=== PATIENT | male | born 1955 | race Caucasian/White ===

== ENCOUNTER → 2018-05-06 09:31 | Outpatient (CLI) | payer MEDICARE, SELFPAY ==
[2018-05-06 11:09] LABS: Amphetamine Urine VISTA NEGATIVE (<1000 ng/mL); Barbiturate Urine VISTA NEGATIVE (< 200 ng/mL); Benzodiazepine Urine VISTA NEGATIVE (< 200 ng/mL); Cocaine Urine VISTA NEGATIVE (< 300 ng/mL); Ecstacy Urine VISTA NEGATIVE (< 500 ng/mL); Methadone Urine VISTA NEGATIVE (< 300 ng/mL); PCP Urine VISTA NEGATIVE (< 25 ng/mL); THC Urine VISTA NEGATIVE (< 50 ng/mL); Vista UDS pH Range 6
== END ==
PROVIDERS: Family Provider Family Medicine; PCP Family Medicine; Visit Provider Anesthesiology Pain Medicine
DX: F11.20 Opioid dependence, uncomplicated (principal)
CPT/HCPCS: 80307

== ENCOUNTER → 2018-10-22 09:47 | Outpatient (CLI) | payer MEDICARE, SELFPAY ==
[2018-10-22 11:10] LABS: Amphetamine Urine VISTA NEGATIVE (<1000 ng/mL); Barbiturate Urine VISTA NEGATIVE (< 200 ng/mL); Benzodiazepine Urine VISTA NEGATIVE (< 200 ng/mL); Cocaine Urine VISTA NEGATIVE (< 300 ng/mL); Ecstacy Urine VISTA NEGATIVE (< 500 ng/mL); Methadone Urine VISTA NEGATIVE (< 300 ng/mL); PCP Urine VISTA NEGATIVE (< 25 ng/mL); THC Urine VISTA NEGATIVE (< 50 ng/mL); Vista UDS pH Range 5
== END ==
PROVIDERS: Family Provider Family Medicine; PCP Family Medicine; Referring Provider Anesthesiology Pain Medicine; Visit Provider Anesthesiology Pain Medicine
DX: F11.20 Opioid dependence, uncomplicated (principal)
CPT/HCPCS: 80307

== ENCOUNTER → 2018-12-11 12:26 | Outpatient (CLI) | payer MEDICARE, SELFPAY ==
[2018-12-11 16:04] LABS: Anion Gap 8 (5-15); BUN 15 mg/dL (7-18); BUN/Creat Ratio 15.1 RATIO (10-20); Calcium,Total 8.9 mg/dL (8.5-10.1); Chloride 103 mmol/L (98-107); Cholesterol 304 mg/dL (200); EST Glomerular Filtration Rate 80 mL/min (>60); Est Glom Filt Rate - Afr Amer 97 mL/min (>60); Glucose 97 mg/dL (74-106); High Density Lipoprotein 63 mg/dL; Potassium 4.5 mmol/L (3.5-5.1); Sodium Level 139 mmol/L (136-145); Triglycerides 287 mg/dL; Very Low Density Lipoprotein 57 mg/dL (5-40)
[2018-12-11 16:18] LABS: Hemoglobin A1c 5.9 % (4.2-6.3)
[2018-12-14 08:34] LABS: Uric Acid 8.6 mg/dL (3.5-7.2)
== END ==
PROVIDERS: Family Provider Family Medicine; PCP Family Medicine; Referring Provider Family Medicine; Visit Provider Family Medicine
DX: E78.00 Pure hypercholesterolemia, unspecified (principal); Z12.5 Encounter for screening for malignant neoplasm of prostate; R73.02 Impaired glucose tolerance (oral); M10.9 Gout, unspecified
CPT/HCPCS: 36415; 80048; 80061; 83036; 84153; 84550; G0103

== ENCOUNTER → 2019-04-29 12:31 | Outpatient (CLI) | payer MEDICARE, SELFPAY ==
[2019-04-29 14:03] LABS: Cholesterol 280 mg/dL (200); High Density Lipoprotein 83 mg/dL; Triglycerides 89 mg/dL; Uric Acid 5.1 mg/dL (3.5-7.2); Very Low Density Lipoprotein 18 mg/dL (5-40)
== END ==
PROVIDERS: Family Provider Family Medicine; PCP Family Medicine; Referring Provider Family Medicine; Visit Provider Family Medicine
DX: M10.9 Gout, unspecified (principal); E78.00 Pure hypercholesterolemia, unspecified
CPT/HCPCS: 36415; 80061; 84550

== ENCOUNTER → 2019-04-30 11:32 | Outpatient (CLI) | payer MEDICARE, SELFPAY ==
--- NOTE | 2019-04-30 11:35 | US_ITS ---
STUDY: SUPERFICIAL ULTRASOUND - LEFT ACHILLES REASON FOR EXAM: Male, 64 years old. Multiple ganglion cysts TECHNIQUE: A superficial ultrasound was performed with real-time and static hillman-scale imaging. COMPARISON: None. FINDINGS: Multiple hyperechoic areas seen throughout the left Achilles tendon medially. No definite simple cystic formation. MRI recommended to further evaluate US/Ext Non Vasc Limited/Soft Tiss IMPRESSION: As above Electronically Signed: Deniz Khan DO at 14:35 EDT Tel , Service support ,
== END ==
PROVIDERS: Family Provider Family Medicine; PCP Family Medicine; Referring Provider Family Medicine; Visit Provider Family Medicine
DX: M67.472 Ganglion, left ankle and foot (principal)
CPT/HCPCS: 76882

== ENCOUNTER → 2019-05-05 08:16 | Outpatient (CLI) | payer MEDICARE, SELFPAY ==
[2019-05-05 08:09] VITALS: BMI 21.5
--- NOTE | 2019-05-05 08:15 | RAD_ITS ---
STUDY: X-RAY - LEFT ANKLE REASON FOR EXAM: Male, 64 years old. Posterior ankle pain x a few days. TECHNIQUE: 3 view(s) of the ankle. COMPARISON: None. FINDINGS: There are transverse linear sclerotic densities consistent with growth arrest lines in the distal diaphyses of the visualized tibia and fibula. Normal medial and lateral malleoli. Normal tibiotalar articulation and ankle mortise. Normal visualized talus and there is a small plantar spur of the calcaneus. The visualized subtalar, talonavicular, calcaneocuboid and tarsal articulations are normal. There is no demonstrated osseous destructive lesion or acute fracture. Calcifications anterior to the distal tibia and ankle suggests plaquing in the anterior tibial artery and dorsalis pedis. There is a cluster of elongated calcifications in the dorsal soft tissues of the distal lower leg that may be in the Achilles tendon. RAD/Ankle min 3 Views IMPRESSION: 1. No acute osseous abnormality of the left ankle. 2. Atherosclerotic calcification of the distal anterior tibial artery and dorsalis pedis. 3. Degenerative calcifications in the Achilles tendon. 4. Small plantar calcaneal spur. Electronically Signed: Timothy Mccabe MD at 16:55 EDT , Service support ,
== END ==
PROVIDERS: Family Provider Family Medicine; PCP Family Medicine; Referring Provider Orthopaedic Surgery; Visit Provider Orthopaedic Surgery
DX: M25.572 Pain in left ankle and joints of left foot (principal)
CPT/HCPCS: 73610

== ENCOUNTER → 2019-06-17 10:27 | Outpatient (CLI) | payer MEDICARE, SELFPAY ==
[2019-05-05 08:09] VITALS: BMI 21.5
[2019-06-17 12:33] LABS: Anion Gap 8 (5-15); BUN 13 mg/dL (7-18); BUN/Creat Ratio 15.3 RATIO (10-20); Calcium,Total 9.1 mg/dL (8.5-10.1); Chloride 106 mmol/L (98-107); Creatinine, Serum 0.85 mg/dL (0.70-1.30); EST Glomerular Filtration Rate 96 mL/min (>60); Est Glom Filt Rate - Afr Amer 116 mL/min (>60); Glucose 107 mg/dL (74-106); Potassium 4.3 mmol/L (3.5-5.1); Sodium Level 143 mmol/L (136-145)
== END ==
PROVIDERS: Family Provider Family Medicine; PCP Family Medicine; Referring Provider Family Medicine; Visit Provider Family Medicine
DX: I10 Essential (primary) hypertension (principal)
CPT/HCPCS: 36415; 80048

== ENCOUNTER → 2019-08-11 10:26 | Outpatient (CLI) | payer MEDICARE, SELFPAY ==
[2019-05-05 08:09] VITALS: BMI 21.5
--- NOTE | 2019-08-11 10:29 | RAD_ITS ---
STUDY: X-RAY - LEFT SHOULDER REASON FOR EXAM: Male, 64 years old. Chronic pain TECHNIQUE: 4 view(s) of the shoulder. COMPARISON: None. FINDINGS: Normal glenohumeral articulation. Normal acromioclavicular joint. Normal acromion. Normal humeral head and visualized proximal humerus. The soft tissue structures are unremarkable. Normal visualized pulmonary apex. RAD/Shoulder min 2 Views IMPRESSION: Normal x-ray examination of the shoulder. Electronically Signed: Durga Theodore MD at 20:28 EST , Service support ,
--- NOTE | 2019-08-11 10:29 | RAD_ITS ---
STUDY: X-RAY - RIGHT KNEE REASON FOR EXAM: Male, 64 years old. Chronic pain TECHNIQUE: 4 view(s) of the knee. COMPARISON: None. FINDINGS: Normal visualized distal femur. Normal visualized proximal tibia and fibula. Normal proximal tibiofibular articulation. There is mild degenerative arthrosis of the medial femorotibial compartment. There is mild degenerative arthrosis of the lateral femorotibial compartment. There is mild degenerative arthrosis of the patellofemoral articulation. The soft tissue structures are unremarkable. RAD/Knee 4 or More Views IMPRESSION: Mild tricompartmental degenerative changes of the right knee. Electronically Signed: Durga Theodore MD at 20:30 EST , Service support ,
== END ==
PROVIDERS: Family Provider Family Medicine; PCP Family Medicine; Referring Provider Family Medicine; Visit Provider Family Medicine
DX: M25.561 Pain in right knee (principal); M25.512 Pain in left shoulder
CPT/HCPCS: 73030; 73564

== ENCOUNTER → 2019-08-17 15:47 | Outpatient (CLI) | payer MEDICARE, SELFPAY ==
[2019-05-05 08:09] VITALS: BMI 21.5
[2019-08-17 18:31] LABS: Amphetamine Urine VISTA NEGATIVE (<1000 ng/mL); Barbiturate Urine VISTA NEGATIVE (< 200 ng/mL); Benzodiazepine Urine VISTA NEGATIVE (< 200 ng/mL); Cocaine Urine VISTA NEGATIVE (< 300 ng/mL); Ecstacy Urine VISTA NEGATIVE (< 500 ng/mL); Methadone Urine VISTA NEGATIVE (< 300 ng/mL); PCP Urine VISTA NEGATIVE (< 25 ng/mL); THC Urine VISTA NEGATIVE (< 50 ng/mL); Vista UDS pH Range 6
== END ==
PROVIDERS: Family Provider Family Medicine; PCP Family Medicine; Referring Provider Anesthesiology Pain Medicine; Visit Provider Anesthesiology Pain Medicine
DX: F11.20 Opioid dependence, uncomplicated (principal)
CPT/HCPCS: 80307

== ENCOUNTER → 2019-10-05 08:55 | Outpatient (CLI) | payer MEDICARE, SELFPAY ==
[2019-05-05 08:09] VITALS: BMI 21.5
[2019-10-05 10:27] LABS: ALB/GLOB Ratio 1.2 RATIO (0.9-2.4); AST(SGOT) 29 U/L (15-37); Alanine Aminotransfer ALT/SGPT 67 U/L (16-61); Alkaline Phosphatase 116 U/L (45-117); Anion Gap 6 (5-15); BUN 11 mg/dL (7-18); BUN/Creat Ratio 10.1 RATIO (10-20); Calcium,Total 9.2 mg/dL (8.5-10.1); Chloride 106 mmol/L (98-107); Cholesterol 229 mg/dL (200); Creatinine, Serum 1.09 mg/dL (0.70-1.30); EST Glomerular Filtration Rate 72 mL/min (>60); Est Glom Filt Rate - Afr Amer 87 mL/min (>60); Globulin 3.3 g/dL (2.2-4.2); Glucose 105 mg/dL (74-106); High Density Lipoprotein 76 mg/dL; PSA,Total- Diagnostic 0.47 ng/mL (0.0-4.0); Potassium 4.7 mmol/L (3.5-5.1); Protein, Total 7.3 g/dL (6.4-8.2); Sodium Level 139 mmol/L (136-145); Triglycerides 147 mg/dL; Very Low Density Lipoprotein 29 mg/dL (5-40)
== END ==
PROVIDERS: PCP Family Medicine; Referring Provider Family Medicine; Visit Provider Family Medicine
DX: I10 Essential (primary) hypertension (principal); R39.11 Hesitancy of micturition
CPT/HCPCS: 36415; 80053; 80061; 84153

== ENCOUNTER → 2020-03-07 13:41 | Outpatient (CLI) | payer MEDICARE, SELFPAY ==
[2019-05-05 08:09] VITALS: BMI 21.5
[2020-03-07 15:49] LABS: Amphetamine Urine VISTA NEGATIVE (<1000 ng/mL); Barbiturate Urine VISTA NEGATIVE (< 200 ng/mL); Benzodiazepine Urine VISTA NEGATIVE (< 200 ng/mL); Cocaine Urine VISTA NEGATIVE (< 300 ng/mL); Ecstacy Urine VISTA NEGATIVE (< 500 ng/mL); Methadone Urine VISTA NEGATIVE (< 300 ng/mL); PCP Urine VISTA NEGATIVE (< 25 ng/mL); THC Urine VISTA NEGATIVE (< 50 ng/mL); Vista UDS pH Range 6
== END ==
PROVIDERS: PCP Family Medicine; Referring Provider Anesthesiology Pain Medicine; Visit Provider Anesthesiology Pain Medicine
DX: F11.20 Opioid dependence, uncomplicated (principal)
CPT/HCPCS: 80307

== ENCOUNTER → 2020-08-01 15:42 | Outpatient (CLI) | payer MEDICARE, SELFPAY ==
[2019-05-05 08:09] VITALS: BMI 21.5
--- NOTE | 2020-08-01 15:52 | RAD_ITS ---
HISTORY: CHRONIC LBP, NKI ADDITIONAL HISTORY: None provided. EXAMINATION/TECHNIQUE: XR Spine Lumbar 2 or 3 Views Number of images including paperwork: 3 COMPARISON: None FINDINGS: VERTEBRAE: No acute fracture. VERTEBRAL ALIGNMENT: No traumatic subluxation. DISKS AND JOINTS: Severe discogenic degenerative changes at L5-S1 with disc space narrowing and endplate sclerosis. Mild to moderate discogenic degenerative changes elsewhere in the lumbar spine. Facet arthropathy. SOFT TISSUES: Unremarkable paraspinous soft tissues. RAD/Lumbar Spine 2 or 3 Views IMPRESSION: Lumbar spondylosis. at 0547 Reported and signed by: Kimberley Rebolledo MD Electronically Signed: Kimberley Rebolledo MD at 5:46 EST Tel , Service support ,
== END ==
PROVIDERS: PCP Family Medicine; Referring Provider Anesthesiology Pain Medicine; Visit Provider Anesthesiology Pain Medicine
DX: M54.9 Dorsalgia, unspecified (principal)
CPT/HCPCS: 72100

== ENCOUNTER → 2020-09-21 13:55 | Outpatient (CLI) | payer MEDICARE, SELFPAY ==
[2019-05-05 08:09] VITALS: BMI 21.5
== END ==
PROVIDERS: PCP Family Medicine; Visit Provider Family Medicine
DX: J20.9 Acute bronchitis, unspecified (principal)
CPT/HCPCS: 87635; U0005; U0003

== ENCOUNTER → 2020-09-22 09:44 | Outpatient (CLI) | payer MEDICARE, SELFPAY ==
[2019-05-05 08:09] VITALS: BMI 21.5
--- NOTE | 2020-09-22 09:47 | RAD_ITS ---
STUDY: X-RAY CHEST REASON FOR EXAM: Male, 65 years old. acute bronchitis TECHNIQUE: 2 views COMPARISON: Prior chest radiograph of 12/08/2015 FINDINGS: The lungs are clear and expanded. There is no demonstrated pleural abnormality. Normal size heart. Normal mediastinum and tova. Normal visualized pulmonary arteries. Normal visualized aortic arch and descending thoracic aorta. Normal visualized thoracic spine. Normal visualized ribs, clavicles, and shoulders. There is no demonstrated abnormality of the visualized soft tissue structures of the upper abdomen. RAD/Chest PA and Lateral IMPRESSION: Normal x-ray examination of the chest. Electronically Signed: Concetta Giron MD at 16:52 EST , Service support ,
== END ==
PROVIDERS: PCP Family Medicine; Referring Provider Family Medicine; Visit Provider Family Medicine
DX: J20.9 Acute bronchitis, unspecified (principal)
CPT/HCPCS: 71046

== ENCOUNTER → 2020-10-04 18:13 | Outpatient (CLI) | payer MEDICARE, SELFPAY ==
[2019-05-05 08:09] VITALS: BMI 21.5
== END ==
PROVIDERS: PCP Family Medicine; Referring Provider Family Medicine; Visit Provider Family Medicine
DX: J20.9 Acute bronchitis, unspecified (principal)
CPT/HCPCS: 87635; U0005; U0003

== ENCOUNTER → 2020-10-11 11:42 | Outpatient (CLI) | payer MEDICARE, SELFPAY ==
[2019-05-05 08:09] VITALS: BMI 21.5
[2020-10-11 15:29] LABS: Absolute Lymphocyte Count 1.09 X10^3/uL (0.83-4.51); Absolute Neutrophil Count 3.9 X10^3/uL (2.0-7.7); Basophil# 0.05 X10^3/uL; Basophil% 0.9 % (0-1); Eosinophil# 0.08 X10^3/uL; Eosinophils% 1.4 % (0-5); Hematocrit 38.4 % (40-54); Hemoglobin 11.7 g/dL (13.0-16.5); Lymphocyte # 1.09 X10^3/ul (4.0); Lymphocyte % 19.4 % (19-41); Mean Corp Hgb Conc 30.5 g/dL (32-36); Mean Corpuscular Hgb 21.5 pg (27.0-32.0); Mean Corpuscular Volume 70.5 fL (80-94); Mean Platelet Vol. 11.3 fl (6.2-12.0); Monocyte# 0.52 X10^3/uL; Monocyte% 9.3 % (0-10); NRBC Flagged by Analyzer 0 % (0-5); Neutrophil # 3.85 X10^3/uL (2.7-7.7); Neutrophil % 68.6 % (47-70); Platelet Count 255 K/mm3 (150-450); RBC Distribution Width CV 17.2 % (11.6-14.6); RBC Distribution Width SD 42.5 fl (35.1-43.9); Red Blood Count 5.45 M/mm3 (4.6-6.2); White Blood Count 5.6 K/mm3 (4.4-11.0)
[2020-10-11 15:52] LABS: ALB/GLOB Ratio 1.4 RATIO (0.9-2.4); AST(SGOT) 29 U/L (15-37); Alanine Aminotransfer ALT/SGPT 48 U/L (16-61); Albumin, Serum 4.2 g/dL (3.2-5.0); Alkaline Phosphatase 101 U/L (45-117); Anion Gap 7 (5-15); BUN 10 mg/dL (7-18); BUN/Creat Ratio 12.8 RATIO (10-20); Calcium,Total 9.5 mg/dL (8.5-10.1); Chloride 104 mmol/L (98-107); Creatinine, Serum 0.78 mg/dL (0.70-1.30); EST Glomerular Filtration Rate 106 mL/min (>60); Est Glom Filt Rate - Afr Amer 128 mL/min (>60); Glucose 103 mg/dL (74-106); Potassium 3.9 mmol/L (3.5-5.1); Protein, Total 7.2 g/dL (6.4-8.2); Sodium Level 139 mmol/L (136-145)
[2020-10-12 09:29] LABS: Ferritin 255 ng/mL (26-388); Iron 87 ug/dL (65-175); Iron Binding Capacity,Total 316 ug/dL (250-450); PERCENT IRON SATURATION 27.5 % (15.0-55.0)
== END ==
PROVIDERS: Family Medicine; PCP Family Medicine; Referring Provider Family Medicine; Visit Provider Family Medicine
DX: D50.9 Iron deficiency anemia, unspecified (principal); I10 Essential (primary) hypertension
CPT/HCPCS: 36415; 80053; 82728; 83540; 83550; 84443; 85025

== ENCOUNTER 2020-10-21 00:19 | Emergency (ER) | payer MEDICARE, SELFPAY ==
[2019-05-05 08:09] VITALS: BMI 21.5
[2020-10-21 00:20] VITALS: BP 156/78; PULSE 57; RESP 16; TEMP 36.7; O2SAT 100; BMI 24.0
[2020-10-21 00:23] VITALS: BP 156/78; PULSE 60; RESP 16; TEMP 36.6; O2SAT 99
--- NOTE | 2020-10-21 00:27 | CT_ITS ---
STUDY: CTA HEAD AND NECK WITH CONTRAST REASON FOR EXAM: Male, 65 years old. GALDAMEZ BEHIND RIGHT EYE, NAUSEA, PHOTOPHOBIA RADIATION DOSAGE (If Supplied By Facility): CTDIvol = ( 27.55 ) mGy, DLP = ( 1518.93 ) mGycm TECHNIQUE: CT angiography was performed with a multi-detector CT scanner. Data acquisition was obtained from the skull base through the vertex following intravenous administration of IV-100 ML ISOVUE 370. MIP images were reconstructed from the axial data set. Post-processing of the angiographic images was performed, with multiplanar reformation and 3D reconstruction. Individualized dose optimization techniques were used for this CT. COMPARISON: No relevant priors. FINDINGS: Normal bilateral petrous carotid arteries. Normal right cavernous carotid artery with a normal supraclinoid bifurcation. Normal left cavernous carotid artery with a normal supraclinoid bifurcation. Normal right A1 segments of the anterior cerebral artery. Normal left A1 segments of the anterior cerebral artery. Normal intact anterior communicating artery (ACOM). Normal bilateral A2 segments of the anterior cerebral arteries. Normal right M1 and M2 segments of the middle cerebral arteries, with a normal M1 bifurcation. Normal left M1 and M2 segments of the middle cerebral arteries, with a normal M1 bifurcation. Normal right posterior communicating artery (PCOM). Normal left posterior communicating artery (PCOM). Normal bilateral vertebral arteries. Normal basilar artery with a normal basilar bifurcation. The visualized bilateral superior cerebellar (SCA) arteries are normal. Hypoplastic right P1 segment and normal bilateral P2 and visualized P3 segments of the posterior cerebral arteries. There is no demonstrated aneurysm of the jena of Amin. There is no demonstrated abnormality of the visualized brain. AORTIC ARCH: Normal visualized aortic arch. Normal origins of the brachiocephalic, left common carotid, and left subclavian arteries. RIGHT CAROTID ARTERIES: Normal right common carotid artery (CCA). There is moderate atherosclerotic plaque formation with moderate narrowing of the right carotid bulb. There is moderate atherosclerotic plaque formation of the origin of the right internal carotid artery with an estimated stenosis of 50-69% stenosis. Normal visualized cervical portion of the right internal carotid artery. Normal origin of the right external carotid artery (ECA). LEFT CAROTID ARTERIES: Normal left common carotid artery (CCA). There is moderate atherosclerotic plaque formation with moderate narrowing of the carotid bulb. Normal origin of the left internal carotid (ICA) artery without a hemodynamically significant stenosis. Normal visualized cervical portion of the left internal carotid artery. Normal origin of the left external carotid artery (ECA). VERTEBRAL ARTERIES: Normal bilateral vertebral arteries. CT/CTA Head AND Neck W/ Contrast IMPRESSION: Moderate atherosclerotic changes at the carotid bulbs with 50-69% % stenosis at the origin of the right ICA. There is no intrahepatic aneurysm. There is no intracranial hemorrhage. Electronically Signed: Abbie Abbott MD at 1:22 EST Tel , Service support ,
--- NOTE | 2020-10-21 00:29 | ED.DCSUM_ITS ---
History of Present Illness Chief Complaint: Headache Informant: Patient Narrative: 65-year-old male presenting with headache. He states it feels like it is behind his right eye and on the right side of his head. Patient states he woke up with his headache yesterday. He says it has come and gone but has been persistent for the last couple of hours. He denies dizziness or lightheadedness. He is able to ambulate without difficulty. He has no numbness or tingling in his extremities. He states he has had headaches in the past but does not have migraine history. He states he has not had a headache this bad before. He denies chest pain, palpitations, shortness of breath. He denies fever or chills. Past Medical History - Allergies and Home Meds Allergies/Adverse Reactions: Allergies Sulfa (Sulfonamide Antibiotics) Allergy (Verified 10/21/20 00:19) Unknown Primary Care Physician: Jordan Jung MD [Primary Care Provider] - Past Medical History: - - Gout, hyperlipidemia, hypertension Surgical History: noncontributory Lives: Spouse/ Significant Other Smoking Status: Never smoker Drugs: None Review of Systems General: Denies: Chills, Fever, Sweats Eyes: Denies: Visual changes - bilaterally, Diplopia ENT: Denies: Rhinorrhea, Sore throat Cardiovascular: Denies: Chest pain, Palpitations Respiratory: Denies: Dyspnea, Cough, Dyspnea on exertion Gastrointestinal: Denies: Abdominal pain, Nausea, Vomiting, Diarrhea, Melena, Hematochezia Genitourinary: Denies: Dysuria, Hematuria, Frequency Musculoskeletal: Reports: Neck pain - Right-sided anterior neck pain. Denies: Back pain, Extremity Pain Skin: Denies: Rash, Wounds Neurological: Reports: Headache. Denies: Parasthesia, Numbness Psych: Denies: Depression, Anxiety Physical Exam Vital Signs/Narrative: Vital Signs Temp Pulse Resp BP Pulse Ox 10/21/20 00:23 98 F 60 16 156/78 H 99 10/21/20 00:20 98.0 F 57 L 16 156/78 H 100 Inital Vital Signs reviewed: Yes General: Well nourished, No Acute Distress Head: Normocephalic, Atraumatic Eyes: Perrl, EOMI ENT: Moist mucous membranes, No rhinorrhea Neck: - - Mild tenderness to the right anterior portion of the neck without swelling. No palpable lymphadenopathy. No stridor. No bruit. Cardiovascular: Regular rate, Regular rhythm Respiratory: No distress, CTA bilaterally Extremities: Nontender, No edema Skin: Normal color, No rash Neurological: Alert, Oriented x3, Cranial nerves II-XII grossly intact Psychological: Normal affect, Normal Mood Diagnostic/Tx/Re-eval Clinical Impression(s) from Imaging Studies Head/Neck CTA 10/21/20 00:27 IMPRESSION: Moderate atherosclerotic changes at the carotid bulbs with 50-69% % stenosis at the origin of the right ICA. There is no intrahepatic aneurysm. There is no intracranial hemorrhage. Electronically Signed: Abbie Abbott MD at 1:22 EST Tel , Service support , Laboratory Data 10/21/20 10/21/20 00:39 00:39 WBC 10.3 RBC 5.69 Hgb 12.4 L Hct 39.4 L MCV 69.2 L MCH 21.8 L MCHC 31.5 L RDW Std Deviation 39.6 RDW Coeff of Mga 16.4 H Plt Count 262 MPV 10.0 Immature Gran % (Auto) 1.500 H Neut % (Auto) 73.4 H Lymph % (Auto) 12.7 L Reynolds % (Auto) 8.2 Eos % (Auto) 3.6 Baso % (Auto) 0.6 Absolute Neuts (auto) 7.6 Absolute Lymphs (auto) 1.31 Nucleated RBC % 0 Sodium 138 Potassium 4.0 Chloride 103 Carbon Dioxide 31.0 Anion Gap 4 L BUN 11 Creatinine 0.91 Estim Creat Clear Calc 81.33 Est GFR (MDRD) Af Amer 106 Est GFR (MDRD) Non-Af 88 BUN/Creatinine Ratio 12.0 Glucose 121 H Calcium 9.2 Total Bilirubin 0.40 AST 33 ALT 102 H Alkaline Phosphatase 137 H Total Protein 7.0 Albumin 3.8 Globulin 3.2 Albumin/Globulin Ratio 1.2 - Medical Decision Making 65-year-old male presenting with headache which she states is behind his right eye. He also states that relates to some pain in the right side of his neck. Patient was given Reglan and Benadryl and taken to CT I have concern for possible dissection. CTA was negative for aneurysm or dissection. There is no intracranial bleeding. Patient had CBC and BMP which were unremarkable. Patient's headache was improved somewhat and he was given Toradol after his CTA. After his Toradol was given he felt improved and wished to be discharged home. Patient's blood pressure is slightly elevated but I do not believe he needs to have it treated acutely. He is not sure if his blood pressure was more elevated at home and that was what his primary care physician sent him in for. He will take his already prescribed medication and follow-up with his PCP. Impression: 1. Headache 2. Neck pain ED Disposition - Plan for ED Patient: Disposition: Home or Assisted Living Instructions: ED Headache Unspecified Referrals: Jordan Jung MD [Primary Care Provider] -
[2020-10-21 00:33] VITALS: BP 153/71; PULSE 61; RESP 18; O2SAT 99
[2020-10-21] MEDS: Metoclopramide 10 MG/2 ML Vial IV (00:41)
[2020-10-21] MEDS: DiphenhydrAMINE 50 MG/ML Syringe 25 MG IV (00:42)
[2020-10-21 00:45] LABS: Absolute Lymphocyte Count 1.31 X10^3/uL (0.83-4.51); Absolute Neutrophil Count 7.6 X10^3/uL (2.0-7.7); Basophil# 0.06 X10^3/uL; Basophil% 0.6 % (0-1); Eosinophil# 0.37 X10^3/uL; Eosinophils% 3.6 % (0-5); Hematocrit 39.4 % (40-54); Hemoglobin 12.4 g/dL (13.0-16.5); Lymphocyte # 1.31 X10^3/ul (4.0); Lymphocyte % 12.7 % (19-41); Mean Corp Hgb Conc 31.5 g/dL (32-36); Mean Corpuscular Hgb 21.8 pg (27.0-32.0); Mean Corpuscular Volume 69.2 fL (80-94); Monocyte# 0.85 X10^3/uL; Monocyte% 8.2 % (0-10); NRBC Flagged by Analyzer 0 % (0-5); Neutrophil # 7.58 X10^3/uL (2.7-7.7); Neutrophil % 73.4 % (47-70); Platelet Count 262 K/mm3 (150-450); RBC Distribution Width CV 16.4 % (11.6-14.6); RBC Distribution Width SD 39.6 fl (35.1-43.9); Red Blood Count 5.69 M/mm3 (4.6-6.2); White Blood Count 10.3 K/mm3 (4.4-11.0)
[2020-10-21 01:03] LABS: ALB/GLOB Ratio 1.2 RATIO (0.9-2.4); AST(SGOT) 33 U/L (15-37); Alanine Aminotransfer ALT/SGPT 102 U/L (16-61); Albumin, Serum 3.8 g/dL (3.2-5.0); Alkaline Phosphatase 137 U/L (45-117); Anion Gap 4 (5-15); BUN 11 mg/dL (7-18); Calcium,Total 9.2 mg/dL (8.5-10.1); Chloride 103 mmol/L (98-107); Creatinine, Serum 0.91 mg/dL (0.70-1.30); EST Glomerular Filtration Rate 88 mL/min (>60); Est Glom Filt Rate - Afr Amer 106 mL/min (>60); Estimated Creatinine Clearance 81.33 ml/min; Globulin 3.2 g/dL (2.2-4.2); Glucose 121 mg/dL (74-106); Sodium Level 138 mmol/L (136-145)
[2020-10-21] MEDS: Ketorolac 15 MG/ML Vial IV (02:05)
== END 2020-10-21 02:07 | disposition home or self-care (01) ==
PROVIDERS: Emergency Provider Student in an Organized Health Care Education/Training Program; PCP Family Medicine
DX: R51.9 Headache, unspecified (principal); M54.2 Cervicalgia; E78.5 Hyperlipidemia, unspecified; I10 Essential (primary) hypertension; Z88.2 Allergy status to sulfonamides; M10.9 Gout, unspecified
CPT/HCPCS: 70496; 70498; 80053; 85025; 96374; 96375; 99282; Q9967; A4216

== ENCOUNTER → 2021-01-23 10:00 | Outpatient (CLI) | payer MEDICARE, SELFPAY ==
[2021-01-23 12:29] LABS: Absolute Lymphocyte Count 1.07 X10^3/uL (0.83-4.51); Absolute Neutrophil Count 2.9 X10^3/uL (2.0-7.7); Basophil# 0.06 X10^3/uL; Basophil% 1.3 % (0-1); Eosinophil# 0.25 X10^3/uL; Eosinophils% 5.4 % (0-5); Hematocrit 33.3 % (40-54); Hemoglobin 10.5 g/dL (13.0-16.5); Lymphocyte # 1.07 X10^3/ul (0.83-4.51); Mean Corp Hgb Conc 31.5 g/dL (32-36); Mean Corpuscular Hgb 21.8 pg (27.0-32.0); Mean Corpuscular Volume 69.2 fL (80-94); Mean Platelet Vol. 10.7 fl (6.2-12.0); Monocyte% 8.6 % (0-10); NRBC Flagged by Analyzer 0 % (0-5); Neutrophil # 2.85 X10^3/uL (2.7-7.7); Neutrophil % 61.3 % (47-70); Platelet Count 211 K/mm3 (150-450); RBC Distribution Width CV 17.2 % (11.6-14.6); RBC Distribution Width SD 42.4 fl (35.1-43.9); Red Blood Count 4.81 M/mm3 (4.6-6.2); White Blood Count 4.7 K/mm3 (4.4-11.0)
[2021-01-23 13:03] LABS: ALB/GLOB Ratio 1.3 RATIO (0.9-2.4); AST(SGOT) 39 U/L (15-37); Alanine Aminotransfer ALT/SGPT 54 U/L (16-61); Albumin, Serum 3.8 g/dL (3.2-5.0); Alkaline Phosphatase 112 U/L (45-117); Anion Gap 5 (5-15); BUN 13 mg/dL (7-18); BUN/Creat Ratio 14.1 RATIO (10-20); Calcium,Total 8.7 mg/dL (8.5-10.1); Chloride 109 mmol/L (98-107); Cholesterol 175 mg/dL (200); Creatinine, Serum 0.92 mg/dL (0.70-1.30); EST Glomerular Filtration Rate 87 mL/min (>60); Est Glom Filt Rate - Afr Amer 105 mL/min (>60); Ferritin 429 ng/mL (26-388); Globulin 2.9 g/dL (2.2-4.2); Glucose 106 mg/dL (74-106); High Density Lipoprotein 70 mg/dL; Iron 134 ug/dL (65-175); Iron Binding Capacity,Total 319 ug/dL (250-450); Potassium 4.4 mmol/L (3.5-5.1); Protein, Total 6.7 g/dL (6.4-8.2); Sodium Level 141 mmol/L (136-145); Thyroid Stim Hormone (TSH) 2.22 uIU/mL (0.358-3.74); Triglycerides 119 mg/dL; Uric Acid 6.6 mg/dL (3.5-7.2); Very Low Density Lipoprotein 24 mg/dL (5-40)
[2021-01-23 13:13] LABS: Hemoglobin A1c 5.8 % (3.8-5.6)
--- NOTE | 2021-01-23 15:35 | RAD_ITS ---
STUDY: X-RAY - LEFT KNEE REASON FOR EXAM: Male, 65 years old. PAIN TECHNIQUE: 4 view(s) of the knee. COMPARISON: None. FINDINGS: Normal visualized distal femur. Normal visualized proximal tibia and fibula. Normal proximal tibiofibular articulation. There is no demonstrated fracture. Normal medial femorotibial compartment. There is moderate to severe narrowing of the lateral femorotibial compartment with severe joint space narrowing. Normal patellofemoral articulation. There is a soft tissue prominence in the suprapatellar region suggesting a small volume joint effusion. Enthesopathy at the quadriceps insertion site noted. There is also mild calcification or ossification of the quadriceps muscles likely due to old trauma. There are atherosclerotic calcifications. RAD/Knee 4 or More Views IMPRESSION: Degenerative arthrosis. Electronically Signed: Fabrizio Zaragoza MD at 16:43 EDT , Service support ,
--- NOTE | 2021-01-23 15:35 | RAD_ITS ---
STUDY: X-RAY - RIGHT KNEE REASON FOR EXAM: Male, 65 years old. PAIN TECHNIQUE: 4 view(s) of the knee. COMPARISON: None. FINDINGS: Normal visualized distal femur. Normal visualized proximal tibia and fibula. Normal proximal tibiofibular articulation. There is no demonstrated fracture. There is mild degenerative arthrosis of the medial femorotibial compartment. Normal lateral femorotibial compartment. There is mild degenerative arthrosis of the patellofemoral articulation. There is no demonstrated joint effusion. Small loose bodies or tibial spine osteophytes are present. There are atherosclerotic calcifications. RAD/Knee 4 or More Views IMPRESSION: Degenerative arthrosis. Electronically Signed: Fabrizio Zaragoza MD at 16:39 EDT , Service support ,
== END ==
PROVIDERS: PCP Family Medicine; Referring Provider Family Medicine; Visit Provider Family Medicine
DX: D56.8 Other thalassemias (principal); M25.561 Pain in right knee; M25.562 Pain in left knee; M10.9 Gout, unspecified; I10 Essential (primary) hypertension; D50.9 Iron deficiency anemia, unspecified; R73.02 Impaired glucose tolerance (oral)
CPT/HCPCS: 36415; 73564; 80053; 80061; 82728; 83036; 83540; 83550; 84443; 84550; 85025

== ENCOUNTER 2021-03-27 07:47 | Day surgery (SDC) | payer MEDICARE, SELFPAY ==
[2021-03-08 09:35] VITALS: BMI 22.6
[2021-03-27] VITALS (7 sets, daily range): BP systolic 98–131; BP diastolic 43–79; PULSE 51–60; RESP 16–18; TEMP 36.2–36.4; O2SAT 99–100; BMI 22.1
--- NOTE | 2021-03-27 | GASB_PTH ---
PATIENT: LA[facility] PICKER[facility] LOC: EN U#:[id number] AGE/SX: 65/M ROOM: RE03/27/[address]: Dr. Lake Harvey MD : 1955 BED: DIS: 03/27/2021 SPEC #: [id number] RECD: 03/27/21 13:03 STATUS: JOHN DORI #: [id number] ARCHIE: 03/27/21 00:[address]: Lake Harvey DEPT: SURGICAL PATHOLOGY RECD BY: Bob Patterson ENTERED: 03/27/21 13:03 SP TYPE: Gastric Bx OTHR DR: MD Jordan Fulton MD Tissues: A - Gastric mucous membrane B - Esophageal mucous membrane C - Esophageal mucous membrane Procedures: Surgery Specimen Level IV HEADER OPERATION: Colonoscopy, EGD ([facility] [place]) PRE-OP DIAGNOSIS: Screening for intestinal cancer, GERD TISSUE SUBMITTED: A ? Antrum for H. pylori and path, B ? Distal esophagus, C ? Mid esophagus MICROSCOPIC DIAGNOSIS A. Antrum, biopsy: Mild gastritis. See microscopic description and comment. B. Distal esophagus, biopsy: Fragments of squamous mucosa with mild chronic inflammation and changes suggestive of gastroesophageal reflux disease. C. Mid esophagus, biopsy: Fragments of squamous epithelium, no pathologic diagnosis. SJ:rg 03/28/2021 COMMENT A. The results of immunohistochemistry for Helicobacter pylori will be reported separately ([id number]). MICROSCOPIC DESCRIPTION Slides are reviewed. A. The specimen shows fragments of gastric mucosa with chronic inflammatory cell infiltrates in the lamina propria consisting of lymphocytes and plasma cells, consistent with mild chronic gastritis. GROSS DESCRIPTION A - Received in fixative is one container labeled with the patient's name and designated antrum. The specimen consists of one irregular fragment of light cantu soft tissue that measures 0.5 x 0.4 x 0.1 cm. The specimen is totally submitted in one cassette. B - Received in fixative is one container labeled with the patient's name and designated distal esophagus. The specimen consists of multiple irregular fragments of light cantu soft tissue that in aggregate measure 1 x 0.3 x 0.1 cm. The specimen is totally submitted in one cassette. C - Received in fixative is one container labeled with the patient's name and designated mid esophagus. The specimen consists of multiple irregular fragments of light cantu soft tissue that in aggregate measure 0.8 x 0.5 x 0.1 cm. The specimen is totally submitted in one cassette. / SJ:rg 03/27/21 TC:3 CPT: 81660 x3
--- NOTE | 2021-03-27 08:23 | HP.PCM_ITS ---
History and Physical Date of Admission: 03/27/21 Intake Visit Reasons: EGD/C-Scope Chief Complaint: egd/c-scope [employer] Required: No Is patient in pain?: No Allergies Sulfa (Sulfonamide Antibiotics) Allergy (Verified 03/08/21 09:35) Unknown Medications allopurinol 300 mg PO DAILY 11/12/13 [History Confirmed 03/08/21] oxycodone-acetaminophen 1 - 2 tab PO Q4H PRN PRN #12 tab 11/12/13 [Rx Confirmed 03/08/21] amlodipine 10 mg PO DAILY 10/21/20 [History Confirmed 03/08/21] atorvastatin 20 mg PO QHS 10/21/20 [History Confirmed 03/08/21] esomeprazole magnesium 20 mg PO DAILY 10/21/20 [History Confirmed 03/08/21] lisinopril 20 mg PO DAILY 10/21/20 [History Confirmed 03/08/21] metoprolol succinate 50 mg PO DAILY 10/21/20 [History Confirmed 03/08/21] lorazepam 1 mg tablet 3 mg PO DIRECTED #3 tab 03/08/21 [Rx Confirmed 03/08/21] PFSH Medical History Asthma Gout High cholesterol HTN (hypertension) Surgical History S/P cataract surgery S/P inguinal hernia repair Status post surgery Social History Smoking Status: Never smoker alcohol intake: current HPI HPI HPI: LAKE PICKERING, is a 65 M who presents to the office today for surgical consultation. The patient is referred by Dr Jordan Jung for screening colonoscopy and consideration of an upper endoscopy. A written copy of my surgical consult and recommendations will return to him. The patient has been on PPIs for an extremely long period of time perhaps 40 to even to 50 years. He is currently on esomeprazole 20 mg daily. He states that he is very dependent upon the medication. He states that even missing 1 day will cause severe heartburn and irritation. He remembers previously having combined upper and lower endoscopy. I have evidence of a report dated November 30, [address] Morris Zaldivar where a normal distal esophagus was seen without evidence of stricture no evidence of Joseph's. It was recommended to the patient that he proceed with esophageal manometry. The patient states that that was absolutely impossible that he gagged and had significant problems with the procedure had to be aborted. He denies bright red blood per rectum or melena. No abdominal pain. No unexpected weight loss. He remains active with multiple outside activities. He is retired. ROS General General: No weight change, appetite, fatigue, colon cancer, breast cancer or weakness HEENT HEENT: Yes eye injury and eye surgery; No difficulty swallowing, swollen glands or hoarseness Endo Endocrine: No thyroid disease, diabetes mellitus, thyroid cancer, Hair loss, heat intolerance or cold intolerance Skin Skin: No rash or changing moles Breast Breast: No left breast lump, right breast lump, nipple discharge, breast pain, abnormal mammogram, abnormal US or breast enlargement Musc Musculoskeletal: Yes back problems, arthritis and gout; No rheumatoid arthritis or joint pain Cardio Cardiovascular: Yes high blood pressure; No murmur, pacemaker, heart disease, atrial fibrillation, heart attack, heart stent, palpitations, shortness of breat with exertion or chest pain Psych Psychiatric: Yes anxiety; No depression or hearing voices Resp Respiratory: No shortness of breath, No sleep apnea, No cough, No COPD, No as thma, No emphysema and No wheezing Gastro Gastrointestinal: No abdominal pain, No nausea or vomiting, No diarrhea, No constipation, No blood in stool, Yes acid reflux, No hemorrhoids, No ulcers, No gallbladder problem and No black,tarry stools Olivier Hematologic: No blood thinners, No blood disorders, No bleeding, Yes anemia and No blood clots Neuro Neurologic: No system reviewed and no additional complaints, except as documented, No as per HPI, No abnormal gait, No abnormal hearing, No abnormal movements, No abnormal speech, No behavioral changes, No burning sensations, No confusion, No convulsions, No disequilibrium, No dizziness, No localized weakness, No frequent falls, No headache(s), No lack of coordination, No loss of vision, No memory loss, No numbness, No other visual disturbances, No radicular pain, No restless legs, No sensory deficit, No syncope, No tingling, No tremor(s), No weakness and No other Exam Const General: cooperative, healthy appearing, comfortable and no acute distress Nutritional Appearance: average body habitus Orientation: alert and awake [facility] Head: normal to inspection Eyes General: appearance normal, both eyes and all related structures Resp Effort & Inspection: normal respiratory effort Auscultation: clear to auscultation bilaterally Cardio Rate: regular rate Rhythm: regular rhythm GI Inspection: normal to inspection Palpation: soft and no hepatosplenomegaly Auscultation: normal bowel sounds Musc Cervical Spine: normal cervical lordosis Skin General: no rashes or lesions noted Neuro General: patient alert Extrem General: no calf tenderness bilaterally Psych Affect: normal affect COVID (Procedure Consent) Procedure Criteria Procedure Criteria: Yes Elective The surgeon/proceduralist and patient have discussed in detail the risk of exposure to and/or potential harm posed by the COVID-19 virus with having a surgery/procedure at this time versus the risk of delaying the surgery/procedure. It is not possible to know either the risk of delaying the surgery or procedure or chance of getting an infection with perfect accuracy, but a joint decision was made between the patient and the surgeon/proceduralist to proceed at this time with the scheduled surgery/procedure as indicated on the consent form. Assessment and Plan Assessment and Plan (1) Screening for intestinal cancer: Status: Acute (2) GERD (gastroesophageal reflux disease): Status: Acute Qualifiers: Esophagitis presence: esophagitis presence not specified Qualified Code(s): K21.9 - Gastro-esophageal reflux disease without esophagitis Plan - Dr. Lake Harvey MD: I recommend to the patient combined esophagogastroduodenoscopy with possible biopsy or polypectomy and colonoscopy with possible biopsy or polypectomy as indicated. He seems to have very significant reflux symptoms. I would anticipate very careful inspection with biopsies as indicated. The patient does not sound like he would tolerate a Amaya pH probe and he readily admits he cannot be off his medication. It also appears that he failed a previous attempt at manometry. I suggested to him that we retry the manometry with Ativan 3 mg prescribed preintervention. I am very much interested in seeing if I can assist him with a surgical reflux procedure if indicated. He has had an opportunity ask and have questions answered and he is very much appreciative of this. Would very much agree and try to assist with getting this patient off of proton pump inhibitor. I am recommending to him a screening colonoscopy with possible biopsy or polypectomy as indicated. He is aware of the technique, benefit, risk, alternatives. We will combine these 2 procedures. I appreciate the opportunity of assisting with her surgical care. Copy: Dr Jordan Harvey M.D., F.A.C.S. Plan Details Other Medications: New: lorazepam (Ativan) 2 hours prior to procedure 3 mg (3 x 1 mg) PO DIRECTED 3 tabs 0RF Coding Level of Care Code 98268 Diagnoses Screening for intestinal cancer Z12.10 GERD (gastroesophageal reflux disease) K21.9 Esophagitis presence: esophagitis presence not specified I have re-examined the patient. There are no clinical changes since date of exam.
[2021-03-27] MEDS: Lactated Ringers 1,000 ML 100 ML IV (08:25)
--- NOTE | 2021-03-27 09:00 | IMM_PTH ---
PATIENT: LAKE PICKERING LOC: EN U#:[id number] AGE/SX: 65/M ROOM: RE03/27/[address]: Dr. Lake Harvey MD : 1955 BED: DIS: 03/27/2021 SPEC #: [id number] RECD: 03/27/21 13:13 STATUS: JOHN DORI #: [id number] ARCHIE: 03/27/21 09:[address]: Lake Harvey DEPT: IMMUNOHISTOCHEMISTRY RECD BY: Chely Salazar ENTERED: 03/27/21 13:14 SP TYPE: IMMUNO OTHR DR: MD Jordan Fulton MD Tissues: A - Stomach, NOS Procedures: H Pylori (initial) PHYSICIAN & INSTITUTION [place] [id number] SPECIMEN INFORMATION: Tissue Source: A ? Antrum biopsy Clinical Info: Screening for intestinal cancer, GERD Specimen Number: [id number] CPT code: 90104 METHODOLOGY: Deparaffinized sections of prefer/formalin-fixed tissue or PAP/DQ stained slides are incubated with monoclonal/polyclonal antibodies/oligonucleotide probes. Localization is made via biotin free immunoperoxidase method. Appropriate controls are performed and reacted as expected. Results on target cell population are indicated in the following table: RESULTS: ANTIBODY / CLONE RESULT Block A H Pylori (polyclonal) negative These tests were developed and their performance characteristics determined by [facility]. They may not have been cleared or approved by the U.S. Food and Drug Administration. The FDA has determined that such clearance or approval is not necessary. INTERPRETATION: A. Antrum biopsy: Negative for Helicobacter pylori organisms. KADE:jaylen 03/28/2021
--- NOTE | 2021-03-27 09:53 | OP.EGD_ITS ---
Patient Name: Guicho Jackson Procedure Date: 03/27/2021 9:08 AM Date of : 1955 Age: 65 Procedure: Upper GI endoscopy Indications: Suspected gastro-esophageal reflux disease Providers: Guicho Harvey MD Referring MD: Jordan Jung Medicines: See the Anesthesia note for documentation of the administered medications Complications: No immediate complications. Procedure: Pre-Anesthesia Assessment: - Prior to the procedure, a History and Physical was performed, and patient medications and allergies were reviewed. The patient's tolerance of previous anesthesia was also reviewed. The risks and benefits of the procedure and the sedation options and risks were discussed with the patient. All questions were answered, and informed consent was obtained. Prior Anticoagulants: The patient has taken no previous anticoagulant or antiplatelet agents. ASA Grade Assessment: II - A patient with mild systemic disease. After reviewing the risks and benefits, the patient was deemed in satisfactory condition to undergo the procedure. After obtaining informed consent, the endoscope was passed under direct vision. Throughout the procedure, the patient's blood pressure, pulse, and oxygen saturations were monitored continuously. The Endoscope was introduced through the mouth, and advanced to the second part of duodenum. The upper GI endoscopy was accomplished without difficulty. The patient tolerated the procedure well. Scope In: 9:22:49 AM Scope Out: 9:28:04 AM Total Procedure Duration Time 0 hours 5 minutes 15 seconds Findings: The Z-line was variable and was found 41 cm from the incisors. Biopsies were taken with a cold forceps for histology. Esophagitis with no bleeding was found 41 cm from the incisors. A small hiatal hernia was present. Diffuse mildly erythematous mucosa without bleeding was found in the gastric antrum. Biopsies were taken with a cold forceps for histology. The examined duodenum was normal. The middle third of the esophagus was normal. Biopsies were taken with a cold forceps for histology. Impression: - Z-line variable, 41 cm from the incisors. Biopsied. - Reflux esophagitis. - Small hiatal hernia. - Erythematous mucosa in the antrum. Biopsied. - Normal examined duodenum. Recommendation: - Discharge patient to home. - Resume previous diet. - Continue present medications. - Return to my office in 1 week. Procedure Code(s): --- Professional --- 92514, Esophagogastroduodenoscopy, flexible, transoral; with biopsy, single or multiple Diagnosis Code(s): --- Professional --- K22.8, Other specified diseases of esophagus K21.0, Gastro-esophageal reflux disease with esophagitis K44.9, Diaphragmatic hernia without obstruction or gangrene K31.89, Other diseases of stomach and duodenum CPT copyright 2017 [employer]. All rights reserved. The codes documented in this report are preliminary and upon professor of languages review may be revised to meet current compliance requirements. Guicho Harvey MD 03/27/2021 9:52:47 AM This report has been signed electronically. Number of Addenda: 0 Note Initiated On: 03/27/2021 9:08 AM
--- NOTE | 2021-03-27 09:54 | OP.CCLET_ITS ---
03/27/2021 Jordan Jung Md Re : Upper GI endoscopy procedure for Guicho Jackson Dear Erich This procedure was performed on Saturday, March 27, 2021. My impressions and recommendations are as follows: Impressions : - Z-line variable, 41 cm from the incisors. Biopsied. - Reflux esophagitis. - Small hiatal hernia. - Erythematous mucosa in the antrum. Biopsied. - Normal examined duodenum. Recommendations : - Discharge patient to home. - Resume previous diet. - Continue present medications. - Return to my office in 1 week. My findings are described in the full procedure note, which is enclosed. If I can be of further assistance, please feel free to contact me at Doctor phone number(s): Work: . Sincerely, Guicho Harvey MD 03/27/2021 9:52:47 AM This report has been signed electronically.
--- NOTE | 2021-03-27 09:56 | OP.COLON_ITS ---
Patient Name: Guicho Jackson Procedure Date: 03/27/2021 9:29 AM Date of : 1955 Age: 65 Procedure: Colonoscopy Indications: Screening for colorectal malignant neoplasm Providers: Guicho Harvey MD Referring MD: Jordan Jung Medicines: See the Anesthesia note for documentation of the administered medications Patient Profile: Last Colonoscopy: more than 10 years ago. Complications: No immediate complications. Procedure: Pre-Anesthesia Assessment: - Prior to the procedure, a History and Physical was performed, and patient medications and allergies were reviewed. The patient's tolerance of previous anesthesia was also reviewed. The risks and benefits of the procedure and the sedation options and risks were discussed with the patient. All questions were answered, and informed consent was obtained. Prior Anticoagulants: The patient has taken no previous anticoagulant or antiplatelet agents. ASA Grade Assessment: II - A patient with mild systemic disease. After reviewing the risks and benefits, the patient was deemed in satisfactory condition to undergo the procedure. After I obtained informed consent, the scope was passed under direct vision. Throughout the procedure, the patient's blood pressure, pulse, and oxygen saturations were monitored continuously. The Colonoscope was introduced through the anus and advanced to the cecum, identified by appendiceal orifice and ileocecal valve. The colonoscopy was performed without difficulty. The patient tolerated the procedure well. The quality of the bowel preparation was good. The ileocecal valve and the appendiceal orifice were photographed. Scope In: 9:30:56 AM Scope Withdrawal Time 0 hours 10 minutes 48 seconds Scope Out: 9:47:23 AM Total Procedure Duration Time 0 hours 16 minutes 27 seconds Findings: The digital rectal exam findings include non-thrombosed external hemorrhoids, non-thrombosed internal hemorrhoids, internal hemorrhoids that prolapse with straining, but spontaneously regress to the resting position (Grade II) and enlarged prostate. Scattered diverticula were found in the entire colon. The colon (entire examined portion) was moderately tortuous. Advancing the scope required using manual pressure. Impression: - Non-thrombosed external hemorrhoids, non-thrombosed internal hemorrhoids, internal hemorrhoids that prolapse with straining, but spontaneously regress to the resting position (Grade II) and enlarged prostate found on digital rectal exam. - Diverticulosis in the entire examined colon. - Tortuous colon. - No specimens collected. Recommendation: - Discharge patient to home. - Resume previous diet. - Continue present medications. - Repeat colonoscopy in 10 years for screening purposes. Procedure Code(s): --- Professional --- 57054, Colonoscopy, flexible; diagnostic, including collection of specimen(s) by brushing or washing, when performed (separate procedure) Diagnosis Code(s): --- Professional --- Z12.11, Encounter for screening for malignant neoplasm of colon K64.1, Second degree hemorrhoids K64.4, Residual hemorrhoidal skin tags N40.0, Benign prostatic hyperplasia without lower urinary tract symptoms K57.30, Diverticulosis of large intestine without perforation or abscess without bleeding Q43.8, Other specified congenital malformations of intestine CPT copyright 2017 [employer]. All rights reserved. The codes documented in this report are preliminary and upon transportation maintenance worker review may be revised to meet current compliance requirements. Guicho Harvey MD 03/27/2021 9:56:34 AM This report has been signed electronically. Number of Addenda: 0 Note Initiated On: 03/27/2021 9:29 AM
--- NOTE | 2021-03-27 09:56 | OP.CCLET_ITS ---
03/27/2021 Jordan Jung Md Re : Colonoscopy procedure for Guicho Jackson Johanne Jung This procedure was performed on Saturday, March 27, 2021. My impressions and recommendations are as follows: Impressions : - Non-thrombosed external hemorrhoids, non-thrombosed internal hemorrhoids, internal hemorrhoids that prolapse with straining, but spontaneously regress to the resting position (Grade II) and enlarged prostate found on digital rectal exam. - Diverticulosis in the entire examined colon. - Tortuous colon. - No specimens collected. Recommendations : - Discharge patient to home. - Resume previous diet. - Continue present medications. - Repeat colonoscopy in 10 years for screening purposes. My findings are described in the full procedure note, which is enclosed. If I can be of further assistance, please feel free to contact me at Doctor phone number(s): Work: . Sincerely, Guicho Harvey MD 03/27/2021 9:56:34 AM This report has been signed electronically.
== END 2021-03-27 10:33 ==
LOC: EN 07:47 → AC 07:48
PROVIDERS: PCP Family Medicine; Referring Provider Family Medicine; Visit Provider Surgery
PROC: 0DJD8ZZ Inspection of Lower Intestinal Tract, Via Natural or Artificial Opening Endoscopic (ICD-10-PCS; CPT 45378; principal; 2021-03-27 08:55)
DX: Z12.11 Encounter for screening for malignant neoplasm of colon (principal); K29.70 Gastritis, unspecified, without bleeding; K21.9 Gastro-esophageal reflux disease without esophagitis; K64.1 Second degree hemorrhoids; K64.4 Residual hemorrhoidal skin tags; K57.30 Diverticulosis of large intestine without perforation or abscess without bleeding; K22.8 Other specified diseases of esophagus; K21.00 Gastro-esophageal reflux disease with esophagitis, without bleeding; K44.9 Diaphragmatic hernia without obstruction or gangrene; K31.89 Other diseases of stomach and duodenum; E78.00 Pure hypercholesterolemia, unspecified; I10 Essential (primary) hypertension; M10.9 Gout, unspecified; J45.909 Unspecified asthma, uncomplicated
CPT/HCPCS: 43239; 45378; 88305; 88342; J7120; A4216; J2405

== ENCOUNTER → 2021-03-29 06:52 | Day surgery (SDC) | payer MEDICARE, SELFPAY ==
[2021-03-08 09:35] VITALS: BMI 22.6
[2021-03-27 08:20] VITALS: BMI 22.1
[2021-03-29] MEDS: Lidocaine 2% Jelly 1 APPLIC Tube (07:00)
[2021-03-29 07:38] VITALS: BP 119/70; PULSE 84; RESP 16; TEMP 35.7; O2SAT 100
== END ==
PROVIDERS: Surgery; PCP Family Medicine; Referring Provider Family Medicine; Visit Provider Surgery
PROC: F00ZJWZ Instrumental Swallowing and Oral Function Assessment using Swallowing Equipment (ICD-10-PCS; CPT 43235; principal; 2021-03-29 06:55)
DX: K21.9 Gastro-esophageal reflux disease without esophagitis (principal)
CPT/HCPCS: 91010

== ENCOUNTER 2021-05-01 11:17 | Observation (INO) | payer MEDICARE, SELFPAY ==
[2021-04-09 15:10] VITALS: BMI 22.2
--- NOTE | 2021-04-26 09:16 | EKG12_ITS ---
Test Reason : PREOP Blood Pressure : / mmHG Vent. Rate : 047 BPM Atrial Rate : 047 BPM P-R Int : 128 ms QRS Dur : 096 ms QT Int : 448 ms P-R-T Axes : 044 001 036 degrees QTc Int : 396 ms Sinus bradycardia Otherwise normal ECG Confirmed by INA RAJAN, MEDARDO ([id number]), publications editor RORY HOGUE ([id number]) on 04/30/2021 8:29:02 AM Referred By: Guicho Harvey Confirmed By:MEDARDO BUCKLEY MD
[2021-04-26 10:29] LABS: Hematocrit 34.3 % (40-54); Mean Corp Hgb Conc 32.1 g/dL (32-36); Mean Corpuscular Hgb 22.3 pg (27.0-32.0); Mean Corpuscular Volume 69.6 fL (80-94); Mean Platelet Vol. 11.3 fl (6.2-12.0); Platelet Count 215 K/mm3 (150-450); RBC Distribution Width CV 16.3 % (11.6-14.6); RBC Distribution Width SD 40.8 fl (35.1-43.9); Red Blood Count 4.93 M/mm3 (4.6-6.2); White Blood Count 5.5 K/mm3 (4.4-11.0)
[2021-04-26 10:39] LABS: International Normalized Ratio 1.1; Prothrombin Time (Protime)PT. 13.4 SECONDS (11.7-14.9)
[2021-04-26 10:40] LABS: Partial Thromboplast Time 26.9 Seconds (24.1-36.2)
[2021-04-26 11:28] LABS: Anion Gap 4 (5-15); BUN 8 mg/dL (7-18); BUN/Creat Ratio 9.3 RATIO (10-20); Calcium,Total 8.7 mg/dL (8.5-10.1); Chloride 108 mmol/L (98-107); Creatinine, Serum 0.86 mg/dL (0.70-1.30); EST Glomerular Filtration Rate 94 mL/min (>60); Est Glom Filt Rate - Afr Amer 114 mL/min (>60); Glucose 101 mg/dL (74-106); Potassium 4.2 mmol/L (3.5-5.1); Sodium Level 140 mmol/L (136-145)
[2021-05-01] VITALS (11 sets, daily range): BP systolic 123–143; BP diastolic 60–83; PULSE 52–78; RESP 16–18; TEMP 36.3–36.9; O2SAT 92–100; BMI 22.8
--- NOTE | 2021-05-01 06:32 | HP.PCM_ITS ---
History and Physical Date of Admission: 05/01/21 Intake Visit Reasons: discuss EGD and manometry Chief Complaint: f/u testing Direct Support Specialist Required: No Is patient in pain?: No Allergies Sulfa (Sulfonamide Antibiotics) Allergy (Verified 04/09/21 15:10) Unknown Medications allopurinol 300 mg PO DAILY 11/12/13 [History Confirmed 04/09/21] amlodipine 10 mg PO DAILY 10/21/20 [History Confirmed 04/09/21] atorvastatin 20 mg PO QHS 10/21/20 [History Confirmed 04/09/21] esomeprazole magnesium [Nexium] 20 mg PO DAILY 10/21/20 [History Confirmed 04/09/21] lisinopril 20 mg PO DAILY 10/21/20 [History Confirmed 04/09/21] metoprolol succinate 50 mg PO DAILY 10/21/20 [History Confirmed 04/09/21] lorazepam 1 mg tablet 3 mg PO DIRECTED #3 tab 03/08/21 [Rx Confirmed 04/09/21] oxycodone 5 mg PO Q6H PRN 03/23/21 [History Confirmed 04/09/21] PFSH Medical History Alcohol use Anemia Arthritis Back pain Chewing tobacco nicotine dependence Gastric reflux Gout High cholesterol History of echocardiogram History of steroid therapy History of stress test HTN (hypertension) Injury of head and neck Migraine headache Non-smoker Surgical History History of cardiac catheterization S/P cataract surgery S/P inguinal hernia repair Status post surgery Social History Smoking Status: Never smoker alcohol intake: current HPI HPI HPI: [place] PICK[place], is a 65 M who presents to the office today for ongoing surgical consultation regarding intractable gastroesophageal reflux disease. On March 27, 2021 the patient had a combined esophagogastroduodenoscopy and colonoscopy. Colonoscopy demonstrated diverticulosis of the entire colon and a tortuous colon as well as hemorrhoids but no acute findings. The upper endoscopy demonstrated a very Z-line at 41 cm with findings consistent with reflux esophagitis and a small hiatal hernia. There is mild erythema of the antrum. Pathology demonstrated mild gastritis. Findings consistent with mild chronic inflammation of the distal esophagus consistent with GERD. A mid esophageal biopsy was not remarkable. H. pylori was negative. It is of note that as of January 23, 2021 his white blood cell count was 4.7 with a hemoglobin of 10.5 and hematocrit 33.3 with a platelet count of 211,000. BUN was 13 creatinine 0.92. Hemoglobin A1c was 5.8. We will plan to obtain an outpatient esophageal manometry provide the patient with some lorazepam in ahead of time as he makes comment that in the past he has had a failed attempt. The manometry examination was performed on March 29, 2021. This was a complete normal study with good fluid bolus and swallows. Normal LES relaxation. The patient was very appreciative that he was providing some Ativan ahead of time and that the stent graft at the [facility] personal professional understanding My previous notes of March 27, 2021 reflect the following HPI: [place] PICK[place], is a 65 M who presents to the office today for surgical consultation. The patient is referred by Dr Jordan Jung for screening colonoscopy and consideration of an upper endoscopy. A written copy of my surgical consult and recommendations will return to him. The patient has been on PPIs for an extremely long period of time perhaps 40 to even to 50 years. He is currently on esomeprazole 20 mg daily. He states that he is very dependent upon the medication. He states that even missing 1 day will cause severe heartburn and irritation. He remembers previously having combined upper and lower endoscopy. I have evidence of a report dated November 30, [address] Morris Zaldivar where a normal distal esophagus was seen without evidence of stricture no evidence of Joseph's. It was recommended to the patient that he proceed with esophageal manometry. The patient states that that was absolutely impossible that he gagged and had significant problems with the procedure had to be aborted. He denies bright red blood per rectum or melena. No abdominal pain. No unexpected weight loss. He remains active with multiple outside activities. He is retired. ROS General General: No weight change, appetite, fatigue, colon cancer, breast cancer or weakness HEENT HEENT: Yes eye injury and eye surgery; No difficulty swallowing, swollen glands or hoarseness Endo Endocrine: No thyroid disease, diabetes mellitus, thyroid cancer, Hair loss, heat intolerance or cold intolerance Skin Skin: No rash or changing moles Breast Breast: No left breast lump, right breast lump, nipple discharge, breast pain, abnormal mammogram, abnormal US or breast enlargement Musc Musculoskeletal: Yes back problems, arthritis and gout; No rheumatoid arthritis or joint pain Cardio Cardiovascular: Yes high blood pressure; No murmur, pacemaker, heart disease, atrial fibrillation, heart attack, heart stent, palpitations, shortness of breat with exertion or chest pain Psych Psychiatric: Yes anxiety; No depression or hearing voices Resp Respiratory: No shortness of breath, No sleep apnea, No cough, No COPD, No asthma, No emphysema and No wheezing Gastro Gastrointestinal: No abdominal pain, No nausea or vomiting, No diarrhea, No constipation, No blood in stool, Yes acid reflux, No hemorrhoids, No ulcers, No gallbladder problem and No black,tarry stools Olivier Hematologic: No blood thinners, No blood disorders, No bleeding, Yes anemia and No blood clots Neuro Neurologic: No system reviewed and no additional complaints, except as documented, No as per HPI, No abnormal gait, No abnormal hearing, No abnormal movements, No abnormal speech, No behavioral changes, No burning sensations, No confusion, No convulsions, No disequilibrium, No dizziness, No localized weakness, No frequent falls, No headache(s), No lack of coordination, No loss of vision, No memory loss, No numbness, No other visual disturbances, No radicular pain, No restless legs, No sensory deficit, No syncope, No tingling, No tremor(s), No weakness and No other Exam Const General: cooperative, healthy appearing, comfortable and no acute distress Nutritional Appearance: average body habitus Orientation: alert and awake [facility] Head: normal to inspection Eyes General: appearance normal, both eyes and all related structures Resp Effort & Inspection: normal respiratory effort Auscultation: clear to auscultation bilaterally Cardio Rate: regular rate Rhythm: regular rhythm GI Inspection: normal to inspection Palpation: soft and no hepatosplenomegaly Auscultation: normal bowel sounds Musc Cervical Spine: normal cervical lordosis Skin General: no rashes or lesions noted Neuro General: patient alert Extrem General: no calf tenderness bilaterally Psych Affect: normal affect COVID (Procedure Consent) Procedure Criteria Procedure Criteria: Yes Elective The surgeon/proceduralist and patient have discussed in detail the risk of exposure to and/or potential harm posed by the COVID-19 virus with having a surgery/procedure at this time versus the risk of delaying the surgery/procedure. It is not possible to know either the risk of delaying the surgery or procedure or chance of getting an infection with perfect accuracy, but a joint decision was made between the patient and the surgeon/proceduralist to proceed at this time with the scheduled surgery/procedure as indicated on the consent form. Assessment and Plan Assessment and Plan (1) Screening for intestinal cancer: Status: Acute (2) GERD (gastroesophageal reflux disease): Status: Acute Qualifiers: Esophagitis presence: esophagitis presence not specified Qualified Code(s): K21.9 - Gastro-esophageal reflux disease without esophagitis Plan - Dr. Lake Harvey MD: I recommend to the patient combined esophagogastroduodenoscopy with possible biopsy or polypectomy and colonoscopy with possible biopsy or polypectomy as indicated. He seems to have very significant reflux symptoms. I would anticipate very careful inspection with biopsies as indicated. The patient does not sound like he would tolerate a Amaya pH probe and he readily admits he cannot be off his medication. It also appears that he failed a previous attempt at manometry. I suggested to him that we retry the manometry with Ativan 3 mg prescribed preintervention. I am very much interested in seeing if I can assist him with a surgical reflux procedure if indicated. He has had an opportunity ask and have questions answered and he is very much appreciative of this. Would very much agree and try to assist with getting this patient off of proton pump inhibitor. I am recommending to him a screening colonoscopy with possible biopsy or polypectomy as indicated. He is aware of the technique, benefit, risk, alternatives. We will combine these 2 procedures. I appreciate the opportunity of assisting with her surgical care. Copy: Dr Jordan Harvey M.D., F.A.C.S. Plan Details Other Medications: New: lorazepam (Ativan) 2 hours prior to procedure 3 mg (3 x 1 mg) PO DIRECTED 3 tabs 0RF ROS General General: No weight change, appetite, fatigue, colon cancer, breast cancer or weakness HEENT HEENT: Yes eye injury and eye surgery; No difficulty swallowing, swollen glands or hoarseness Endo Endocrine: No thyroid disease, diabetes mellitus, thyroid cancer, Hair loss, heat intolerance or cold intolerance Skin Skin: No rash or changing moles Breast Breast: No left breast lump, right breast lump, nipple discharge, breast pain, abnormal mammogram, abnormal US or breast enlargement Musc Musculoskeletal: Yes back problems, arthritis and gout; No rheumatoid arthritis or joint pain Cardio Cardiovascular: Yes high blood pressure; No murmur, pacemaker, heart disease, atrial fibrillation, heart attack, heart stent, palpitations, shortness of breat with exertion or chest pain Psych Psychiatric: Yes anxiety; No depression or hearing voices Resp Respiratory: No shortness of breath, No sleep apnea, No cough, No COPD, No asthma, No emphysema and No wheezing Gastro Gastrointestinal: No abdominal pain, No nausea or vomiting, No diarrhea, No constipation, No blood in stool, Yes acid reflux, No hemorrhoids, No ulcers, No gallbladder problem and No black,tarry stools Olivier Hematologic: No blood thinners, No blood disorders, No bleeding, Yes anemia and No blood clots Neuro Neurologic: No system reviewed and no additional complaints, except as documented, No as per HPI, No abnormal gait, No abnormal hearing, No abnormal movements, No abnormal speech, No behavioral changes, No burning sensations, No confusion, No convulsions, No disequilibrium, No dizziness, No localized weakness, No frequent falls, No headache(s), No lack of coordination, No loss of vision, No memory loss, No numbness, No other visual disturbances, No radicular pain, No restless legs, No sensory deficit, No syncope, No tingling, No tremor(s), No weakness and No other Exam Const General: healthy appearing, no acute distress and well hydrated Orientation: oriented x3, oriented to person, oriented to place and oriented to time [facility] Head: normocephalic and atraumatic Mouth: oropharynx normal and moist mucous membranes Eyes General: appearance normal, both eyes and all related structures Sclera: sclerae normal Neck Neck: trachea midline and no lymphadenopathy noted Neck mass: No Thyroid: thyroid normal Lymphatic: no lymphadenopathy noted Resp Effort & Inspection: normal respiratory effort and symmetric chest movement Auscultation: clear to auscultation bilaterally Percussion: percussion normal Cardio Rate: regular rate Rhythm: regular rhythm GI Palpation: soft, no hepatosplenomegaly, no hernias, no masses and nontender Other: Rectal Exam: Deferred Extrem General: normal to inspection and no clubbing, cyanosis or edema COVID (Procedure Consent) Procedure Criteria Procedure Criteria: Yes Elective The surgeon/proceduralist and patient have discussed in detail the risk of exposure to and/or potential harm posed by the COVID-19 virus with having a surgery/procedure at this time versus the risk of delaying the surgery/procedure. It is not possible to know either the risk of delaying the surgery or procedure or chance of getting an infection with perfect accuracy, but a joint decision was made between the patient and the surgeon/proceduralist to proceed at this time with the scheduled surgery/proce dure as indicated on the consent form. Assessment and Plan Assessment and Plan (1) GERD (gastroesophageal reflux disease): Status: Acute Qualifiers: Esophagitis presence: esophagitis presence not specified Qualified Code(s): K21.9 - Gastro-esophageal reflux disease without esophagitis Plan Details Additional Comments: I recommended the patient a laparoscopic toupet procedure. I discussed in detail the technique, benefit, risk and alternatives. Has had an opportunity to ask and have questions answered. We will schedule and proceed at his discretion. He has good motility and should be a good candidate. I appreciate the ongoing opportunity of assisting with the surgical care. Copy: Dr Jordan Harvey M.D., F.A.C.S. Coding Level of Care Code Off vis,est,level 2 Diagnoses GERD (gastroesophageal reflux disease) K21.9 Esophagitis presence: esophagitis presence not specified I have re-examined the patient. There are no clinical changes since date of exam.
[2021-05-01] MEDS: Lactated Ringers 1,000 ML 100 ML IV ×3 (06:44→09:30)
--- NOTE | 2021-05-01 06:55 | PCM.DC ---
Documented by User: Dr. Guicho Harvey MD 05/01/21 06:56 Discharge Instructions Activity Discharge Activity: May Not Drive (for 3-5 days or while taking narcotic pain medicine.) May shower in (days): 1 Lifting Restrictions: 10 pounds Dressing / Incision Call your doctor if your incision/area has: Continuous Slow Oozing, Sudden Increased Bleeding, Increased Pain/ Swelling, Increased Redness and Foul Smelling Discharge Call your doctor if you observe: Fever of 101 or Higher Suture Line Care: Avoid Pulling/Pushing and Avoid Pinching/Bending Additional Dressing/Incision Instructions:: Change or remove dressing in 4 days. Leave steri-strips in place for 1 week. Follow Up Care Please Follow Up With: Guicho Harvey MD When: Call [phone] to make an appointment to be seen in about 10 days. Test Results: Test results from this visit will be discussed in further detail at your follow-up appointment, if applicable. Discharge Plan Admission Admit Date/Time: 05/01/21 11:17 Attending Provider: Guicho Harvey Primary Care Provider: Jordan Jung Discharge Orders/Prescriptions Prescriptions: No Action allopurinol 100 MG tablet 300 mg PO DAILY RF: 0 atorvastatin 20 MG tablet 20 mg PO QHS RF: 0 metoprolol succinate 50 MG tablet extended release 24 hr 50 mg PO DAILY RF: 0 lisinopril 20 MG tablet 20 mg PO DAILY RF: 0 amlodipine 10 MG tablet 10 mg PO DAILY RF: 0 esomeprazole magnesium [Nexium] 20 MG capsule,delayed release(DR/EC) 20 mg PO DAILY RF: 0 oxycodone 5 mg Tablet 5 mg PO Q6H PRN (Reason: Pain) RF: 0 Other Ambulatory Orders: 12 Lead EKG (Routine) Timeframe: [id number] Location: None Selected Ordered By: Dr. Guicho Harvey Documented by User: Maia RIGGINS PA-C 05/02/21 11:42 Discharge Plan Admission Admit Date/Time: 05/01/21 11:17 Attending Provider: Guicho Harvey Primary Care Provider: Jordan Jung Discharge Orders/Prescriptions Prescriptions: No Action allopurinol 100 MG tablet 300 mg PO DAILY RF: 0 atorvastatin 20 MG tablet 20 mg PO QHS RF: 0 metoprolol succinate 50 MG tablet extended release 24 hr 50 mg PO DAILY RF: 0 lisinopril 20 MG tablet 20 mg PO DAILY RF: 0 amlodipine 10 MG tablet 10 mg PO DAILY RF: 0 esomeprazole magnesium [Nexium] 20 MG capsule,delayed release(DR/EC) 20 mg PO DAILY RF: 0 oxycodone 5 mg Tablet 5 mg PO Q6H PRN (Reason: Pain) RF: 0 Other Ambulatory Orders: 12 Lead EKG (Routine) Timeframe: [id number] Location: None Selected Ordered By: Dr. Guicho Harvey
[2021-05-01] MEDS: Cefazolin 2 GM in 0.9% Normal Saline 100 ML IV (07:33)
[2021-05-01] MEDS: Bupivacaine Mpf 0.5% 30 ML VIAL (10:53)
[2021-05-01] MEDS: Lidocaine 1% (30 ml sdv) 30 ML Vial (10:53)
--- NOTE | 2021-05-01 11:05 | PCM.OPRPT ---
Problems Associated Problem List Diagnoses (1) GERD (gastroesophageal reflux disease): (2) Hiatal hernia with gastroesophageal reflux disease and esophagitis: Report of Operation Date of Procedure: 05/01/21 Pre-Operative Diagnosis: Hiatal hernia with long-term gastroesophageal reflux disease proton pump inhibitor dependent Post-Operative Diagnosis: Same Surgery/Procedure Performed:: Laparoscopic repair of hiatal hernia with a laparoscopic toupet procedure and intraoperative esophagogastroduodenoscopy Description of Surgical Findings:: Timeout and informed consent was obtained. 66-year-old gentleman was taken to the operating table underwent general endotracheal intubation anesthesia. Ancef 2 g were given intravenously. The abdomen sterilely prepped and draped. Ioban draping was used as well. At this point the patient had been placed in a low lithotomy position with buttock padding and roll. Using a 5 mm Visiport technology superior right upper mid abdomen access was cleanly gained no trocar injuries. The abdomen was insufflated with CO2 to a pressure of 10 mmHg pressure. And then a 10 liner port was placed in the left epigastrium and two more five ports on the left subcostal area and the five port in the epigastric area for placement of a Melissa retractor which was positioned. Throughout the procedure were needed 0.5% Marcaine was used as a local anesthetic. Throughout the procedure total 30 cc was used. A combination of the 0.15% Marcaine and 1% lidocaine was used to perform a left subcostal tap block at the completion. The liver was elevated and secured with a Melissa. There was thick fibrofatty tissue overlying the EG junction. This was carefully transected using the harmonic scalpel. The anatomy became somewhat challenging so I elected to free the left barrett of the diaphragm. I transected where indicated short gastrics was able to get clean visualization of the short gastrics and the spleen and the left crura. Was able to find the left crura and get partial retroesophageal dissection. Then came up over the anterior surface of the esophagus and freed up tissue so that it better identify the right crura. Placed a Glouster drain around the esophagus assuring that the posterior vagus was with the esophagus and then I circumferentially directed free for at least 8 cm into the mediastinum completely freeing up the distal esophagus. He also has a posterior fat pad delivered free visualization both left and right barrett. Peritoneum was nicely intact. Using pledgeted sutures of 0 Ethibond I approximated the crura. 4 sutures were required. A 46 Occitan bougie was placed to assure good approximation and correct sizing. Having achieved that then I then wrapped the fundus of the stomach. I secured the posterior aspect of the wrap to the crura with a 0 Ethibond. I then performed a toupet procedure by using a 2-0 Ethibond and securing the esophagus to the epiphrenic limit to the wrap portion of the fundus. With intracorporeal knot tying then I did a running technique down the right anterior lateral aspect of the esophagus and secured that after approximately 2-2 and half centimeters. I then performed the fundic portion on the left side of the esophagus again securing the apex to the epiphrenic ligament into the esophagus. I had a good apical suture. The suture then broke and so I restarted my suture line with another 2-0 Ethibond and approximated the tissue to the anterior lateral wall making approximately 270 degree wrap. [place] that I had good positioning. To further secure the very last suture in base I did put a simple suture of 0 Ethibond and to assure that I have the wrap in perfect position. Hemostasis was intact hemoclips were required for smaller vessels that wanted to ooze. Was then able to irrigate I then did the upper endoscopy as noted through probation. The upper endoscopy demonstrated the wrap to be nicely intact. It appeared that the EG junction was appropriate and easily allow the scope to pass. No G-tube was replaced to decompress the stomach. The abdomen was irrigated and aspirated free the Melissa retractor carefully removed. Spleen inspected noted to be intact and hemostatic. The 10 mm trocar site was closed with a 0 Vicryl [id number] suture using a GraNee needle. The abdomen was allowed to deflate of the CO2. The skin edges approximated opted for Monocryl subdermal stitches. Steri-Strips Telfa OpSite dressings applied. Sponge and instrument and needle counts were reported to certainly be correct. Specimens none. Drains none. Blood loss minimal. The patient was taken to recovery area in satisfactory addition without apparent complication Guicho Harvey M.D., F.A.C.S. Surgeon: Guicho Harvey Type of Anesthesia: General Anesthesiologist: Parmjit Ruiz
[2021-05-01] MEDS: Morphine 2 MG/ML Syringe IV ×4 (13:37→23:19)
[2021-05-01] MEDS: Allopurinol 300 MG Tablet PO (14:01)
[2021-05-01] MEDS: Lactated Ringers 1,000 ML 15 ML IV (15:48)
--- NOTE | 2021-05-01 17:14 | PCM.PN.SRG ---
Subjective Subjective Patient is tolerating clear liquids. Still has deep-seated epigastric pain. Still requiring IV narcotics. Is voiding well. Objective Data Objective Data Vital Signs: Vital Signs Temp Pulse Resp BP Pulse Ox 98.2 F 72 16 140/77 H 95 05/01/21 15:12 05/01/21 15:12 05/01/21 15:12 05/01/21 15:12 05/01/21 15:12 Oxygen Delivery Method Room Air Weight: 158 lb 15.253 oz Body Mass Index (BMI) 22.8 Intake & Output: Intake and Output for Last 24 Hours 04/29/21 04/30/21 05/01/21 23:59 23:59 23:59 Intake Total 2109 Balance 2109 Lab / Micro Data Result Diagrams: 04/26/21 09:37 04/26/21 09:37 Assessment & Plan Assessment/Plan (1) Hiatal hernia with gastroesophageal reflux disease and esophagitis: PLAN: Steady progress however still requiring pain control. We will hold patient overnight for ongoing care. Anticipate slight diet advancement tomorrow and hopefully discharge tomorrow. Progress and prognosis are good. Guicho Harvey M.D., F.A.C.S.
[2021-05-01] MEDS: HYDROcodone Bitartrate/Apap 5/325 Tablet PO (17:25)
[2021-05-01] MEDS: Temazepam 15 MG Capsule PO (21:32)
[2021-05-01] MEDS: Atorvastatin Calcium 20 MG Tablet PO (21:33)
[2021-05-02 01:45] VITALS: BP 143/78; PULSE 77; RESP 16; TEMP 36.6; O2SAT 98
[2021-05-02] MEDS: Morphine 2 MG/ML Syringe IV (05:41)
[2021-05-02 05:45] VITALS: BP 143/78; PULSE 77; RESP 16; TEMP 36.6; O2SAT 98
--- NOTE | 2021-05-02 06:23 | PN.SURG_ITS ---
Subjective Subjective The patient denies heartburn currently or swallowing issues. He states that his pain is not well controlled. The patient has been on chronic oxycodone therapy under the care of pain specialty. This may be in part why were not able to achieve complete relief due to a tolerance level. He denies any nausea. He de nies any flatus. He has been voiding often. Objective Data Objective Data Vital Signs: Vital Signs Temp Pulse Resp BP Pulse Ox 97.8 F 77 16 143/78 H 98 05/02/21 05:45 05/02/21 05:45 05/02/21 05:45 05/02/21 05:45 05/02/21 05:45 Oxygen Delivery Method Room Air Weight: 158 lb 15.253 oz Body Mass Index (BMI) 22.8 Intake & Output: Intake and Output for Last 24 Hours 04/30/21 05/01/21 05/02/21 23:59 23:59 23:59 Intake Total 3395 / 3695 900 / 900 Balance 3395 / 3695 900 / 900 Lab / Micro Data Result Diagrams: 04/26/21 09:37 04/26/21 09:37 Physical Exam GI GI Narrative: Soft, nontender, dressings clean and dry Assessment & Plan Assessment/Plan (1) Hiatal hernia with gastroesophageal reflux disease and esophagitis: PLAN: Will advance from clear liquid to a full liquid diet. Anticipate di guerarivon today. The patient hopefully will be able to resume his routine pain management program. Guicho Harvey M.D., F.A.C.S.
[2021-05-02] MEDS: HYDROcodone Bitartrate/Apap 5/325 Tablet PO (07:39)
[2021-05-02 07:40] VITALS: PULSE 53
[2021-05-02] MEDS: amLODIPine 10 MG Tablet PO (07:40)
[2021-05-02] MEDS: Lisinopril 20 MG Tablet PO (07:40)
[2021-05-02] MEDS: Pantoprazole Sodium 20 MG Tablet PO (07:40)
[2021-05-02] MEDS: Metoprolol(XL)Succ 50 MG Tablet PO (07:40)
[2021-05-02] MEDS: Allopurinol 300 MG Tablet PO (07:41)
[2021-05-02 07:45] VITALS: BP 135/52; PULSE 53; RESP 16; TEMP 36.8; O2SAT 95
[2021-05-02 11:09] VITALS: BP 124/69; PULSE 87; RESP 14; TEMP 36.5; O2SAT 98
[2021-05-02 11:33] VITALS: BP 132/70; PULSE 53; RESP 16; TEMP 36.8; O2SAT 95
--- NOTE | 2021-05-02 11:42 | PCM.PN.BLA ---
Progress Note Patient re-evaluated. He is tolerating a full liquid diet well. He notes abdominal pain with deep breathes otherwise pain is tolerable. He denies nausea, vomiting or the feeling of food getting stuck. Assessment & Plan Assessment/Plan (1) Hiatal hernia with gastroesophageal reflux disease and esophagitis: PLAN: Ready for discharge Plan to send patient home on pain regimen he has been on prior to surgery. Post-op instructions given to patient's yesterday Follow-up in 7-10 days with our office Visit Charges Inpatient E&M: 30030 Init Hosp L1 (no charge)
--- NOTE | 2021-05-02 12:32 | CASEMGMT ---
LAURA CM attempted to print YODER form. Pt has left the hospital.
== END 2021-05-02 12:27 | disposition home or self-care (01) ==
LOC: SDC 13:03 → MS3 13:03
PROVIDERS: Anesthesiology; Admitting Provider Surgery; PCP Family Medicine; Referring Provider Surgery; Visit Provider Surgery
PROC: (CPT 43325; principal; 2021-05-01 07:10)
DX: K44.9 Diaphragmatic hernia without obstruction or gangrene (principal); K21.9 Gastro-esophageal reflux disease without esophagitis; M19.90 Unspecified osteoarthritis, unspecified site; F17.220 Nicotine dependence, chewing tobacco, uncomplicated; M10.9 Gout, unspecified; I10 Essential (primary) hypertension; E78.00 Pure hypercholesterolemia, unspecified; Z87.19 Personal history of other diseases of the digestive system; Z79.899 Other long term (current) drug therapy
CPT/HCPCS: 00790; 43280; 36415; 80048; 85027; 85610; 85730; 93005; 96361; 96374; 96376; 99218; 99251; J7120; G0378; G0463; J2405

== ENCOUNTER → 2021-05-21 13:01 | Outpatient (CLI) | payer MEDICARE, SELFPAY ==
[2021-05-21 13:08] LABS: Bacteria 0 SEEN /hpf (None Seen); Mucous, Urine 0 SEEN /hpf (<or=2+); Red Blood Cells-Urine 0 SEEN /hpf (0-5); Squamous Epithelial Cells - UA 0 SEEN /hpf (0-5); White Blood Cells 0 SEEN /hpf (0-5)
[2021-05-21 15:00] LABS: Absolute Lymphocyte Count 1.11 X10^3/uL (0.83-4.51); Absolute Neutrophil Count 4.8 X10^3/uL (2.0-7.7); Basophil# 0.06 X10^3/uL; Basophil% 0.9 % (0-1); Eosinophil# 0.11 X10^3/uL; Eosinophils% 1.7 % (0-5); Hematocrit 34.6 % (40-54); Hemoglobin 10.7 g/dL (13.0-16.5); Lymphocyte # 1.11 X10^3/ul (0.83-4.51); Lymphocyte % 17.1 % (19-41); Mean Corp Hgb Conc 30.9 g/dL (32-36); Mean Corpuscular Hgb 21.7 pg (27.0-32.0); Mean Platelet Vol. 11.1 fl (6.2-12.0); Monocyte# 0.38 X10^3/uL; Monocyte% 5.9 % (0-10); NRBC Flagged by Analyzer 0 % (0-5); Neutrophil # 4.79 X10^3/uL (2.7-7.7); Neutrophil % 73.9 % (47-70); Platelet Count 288 K/mm3 (150-450); RBC Distribution Width CV 15.8 % (11.6-14.6); RBC Distribution Width SD 39.2 fl (35.1-43.9); Red Blood Count 4.94 M/mm3 (4.6-6.2); White Blood Count 6.5 K/mm3 (4.4-11.0)
[2021-05-21 15:27] LABS: Color, Urine Yellow (Yellow); Glucose, Dipstick Normal (Normal); Hemoglobin A1c 5.7 % (3.8-5.6); Ketone-Dipstick Negative (Negative); Leukocyte Esterase-Dipstick Negative /ul (Negative); Nitrite-Dipstick Negative (Negative); Occult Blood-Urine Negative /ul (Negative); Protein-Dipstick Negative (Negative); Urine Bilirubin Dipstick Negative (Negative); Urine Clarity Clear (Clear); Urine Urobilinogen Normal (Normal); Urine pH 6.5 (5.0 - 8.0)
[2021-05-21 15:36] LABS: ALB/GLOB Ratio 1.2 RATIO (0.9-2.4); AST(SGOT) 41 U/L (15-37); Alanine Aminotransfer ALT/SGPT 95 U/L (16-61); Albumin, Serum 3.8 g/dL (3.2-5.0); Alkaline Phosphatase 146 U/L (45-117); Anion Gap 7 (5-15); BUN 17 mg/dL (7-18); BUN/Creat Ratio 20.8 RATIO (10-20); Calcium,Total 8.8 mg/dL (8.5-10.1); Chloride 106 mmol/L (98-107); Cholesterol 183 mg/dL (200); Creatinine, Serum 0.82 mg/dL (0.70-1.30); EST Glomerular Filtration Rate 100 mL/min (>60); Est Glom Filt Rate - Afr Amer 121 mL/min (>60); Globulin 3.1 g/dL (2.2-4.2); Glucose 102 mg/dL (74-106); High Density Lipoprotein 65 mg/dL; Potassium 3.5 mmol/L (3.5-5.1); Protein, Total 6.9 g/dL (6.4-8.2); Sodium Level 140 mmol/L (136-145); Triglycerides 104 mg/dL; Uric Acid 6.5 mg/dL (3.5-7.2); Very Low Density Lipoprotein 21 mg/dL (5-40)
== END ==
PROVIDERS: PCP Family Medicine; Referring Provider Family Medicine; Visit Provider Family Medicine
DX: I10 Essential (primary) hypertension (principal); M10.9 Gout, unspecified; R73.02 Impaired glucose tolerance (oral); D56.3 Thalassemia minor
CPT/HCPCS: 36415; 80053; 80061; 81001; 83036; 84550; 85025

== ENCOUNTER → 2021-07-02 12:31 | Outpatient (CLI) | payer MEDICARE, SELFPAY ==
[2021-07-02 13:51] LABS: Amphetamine Urine VISTA NEGATIVE (<1000 ng/mL); Barbiturate Urine VISTA NEGATIVE (< 200 ng/mL); Benzodiazepine Urine VISTA NEGATIVE (< 200 ng/mL); Cocaine Urine VISTA NEGATIVE (< 300 ng/mL); Ecstacy Urine VISTA NEGATIVE (< 500 ng/mL); Methadone Urine VISTA NEGATIVE (< 300 ng/mL); PCP Urine VISTA NEGATIVE (< 25 ng/mL); THC Urine VISTA NEGATIVE (< 50 ng/mL); Vista UDS pH Range 6
== END ==
PROVIDERS: PCP Family Medicine; Referring Provider Anesthesiology Pain Medicine; Visit Provider Anesthesiology Pain Medicine
DX: F11.20 Opioid dependence, uncomplicated (principal)
CPT/HCPCS: 80307

== ENCOUNTER → 2021-08-08 09:02 | Outpatient (CLI) | payer MEDICARE, SELFPAY ==
--- NOTE | 2021-08-08 09:05 | RAD_ITS ---
STUDY: X-RAY - LEFT SHOULDER REASON FOR EXAM: Male, 66 years old. Shoulder pain. TECHNIQUE: 4 view(s) of the shoulder. COMPARISON: None. FINDINGS: Osteopenia. Mild arthrosis of the glenohumeral and acromioclavicular joints. Normal acromion. Normal humeral head and visualized proximal humerus. The soft tissue structures are unremarkable. Normal visualized pulmonary apex. RAD/Shoulder min 2 Views IMPRESSION: Osteopenia with mild arthrosis of the glenohumeral and acromioclavicular joints. Electronically Signed: Parmjit Jiang MD at 12:00 EST , Service support ,
== END ==
PROVIDERS: PCP Family Medicine; Referring Provider Family Medicine; Visit Provider Family Medicine
DX: M67.912 Unspecified disorder of synovium and tendon, left shoulder (principal)
CPT/HCPCS: 73030

== ENCOUNTER → 2021-12-26 | Outpatient (CLI) | payer MEDICARE, SELFPAY ==
[2021-12-26 11:59] LABS: Absolute Neutrophil Count 4.7 X10^3/uL (2.0-7.7); Basophil# 0.04 X10^3/uL; Basophil% 0.6 % (0-1); Eosinophil# 0.16 X10^3/uL; Eosinophils% 2.5 % (0-5); Hematocrit 36.7 % (40-54); Hemoglobin 11.9 g/dL (13.0-16.5); Lymphocyte % 16.9 % (19-41); Mean Corp Hgb Conc 32.4 g/dL (32-36); Mean Corpuscular Hgb 22.2 pg (27.0-32.0); Mean Corpuscular Volume 68.6 fL (80-94); Mean Platelet Vol. 11.9 fl (6.2-12.0); Monocyte# 0.45 X10^3/uL; Monocyte% 6.9 % (0-10); NRBC Flagged by Analyzer 0 % (0-5); Neutrophil # 4.72 X10^3/uL (2.7-7.7); Neutrophil % 72.3 % (47-70); Platelet Count 210 K/mm3 (150-450); RBC Distribution Width CV 16.6 % (11.6-14.6); RBC Distribution Width SD 39.5 fl (35.1-43.9); Red Blood Count 5.35 M/mm3 (4.6-6.2); White Blood Count 6.5 K/mm3 (4.4-11.0)
[2021-12-26 12:15] LABS: ALB/GLOB Ratio 1.3 RATIO (0.9-2.4); AST(SGOT) 43 U/L (15-37); Alanine Aminotransfer ALT/SGPT 72 U/L (16-61); Albumin, Serum 3.9 g/dL (3.2-5.0); Alkaline Phosphatase 108 U/L (45-117); Anion Gap 11 (5-15); BUN 13 mg/dL (7-18); BUN/Creat Ratio 13.4 RATIO (10-20); Calcium,Total 8.6 mg/dL (8.5-10.1); Chloride 107 mmol/L (98-107); Cholesterol 183 mg/dL (200); Creatinine, Serum 0.97 mg/dL (0.70-1.30); EST Glomerular Filtration Rate 82 mL/min (>60); Est Glom Filt Rate - Afr Amer 99 mL/min (>60); Glucose 104 mg/dL (74-106); High Density Lipoprotein 62 mg/dL; Potassium 3.9 mmol/L (3.5-5.1); Protein, Total 6.9 g/dL (6.4-8.2); Sodium Level 140 mmol/L (136-145); Triglycerides 149 mg/dL; Uric Acid 6.5 mg/dL (3.5-7.2); Very Low Density Lipoprotein 30 mg/dL (5-40)
== END | disposition home or self-care (01) ==
LOC: MFPLAB 09:56
PROVIDERS: PCP Family Medicine; Referring Provider Family Medicine; Visit Provider Family Medicine
DX: E87.5 Hyperkalemia (principal); I10 Essential (primary) hypertension; M10.9 Gout, unspecified
CPT/HCPCS: 36415; 80053; 80061; 84550; 85025

== ENCOUNTER → 2022-03-27 | Outpatient (CLI) | payer MEDICARE, SELFPAY ==
[2022-03-27 11:32] LABS: Amphetamine Urine VISTA NEGATIVE (<1000 ng/mL); Barbiturate Urine VISTA NEGATIVE (< 200 ng/mL); Benzodiazepine Urine VISTA NEGATIVE (< 200 ng/mL); Cocaine Urine VISTA NEGATIVE (< 300 ng/mL); Ecstacy Urine VISTA NEGATIVE (< 500 ng/mL); Methadone Urine VISTA NEGATIVE (< 300 ng/mL); PCP Urine VISTA NEGATIVE (< 25 ng/mL); THC Urine VISTA NEGATIVE (< 50 ng/mL); Vista UDS pH Range 7
== END | disposition home or self-care (01) ==
LOC: LAB 10:52
PROVIDERS: PCP Family Medicine; Referring Provider Anesthesiology Pain Medicine; Visit Provider Anesthesiology Pain Medicine
DX: F11.20 Opioid dependence, uncomplicated (principal)
CPT/HCPCS: 80307

== ENCOUNTER → 2022-04-30 | Outpatient (CLI) | payer MEDICARE, SELFPAY ==
[2022-04-30 10:46] LABS: Bacteria 0 SEEN /hpf (None Seen); Mucous, Urine 0 SEEN /hpf (<or=2+); Red Blood Cells-Urine 0 SEEN /hpf (0-5); White Blood Cells 0 SEEN /hpf (0-5)
[2022-04-30 12:15] LABS: Absolute Lymphocyte Count 0.97 X10^3/uL (0.83-4.51); Absolute Neutrophil Count 5.4 X10^3/uL (2.0-7.7); Basophil# 0.01 X10^3/uL; Basophil% 0.1 % (0-1); Eosinophil# 0.02 X10^3/uL; Eosinophils% 0.3 % (0-5); Hematocrit 35.5 % (40-54); Hemoglobin 11.2 g/dL (13.0-16.5); Lymphocyte # 0.97 X10^3/ul (0.83-4.51); Lymphocyte % 13.8 % (19-41); Mean Corp Hgb Conc 31.5 g/dL (32-36); Mean Corpuscular Hgb 22.2 pg (27.0-32.0); Mean Corpuscular Volume 70.4 fL (80-94); Mean Platelet Vol. 10.2 fl (6.2-12.0); Monocyte% 8.5 % (0-10); NRBC Flagged by Analyzer 0 % (0-5); Neutrophil # 5.36 X10^3/uL (2.7-7.7); Neutrophil % 76.2 % (47-70); Platelet Count 213 K/mm3 (150-450); RBC Distribution Width CV 15.6 % (11.6-14.6); RBC Distribution Width SD 38.5 fl (35.1-43.9); Red Blood Count 5.04 M/mm3 (4.6-6.2)
[2022-04-30 12:16] LABS: Color, Urine Yellow (Yellow); Glucose, Dipstick Normal (Normal); Ketone-Dipstick Negative (Negative); Leukocyte Esterase-Dipstick Negative /ul (Negative); Nitrite-Dipstick Negative (Negative); Occult Blood-Urine Negative /ul (Negative); Protein-Dipstick Negative (Negative); Urine Bilirubin Dipstick Negative (Negative); Urine Clarity Sl. Cloudy (Clear); Urine Urobilinogen Normal (Normal); Urine pH 6.5 (5.0 - 8.0)
[2022-04-30 12:23] LABS: Squamous Epithelial Cells - UA 0 SEEN /hpf (0-5)
[2022-04-30 13:15] LABS: ALB/GLOB Ratio 1.1 RATIO (0.9-2.4); AST(SGOT) 27 U/L (15-37); Alanine Aminotransfer ALT/SGPT 70 U/L (16-61); Albumin, Serum 3.3 g/dL (3.2-5.0); Alkaline Phosphatase 109 U/L (45-117); Anion Gap 6 (5-15); BUN 16 mg/dL (7-18); BUN/Creat Ratio 17.2 RATIO (10-20); Calcium,Total 8.8 mg/dL (8.5-10.1); Chloride 110 mmol/L (98-107); Creatinine, Serum 0.93 mg/dL (0.70-1.30); EST Glomerular Filtration Rate 85 mL/min (>60); Est Glom Filt Rate - Afr Amer 103 mL/min (>60); Globulin 2.9 g/dL (2.2-4.2); Glucose 110 mg/dL (74-106); Potassium 4.3 mmol/L (3.5-5.1); Protein, Total 6.2 g/dL (6.4-8.2); Sodium Level 142 mmol/L (136-145); Uric Acid 5.8 mg/dL (3.5-7.2)
[2022-04-30 13:48] LABS: Cholesterol 190 mg/dL (200); High Density Lipoprotein 76 mg/dL; Triglycerides 111 mg/dL; Very Low Density Lipoprotein 22 mg/dL (5-40)
[2022-04-30 14:54] LABS: Hemoglobin A1c 5.8 % (3.8-5.6)
== END | disposition home or self-care (01) ==
LOC: MFPLAB 10:04
PROVIDERS: PCP Family Medicine; Visit Provider Family Medicine
DX: M10.9 Gout, unspecified (principal); E78.5 Hyperlipidemia, unspecified; R73.02 Impaired glucose tolerance (oral)
CPT/HCPCS: 36415; 80053; 80061; 81001; 83036; 84550; 85025

== ENCOUNTER → 2022-06-07 | Outpatient (CLI) | payer MEDICARE, SELFPAY ==
--- NOTE | 2022-06-07 10:40 | STRESSREP_ITS ---
Stress Test Report Date: 06/07/2022 Procedure: Pharmacologic stress nuclear imaging study Indications: Chest pain Consent: Per the patient Procedure: The patient underwent pharmacologic (Regadenoson 0.4mg ) evaluation with a peak heart rate of 80 beats per minute (50%predicted maximal heart rate) and a peak blood pressure of 158/78 mmHg. The baseline ECG demonstrated normal sinus rhythm. Nonspecific ST changes. The peak pharmacologic ECG demonstrated no significant changes from baseline. No chest pain was reported. The examination was discontinued secondary to completion of protocol. Impression: 1. Pharmacologic (Regadenoson) evaluation 2. Peak pharmacologic ECG with no ischemic changes. Myocardial perfusion imaging study: Technique: The patient was injected with 11.2 millicuries of technetium 99m Cardiolite and subsequently rest SPECT Cardiolite nuclear imaging was obtained in the horizontal long, vertical long, and short axis views. The patient underwent pharmacologic (Regadenoson) evaluation. The patient was injected with 33.6 millicuries of technetium 99m Cardiolite and subsequently stress SPECT Cardiolite nuclear imaging was obtained in the horizontal long, vertical long, and short axis views. A gated Cardiolite study at peak stress was obtained. Interpretation: Rest and stress SPECT Cardiolite nuclear imaging status post realignment, normalization, and attenuation correction demonstrate reversible apical and inferior defect. The reported LVEF is 57%. Impression: 1. Small apical and inferior reversible defect. 2. The gated Cardiolite study reports an LVEF of 57%. This note was generated with Unbounceation software. It may contain incorrect words, spelling, and punctuation that were not noted in checking the note before signing.
== END | disposition home or self-care (01) ==
LOC: CVS 06:46
PROVIDERS: PCP Family Medicine; Referring Provider Family Medicine; Visit Provider Family Medicine
DX: R07.9 Chest pain, unspecified (principal)
CPT/HCPCS: 78452; 93017; A9500; A4216; J2785

== ENCOUNTER → 2022-06-18 | Outpatient (CLI) | payer MEDICARE, SELFPAY | END | disposition home or self-care (01) | LOC: LAB 12:13 | PROVIDERS: PCP Family Medicine; Referring Provider Internal Medicine Cardiovascular Disease; Visit Provider Internal Medicine Cardiovascular Disease | DX: I10 Essential (primary) hypertension (principal) | CPT/HCPCS: 36415; 84443 ==

== ENCOUNTER → 2022-07-08 | Outpatient (CLI) | payer MEDICARE, SELFPAY ==
[2022-07-08 12:53] VITALS: BP 163/82; PULSE 50; RESP 14; TEMP 37.1; O2SAT 98; BMI 22.2
[2022-07-08 13:21] LABS: CREATININE FINGERSTICK < 0.9 mg/dL (0.70-1.30); EGFR FINGERSTICK > 60.0000 mL/min (>60)
[2022-07-08 13:26] VITALS: BP 163/82; PULSE 50
[2022-07-08] MEDS: Nitroglycerin SL (ED/IMG/CATH) 0.4 MG TABLET SL (13:26)
--- NOTE | 2022-07-08 13:30 | CT_ITS ---
INDICATION: ABN STRESS TEST EXAMINATION: CT CHEST WITHOUT CONTRAST - CT Chest W/O Contrast Injection TECHNIQUE: Helically acquired images were obtained of the chest. A radiation dose optimization technique was used for this scan. IV Contrast dosage and agent: None. COMPARISON: None. FINDINGS: LUNGS, PLEURA AND LARGE AIRWAYS: Minimal degree of increased linear markings at the lung bases suggestive of linear scarring. No pleural effusion or thickening. No pneumothorax. THYROID: No thyroid lesions. HEART AND PERICARDIUM: Heart size is normal. No pericardial effusion. CORONARY ARTERIES: Coronary artery calcification is seen. VESSELS: Thoracic aorta is not dilated. MEDIASTINUM AND ANH: Calcified pretracheal lymph nodes. Multiple calcified mediastinal lymph nodes. Calcified bilateral hilar lymph nodes. Small hiatal hernia. UPPER ABDOMEN: No acute pathology. BONES: No suspicious lytic or blastic abnormality. CT/Limited Chest CT Cardiac Only IMPRESSION: Coronary artery calcification. Calcified mediastinal and bilateral hilar lymph nodes. Electronically Signed: Benjamin Zaragoza MD at 15:12 EDT ,
[2022-07-08 13:31] VITALS: BP 135/82; PULSE 68; RESP 16; O2SAT 96
--- NOTE | 2022-07-08 19:14 | CCTA.WCONT ---
CCTA w/Cont Coronary Arteries Date of Study:: 07/08/22 Pain; abnormal stress nuclear imaging study Consent:: Per patient The patient underwent coronary CTA with particular attention to the coronary anatomy for evaluation of atherosclerotic coronary artery disease. The patient was reported as tolerating the procedure well with no obvious adverse events. LEFT MAIN CORONARY ARTERY: The left main coronary artery appears to be a large vessel giving rise to the left anterior descending and left circumflex coronary artery. The left main coronary artery appears to demonstrate moderate eccentric partially obstructive calcified plaque LEFT ANTERIOR DESCENDING CORONARY ARTERY: The left anterior descending coronary artery appears to be a large vessel tapering to a smaller vessel as it courses to the LV apex and gives rise to a diagonal branching system. The proximal LAD demonstrates severe eccentric partially obstructive calcified plaque. The mid LAD demonstrates moderate to severe eccentric partially obstructive calcified plaque. LEFT CIRCUMFLEX CORONARY ARTERY: The left circumflex coronary artery appears to be a large potentially codominant vessel giving rise to a first OM, second OM, and a small left PDA appearing vessel. The proximal left circumflex coronary artery demonstrates mild eccentric partially obstructive calcified plaque. The mid left circumflex coronary artery demonstrates moderate eccentric partially obstructive calcified plaque. The distal left circumflex coronary artery demonstrates mild eccentric partially obstructive calcified plaque. RIGHT CORONARY ARTERY: The right coronary artery appears to be a moderate sized codominant appearing vessel giving rise to a small right PDA system. The proximal right coronary artery demonstrates mild to moderate eccentric partially obstructive calcified plaque. The distal portion of the right PDA is not well visualized. THORACIC AORTA: The thoracic aorta demonstrates mild eccentric calcified plaque in the areas of the aortic arch and descending thoracic aorta. PULMONARY ARTERY: The main pulmonary artery and proximal portions of the right and left pulmonary artery demonstrate no obvious filling defects. LEFT ATRIUM/APPENDAGE: The left atrial appendage demonstrates no obvious filling defect. MITRAL VALVE: The mitral valve appears to be bileaflet. AORTIC VALVE: The aortic valve appears to be trileaflet LEFT VENTRICLE: The left ventricle appears to demonstrate normal left ventricular wall motion and systolic function. The left ventricular ejection fraction is reported at 57% CORONARY CALCIUM SCORE: A coronary calcium score was not performed. This note was generated using a voice recognition system and there may be incorrect words, spelling or punctuation that were not noted when reviewing the office note prior to saving.
== END | disposition home or self-care (01) ==
LOC: CT 12:25
PROVIDERS: PCP Family Medicine; Referring Provider Internal Medicine Cardiovascular Disease; Visit Provider Internal Medicine Cardiovascular Disease
DX: Z01.812 Encounter for preprocedural laboratory examination (principal); R94.39 Abnormal result of other cardiovascular function study
CPT/HCPCS: 75574; 76380; Q9967

== ENCOUNTER → 2022-07-11 | Outpatient (CLI) | payer MEDICARE, SELFPAY ==
--- NOTE | 2022-07-10 17:40 | CCTA.WCONT ---
CCTA w/Cont Coronary Arteries Date of Study:: 07/10/22 Abnormal stress test. The patient was brought to the radiology department and administered intravenous contrast per usual protocol. Images were reconstructed and aligned for interpretation. LEFT MAIN CORONARY ARTERY: Normal left main with calcification present [] LEFT ANTERIOR DESCENDING CORONARY ARTERY: Moderate size vessel with severe calcification noted proximally and in the midsegment and a small amount of distal calcification present. The amount of calcification noted proximally and in the midsegment creates enough of the blooming artifact that significant stenosis is not visualized. However at least moderate stenosis is present. [] LEFT CIRCUMFLEX CORONARY ARTERY: Proximal severe calcification noted in a small amount of distal calcification present. The mid to distal segment does not demonstrate any significant obstructive coronary disease present. [] RIGHT CORONARY ARTERY: Dominant large vessel with an eccentric nonocclusive proximal area of calcification. No obstructive coronary disease is noted in this vessel. [] THORACIC AORTA: [] PULMONARY ARTERY: [] LEFT ATRIUM/APPENDAGE: [] MITRAL VALVE: [] AORTIC VALVE: Trileaflet [] LEFT VENTRICLE: [] CORONARY CALCIUM SCORE: Not performed Conclusion: Significant coronary artery calcification noted involving the left main, the proximal and mid left anterior descending artery, the proximal left circumflex artery and a small eccentric area in the right coronary artery. Coronary calcium score was not performed but the above is suggestive of significant coronary artery disease likely.
--- NOTE | 2022-07-11 12:51 | ECHOD_ITS ---
Reason For Study: CHEST PAIN Procedure This was a 2D Doppler, Color Flow transthoracic echocardiogram. Exam performed in department. Left Ventricle Normal LV size. The left ventricular ejection fraction is 65 %. Diastolic function is indeterminate. Right Ventricle Normal right ventricle. Atria The left atrium is mildly enlarged. Normal right atrium. Mitral Valve Trivial mitral valve insufficiency. Tricuspid Valve Trivial tricuspid valve insufficiency. Normal pulmonary artery pressure. Aortic Valve Normal aortic valve. Pulmonic Valve The pulmonic valve is not well visualized. Great Vessels Normal sized aortic root. Pericardium/Pleural No pericardial effusion. MMode/2D Measurements & Calculations LVIDd: 5.7 cm IVSd: 1.1 cm Ao root diam: 3.0 cm LVIDs: 4.3 cm LVPWd: 0.80 cm RVDd: 3.0 cm FS: 25.3 % LAV(MOD-bp): 89.5 ml LVAd ap4: 27.2 cm2 SV(MOD-sp4): 45.2 ml LAV(MOD-bp) Indexed: 47.8 ml/m2 LVLd ap4: 7.5 cm LAV(MOD-sp2): 81.9 ml EDV(MOD-sp4): 81.1 ml LAV(MOD-sp4): 93.0 ml EDV(sp4-el): 84.0 ml LVAs ap4: 16.4 cm2 LVLs ap4: 6.3 cm ESV(MOD-sp4): 35.9 ml ESV(sp4-el): 36.2 ml EF(MOD-sp4): 55.8 % EF(sp4-el): 57.0 % SV(sp4-el): 47.8 ml LA A4 area: 25.7 cm2 LA dimension(2D): 4.3 cm RA A4 area: 16.7 cm2 Time Measurements MV dec time: 0.21 sec Doppler Measurements & Calculations MV E max marcio: 61.8 cm/sec Lat Peak E' Marcio: 6.0 cm/sec Med Peak E' Marcio: 6.0 cm/sec MV A max marcio: 79.7 cm/sec E/E' lat: 10.4 E/E' med: 10.4 MV E/A: 0.78 MV V2 max: 84.3 cm/sec Ao V2 max: 116.0 cm/sec MV max P.9 mmHg MV dec slope: 304.5 cm/sec2 Ao max P.4 mmHg MV V2 mean: 50.4 cm/sec Ao V2 mean: 76.6 cm/sec MV mean P.2 mmHg Ao mean P.8 mmHg MV V2 VTI: 32.3 cm Ao V2 VTI: 23.7 cm LV V1 max: 104.9 cm/sec PA V2 max: 96.2 cm/sec TR max marcio: 244.5 cm/sec LV V1 max P.4 mmHg PA V2 mean: 66.6 cm/sec TR max P.9 mmHg LV V1 mean P.2 mmHg LV V1 mean: 67.4 cm/sec LV V1 VTI: 22.1 cm ECHO/Echo Complete Interpretation Summary The left ventricular ejection fraction is 65 %. Diastolic function is indeterminate. The left atrium is mildly enlarged. Ordering Physician: Deepthi Jacobs Referring Physician: Deepthi Jacobs Performed By: Hannah Moy RCS
== END | disposition home or self-care (01) ==
LOC: CVS 12:51
PROVIDERS: PCP Family Medicine; Referring Provider Internal Medicine Cardiovascular Disease; Visit Provider Internal Medicine Cardiovascular Disease
DX: R07.9 Chest pain, unspecified (principal)
CPT/HCPCS: 93306

== ENCOUNTER 2022-07-24 11:33 | Observation (INO) | payer MEDICARE, SELFPAY ==
--- NOTE | 2022-07-11 13:40 | RAD_ITS ---
STUDY: X-RAY CHEST REASON FOR EXAM: Male, 67 years old. Chest pain. Scheduled for cardiac catheterization this month. TECHNIQUE: PA and lateral views of the chest. COMPARISON: September 22, 2020. FINDINGS: The lungs are clear and expanded. There is no demonstrated pleural abnormality. Normal size heart. Normal mediastinum and tova. Normal visualized pulmonary arteries. Minimal atherosclerotic changes of the thoracic aorta. Minimal degenerative changes of the thoracic spine. Normal visualized ribs, clavicles, and shoulders. There is no demonstrated abnormality of the visualized soft tissue structures of the upper abdomen. RAD/Chest PA and Lateral IMPRESSION: Degenerative changes, as described above. No demonstrated acute cardiopulmonary process. No interval change. Electronically Signed: Juan José Oropeza DO at 17:33 EDT ,
[2022-07-11 14:30] LABS: Hematocrit 36.2 % (40-54); Hemoglobin 11.6 g/dL (13.0-16.5); Mean Corpuscular Hgb 22.6 pg (27.0-32.0); Mean Corpuscular Volume 70.6 fL (80-94); Mean Platelet Vol. 10.8 fl (6.2-12.0); Platelet Count 264 K/mm3 (150-450); RBC Distribution Width CV 17.3 % (11.6-14.6); RBC Distribution Width SD 42.9 fl (35.1-43.9); Red Blood Count 5.13 M/mm3 (4.6-6.2); White Blood Count 7.4 K/mm3 (4.4-11.0)
[2022-07-11 14:42] LABS: Prothrombin Time (Protime)PT. 12.6 SECONDS (11.7-14.9)
[2022-07-11 14:43] LABS: Partial Thromboplast Time 27.9 Seconds (24.1-36.2)
[2022-07-11 15:31] LABS: Anion Gap 8 (5-15); BUN 16 mg/dL (7-18); BUN/Creat Ratio 16.7 RATIO (10-20); Calcium,Total 9.1 mg/dL (8.5-10.1); Chloride 108 mmol/L (98-107); Creatinine, Serum 0.96 mg/dL (0.70-1.30); EST Glomerular Filtration Rate 83 mL/min (>60); Est Glom Filt Rate - Afr Amer 100 mL/min (>60); Glucose 109 mg/dL (74-106); Potassium 3.8 mmol/L (3.5-5.1); Sodium Level 143 mmol/L (136-145)
--- NOTE | 2022-07-19 16:29 | HP.PCM_ITS ---
History and Physical Date of Admission: 07/24/22 The patient has been referred to us as he was noted to have an abnormal stress Myoview. According to the patient, he has had epigastric discomfort about 2 months ago. This occurred at rest. Lasted about 10 minutes. Relieved on its own. He has had a second episode shortly thereafter which also relieved on its own. No shortness of breath. No associated diaphoresis. Patient was advised in stress Myoview by his primary care physician. This was noted to be abnormal with mild defect in the inferior wall and inferior apex. Subsequently he has been referred to us for further evaluation and management. Per patient, he has not had any recurrence of his symptoms since then. Denies any chest pains or shortness of breath either at rest or with activity. Denies any recurrence of his epigastric discomfort. He is physically active and walks every day. Also has been cutting firewood without any problems. No orthopnea. No PND. No ankle edema. Patient is a lifelong non-smoker. Per patient, recently he has been feeling increasingly tired. No lightheadedness or dizziness. No syncope or presyncope. He underwent a stress test on 06/07/2022 that showed small apical and inferior reversible defect. He underwent a coronary angiography CT scan on 07/10/2022 showed significant coronary artery calcification noted involving the left main, the proximal and mid left anterior descending artery, the proximal left circumflex artery and a small eccentric area in the right coronary artery. Coronary calcium score was not performed, but the above is suggestive of significant coronary artery disease likely. On account of tests, he will proceed with heart catheterization. Intake Vital Signs: See EMR Intake Visit Reasons: [facility] Collections Assistant Required: No Accompanied by: Is patient in pain?: No Allergies citalopram [From Celexa] Allergy (Mild, Verified 06/18/22 11:19) Rash fluoxetine [From Prozac] Allergy (Unknown, Verified 06/18/22 11:19) Other Sulfa (Sulfonamide Antibiotics) Allergy (Verified 06/18/22 11:19) Unknown cyclobenzaprine Adverse Reaction (Mild, Verified 06/18/22 11:19) fatigue paroxetine [From Paxil] Adverse Reaction (Unknown, Verified 06/18/22 11:19) Other Medications See EMR [facility] Medical History (Updated 06/18/22 @ 11:[address] Deepthi Jacobs MD) Alcohol use Anemia Arthritis Back pain Beta minor thalassemia Bradycardia Chest pain Chewing tobacco nicotine dependence Essential (primary) hypertension Gastric reflux Gout History of echocardiogram History of hiatal hernia History of steroid therapy Hyperlipidemia Impaired glucose tolerance Injury of head and neck Migraine headache Non-smoker Wears dentures Wears glasses Surgical History (Updated 06/12/22 @ 16:10 by Dulce Allen) History of cardiac catheterization History of colonoscopy History of esophagogastroduodenoscopy (EGD) History of Joshua fundoplication (~04/2021) S/P cataract surgery S/P inguinal hernia repair Status post surgery Social History (Updated 06/18/22 @ 11:22 by Dulce Allen) Smoking Status: Never smoker alcohol intake: current alcohol intake frequency: 0-2 drinks per day substance use type: does not use caffeine: Yes Type: tea Number of servings: 1 ROS Const Const: Positive for fatigue and difficulty sleeping; Negative for weakness, headache(s), frequent falls or excessive sweating Eyes Eyes: Negative for loss of peripheral vision, transient loss of vision, blurry vision, double vision or tunnel vision ENT ENT: Negative for headache(s), dizziness, Nosebleed/epistaxis or balance problems Cardio Chest Pain: No Palpitations: No Edema: None Muscle aches with walking: None Resp Respiratory: Negative for SOB with activity, SOB at rest, SOB orthopnea\SOB lying down, Cough or paroxysmal nocturnal dyspnea GI GI: Negative nausea, vomiting, heartburn or black,tarry stools : Negative for hematuria Musc Musc: Positive for joint pain; Negative for muscle aches/ myalgia, muscle weakness or balance problems Skin Skin: Negative non-healing lesions, rash or unusual bruising Neuro Neuro: Negative for dizziness, lightheadedness, near syncope, syncope, frequent falls, headache(s), weakness, blurry vision, double vision or lack of coordination Olivier Hematologic/Lymphatic: Negative for easy bleeding or easy bruising Endo Endo: Positive for fatigue; Negative for excessive sweating or increased thirst/drinking Psych Psych: Negative for anxiety or depression Allergy Allergy/Immunology: Negative for hives and Negative for rash Cardiology Exam Const Appearance: comfortable and no acute distress Nutritional Appearance: well nourished Neck Neck: no JVD Carotids: Negative bruit Chest Auscultation: Bilateral: Clear to Auscultation Cardio Rate: regular rate Rhythm: regular rhythm Heart sounds: S1 normal and S2 normal Neuro General: patient alert, patient awake and patient oriented x3 Extremities Lower Extremity Edema: None: Bilateral Supplemental Info Supplemental Information Labs: LDL Cholesterol 92 mg/dL (0-130) HDL Cholesterol 76 mg/dL (40-) Triglycerides 111 mg/dL (-199) VLDL Cholesterol 22 mg/dL (5-40) Diagnostics: Electrocardiogram Stress Test NM Stress Test Pulmonary: No Data to Display Assessment and Plan Assessment and Plan (1) Abnormal stress test: Status: Acute Plan: Patient presently is asymptomatic. Continue current medications. Add enteric- coated aspirin 81 mg daily. Echocardiogram on 07/11/2022 showed ejection fraction of 65%. His coronary angiography CT scan is suggestive of significant coronary artery disease. He will proceed with heart catheterization. (2) Fatigue: Status: Acute Plan: The result of his bradycardia and beta-blockers. Decrease metoprolol to 25 mg once daily. (3) Bradycardia: Status: Acute Plan: See #2 above. (4) Essential (primary) hypertension: Status: Chronic Plan: Counseled to check his blood pressure every day and call us with the log in 10 days time. (5) Hyperlipidemia: Status: Chronic Plan: As per prior Medicare physician. Recommend target LDL cholesterol less than 100 mg/dL. (6) GERD (gastroesophageal reflux disease): Status: Chronic Qualifiers: Esophagitis presence: esophagitis presence not specified Qualified Code(s): K21.9 - Gastro-esophageal reflux disease without esophagitis Plan: As per PCP.
[2022-07-23 07:08] VITALS: BMI 22.6
[2022-07-24] VITALS (16 sets, daily range): BP systolic 101–132; BP diastolic 62–106; PULSE 54–102; RESP 11–18; TEMP 36.1–37.3; O2SAT 82–100
--- NOTE | 2022-07-24 10:57 | CL.I_ITS ---
Patient Name: [place] PICK[place] Study Date: 07/24/2022 Performing: Deepthi Jacobs MD Ht: 70 inches 177.8 cm : 1955 Wt: 158.01 lbs 71.67 kg Age: 67 Gender: male BSA: 1.89 PROCEDURE(S) PERFORMED DC02-(37098)LHC/COR IC12-(17566/[id number])JUMA W/WO PTCA, SINGLE CORONARY ARTERY IC12-([id number]/[id number])JUAM W/WO PTCA, SINGLE CORONARY ARTERY CLINICAL PROFILE AND CO-MORBIDITIES Indications: Suspected CAD Heart Failure: None Stress/Imaging Stress Test w/SPECT MPI: Yes Result: Positive Intermediate Risk Stress Test with SPECT MPI: Positive Intermediate Risk CONCLUSIONS Separate ostia LAD/LCX 95% Prox, 80% Mid LAD 90% distal LCX Non-obstructive disease RCA Successful PTCA/JUMA Prox LAD using Orsirio 3.0x13 mm Successful JUMA Mid LAD using Orsirio 3.0x18 mm Successful JUMA distal LCX using Orsirio 3.0x15 mm RECOMMENDATIONS ASA Indefinitley Plavix for at least 12 months DESCRIPTION OF PROCEDURE The patient arrived to the procedure lab. The risks and benefits of the procedure as well as a full description of our services here and lack of surgical backup were fully explained to the patient and/or their significant other prior to the catheterization. The Timeout was completed, verifying the correct patient and procedure. The patient's procedural site was prepped and draped in the usual fashion. Local anesthetic was given subcutaneously to right radial region with Lidocaine 2%. Using a modified Seldinger technique, arterial access was obtained via the right radial artery, a 6Fr sheath was inserted.. Left Coronary Artery selective angiography was performed in multiple views using a 5 Fr. 4.0 [place] catheter. Right Coronary Artery selective angiography was then performed in multiple views using a 5 Fr. 4.0 [place] catheterThe images were reviewed and options discussed. A decision was then made to proceed with an Intervention, IVUS or other adjunct procedure. XB 3.0 Guide catheter was inserted and engaged into the LCA. Runthrough Guide wire was advanced to the LAD. XB 2.5 Guide catheter was inserted and engaged into the LCA. Emerge 2.50x12 Balloon catheter was inserted. PTCA balloon inflated at 6 atms for 16 secs. Angiogram performed post balloon dilatation. Orsiro 3.0x13 Drug Eluting stent was inserted. Angiogram performed post stent deployment. Orsiro 3.0x18 Drug Eluting stent was inserted. Angiogram performed post stent deployment. NC Emerge 3.00x12 Balloon catheter was inserted. Angiogram performed post balloon dilatation. Guide wire was repositioned to the Circumflex Orsiro 3.0x15 Drug Eluting stent was inserted. Angiogram performed post balloon dilatation. NC Emerge 3.00x12 Balloon catheter was inserted. Angiogram performed post balloon dilatation. The arterial sheath was pulled and a TR Band was applied for hemostasis w/ 11ml air CORONARY ANGIOGRAPHY DOMINANCE: Right Dominant LEFT ANTERIOR DESCENDING ARTERY: LAD: Eccentric 95% Proximal lesion in LAD Tubular 80% Mid lesion in LAD CIRCUMFLEX ARTERY: CIRCUMFLEX: Tubular 90% Distal lesion in Circumflex RIGHT CORONARY ARTERY: RCA: Calcified 20% Mid lesion in RCA INTERVENTION INFORMATION LESION SITE: LAD (Proximal) Lesion Complexity: Non-High/Non-C, lesion length: 10 mm, In-stent restenosis: No Pre Stenosis: 95 % Pre intervention AGATA flow: 2 PROCEDURE: Drug Eluting Stent with pre and post dilatation Post Stenosis: 0 % Post intervention AGATA flow: 3 Lesion Devices: Terumo .014 Runthrough Extra Floppy 180cm straight Cordis 6 Fr XB2.5 VBT 100cm Guide Catheter [employer] [facility] MR 2.50x12 BALLOON [employer] [facility] MR JUAM 3.0x13 [employer] [place] [facility] MR 3.00x12 [place] LESION SITE: LAD (Mid) In-stent restenosis: No, Lesion Complexity: Non-High/Non-C Pre Stenosis: 80 % Pre intervention AGATA flow: 3 PROCEDURE: Drug Eluting Stent Post Stenosis: 0 % Post intervention AGATA flow: 3 Lesion Devices: Terumo .014 Runthrough Extra Floppy 180cm straight Cordis 6 Fr XB2.5 VBT 100cm Guide Catheter [employer] [place] [facility] MR 3.00x12 [place] [employer] [facility] MR JUMA 3.0x18 LESION SITE: Circumflex (Distal) In-stent restenosis: No Pre Stenosis: 90 % Pre intervention AGATA flow: 3 PROCEDURE: Drug Eluting Stent 0 % Post intervention AGATA flow: 3 Lesion Devices: Terumo .014 Runthrough Extra Floppy 180cm straight Cordis 6 Fr XB2.5 VBT 100cm Guide Catheter [employer] [place] [facility] MR 3.00x12 [place] [employer] [place] MR JUMA 3.0x15 COMPLICATIONS No Complications PROCEDURE MEDICATIONS Versed 2 mg IV Fentanyl 50 mcg IV Versed 2 mg IV Fentanyl 50 mcg IV Oxygen: 2 L/min via nasal cannula Baby Aspirin (81mg) 1 Tabs PO 07/24/2022 07:56:02 Brilinta 180 mg PO @ 07/24/2022 09:17:30 Heparin given IA 07/24/2022 09:06:58 Heparin 6000 unit(s) IV 07/24/2022 09:17:36 Heparin 4000 unit(s) IV 07/24/2022 09:33:53 Heparin 2000 unit(s) IV 07/24/2022 09:55:07 Heparin 2000 unit(s) IV 07/24/2022 10:24:56 Nitro 100 mcg IC 07/24/2022 09:39:26 Nitro 100 mcg IC 07/24/2022 09:39:26 Nitro 100 mcg IC 07/24/2022 09:54:46 Verapamil 2.5mg, Ntg 200mcgs, 2000 units of Heparin given IA 07/24/2022 09:06:58 IV Bolus: .9 NaCl 300 ml total 07/24/2022 09:09:19 IV Fluids: .9 NaCl IV started @ 100 ml/hr 07/24/2022 09:52:42 SUMMARY OF HEMODYNAMIC DATA Time AIR REST ECG 07:55:35 AO 91/51 (68) SA 09:08:05 AO 119/66 (86) 09:24:26 AIR REST 10:30:37 Signed By Deepthi Jacobs MD On 07/24/2022 10:56:50 Deepthi Jacobs MD
[2022-07-24] MEDS: 0.9% Normal Saline 1,000 ML 150 ML IV (11:54)
--- NOTE | 2022-07-24 13:44 | CRPH1.INSTRU ---
General Education CAD and cardiac anatomy and function:: Patient communicates acknowledgment Explanation of diagnoses and procedures:: Patient communicates acknowledgment Sign/Symptoms of NE:: Patient communicates acknowledgment Antiplatelet therapy: Patient communicates acknowledgment Smoking Patient Nicotine/Smoking Risk Factors Are:: Never smoked Dyslipidemia Patient Dyslipidemia Risk Factors Are:: Total Cholesterol, Triglycerides, HDL, LDL Recommendations Include:: Lipid profile not available, Reviewed NCEP/ATP guidelines, Therapeutic Lifestyle Change dietary guidelines Dyslipidemia Response Code:: Patient communicates acknowledgment Overweight/Obesity Patient Overweight/Obesity Risk Factors Are:: BMI Normal [24-29 & > 65 years old] Recommendations Include:: Weight loss of 5-10%, Reduced calorie diet, Exercise 5-7 times/week Overweight/Obesity:: Patient communicates acknowledgment Hypertension Recommendations Include:: Maintain BP <130/85, DASH dietary guidelines, Decrease/maintain normal body weight, Moderation of ETOH Hypertension:: Patient communicates acknowledgment Diabetes Patient Diabetes Risk Factors Are:: No documented hx of diabetes Sedentary Patient Sedentary Risk Factors Are:: Lack of regular exercise Recommendations Include:: Aerobic exercise 5-7 times/week for 20-30 minutes continuously, Benefits of regular exercise, Discussed home walking program, Monitored Outpatient Cardiac Rehab Sedentary Response Code:: Patient communicates acknowledgment Stress Recommendations Include:: Identification of stressors, and assessment of coping skills, Stress management techniques Stress Response Code:: Patient communicates acknowledgment
--- NOTE | 2022-07-24 13:47 | CRPHASE1 ---
Patient Communication PHII Cardiac Rehab Discussed with Patient:: Yes Guide to Cardiac Rehab Given to Patient:: Yes Cardiac Rehab Facility Choice List Given to Patient:: Yes Choice Program [facility] CR PHII:: Communication Given to CR Choice Program Other:: Communication Given to CR Architectural Engineer:: Deepthi Jacobs Phase II Cardiac Rehab:: Yes Sessions:: 36 sessions - 3 days/wk, 12 weeks Cardiac Rehabilitation Info Cardiac Rehabilitation Program Information: Cardiac Rehabilitation is important for patients like you who are recovering from a heart problem. Cardiac rehabilitation programs are recognized as integral to the continued care of the patient with coronary heart disease. The cardiac rehabilitation program is designed to optimize a patient's physical, psychological, and social functioning. Health youth care professional work in cardiac rehabilitation programs and assist you with getting the treatments you need to get stronger and healthier - like exercise, healthy eating habits, and medications. Cardiac rehabilitation has been show to help people with heart problems live longer and have better life enjoyment than people who do not go to cardiac rehabilitation. Please contact the Cardiac Rehabilitation Program at [facility] at in two weeks if you have not heard from them.
[2022-07-24] MEDS: Morphine 4 MG/ML Syringe IV ×2 (14:39→18:43)
[2022-07-24] MEDS: 0.9% Saline Lock 10 ML Syringe IV ×2 (14:39→18:43)
[2022-07-24] MEDS: Acetaminophen 325 MG Tablet 650 MG PO (16:11)
[2022-07-24] MEDS: Clopidogrel Bisulfate 300 MG Tablet PO (16:44)
[2022-07-24 17:42] LABS: ACT Activated Clotting Time 202 sec (74-137)
[2022-07-24 17:43] LABS: ACT Activated Clotting Time 248 sec (74-137)
[2022-07-24] MEDS: Zolpidem Tartrate 5 MG Tablet PO (21:32)
[2022-07-24] MEDS: Atorvastatin Calcium 20 MG Tablet PO (21:32)
[2022-07-25] VITALS (8 sets, daily range): BP systolic 108–132; BP diastolic 69–76; PULSE 56–89; RESP 18; TEMP 36.6–36.8; O2SAT 97–99
[2022-07-25] MEDS: Morphine 4 MG/ML Syringe IV (00:02)
[2022-07-25 04:53] LABS: Hematocrit 30.9 % (40-54); Hemoglobin 9.6 g/dL (13.0-16.5); Mean Corp Hgb Conc 31.1 g/dL (32-36); Mean Corpuscular Hgb 21.8 pg (27.0-32.0); Mean Corpuscular Volume 70.1 fL (80-94); Mean Platelet Vol. 10.7 fl (6.2-12.0); Platelet Count 148 K/mm3 (150-450); RBC Distribution Width CV 16.4 % (11.6-14.6); RBC Distribution Width SD 41.1 fl (35.1-43.9); Red Blood Count 4.41 M/mm3 (4.6-6.2); White Blood Count 7.8 K/mm3 (4.4-11.0)
[2022-07-25 05:39] LABS: ALB/GLOB Ratio 1.1 RATIO (0.9-2.4); AST(SGOT) 31 U/L (15-37); Alanine Aminotransfer ALT/SGPT 109 U/L (16-61); Alkaline Phosphatase 100 U/L (45-117); Anion Gap 7 (5-15); BUN 14 mg/dL (7-18); Calcium,Total 8.2 mg/dL (8.5-10.1); Chloride 105 mmol/L (98-107); Creatinine, Serum 0.67 mg/dL (0.70-1.30); EST Glomerular Filtration Rate 126 mL/min (>60); Est Glom Filt Rate - Afr Amer 152 mL/min (>60); Estimated Creatinine Clearance 70.67 ml/min; Globulin 2.7 g/dL (2.2-4.2); Glucose 131 mg/dL (74-106); Potassium 3.8 mmol/L (3.5-5.1); Protein, Total 5.7 g/dL (6.4-8.2); Sodium Level 138 mmol/L (136-145)
[2022-07-25] MEDS: Aspirin E.C. 81 MG Tablet PO (09:42)
[2022-07-25] MEDS: Clopidogrel Bisulfate 75 MG Tablet PO (09:42)
[2022-07-25] MEDS: Lisinopril 40 MG Tablet PO (09:42)
[2022-07-25] MEDS: Allopurinol 300 MG Tablet PO (09:42)
[2022-07-25] MEDS: amLODIPine 10 MG Tablet PO (09:42)
[2022-07-25] MEDS: Metoprolol(XL)Succ 25 MG Tablet PO (09:42)
--- NOTE | 2022-07-25 10:07 | PN.CARD_ITS ---
Subjective Subjective Doing good. Ambulating. Denies any chest pains. No shortness of breath. Objective Data Vital Signs: Vital Signs Temp Pulse Resp BP Pulse Ox O2 Del Method 97.9 F 78 18 132/69 H 97 Room Air 07/25/22 09:40 07/25/22 09:42 07/25/22 09:40 07/25/22 09:42 07/25/22 09:40 07/25/22 09:40 Oxygen Delivery Method Room Air Weight: 157 lb 13.616 oz Body Mass Index (BMI) 22.6 Intake & Output: Intake and Output for Last 24 Hours 07/23/22 07/24/22 07/25/22 23:59 23:59 23:59 Intake Total 1660 / 1660 Balance 1660 / 1660 Lab / Micro Data Result Diagrams: 07/25/22 04:45 07/25/22 04:45 Labs: Laboratory Results - last 24 hr 07/24/22 09:25: Activated Clotting Time 202 H 07/24/22 10:19: Activated Clotting Time 248 H 07/25/22 04:45: WBC 7.8, RBC 4.41 L, Hgb 9.6 L, Hct 30.9 L, MCV 70.1 L, MCH 21.8 L, MCHC 31.1 L, RDW Std Deviation 41.1, RDW Coeff of Mag 16.4 H, Plt Count 148 L , MPV 10.7 07/25/22 04:45: Sodium 138, Potassium 3.8, Chloride 105, Carbon Dioxide 26.0, Anion Gap 7, BUN 14, Creatinine 0.67 L, Estim Creat Clear Calc 70.67, Est GFR (MDRD) Af Amer 152, Est GFR (MDRD) Non-Af 126, BUN/Creatinine Ratio 21.0 H, Glucose 131 H, Calcium 8.2 L, Total Bilirubin 0.60, AST 31, ALT 109 H, Alkaline Phosphatase 100, Total Protein 5.7 L, Albumin 3.0 L, Globulin 2.7, Albumin/Globulin Ratio 1.1 Cardiology Labs/Tests 07/25/22 04:45: WBC 7.8, RBC 4.41 L, Hgb 9.6 L, Hct 30.9 L, MCV 70.1 L, MCH 21.8 L, MCHC 31.1 L, Plt Count 148 L, MPV 10.7 07/25/22 04:45: Sodium 138, Potassium 3.8, Chloride 105, Carbon Dioxide 26.0, Anion Gap 7, BUN 14, Creatinine 0.67 L, Est GFR (MDRD) Af Amer 152, Est GFR (MDRD) Non-Af 126, BUN/Creatinine Ratio 21.0 H, Glucose 131 H, Calcium 8.2 L, Total Bilirubin 0.60 Rhythm: EKG: ECHO: Stress Test: Cardiac Cath: PCI: CT Surgery: Holter monitor: EPS: PPM: CXR: Chest CT Scan: Physical Exam Narrative Right radial pulse 3+. Comfortable. Heart sounds 1 and 2 normal. Chest clear to auscultation bilaterally. Assessment & Plan Assessment/Plan (1) History of coronary artery stent placement: PLAN: Status post drug-eluting stent placement to the LAD and to the left circumflex. Stable. Asymptomatic. Continue aspirin lifelong. Clopidogrel tr eatment for at least 1 year. (2) Hyperlipidemia: PLAN: Continue atorvastatin. ALT mildly increased. Will repeat next week. (3) Essential (primary) hypertension: PLAN: Controlled. PLAN: Plan Hemoglobin 9.6 g/dL. We will repeat an H&H in the morning as outpatient. Okay to discharge home. Follow-up as outpatient in 2 weeks.
--- NOTE | 2022-07-25 11:52 | DCINST_ITS ---
Discharge Instructions Diet Discharge Diet: Low fat / Low cholesterol Activity Discharge Activity: Return to Normal Activity Return to work on:: 07/29/22 Dressing / Incision Call your doctor if your incision/area has: Continuous Slow Oozing, Sudden Increased Bleeding, Increased Pain/ Swelling, Increased Redness, Foul Smelling Discharge and Swelling at the incision site Call your doctor if you observe: Fever of 101 or Higher Follow Up Care Test Results: Test results from this visit will be discussed in further detail at your follow- up appointment, if applicable. Discharge Plan Admission Admit Date/Time: 07/24/22 11:33 Primary Reason for Your Visit: Coronary artery disease Attending Provider: Deepthi Jacobs Primary Care Provider: Jordan Jung Discharge Orders/Prescriptions Prescriptions: New clopidogrel 75 mg Tablet 75 mg PO DAILY 90 Days Qty: 90 3RF nitroglycerin 0.4 mg Tablet, Sublingual 0.4 mg sublingual Q5M PRN (Reason: Cardiac/Chest Pain) 30 Days Qty: 15 6RF Continued metoprolol succinate 50 mg tablet extended release 24 hr 25 mg PO DAILY allopurinol 300 mg tablet 300 mg PO DAILY Label Comments: take 1 tablet by mouth once daily lisinopril 40 mg tablet 40 mg PO DAILY Label Comments: Take 1 tablet by mouth daily oxycodone 5 mg tablet 5 mg PO BID atorvastatin 20 MG tablet 20 mg PO QHS amlodipine 10 MG tablet 10 mg PO DAILY No Action aspirin [Adult Aspirin Regimen] 81 mg tablet,delayed release (DR/EC) 81 mg PO DAILY Referrals / Follow Up: Deepthi Jacobs MD [Med Staff - Active Staff] - Jordan Jung MD [Primary Care Provider] - Disposition Disposition (needs filled in before D/C Order can be placed): Home, Self Care
== END 2022-07-25 10:14 | disposition home or self-care (01) ==
LOC: PCU 13:04
PROVIDERS: Admitting Provider Internal Medicine Cardiovascular Disease; PCP Family Medicine; Referring Provider Internal Medicine Cardiovascular Disease; Visit Provider Internal Medicine Cardiovascular Disease
DX: R94.39 Abnormal result of other cardiovascular function study (principal); I10 Essential (primary) hypertension; E78.5 Hyperlipidemia, unspecified; Z95.5 Presence of coronary angioplasty implant and graft; F17.220 Nicotine dependence, chewing tobacco, uncomplicated; K21.9 Gastro-esophageal reflux disease without esophagitis; R53.83 Other fatigue; R00.1 Bradycardia, unspecified; Z79.899 Other long term (current) drug therapy; Z79.82 Long term (current) use of aspirin; R07.9 Chest pain, unspecified
CPT/HCPCS: 36415; 71046; 80048; 80053; 85027; 85347; 85610; 85730; 92928; 93005; 93454; 96361; 96374; 96376; 99152; 99153; 99218; C1874; J7030; J7040; Q9967; A4216; C1725; C1769; C1887; C1894; C9600; G0378

== ENCOUNTER → 2022-08-13 | Outpatient (CLI) | payer MEDICARE, SELFPAY ==
[2022-08-13 11:18] LABS: Hematocrit 35.8 % (40-54); Hemoglobin 11.3 g/dL (13.0-16.5); Mean Corp Hgb Conc 31.6 g/dL (32-36); Mean Corpuscular Hgb 22.5 pg (27.0-32.0); Mean Corpuscular Volume 71.3 fL (80-94); Mean Platelet Vol. 10.4 fl (6.2-12.0); Platelet Count 279 K/mm3 (150-450); RBC Distribution Width CV 16.2 % (11.6-14.6); RBC Distribution Width SD 40.1 fl (35.1-43.9); Red Blood Count 5.02 M/mm3 (4.6-6.2); White Blood Count 6.8 K/mm3 (4.4-11.0)
[2022-08-13 11:40] LABS: AST(SGOT) 34 U/L (15-37); Alanine Aminotransfer ALT/SGPT 75 U/L (16-61)
== END | disposition home or self-care (01) ==
LOC: LAB 10:18
PROVIDERS: PCP Family Medicine; Referring Provider Internal Medicine Cardiovascular Disease; Visit Provider Internal Medicine Cardiovascular Disease
DX: I25.118 Atherosclerotic heart disease of native coronary artery with other forms of angina pectoris (principal); E78.5 Hyperlipidemia, unspecified; D64.9 Anemia, unspecified
CPT/HCPCS: 36415; 84450; 84460; 85027

== ENCOUNTER → 2022-08-29 | Outpatient (CLI) | payer MEDICARE, SELFPAY ==
--- NOTE | 2022-08-29 16:13 | RAD_ITS ---
EXAM: XR CHEST, 2 VIEWS CLINICAL INDICATION: SOB TECHNIQUE: Frontal and lateral views of the chest. This report was created using GIDE[employer] report generation technology. COMPARISON: 07/11/2022 FINDINGS: LUNGS AND PLEURAL SPACES: Unremarkable. No consolidation or edema. No pneumothorax. No effusion. HEART: Unremarkable. Cardiac silhouette not enlarged. MEDIASTINUM: Central airways and mediastinal contour are unremarkable. BONES/JOINTS: Unremarkable. SOFT TISSUES: Unremarkable. RAD/Chest PA and Lateral IMPRESSION: No radiographic evidence of acute cardiopulmonary disease. Electronically Signed: Jacob Peterson MD at 21:31 EST ,
== END | disposition home or self-care (01) ==
LOC: MTRAD 16:10
PROVIDERS: PCP Family Medicine; Referring Provider Family Medicine; Visit Provider Family Medicine
DX: R06.02 Shortness of breath (principal)
CPT/HCPCS: 71046

== ENCOUNTER → 2022-09-10 | Outpatient (CLI) | payer MEDICARE, SELFPAY ==
[2022-09-10 16:14] LABS: Amphetamine Urine VISTA NEGATIVE (<1000 ng/mL); Barbiturate Urine VISTA NEGATIVE (< 200 ng/mL); Benzodiazepine Urine VISTA NEGATIVE (< 200 ng/mL); Cocaine Urine VISTA NEGATIVE (< 300 ng/mL); Ecstacy Urine VISTA NEGATIVE (< 500 ng/mL); Methadone Urine VISTA NEGATIVE (< 300 ng/mL); PCP Urine VISTA NEGATIVE (< 25 ng/mL); THC Urine VISTA NEGATIVE (< 50 ng/mL); Vista UDS pH Range 6
== END | disposition home or self-care (01) ==
PROVIDERS: PCP Family Medicine; Visit Provider Anesthesiology Pain Medicine
DX: F11.20 Opioid dependence, uncomplicated (principal)
CPT/HCPCS: 80307

== ENCOUNTER → 2022-09-18 | Outpatient (CLI) | payer MEDICARE, SELFPAY ==
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
[2022-09-18 10:19] VITALS: BP 120/70; PULSE 62; O2SAT 98; BMI 23.1
--- NOTE | 2022-09-18 10:20 | CR.ITP_ITS ---
Diagnosis - General Information Admitting Diagnosis: PCI with stent Personal Learning Style:: Audio/Visual Stage of change r/t lifestyle modifications:: Contemplation Gave educational material for:: Treating Heart Disease, Emotions & Heart Diseas e, Stress Management & Relaxation, Sleep Disorders & Heart Disease, How The Heart Works, What it means to have Heart Disease, How Coronary Artery Disease is Diagnosed, Heart Procedures, What Heart Medications Do, Risk Factors & Modifications, Living an Active Life, Nutrition - Education/Goals Cardiac Rehabilitation Goals: 1. Maintain the individual as the primary focus of care. 2. To improve the patient's quality of life. 3. Identification of cardiac risk factors and provide cardiac risk factor management. 4. Enhance the psychosocial status of the patient. 5. Reconditioning enough to allow the patient to resume customary activities. 6. Control symptoms of cardiac disease Personal Goals: Initial Assessment: Improve energy level, Participate in home exercise program, Improve muscle strength and endurance, Control risk factors (learn risk factor modification) Scale for measuring improvement of personal goals: Enter appropriate number in Comments. 2 = Unchanged. 3 = Slightly Better. 4 = Moderate Improvement. 5 = Met my Goal Exercise - Initial Assessment - Visit Date of Eval: 09/18/22 Mets: Pre-: >3 METS for 30 minutes by discharge, >5 METS for 30 minutes by discharge, >7 METS for 30 minutes by discharge, Unable to meet goal due to: (see comment below) - Physician Prescribed Exercise Modalities: Treadmill, Rower, Airdyne, NuStep, SciFit, Lateral Agronomy Supervisor Frequency: 2x/week for 18 weeks [36 sessions], 3x/week for 12 weeks [36 sessions] Intensity: 60-80% of age predicted maximum heart rate reserve Current METSs:: 3 Target Heart Rate:: 98-113 Resting Blood Pressure: 120/70 EKG Type: SB - Outcomes & Goals Goals:: Verbalizes understanding of THR, RPE & goal METS by session 6, Documents in home exercise log/reports 30 min aerobic 5 day/wk by DC, Demonstrates accur ate pulse taking by DC, Other additional outcome/goals: see below - Intervention & Plan Exercise Program Goals: Instruct on personal THR & RPE, Instruct on MET level & personal MET goal, Show patient to take own pulse /validate performance until accurate, Instruct on home exercise, Other additional plan/int - Physical Activity Home Exercise Physical Activity - Home Exercise: Safe Exercise, Warm-up, Self-monitoring, Cool-Down, Home Exercise > 30 min Daily, Sitting Time <3 hours/daily - Outcomes & Goals Outcomes/Goals: Demonstrates correct Warm-up/exercise Cool-Down (S3) if = 2.5 METs, Verbalizes symptoms of exercise intolerance by Session 3 (S3), Demonstrate safe equipment use (S3) & follows exercise prescrition (6), Other: See below - Intervention & Plan Plan/Intervention: Instruct warm-up & cool-down if exercising at > 2 METs, Inst ruct on symptoms of exercise intolerance & actions to take, Instruct & monitor on saf, Assess intial functional capacity & safety risk, Other See below Nutrition - Initial Assessment - Program Goals Nutrition Program Goals: LDL <100 optimal. 100 - 129 Near optimal. 130 - 159 Borderline High. 160 - 189 High. Total Cholesterol <200 desirable. 200 - 239 Borderline High. >/= 240 High. HDL < 40 Low >/=60 High. Triglycerides <150 desirable. <199 optimal. VlDL 5 - 40. HgbA1C <7%. BMI <25 Patient has diagnosis of Hyperlipidemia (ICD E78)?: Yes - Visit Date of Assessment:: 09/18/22 - initial eval - Cholesterol/Lipids (Other Core Measures) Determine presence & major risk factors that modify LDL goal: Hypertension or hypertensive medication, Low HDL cholesterol <40 mg/dL*, Family history of premature CHD in Male < 55 years: female <65 yearsFa, Age men > 45 years; women >/= 55 years Outcomes/Goals: Pt IDs own risk factors & lifestyle modifications by Session 10, Verbalizes symptoms of angina & response by session 3., Pt independently manages, Other Additional Outcomes/Goals: Intervention/Plan: Advocate for lipid panel cholesterol medication if applicable, Instruct on personal lipid levels & lipid goals/NCEP guidelines, Instruct on cholesterol, Other additional plan/int Referral to dietitian:: No - Weight Mgt (Other Care) Height: 5 ft 10 in Weight:: 73.028 kg BMI: 23.1 Diagnosis Overweight/Obesity BMI> 30% ICD-10 E66: No Diagnosis High BMI/Morbid Obesity BMI> 35% ICD-10 Z68: No Outcomes/Goals: Pt sets, maintains & shows weight loss goal & trend during rehab, Other additional outcomes/goals Intervention/Plan: Instruct on ideal BMI & set weight loss goal w/patient, Assist pt to ID & incorporate diet changes for weight loss by S9, Refer to Structured Weight Loss program as appropriate, Encourage goal of using 250- 300dcal per session for weight loss, Other additional plan/interventions - Healthy Eating Habits Will attend diet classes:: Yes Outcomes/Goals:: Consume diet rich in vegs,fruits,whole grain/high fiber,fish,lean meat, Limit sat/trans fats,cholesterol & added salts & sugars, Other additional outcome/goals: Intervention/Plan:: Assess current eating habits, Other Additional plan/interventions - Education Gave educational materials for:: Signs & symptoms of hypoglycemia, Signs & symptoms of hyperglycemia, Relate diabetes to coronary artery disease, Healthy eating Nutrition - 30-Day Assessment Nutrition - 60-Day Assessment Nutrition - 90-Day Assessment Nutrition - Final Assessment Core - Initial Assessment - Visit Date of Eval: 09/18/22 - initial eval - Medication Compliance Preventative Medication(s):: TA inhibitor, Clopidogrel/P2Y12 inhibit, Statin/lipid, Beta nitza H/O mental health issues: depression, anxiety, or addiction?: No Doesn?t believe in the benefits of treatment?: No Believes medications are unnecessary or harmful?: No Has a concern about medication side effects?: No Expresses concern over the cost of medications?: No Outcomes/Goals: Verbalizes medications,desired effect & common side effects @ DC, Pt self-reports following medication regimen, Keeps card in wallet w/medications listed by DC, Other additional outcome/goals: Interventions/plans: Instruct on medication effects & side effects, Review medication list w/patient every two weeks, Instruct importance of taking meds as ordered & assist problem solving, Other additional - Tobacco Use Tobacco Use: Chew How long ago did you quit using tobacco products?: Less than 6 months ago Do you use smokeless tobacco?: No Outcomes/Goals: Smoking cessation achieved or maintained by discharge, Identify aids/strategies for achieving smoking cessation by session 6, Other additional outcome/goals Interventions/plan: Instruct on effects of smoking & provide smoking cessation resource, Assist pt to set quit date & provide encouragement, Assist pt to develop strategies to achieve/maintain quit date, Assist pt w/nicotine replacement & medication for cessation success, Other additional plan/interventions - Hypertension Hypertension Diagnosis:: Hypertension ICD-10 I10 Resting Blood Pressure:: 120/70 [place] [employer] Hypertension Guidelines: [place] [employer] Hypertension Guidelines. Normal BP Less than 120/80. Elevated BP 120/80. Hypertension Stage 1: BP 130-139/80-89. Hypertesnion Stage 2: BP 140 or higher/90 or higher. Hypertension Crisis: BP higher than 180/120 Outcomes/Goals: Able to verbalize/achieve optimal blood pressure <130/80, Incorporates diet changes & exercise for blood pressure control by DC, Other additional outcomes/goals Interventions/plan: Instruct on optimal blood pressure, hypertension & medications, Instruct on effects of sodium, alcohol, stress, exercise &hypertension, Other additional plan/interventions - Tobacco Cessation Referral Smoking Cessation Referral:: No Individual Education/Counseling:: No Education Schedule Given:: Yes Core - 30-Day Assessment Core - 60-Day Assessment Core - 90 Day Assessment Core - Final Assessment Psychosocial - Initial Assess - VIsit Date of Eval: 09/18/22 - initial eval History of previous Mental disease:: No - Outcomes/Goals: See list Psychosocial Outcomes/Goals:: ID's personal stressors & 2 strategies to manage stress by discharge, Other Additional outcome/goals: - Intervention/Plan: See List Interventions/Plan:: Assess stressors,coping strategies & signs of derpression on admission, Instruct/assist pt to develop coping & personal stress Mgt strategies, Refer to Behavioral Health if appropriate, Refer to Physician if appropriate, Instruct patient to recognize signs & symptoms of depression, Instruct patient to recog, Other additional plan/intervention Psychosocial - 30-Day Assess Psychosocial - 60-Day Assess Psychosocial - 90-Day Assess Psychosocial - Final Assessmen Patient Health Questionnaire Initial Assessment 1. Little interest or pleasure in doing things: Several days 2. Feeling down, depressed, or hopeless: Several days 3. Trouble falling or staying asleep, or sleeping too much: Nearly every day 4. Feeling tired or having little energy: Nearly every day 5. Poor appetite or overeating: Several days 6. Feeling bad about yourself -- or that you are a failure or have let yourself or your family down: Not at all 7. Trouble concentrating on things, such as reading the newspaper or watching television: Not at all 8. Moving or speaking so slowly that other people could have noticed. Or the opposite - being so fidgety or restless that you have been moving around a lot more than usual: Not at all 9. Thoughts that you would be better off , or of hurting yourself in some way: Not at all How difficult have these problems made it for you to do your work, take care of things at home, or get along with other people?: Somewhat difficult Total Score: 9 TRISH-Q SV Test - Statements CAD is a disease of the arteries in the heart: I Don't Know Examples of risk factors for heart disease: True Angina is chest pain or discomfort: I Don't Know The benefits of resistance training include: True Eating more meat and dairy products: False Anti-platelet medications such as aspirin are important: True The only effective way to manage stress: False An exercise warm-up slowly increases heart rate: True Prepared, processed foods usually have high sodium: True Depression is common after a heart attack: True The statin medications lower cholesterol: True To control blood pressure, lower the amount of sodium: True If someone gets chest discomfort during walking: False Transfats are partially hydrogenated vegetable oils: True Sleep apnea that is not treated increases the risk: I Don't Know To control cholesterol, one should become a vegetarian: False Someone knows if he/she is exercising at the right level: I Don't Know Diabetes cannot be prevented with exercise & health eating: False Stress is a large risk for heart attack: True A diet that can help lower blood pressure is rich in: True - Total Score Total Correct Responses: 16 Self-Efficacy Initial Assessment We would like to know how confident you are in doing certain activities. Please select your confidence level for:: Select your confidence level for the following using the scale 1-10 where 1 is not at all confident and 10 is totally confident. Your score is the average of all 6 responses. Fatigue: How confident are you that you can keep the fatigue caused by your disease from interfering with the things you want to do? Select Number: 5 Physical Discomfort or Pain: How confident are you that you can keep the physical discomfort or pain of your disease from interfering with the things you want to do? Select Number: 5 Emotional Distress: How confident are you that you can keep the emotional distress caused by your disease from interfering with the things you want to do? Select Number: 5 Other Symptoms or Health Problems: How confident are you that you can keep other symptoms or health problems from interfering with the things you want to do? Select Number: 5 Different Tasks and Activities: How confident are you that you can do the different tasks and activities needed to manage your health condition so as to reduce your need to see a doctor? Select Number: 5 Medication: How confident are you that you can do things other than just taking medication to reduce how much your illness affects your everyday life? Select Number: 5 Total Score:: 5 Nutrition Survey - Nutrition Survey Initial Have you lost >10 lbs over the past 2 months without trying?: No Are you following a special diet at home for diabetes, low fat, or low salt?: No Are you interested in meeting with a dietitian for help understanding your diet?: Yes Do you eat less than 3 meals a day?: Yes Do you eat fatty meats (herrera, sausage, ribs, etc), fried foods, desserts, large amounts of salad dressings, margarine, butter, or cheese most days?: Yes Do you have food allergies? [Enter types in comment field]: No Do you eat in restaurants more than 3 times a week?: No Do you season food with salt, seasoning salt, or garlic salt?: No Do you used canned, boxed, frozen meals, or soups, seasoning packets?: Yes Total Score:: 4
[2022-09-18 10:35] VITALS: BP 120/70; BMI 23.1
== END | disposition home or self-care (01) ==
LOC: CR 09:15
PROVIDERS: PCP Family Medicine; Referring Provider Internal Medicine Cardiovascular Disease; Visit Provider Internal Medicine Cardiovascular Disease
DX: Z00.00 Encounter for general adult medical examination without abnormal findings (principal)

== ENCOUNTER 2022-10-07 09:30 | Outpatient (RCR) | payer MEDICARE, SELFPAY ==
[2022-09-18 10:35] VITALS: BMI 23.1
== END 2022-10-08 23:59 ==
LOC: CR 09:30
PROVIDERS: PCP Family Medicine; Visit Provider Internal Medicine Cardiovascular Disease
DX: Z95.5 Presence of coronary angioplasty implant and graft (principal)
CPT/HCPCS: 93798

== ENCOUNTER → 2022-10-30 | Outpatient (CLI) | payer MEDICARE, SELFPAY ==
[2022-10-18 10:42] VITALS: BMI 23.7
[2022-10-30 12:40] LABS: Absolute Lymphocyte Count 0.76 X10^3/uL (0.83-4.51); Absolute Neutrophil Count 7.5 X10^3/uL (2.0-7.7); Basophil# 0.04 X10^3/uL; Basophil% 0.4 % (0-1); Eosinophil# 0.04 X10^3/uL; Eosinophils% 0.4 % (0-5); Hematocrit 35.2 % (40-54); Hemoglobin 10.6 g/dL (13.0-16.5); Lymphocyte # 0.76 X10^3/ul (0.83-4.51); Lymphocyte % 8.3 % (19-41); Mean Corp Hgb Conc 30.1 g/dL (32-36); Mean Corpuscular Hgb 21.9 pg (27.0-32.0); Mean Corpuscular Volume 72.6 fL (80-94); Mean Platelet Vol. 11.3 fl (6.2-12.0); Monocyte# 0.67 X10^3/uL; Monocyte% 7.3 % (0-10); NRBC Flagged by Analyzer 0 % (0-5); Neutrophil # 7.49 X10^3/uL (2.7-7.7); Neutrophil % 82.3 % (47-70); Platelet Count 189 K/mm3 (150-450); RBC Distribution Width CV 17.4 % (11.6-14.6); RBC Distribution Width SD 44.1 fl (35.1-43.9); Red Blood Count 4.85 M/mm3 (4.6-6.2); White Blood Count 9.1 K/mm3 (4.4-11.0)
[2022-10-30 14:03] LABS: ALB/GLOB Ratio 1.3 RATIO (0.9-2.4); AST(SGOT) 14 U/L (15-37); Alanine Aminotransfer ALT/SGPT 39 U/L (16-61); Albumin, Serum 3.6 g/dL (3.2-5.0); Alkaline Phosphatase 88 U/L (45-117); Anion Gap 10 (5-15); BUN 14 mg/dL (7-18); BUN/Creat Ratio 16.3 RATIO (10-20); Calcium,Total 8.9 mg/dL (8.5-10.1); Chloride 109 mmol/L (98-107); Cholesterol 183 mg/dL (200); Creatinine, Serum 0.86 mg/dL (0.70-1.30); EST Glomerular Filtration Rate 94 mL/min (>60); Est Glom Filt Rate - Afr Amer 113 mL/min (>60); Globulin 2.8 g/dL (2.2-4.2); Glucose 110 mg/dL (74-106); High Density Lipoprotein 58 mg/dL; Potassium 4.2 mmol/L (3.5-5.1); Protein, Total 6.4 g/dL (6.4-8.2); Sodium Level 143 mmol/L (136-145); Triglycerides 138 mg/dL; Very Low Density Lipoprotein 28 mg/dL (5-40)
[2022-10-30 14:27] LABS: Hemoglobin A1c 5.9 % (3.8-5.6)
[2022-10-31 09:20] LABS: Uric Acid 5.9 mg/dL (3.5-7.2)
== END | disposition home or self-care (01) ==
LOC: MFPLAB 10:28
PROVIDERS: PCP Family Medicine; Referring Provider Family Medicine; Visit Provider Family Medicine
DX: R73.02 Impaired glucose tolerance (oral) (principal); E78.5 Hyperlipidemia, unspecified; M10.9 Gout, unspecified
CPT/HCPCS: 36415; 80053; 80061; 83036; 84550; 85025

== ENCOUNTER 2022-11-04 09:30 | Outpatient (RCR) | payer MEDICARE, SELFPAY ==
[2022-09-18 10:35] VITALS: BMI 23.1
--- NOTE | 2022-10-18 10:29 | CR.ITP_ITS ---
Diagnosis - General Information Admitting Diagnosis: PCI with stent Personal Learning Style:: Audio/Visual, Demonstration, Group, Individual Preference, Written Stage of change r/t lifestyle modifications:: Action Gave educational material for:: Treating Heart Disease, Emotions & Heart Disease, Stress Management & Relaxation, Sleep Disorders & Heart Disease, How The Heart Works, What it means to have Heart Disease, How Coronary Artery Disease is Diagnosed, Heart Procedures, What Heart Medications Do, Risk Factors & Modifications, Living an Active Life, Nutrition Exercise - 30-day Assessment - Visit Date of Eval: 10/18/22 Session #:: 10 - Physician Prescribed Exercise Modalities: Treadmill, Airdyne, NuStep Frequency: 3x/week for 12 weeks [36 sessions] Intensity: 60-80% of age predicted maximum heart rate reserve Current METSs:: 4 Target Heart Rate:: 113-123 Current RPE:: 12-14 Maximum Excercise HR:: 124 Resting Blood Pressure: 134/60 Maximum Exercise Blood Pressure: 174/70 EKG Type: NSR to ST with rare to occas PVC and rare PAC - Outcomes & Goals Goals:: Verbalizes understanding of THR, RPE & goal METS by session 6, Documents in home exercise log/reports 30 min aerobic 5 day/wk by DC, Demonstrates accurate pulse taking by DC, Other additional outcome/goals: see below - Intervention & Plan Exercise Program Goals: Instruct on personal THR & RPE, Instruct on MET level & personal MET goal, Show patient to take own pulse /validate performance until accurate, Instruct on home exercise, Other additional plan/int - 30-day Reassessments 30 day Reassessments:: Progressing - discussed home exercise - Physical Activity Home Exercise Physical Activity - Home Exercise: Safe Exercise, Warm-up, Self-monitoring, Cool-Down, Home Exercise > 30 min Daily, Sitting Time <3 hours/daily - Outcomes & Goals Outcomes/Goals: Demonstrates correct Warm-up/exercise Cool-Down (S3) if = 2.5 METs, Verbalizes symptoms of exercise intolerance by Session 3 (S3), Demonstrate safe equipment use (S3) & follows exercise prescrition (6), Other: See below - Intervention & Plan Plan/Intervention: Instruct warm-up & cool-down if exercising at > 2 METs, Instruct on symptoms of exercise intolerance & actions to take, Instruct & monitor on saf, Assess intial functional capacity & safety risk, Other See below - 30-day Reassessments 30 day Reassessments:: Progressing - discussed home exercise Nutrition - Initial Assessment Nutrition - 30-Day Assessment - Visit Date of Assessment:: 10/18/22 Session #:: 10 - Cholesterol/Lipids (Other Core Measures) Determine presence & major risk factors that modify LDL goal: Hypertension or hypertensive medication, Low HDL cholesterol <40 mg/dL*, Family history of premature CHD in Male < 55 years: female <65 yearsFa, Age men > 45 years; women >/= 55 years Outcomes/Goals: Pt IDs own risk factors & lifestyle modifications by Session 10, Verbalizes symptoms of angina & response by session 3., Pt independently manages, Other Additional Outcomes/Goals: Intervention/Plan: Advocate for lipid panel cholesterol medication if applicable, Instruct on personal lipid levels & lipid goals/NCEP guidelines, Instruct on cholesterol, Other additional plan/int Referral to dietitian:: No 30-day Reassessments:: Progressing - risk factors explained - Diabetes (Other Core Measures) Diabetes Type: Not Applicable - Weight Mgt (Other Care) Height: 5 ft 10 in Weight:: 75.07 kg BMI: 23.7 Diagnosis Overweight/Obesity BMI> 30% ICD-10 E66: No Diagnosis High BMI/Morbid Obesity BMI> 35% ICD-10 Z68: No Outcomes/Goals: Pt sets, maintains & shows weight loss goal & trend during rehab, Other additional outcomes/goals Intervention/Plan: Instruct on ideal BMI & set weight loss goal w/patient, Assist pt to ID & incorporate diet changes for weight loss by S9, Refer to Structured Weight Loss program as appropriate, Encourage goal of using 250- 300dcal per session for weight loss, Other additional plan/interventions 30 day Reassessments:: Progressing - Pt had a 4# weight gain. Discussed salt intake and portion size. - Healthy Eating Habits Will attend diet classes:: Yes Outcomes/Goals:: Consume diet rich in vegs,fruits,whole grain/high fiber,fish,lean meat, Limit sat/trans fats,cholesterol & added salts & sugars, Other additional outcome/goals: Intervention/Plan:: Assess current eating habits, Other Additional plan/interventions 30-day Reassessments:: Progressing - Pt had a 4# weight gain. Discussed salt intake and portion size. - Education Gave educational materials for:: Signs & symptoms of hypoglycemia, Signs & symptoms of hyperglycemia, Relate diabetes to coronary artery disease, Healthy eating Nutrition - 60-Day Assessment Nutrition - 90-Day Assessment Nutrition - Final Assessment Core - Initial Assessment Core - 30-Day Assessment - Visit Date of Eval: 10/18/22 Session #:: 10 - Medication Compliance Preventative Medication(s):: TA inhibitor, Clopidogrel/P2Y12 inhibit, Statin/li pid, Beta nitza H/O mental health issues: depression, anxiety, or addiction?: No Doesn?t believe in the benefits of treatment?: No Believes medications are unnecessary or harmful?: No Has a concern about medication side effects?: No Expresses concern over the cost of medications?: No Outcomes/Goals: Verbalizes medications,desired effect & common side effects @ DC, Pt self-reports following medication regimen, Keeps card in wallet w/medications listed by DC, Other additional outcome/goals: Interventions/plans: Instruct on medication effects & side effects, Review medication list w/patient every two weeks, Instruct importance of taking meds as ordered & assist problem solving, Other additional 30-day Reassessments:: Progressing - encouraged to take meds - Tobacco Use Tobacco Use: Non-smoker Do you use smokeless tobacco?: Yes - chew Outcomes/Goals: Smoking cessation achieved or maintained by discharge, Identify aids/strategies for achieving smoking cessation by session 6, Other additional outcome/goals Interventions/plan: Instruct on effects of smoking & provide smoking cessation resource, Assist pt to set quit date & provide encouragement, Assist pt to develop strategies to achieve/maintain quit date, Assist pt w/nicotine replacement & medication for cessation success, Other additional plan/interventions 30-day Reassessments:: Progressing - stopped using chew - Hypertension Hypertension Diagnosis:: Hypertension ICD-10 I10 Resting Blood Pressure:: 134/60 [place] [employer] Hypertension Guidelines: [place] [employer] Hypertension Guidelines. Normal BP Less than 120/80. Elevated BP 120/80. Hypertension Stage 1: BP 130-139/80-89. Hypertesnion Stage 2: BP 140 or higher/90 or higher. Hypertension Crisis: BP higher than 180/120 Peak Exercise Blood Pressure:: 174/70 Outcomes/Goals: Able to verbalize/achieve optimal blood pressure <130/80, Incorporates diet changes & exercise for blood pressure control by DC, Other additional outcomes/goals Interventions/plan: Instruct on optimal blood pressure, hypertension & medications, Instruct on effects of sodium, alcohol, stress, exercise &hypertension, Other additional plan/interventions 30 day Reassessments:: Progressing - encouraged to take meds - Tobacco Cessation Referral Smoking Cessation Referral:: No Individual Education/Counseling:: No Education Schedule Given:: Yes Core - 60-Day Assessment Core - 90 Day Assessment Core - Final Assessment Psychosocial - Initial Assess Psychosocial - 30-Day Assess - VIsit Date of Eval: 10/18/22 Session #:: 10 History of previous Mental disease:: No Psychosocial - 60-Day Assess Psychosocial - 90-Day Assess Psychosocial - Final Assessmen Patient Health Questionnaire 30-Day Re-eval Assessment 1. Little interest or pleasure in doing things: Several days 2. Feeling down, depressed, or hopeless: Several days 3. Trouble falling or staying asleep, or sleeping too much: Nearly every day 4. Feeling tired or having little energy: Nearly every day 5. Poor appetite or overeating: Several days 6. Feeling bad about yourself -- or that you are a failure or have let yourself or your family down: Not at all 7. Trouble concentrating on things, such as reading the newspaper or watching television: Not at all 8. Moving or speaking so slowly that other people could have noticed. Or the opposite - being so fidgety or restless that you have been moving around a lot more than usual: Not at all 9. Thoughts that you would be better off , or of hurting yourself in some way: Not at all How difficult have these problems made it for you to do your work, take care of things at home, or get along with other people?: Somewhat difficult Total Score: 9 Self-Efficacy 30-Day Re-eval Assessment We would like to know how confident you are in doing certain activities. Please select your confidence level for:: Select your confidence level for the following using the scale 1-10 where 1 is not at all confident and 10 is totally confident. Your score is the average of all 6 responses. Fatigue: How confident are you that you can keep the fatigue caused by your disease from interfering with the things you want to do? Select Number: 5 Physical Discomfort or Pain: How confident are you that you can keep the phy sical discomfort or pain of your disease from interfering with the things you want to do? Select Number: 5 Emotional Distress: How confident are you that you can keep the emotional distress caused by your disease from interfering with the things you want to do? Select Number: 5 Other Symptoms or Health Problems: How confident are you that you can keep other symptoms or health problems from interfering with the things you want to do? Select Number: 5 Different Tasks and Activities: How confident are you that you can do the different tasks and activities needed to manage your health condition so as to reduce your need to see a doctor? Select Number: 5 Medication: How confident are you that you can do things other than just taking medication to reduce how much your illness affects your everyday life? Select Number: 5 Total Score:: 5 Nutrition Survey
[2022-10-18 10:42] VITALS: BP 134/60; BP 174/70; BMI 23.7
== END 2022-11-05 23:59 ==
LOC: CR 09:30
PROVIDERS: PCP Family Medicine; Visit Provider Internal Medicine Cardiovascular Disease
DX: Z95.5 Presence of coronary angioplasty implant and graft (principal)
CPT/HCPCS: 93798

== ENCOUNTER → 2022-11-15 | Outpatient (CLI) | payer MEDICARE, SELFPAY ==
[2022-10-18 10:42] VITALS: BMI 23.7
[2022-11-15 10:57] LABS: AST(SGOT) 23 U/L (15-37); Alanine Aminotransfer ALT/SGPT 38 U/L (16-61); CPK Total, Creatine Kinase 64 U/L (39-308); Cholesterol 200 mg/dL (200); High Density Lipoprotein 53 mg/dL; Triglycerides 163 mg/dL; Very Low Density Lipoprotein 33 mg/dL (5-40)
== END | disposition home or self-care (01) ==
LOC: LAB 09:56
PROVIDERS: PCP Family Medicine; Referring Provider Internal Medicine Cardiovascular Disease; Visit Provider Internal Medicine Cardiovascular Disease
DX: I25.118 Atherosclerotic heart disease of native coronary artery with other forms of angina pectoris (principal); I10 Essential (primary) hypertension; M10.9 Gout, unspecified
CPT/HCPCS: 36415; 80061; 82550; 84450; 84460

== ENCOUNTER 2022-11-29 09:30 | Outpatient (RCR) | payer MEDICARE, SELFPAY ==
[2022-10-18 10:42] VITALS: BMI 23.7
[2022-11-06 00:27] VITALS: BP 134/60; BP 174/70
--- NOTE | 2022-11-15 10:19 | PCM.CR.ITP ---
Diagnosis Exercise - 60-day Assessment - Visit Date of Eval: 11/15/22 Session #:: 23 - Physician Prescribed Exercise Modalities: Treadmill, Airdyne, NuStep Intensity: 60-80% of age predicted maximum heart rate reserve Current METSs:: 7 Target Heart Rate:: 113-128 Current RPE:: 13 Maximum Excercise HR:: 120 Resting Blood Pressure: 132/60 Maximum Exercise Blood Pressure: 170/70 EKG Type: SB to ST with rare pvc and pac. Slight ST depression - Outcomes & Goals Goals:: Verbalizes understanding of THR, RPE & goal METS by session 6, Documents in home exercise log/reports 30 min aerobic 5 day/wk by DC, Demonstrates accurate pulse taking by DC, Other additional outcome/goals: see below - Intervention & Plan Exercise Program Goals: Instruct on personal THR & RPE, Instruct on MET level & personal MET goal, Show patient to take own pulse /validate performance until accurate, Instruct on home exercise, Other additional plan/int - 30-day Reassessments 30 day Reassessments:: Progressing - THR explained - Physical Activity Home Exercise Physical Activity - Home Exercise: Safe Exercise, Warm-up, Self-monitoring, Cool-Down, Home Exercise > 30 min Daily, Sitting Time <3 hours/daily - Outcomes & Goals Outcomes/Goals: Demonstrates correct Warm-up/exercise Cool-Down (S3) if = 2.5 METs, Verbalizes symptoms of exercise intolerance by Session 3 (S3), Demonstrate safe equipment use (S3) & follows exercise prescrition (6), Other: See below - Intervention & Plan Plan/Intervention: Instruct warm-up & cool-down if exercising at > 2 METs, Instruct on symptoms of exercise intolerance & actions to take, Instruct & monitor on saf, Assess intial functional capacity & safety risk, Other See below - 30-day Reassessments 30 day Reassessments:: Progressing - cool down encouraged Nutrition - Initial Assessment Nutrition - 30-Day Assessment Nutrition - 60-Day Assessment - Visit Date of Assessment:: 11/15/22 Session #:: 23 - Cholesterol/Lipids (Other Core Measures) Determine presence & major risk factors that modify LDL goal: Hypertension or hypertensive medication, Low HDL cholesterol <40 mg/dL*, Family history of premature CHD in Male < 55 years: female <65 yearsFa, Age men > 45 years; women >/= 55 years Outcomes/Goals: Pt IDs own risk factors & lifestyle modifications by Session 10, Verbalizes symptoms of angina & response by session 3., Pt independently manages, Other Additional Outcomes/Goals: Intervention/Plan: Advocate for lipid panel cholesterol medication if applicable, Instruct on personal lipid levels & lipid goals/NCEP guidelines, Instruct on cholesterol, Other additional plan/int 30-day Reassessments:: Progressing - encouraged to take meds - Diabetes (Other Core Measures) Diabetes Type: Not Applicable - Weight Mgt (Other Care) Height: 5 ft 10 in Weight:: 73.028 kg BMI: 23.1 Diagnosis Overweight/Obesity BMI> 30% ICD-10 E66: No Diagnosis High BMI/Morbid Obesity BMI> 35% ICD-10 Z68: No Outcomes/Goals: Pt sets, maintains & shows weight loss goal & trend during rehab, Other additional outcomes/goals Intervention/Plan: Instruct on ideal BMI & set weight loss goal w/patient, Assist pt to ID & incorporate diet changes for weight loss by S9, Refer to Structured Weight Loss program as appropriate, Encourage goal of using 250-300dcal per session for weight loss, Other additional plan/interventions 30 day Reassessments:: Progressing - will attend nutrition class - Healthy Eating Habits Will attend diet classes:: Yes Outcomes/Goals:: Consume diet rich in vegs,fruits,whole grain/high fiber,fish,lean meat, Limit sat/trans fats,cholesterol & added salts & sugars, Other additional outcome/goals: Intervention/Plan:: Assess current eating habits, Other Additional plan/interventions 30-day Reassessments:: Progressing - will attend nutrition class - Education Gave educational materials for:: Signs & symptoms of hypoglycemia, Signs & symptoms of hyperglycemia, Relate diabetes to coronary artery disease, Healthy eating Nutrition - 90-Day Assessment Nutrition - Final Assessment Core - Initial Assessment Core - 30-Day Assessment Core - 60-Day Assessment - Visit Date of Eval: 11/15/22 Session #:: 23 - Medication Compliance Preventative Medication(s):: TA inhibitor, Clopidogrel/P2Y12 inhibit, Statin/lipid, Beta nitza H/O mental health issues: depression, anxiety, or addiction?: No Doesn?t believe in the benefits of treatment?: No Believes medications are unnecessary or harmful?: No Has a concern about medication side effects?: No Expresses concern over the cost of medications?: No Outcomes/Goals: Verbalizes medications,desired effect & common side effects @ DC, Pt self-reports following medication regimen, Keeps card in wallet w/medications listed by DC, Other additional outcome/goals: Interventions/plans: Instruct on medication effects & side effects, Review medication list w/patient every two weeks, Instruct importance of taking meds as ordered & assist problem solving, Other additional 30-day Reassessments:: Progressing - encouraged to take meds - Tobacco Use Tobacco Use: Chew 30-day Reassessments:: Progressing - stopped chew - Hypertension Hypertension Diagnosis:: Hypertension ICD-10 I10 Resting Blood Pressure:: 132/60 [place] [employer] Hypertension Guidelines: [place] [employer] Hypertension Guidelines. Normal BP Less than 120/80. Elevated BP 120/80. Hypertension Stage 1: BP 130-139/80-89. Hypertesnion Stage 2: BP 140 or higher/90 or higher. Hypertension Crisis: BP higher than 180/120 Peak Exercise Blood Pressure:: 170/70 Outcomes/Goals: Able to verbalize/achieve optimal blood pressure <130/80, Incorporates diet changes & exercise for blood pressure control by DC, Other additional outcomes/goals Interventions/plan: Instruct on optimal blood pressure, hypertension & medications, Instruct on effects of sodium, alcohol, stress, exercise &hypertension, Other additional plan/interventions 30 day Reassessments:: Progressing - encouraged to take meds - Tobacco Cessation Referral Smoking Cessation Referral:: No Individual Education/Counseling:: No Education Schedule Given:: Yes Core - 90 Day Assessment Core - Final Assessment Psychosocial - Initial Assess Psychosocial - 30-Day Assess Psychosocial - 60-Day Assess - VIsit Date of Eval: 11/15/22 Session #:: 23 History of previous Mental disease:: No Psychosocial - 90-Day Assess Psychosocial - Final Assessmen Patient Health Questionnaire 60-Day Re-eval Assessment 1. Little interest or pleasure in doing things: Several days 2. Feeling down, depressed, or hopeless: Several days 3. Trouble falling or staying asleep, or sleeping too much: Nearly every day 4. Feeling tired or having little energy: Nearly every day 5. Poor appetite or overeating: Several days 6. Feeling bad about yourself -- or that you are a failure or have let yourself or your family down: Not at all 7. Trouble concentrating on things, such as reading the newspaper or watching television: Not at all 8. Moving or speaking so slowly that other people could have noticed. Or the opposite - being so fidgety or restless that you have been moving around a lot more than usual: Not at all 9. Thoughts that you would be better off , or of hurting yourself in some way: Not at all How difficult have these problems made it for you to do your work, take care of things at home, or get along with other people?: Somewhat difficult Total Score: 9 Self-Efficacy 60-Day Re-eval Assessment We would like to know how confident you are in doing certain activities. Please select your confidence level for:: Select your confidence level for the following using the scale 1-10 where 1 is not at all confident and 10 is totally confident. Your score is the average of all 6 responses. Fatigue: How confident are you that you can keep the fatigue caused by your disease from interfering with the things you want to do? Select Number: 5 Physical Discomfort or Pain: How confident are you that you can keep the physical discomfort or pain of your disease from interfering with the things you want to do? Select Number: 5 Emotional Distress: How confident are you that you can keep the emotional distress caused by your disease from interfering with the things you want to do? Select Number: 5 Other Symptoms or Health Problems: How confident are you that you can keep other symptoms or health problems from interfering with the things you want to do? Select Number: 5 Different Tasks and Activities: How confident are you that you can do the different tasks and activities needed to manage your health condition so as to reduce your need to see a doctor? Select Number: 5 Medication: How confident are you that you can do things other than just taking medication to reduce how much your illness affects your everyday life? Select Number: 5 Total Score:: 5 Nutrition Survey
[2022-11-15 10:28] VITALS: BP 132/60; BP 170/70; BMI 23.1
== END 2022-12-06 23:59 ==
LOC: CR 09:30
PROVIDERS: PCP Family Medicine; Visit Provider Internal Medicine Cardiovascular Disease
DX: Z95.5 Presence of coronary angioplasty implant and graft (principal)
CPT/HCPCS: 93798

== ENCOUNTER → 2023-05-20 | Outpatient (CLI) | payer MEDICARE, SELFPAY ==
[2022-11-15 10:28] VITALS: BMI 23.1
--- NOTE | 2023-05-20 14:37 | RAD_ITS ---
STUDY: X-RAY CHEST REASON FOR EXAM: Male, 68 years old. Shortness of breath and chest tightness. Evaluate for bronchitis. TECHNIQUE: Frontal and lateral views of the chest. COMPARISON: Chest dated August 2022. FINDINGS: Stable mild hyperinflation. There is no demonstrated pleural abnormality. Mild cardiomegaly. Normal mediastinum and tova. Normal visualized pulmonary arteries. Aortic tortuosity and calcification unchanged. Thoracic osteopenia with mild diffuse thoracic spondylosis. Normal visualized ribs, clavicles, and shoulders. No abnormality of the visualized soft tissue structures of the upper abdomen. RAD/Chest PA and Lateral IMPRESSION: Stable chest with no acute or active cardiopulmonary disease. Electronically Signed: Parmjit Jiang MD at 15:04 EDT ,
== END | disposition home or self-care (01) ==
LOC: MTRAD 14:33
PROVIDERS: PCP Family Medicine; Visit Provider Family Medicine
DX: J20.9 Acute bronchitis, unspecified (principal)
CPT/HCPCS: 71046

== ENCOUNTER 2023-06-10 06:52 | Day surgery (SDC) | payer MEDICARE, SELFPAY ==
[2022-11-15 10:28] VITALS: BMI 23.1
[2023-06-10] VITALS (7 sets, daily range): BP systolic 110–131; BP diastolic 64–73; PULSE 57–69; RESP 18; TEMP 36.3–36.7; O2SAT 97–99; BMI 23.9
[2023-06-10] MEDS: Lactated Ringers 1,000 ML 15 ML IV (07:21)
--- NOTE | 2023-06-10 07:37 | HP.PCM_ITS ---
History and Physical Date of Admission: 06/10/23 Intake Vital Signs 02/19/2314:36 05/23/2313:08 Height 5 ft 10 in 5 ft 10 in Weight: 163 lb 168 lb 6 oz BMI 23.3 24.1 BP 116/72 124/71 H Blood Pressure Location Lt brachial Rt brachial Position Sitting Sitting Respiration 16 16 Pulse 54 L 78 Pulse Source Auscultation NIBP Temp 98.2 F Temp Source Temporal Pulse Oximetry (%) 99 Oxygen Delivery Method room air Intake Visit Reasons: CHRONIC BLOATING/EXTREME NAUSEA Chief Complaint: nausea/ bloating Sh[place] Sinker Required: No Is patient in pain?: No Allergies citalopram [From Celexa] Allergy (Mild, Verified 05/23/23 13:09) Rashfluoxetine [From Prozac] Allergy (Unknown, Verified 05/23/23 13:09) OtherSulfa (Sulfonamide Antibiotics) Allergy (Verified 05/23/23 13:09) Unknowncyclobenzaprine Adverse Reaction (Mild, Verified 05/23/23 13:09) fatigueparoxetine [From Paxil] Adverse Reaction (Unknown, Verified 05/23/23 13:09) Other Medications atorvastatin 20 mg tablet 20 mg PO QHS cholesterol 10/21/20 [History Confirmed 05/23/23] lisinopril 40 mg tablet 40 mg PO DAILY blood pressure 06/12/22 [History Confirmed 05/23/23] metoprolol succinate 50 mg tablet,extended release 24 hr 25 mg PO DAILY BP 06/18/22 [History Confirmed 05/23/23] aspirin 81 mg tablet,delayed release (Adult Aspirin Regimen) 81 mg PO DAILY heart health 07/25/22 [History Confirmed 05/23/23] clopidogrel 75 mg tablet 75 mg PO DAILY 90 days #90 tabs 07/25/22 [Rx Confirmed 05/23/23] nitroglycerin 0.4 mg sublingual tablet 0.4 mg sublingual Q5M PRN Cardiac/Chest Pain 30 days #15 tabs 07/25/22 [Rx Confirmed 05/23/23] amlodipine 10 mg tablet 10 mg PO DAILY 11/26/22 [History Confirmed 05/23/23] oxycodone 5 mg tablet 5 mg PO DAILY pain 02/19/23 [History Confirmed 05/23/23] omeprazole 40 mg capsule,delayed release 40 mg PO DAILY #60 caps 05/23/23 [Rx Confirmed 05/23/23] [facility] Medical History Alcohol use Anemia Arthritis Atherosclerosis of coronary artery of [place] heart with stable angina pectoris Back pain Beta minor thalassemia Bradycardia Chest pain Chewing tobacco nicotine dependence Essential (primary) hypertension Gastric reflux Gout History of echocardiogram History of hiatal hernia History of steroid therapy Hyperlipidemia Impaired glucose tolerance Injury of head and neck Migraine headache Non-smoker Wears dentures Wears glasses Surgical History History of cardiac catheterization History of colonoscopy History of coronary artery stent placement (07/24/22) History of esophagogastroduodenoscopy (EGD) History of Joshua fundoplication (~04/2021) S/P cataract surgery S/P inguinal hernia repair Status post surgery Family History Brother Diabetes Social History Smoking Status: Never smoker alcohol intake: current alcohol intake frequency: 0-2 drinks per day substance use type: does not use caffeine: Yes Type: tea Number of servings: 1 HPI HPI HPI: Patient is a 68-year-old male here for GERD and bloating. The patient saw me in November and was started on a PPI and had been doing really well and his symptoms resolved. About a week or so after he stopped the PPI the symptoms came back and they have been back for the last few months. He reports bloating and upper abdominal pain. ROS General General: No weight change, appetite or fatigue Endo Endocrine: No thyroid disease Musc Musculoskeletal: No back problems Cardio Cardiovascular: No murmur or pacemaker Psych Psychiatric: No depression Resp Respiratory: No shortness of breath Gastro Gastrointestinal: No abdominal pain, No nausea or vomiting, No blood in stool, No acid reflux and No gallbladder problem Olivier Hematologic: No blood disorders Neuro Neurologic: No abnormal hearing and No abnormal movements Exam Const General: cooperative Orientation: alert and oriented x3 HENMT Head: normal to inspection Neck Neck: normal visual inspection and full ROM Chest Chest palpation & inspection: normal inspection of the chest Resp Effort & Inspection: normal respiratory effort Auscultation: clear to auscultation bilaterally Cardio Rate: regular rate Rhythm: regular rhythm GI Inspection: non-distended Palpation: soft and nontender Skin General: no rashes or lesions noted Neuro General: patient alert and patient oriented x3 Extrem General: full ROM Psych Appearance: grossly normal Mental Status: mental status grossly normal Assessment and Plan Assessment and Plan (1) GERD (gastroesophageal reflux disease): Status: Chronic Qualifiers: Esophagitis presence: esophagitis presence not specified Qualified Code(s): K21.9 - Gastro-esophageal reflux disease without esophagitis Plan: The patient had immediate return of his GERD symptoms as soon as he stopped his PPI. I refilled his PPI and I will perform an EGD to evaluate his stomach and esophagus. I explained endoscopy in detail to the patient. I explained the risks including but not limited to stroke or heart attack with anesthesia, perforation of the GI tract, bleeding, infection. I explained that any of these could necessitate further emergency surgery. The patient understands and all questions were answered sufficiently. The patient wishes to proceed with procedure. I would like him to continue his aspirin but stop his Plavix for the procedure. His heart stent is over 6 months old. Jose M Gross MD Pager: [facility] [address] [place] [address], [address] [place] [address] Office: I have examined the patient and the H&P has been reviewed. There are no clinical changes since date of exam.
--- NOTE | 2023-06-10 08:00 | EGD_PTH ---
PATIENT: LAKE PICKERING LOC: EN U#:[id number] AGE/SX: 68/M ROOM: RE06/10/[address]: Dr. Jose M Gross MD : 1955 BED: DIS: 06/10/2023 SPEC #: [id number] RECD: 06/10/23 15:04 STATUS: JOHN DORI #: [id number] ARCHIE: 06/10/23 08:[address]: Jose M Gross DEPT: SURGICAL PATHOLOGY RECD BY: Jose Guadalupe Webb ENTERED: 06/11/23 10:48 SP TYPE: EGD BIOPSY OT DR: Dr. Jordan Jung MD Tissues: A - Gastric mucous membrane B - Esophagus, NOS Procedures: Special Stain Group I Surgery Specimen Level IV GMS Stain (control) HEADER OPERATION: EGD with biopsies PRE-OP DIAGNOSIS: GERD TISSUE SUBMITTED: A - Antrum biopsy for H. pylori and path, B - Mid esophagus biopsy for Padmini MICROSCOPIC DIAGNOSIS A. Antrum, biopsy: Mild gastritis. See microscopic description and comment. B. Mid esophagus, biopsy: Fragments of squamous mucosa with moderate acute inflammation. See comment. SJ:jaylen 06/12/2023 COMMENT A. The results of immunohistochemistry for Helicobacter pylori will be reported separately ([id number]). B. Special stain for fungi is positive for organisms (yeast and pseudohyphae) consistent with Padmini species; matched control is appropriate. Numerous organisms consistent with bacteria are also noted. MICROSCOPIC DESCRIPTION Slides are reviewed. A. The specimen shows fragments of gastric mucosa with chronic inflammatory cell infiltrates in the lamina propria consisting of lymphocytes and plasma cells, consistent with mild chronic gastritis. GROSS DESCRIPTION A - Received in fixative is one container labeled with the patient's name and designated antrum biopsy. The specimen consists of two irregular fragments of light cantu soft tissue that in aggregate measure 0.6 x 0.3 x 0.1 cm. The specimen is totally submitted in one cassette. B - Received in fixative is one container labeled with the patient's name and designated mid esophagus for Padmini. The specimen consists of multiple irregular fragments of light cantu soft tissue that in aggregate measure 1.0 x 0.5 x 0.1 cm. The specimen is totally submitted in one cassette. / KADE:jaylen 06/11/2023 TC:2 CPT: 98366 x2, 21167
--- NOTE | 2023-06-10 08:00 | IMM_PTH ---
PATIENT: LAKE PICKERING LOC: EN U#:[id number] AGE/SX: 68/M ROOM: RE06/10/[address]: Dr. Jose M Gross MD : 1955 BED: DIS: 06/10/2023 SPEC #: [id number] RECD: 06/11/23 13:19 STATUS: JOHN DORI #: [id number] ARCHIE: 06/10/23 08:[address]: Jose M Gross DEPT: IMMUNOHISTOCHEMISTRY RECD BY: Chely Salazar ENTERED: 06/11/23 13:22 SP TYPE: IMMUNO OTHR DR: Dr. Jordan Jung MD Tissues: Stomach, NOS Procedures: H Pylori (initial) PHYSICIAN & INSTITUTION [place] [address] SPECIMEN INFORMATION: Tissue Source: A - Antrum Clinical Info: GERD Specimen Number: [id number] CPT code: 46017 METHODOLOGY: Deparaffinized sections of prefer/formalin-fixed tissue or PAP/DQ stained slides are incubated with monoclonal/polyclonal antibodies/oligonucleotide probes. Localization is made via biotin free immunoperoxidase method. Appropriate controls are performed and reacted as expected. Results on target cell population are indicated in the following table: RESULTS: ANTIBODY / CLONE RESULT Block A H Pylori (polyclonal) negative These tests were developed and their performance characteristics determined by [facility]. They may not have been cleared or approved by the U.S. Food and Drug Administration. The FDA has determined that such clearance or approval is not necessary. The above immunohistochemical/dualISH markers are ordered and reviewed by the Pathologist. INTERPRETATION: A. Antrum, biopsy: Negative for Helicobacter pylori organisms. KADE:jaylen 06/12/2023
--- NOTE | 2023-06-10 08:02 | OP.EGD_ITS ---
Patient Name: Guicho Jackson Procedure Date: 06/10/2023 7:43 AM Date of : 1955 Age: 68 Procedure: Upper GI endoscopy Indications: Gastro-esophageal reflux disease Providers: Jose M Gross MD Referring MD: Jose M Gross MD Medicines: Monitored Anesthesia Care Patient Profile: This is a 68 year old male. Refer to note in patient chart for documentation of history and physical. Complications: No immediate complications. Estimated blood loss: Minimal. Procedure: Pre-Anesthesia Assessment: - Prior to the procedure, a History and Physical was performed, and patient medications and allergies were reviewed. The patient's tolerance of previous anesthesia was also reviewed. The risks and benefits of the procedure and the sedation options and risks were discussed with the patient. All questions were answered, and informed consent was obtained. Prior Anticoagulants: The patient has taken Plavix (clopidogrel), last dose was 5 days prior to procedure. After reviewing the risks and benefits, the patient was deemed in satisfactory condition to undergo the procedure. After obtaining informed consent, the endoscope was passed under direct vision. Throughout the procedure, the patient's blood pressure, pulse, and oxygen saturations were monitored continuously. The gastroscope was introduced through the mouth, and advanced to the fourth part of duodenum. The upper GI endoscopy was accomplished without difficulty. The patient tolerated the procedure well. Scope In: 7:55:14 AM Scope Out: 7:58:47 AM Total Procedure Duration Time 0 hours 3 minutes 33 seconds Findings: White nummular lesions were noted in the middle third of the esophagus and in the lower third of the esophagus. Biopsies were taken with a cold forceps for histology. The stomach was normal. Biopsies were taken with a cold forceps in the gastric antrum for Helicobacter pylori testing. The examined duodenum was normal. Impression: - White nummular lesions in esophageal mucosa. Biopsied. - Normal stomach. - Normal examined duodenum. - Biopsies were taken with a cold forceps for Helicobacter pylori testing. Recommendation: - Discharge patient to home. - Resume previous diet. - Continue present medications. - Resume Plavix (clopidogrel) at prior dose tomorrow. - Await pathology results. Procedure Code(s): --- Professional --- 94550, Esophagogastroduodenoscopy, flexible, transoral; with biopsy, single or multiple Diagnosis Code(s): --- Professional --- K22.89, Other specified disease of esophagus K21.9, Gastro-esophageal reflux disease without esophagitis CPT copyright 2021 [employer]. All rights reserved. The codes documented in this report are preliminary and upon polisher sand review may be revised to meet current compliance requirements. Jose M Gross MD 06/10/2023 8:01:57 AM This report has been signed electronically. Number of Addenda: 0 Note Initiated On: 06/10/2023 7:43 AM
--- NOTE | 2023-06-10 08:02 | OP.CCLET_ITS ---
06/10/2023 Jordan Jung [address] [place] [address] Re : Upper GI endoscopy procedure for Guicho Jackson Dear Dr. Jung This procedure was performed on Saturday, June 10, 2023. My impressions and recommendations are as follows: Impressions : - White nummular lesions in esophageal mucosa. Biopsied. - Normal stomach. - Normal examined duodenum. - Biopsies were taken with a cold forceps for Helicobacter pylori testing. Recommendations : - Discharge patient to home. - Resume previous diet. - Continue present medications. - Resume Plavix (clopidogrel) at prior dose tomorrow. - Await pathology results. My findings are described in the full procedure note, which is enclosed. If I can be of further assistance, please feel free to contact me at Doctor phone number(s): , Work: . Sincerely, Jsoe M Gross MD 06/10/2023 8:01:57 AM This report has been signed electronically.
== END 2023-06-10 10:10 | disposition home or self-care (01) ==
LOC: EN 06:53 → AC 06:54
PROVIDERS: PCP Family Medicine; Referring Provider Surgery; Visit Provider Surgery
PROC: 0DJ08ZZ Inspection of Upper Intestinal Tract, Via Natural or Artificial Opening Endoscopic (ICD-10-PCS; CPT 43235; principal; 2023-06-10 07:55)
DX: K29.70 Gastritis, unspecified, without bleeding (principal); K21.9 Gastro-esophageal reflux disease without esophagitis; I25.10 Atherosclerotic heart disease of native coronary artery without angina pectoris; R14.0 Abdominal distension (gaseous); I10 Essential (primary) hypertension; E78.5 Hyperlipidemia, unspecified; K22.89 Other specified disease of esophagus
CPT/HCPCS: 43239; 88305; 88312; 88342; J7120; J2405

== ENCOUNTER → 2023-07-23 | Outpatient (CLI) | payer MEDICARE, SELFPAY ==
[2022-11-15 10:28] VITALS: BMI 23.1
[2023-07-23 13:11] LABS: Amphetamine Urine VISTA NEGATIVE (<1000 ng/mL); Barbiturate Urine VISTA NEGATIVE (< 200 ng/mL); Benzodiazepine Urine VISTA NEGATIVE (< 200 ng/mL); Cocaine Urine VISTA NEGATIVE (< 300 ng/mL); Ecstacy Urine VISTA NEGATIVE (< 500 ng/mL); Methadone Urine VISTA NEGATIVE (< 300 ng/mL); PCP Urine VISTA NEGATIVE (< 25 ng/mL); THC Urine VISTA NEGATIVE (< 50 ng/mL); Vista UDS pH Range 7
== END | disposition home or self-care (01) ==
LOC: LAB 12:00
PROVIDERS: PCP Family Medicine; Referring Provider Anesthesiology Pain Medicine; Visit Provider Anesthesiology Pain Medicine
DX: F11.20 Opioid dependence, uncomplicated (principal)
CPT/HCPCS: 80307

== ENCOUNTER → 2023-09-17 | Outpatient (CLI) | payer MEDICARE, SELFPAY ==
[2022-11-15 10:28] VITALS: BMI 23.1
--- OUTSIDE RECORDS SUMMARY | 2023-09-17 13:39 | XMS RPT_ITS | CCD ---
Author Name Unknown Address [address] [place] [address] [address] [place] [address] Organization [facility] Care Team Providers Care Intake Worker Name Role Phone FARSHAD RAJAN, DONNY Primary Care Physician CAT HERNANDEZ Attending Unavailable DONNY YEN MD Primary Care Unavailable Results Test Name Value Interpretation Reference Range Facil ity Encounters Encounter Date Encounter Type Care Provider Facility Start: 04-03-2023 End: 04-04-2023 ambulatory CAT RIGGINS Facility:B Start: 04-03-2023 End: 04-03-2023 Patient encounter procedure CAT RIGGINS [facility] Payers Date Payer Category Payer Unknown [id number] 1955 Unknown [id number] Evaluation + Plan note Note Date & Type Note Facility Evaluation + Plan note No data available for this section [facility] Discharge instructions Note Date & Type Note Facility Hospital Discharge instructions No data available for this section [facility] Progress note Note Date & Type Note Facility Progress note No data available for this section [facility] Summary Purpose Family History No Family History Records Found Advance Directives No Advanced Directives Records Found Additional Source Comments Patient Care team informatio n (unrecognized section and content) Care Team Personnel Name: DONNY YEN MD Member Role: Primary Care Physician Address: Address: [address] [place] [address]. [address] [place], [place] [address] (unrecognized sect ion and content) No Status Records Found INFORMATION SOURCE (unrecogn ized section and content) FOR RECORDS PERTAINING TO PATIENTS WHO ARE OR HAVE BEEN ENROLLED IN A CHEMICAL DEPENDENCY/SUBSTANCEABUSE PROGRAM, SOME INFORMATION MAY BE OMITTED. This clinical summary was aggregated from multiple sources. Caution should be exercised in using it in the provision of clinical care. This summary normalizes information from multiple sources, and as a consequence, information in this document may materially change the coding, format and clinical context of patient data. In addition, data may be omitted in some cases. CLINICAL DECISIONS SHOULD BE BASED ON THE PRIMARY CLINICAL RECORDS. [facility]. provides no warranty or guarantee of the accuracy or completeness of information in this document.
[2023-09-17 14:10] LABS: Absolute Lymphocyte Count 1.34 X10^3/uL (0.83-4.51); Absolute Neutrophil Count 8.1 X10^3/uL (2.0-7.7); Basophil# 0.05 X10^3/uL; Basophil% 0.5 % (0-1); Eosinophil# 0.03 X10^3/uL; Eosinophils% 0.3 % (0-5); Hematocrit 36.9 % (40-54); Hemoglobin 11.8 g/dL (13.0-16.5); Lymphocyte # 1.34 X10^3/ul (0.83-4.51); Mean Corpuscular Hgb 22.2 pg (27.0-32.0); Mean Corpuscular Volume 69.5 fL (80-94); Mean Platelet Vol. 10.3 fl (6.2-12.0); Monocyte# 0.66 X10^3/uL; Monocyte% 6.4 % (0-10); NRBC Flagged by Analyzer 0 % (0-5); Neutrophil # 8.05 X10^3/uL (2.7-7.7); Neutrophil % 78.1 % (47-70); Platelet Count 232 K/mm3 (150-450); RBC Distribution Width CV 17.2 % (11.6-14.6); RBC Distribution Width SD 42.5 fl (35.1-43.9); Red Blood Count 5.31 M/mm3 (4.6-6.2); White Blood Count 10.3 K/mm3 (4.4-11.0)
[2023-09-17 15:07] LABS: ALB/GLOB Ratio 1.1 RATIO (0.9-2.4); AST(SGOT) 21 U/L (15-37); Alanine Aminotransfer ALT/SGPT 40 U/L (16-61); Albumin, Serum 3.6 g/dL (3.2-5.0); Alkaline Phosphatase 120 U/L (45-117); Anion Gap 8 (5-15); BUN 16 mg/dL (7-18); BUN/Creat Ratio 14.5 RATIO (10-20); Calcium,Total 9.5 mg/dL (8.5-10.1); Chloride 106 mmol/L (98-107); Cholesterol 254 mg/dL (200); EST Glomerular Filtration Rate 70 mL/min (>60); Est Glom Filt Rate - Afr Amer 85 mL/min (>60); Globulin 3.3 g/dL (2.2-4.2); Glucose 120 mg/dL (74-106); High Density Lipoprotein 59 mg/dL; Potassium 3.7 mmol/L (3.5-5.1); Protein, Total 6.9 g/dL (6.4-8.2); Sodium Level 139 mmol/L (136-145); Triglycerides 409 mg/dL; Uric Acid 8.5 mg/dL (3.5-7.2)
[2023-09-17 15:35] LABS: Hemoglobin A1c 7.3 % (3.8-5.6)
[2023-09-17 20:32] LABS: CPK Total, Creatine Kinase 47 U/L (39-308)
== END | disposition home or self-care (01) ==
PROVIDERS: PCP Family Medicine; Referring Provider Internal Medicine Cardiovascular Disease; Visit Provider Internal Medicine Cardiovascular Disease
DX: I10 Essential (primary) hypertension (principal); I25.118 Atherosclerotic heart disease of native coronary artery with other forms of angina pectoris; R73.02 Impaired glucose tolerance (oral); Z01.810 Encounter for preprocedural cardiovascular examination; D64.9 Anemia, unspecified; R53.83 Other fatigue; E78.5 Hyperlipidemia, unspecified
CPT/HCPCS: 36415; 80053; 80061; 82550; 83036; 84550; 85025

== ENCOUNTER → 2023-10-02 | Outpatient (CLI) | payer MEDICARE, SELFPAY ==
[2022-11-15 10:28] VITALS: BMI 23.1
--- OUTSIDE RECORDS SUMMARY | 2023-10-02 10:03 | XMS RPT_ITS | CCD ---
Author Name Unknown Address [address] [place] [address] [address] [place] [address] Organization [facility] Care Team Providers Care Vocal Music Teacher Name Role Phone FARSHAD RAJAN, DONNY Primary Care Physician CAT HERNANDEZ Attending Unavailable DONNY YEN MD Primary Care Unavailable Results Test Name Value Interpretation Reference Range Facil ity Encounters Encounter Date Encounter Type Care Provider Facility Start: 04-03-2023 End: 04-04-2023 ambulatory CAT RIGGINS Facility:B Start: 04-03-2023 End: 04-03-2023 Patient encounter procedure CAT RIGGINS [facility] Payers Date Payer Category Payer Unknown [id number] 1955 Unknown [id number] Evaluation + Plan note Note Date & Type Note Facility Evaluation + Plan note No data available for this section [facility] Hospital Discharge instructions Note Date & Type Note Facility Hospital Discharge instructions No data available for this section [facility] Progress note Note Date & Type Note Facility Progress note No data available for this section [facility] Summary Purpose Family History No Family History Records Found Advance Directives No Advanced Directives Records Found Additional Source Comments Patient Care team informatio n (unrecognized section and content) Care Team Personnel Name: DONNY YEN MD Member Role: Primary Care Physician Address: Address: [address] [place] [address]. [address] [place], [place] [address] (unrecognized sect ion and content) No Status [...] BE BASED ON THE PRIMARY CLINICAL RECORDS. [facility]. provides no warranty or guarantee of the accuracy or completeness of information in this document.
[2023-10-02 10:47] LABS: AST(SGOT) 11 U/L (15-37); Alanine Aminotransfer ALT/SGPT 25 U/L (16-61); Albumin, Serum 3.3 g/dL (3.2-5.0); Alkaline Phosphatase 98 U/L (45-117); Anion Gap 4 (5-15); BUN 21 mg/dL (7-18); BUN/Creat Ratio 20.2 RATIO (10-20); CPK Total, Creatine Kinase 33 U/L (39-308); Chloride 110 mmol/L (98-107); Cholesterol 205 mg/dL (200); Creatinine, Serum 1.04 mg/dL (0.70-1.30); EST Glomerular Filtration Rate 75 mL/min (>60); Est Glom Filt Rate - Afr Amer 91 mL/min (>60); Globulin 3.4 g/dL (2.2-4.2); Glucose 121 mg/dL (74-106); High Density Lipoprotein 67 mg/dL; Protein, Total 6.7 g/dL (6.4-8.2); Sodium Level 142 mmol/L (136-145); Triglycerides 128 mg/dL; Very Low Density Lipoprotein 26 mg/dL (5-40)
== END | disposition home or self-care (01) ==
LOC: MFPLAB 09:35
PROVIDERS: PCP Family Medicine; Visit Provider Internal Medicine Cardiovascular Disease
DX: I25.118 Atherosclerotic heart disease of native coronary artery with other forms of angina pectoris (principal); Z95.5 Presence of coronary angioplasty implant and graft; E78.00 Pure hypercholesterolemia, unspecified
CPT/HCPCS: 36415; 80053; 80061; 82550

== ENCOUNTER → 2023-12-25 | Outpatient (CLI) | payer MEDICARE, SELFPAY ==
[2022-11-15 10:28] VITALS: BMI 23.1
[2023-12-25 12:27] LABS: Absolute Lymphocyte Count 1.59 X10^3/uL (0.83-4.51); Absolute Neutrophil Count 7.7 X10^3/uL (2.0-7.7); Basophil# 0.07 X10^3/uL; Basophil% 0.7 % (0-1); Hematocrit 35.7 % (40-54); Hemoglobin 10.8 g/dL (13.0-16.5); Lymphocyte # 1.59 X10^3/ul (0.83-4.51); Mean Corp Hgb Conc 30.3 g/dL (32-36); Mean Corpuscular Hgb 21.8 pg (27.0-32.0); Mean Corpuscular Volume 72.1 fL (80-94); Mean Platelet Vol. 11.3 fl (6.2-12.0); Monocyte# 0.82 X10^3/uL; Monocyte% 7.8 % (0-10); NRBC Flagged by Analyzer 0 % (0-5); Neutrophil # 7.69 X10^3/uL (2.7-7.7); Neutrophil % 72.7 % (47-70); Platelet Count 278 K/mm3 (150-450); RBC Distribution Width CV 16.6 % (11.6-14.6); Red Blood Count 4.95 M/mm3 (4.6-6.2); White Blood Count 10.6 K/mm3 (4.4-11.0)
[2023-12-25 12:48] LABS: Hemoglobin A1c 6.2 % (3.8-5.6)
[2023-12-25 12:55] LABS: ALB/GLOB Ratio 1.2 RATIO (0.9-2.4); AST(SGOT) 31 U/L (15-37); Alanine Aminotransfer ALT/SGPT 87 U/L (16-61); Albumin, Serum 3.6 g/dL (3.2-5.0); Alkaline Phosphatase 90 U/L (45-117); Anion Gap 6 (5-15); BUN 23 mg/dL (7-18); BUN/Creat Ratio 23.3 RATIO (10-20); Calcium,Total 8.9 mg/dL (8.5-10.1); Chloride 107 mmol/L (98-107); Cholesterol 196 mg/dL (200); Creatinine, Serum 0.99 mg/dL (0.70-1.30); EST Glomerular Filtration Rate 80 mL/min (>60); Est Glom Filt Rate - Afr Amer 96 mL/min (>60); Globulin 2.9 g/dL (2.2-4.2); Glucose 107 mg/dL (74-106); High Density Lipoprotein 73 mg/dL; Potassium 3.8 mmol/L (3.5-5.1); Protein, Total 6.5 g/dL (6.4-8.2); Sodium Level 141 mmol/L (136-145); Thyroid Stim Hormone (TSH) 1.52 uIU/mL (0.358-3.74); Triglycerides 150 mg/dL; Uric Acid 6.9 mg/dL (3.5-7.2); Very Low Density Lipoprotein 30 mg/dL (5-40)
[2023-12-25 13:14] LABS: Microalbumin,Random Urine 5.8 mg/L (NO RANGE EST.); Microalbumin:Creatinine Ratio 4.8 mg/g CRE (<30 mg/g CRE)
== END | disposition home or self-care (01) ==
LOC: MFPLAB 09:43
PROVIDERS: PCP Family Medicine; Visit Provider Family Medicine
DX: E11.8 Type 2 diabetes mellitus with unspecified complications (principal); M10.9 Gout, unspecified
CPT/HCPCS: 36415; 80053; 80061; 82043; 82570; 83036; 84443; 84550; 85025

== ENCOUNTER → 2024-01-22 | Outpatient (CLI) | payer MEDICARE, SELFPAY ==
[2022-11-15 10:28] VITALS: BMI 23.1
[2024-01-22 17:58] LABS: PSA,Total - Annual Screen 0.71 ng/mL (0.00-4.00)
== END | disposition home or self-care (01) ==
LOC: MTLAB 15:27
PROVIDERS: PCP Family Medicine; Referring Provider Nurse Practitioner Family; Visit Provider Nurse Practitioner Family
DX: Z12.5 Encounter for screening for malignant neoplasm of prostate (principal)
CPT/HCPCS: 36415; 84153; G0103

== ENCOUNTER → 2024-05-13 | Outpatient (CLI) | payer MEDICARE, SELFPAY ==
[2022-11-15 10:28] VITALS: BMI 23.1
[2024-05-13 15:34] LABS: Absolute Lymphocyte Count 0.76 X10^3/uL (0.83-4.51); Absolute Neutrophil Count 6.8 X10^3/uL (2.0-7.7); Basophil# 0.04 X10^3/uL; Basophil% 0.5 % (0-1); Eosinophil# 0.04 X10^3/uL; Eosinophils% 0.5 % (0-5); Hematocrit 35.4 % (40-54); Lymphocyte # 0.76 X10^3/ul (0.83-4.51); Lymphocyte % 9.4 % (19-41); Mean Corp Hgb Conc 31.1 g/dL (32-36); Mean Corpuscular Hgb 21.9 pg (27.0-32.0); Mean Corpuscular Volume 70.5 fL (80-94); Mean Platelet Vol. 10.9 fl (6.2-12.0); Monocyte# 0.38 X10^3/uL; Monocyte% 4.7 % (0-10); NRBC Flagged by Analyzer 0 % (0-5); Neutrophil # 6.78 X10^3/uL (2.7-7.7); Neutrophil % 83.8 % (47-70); Platelet Count 230 K/mm3 (150-450); RBC Distribution Width CV 17.2 % (11.6-14.6); RBC Distribution Width SD 42.7 fl (35.1-43.9); Red Blood Count 5.02 M/mm3 (4.6-6.2); White Blood Count 8.1 K/mm3 (4.4-11.0)
[2024-05-13 15:57] LABS: Microalbumin,Random Urine 5.2 mg/L (NO RANGE EST.); Microalbumin:Creatinine Ratio 8.4 mg/g CRE (<30 mg/g CRE)
[2024-05-13 16:08] LABS: Hemoglobin A1c 6.3 % (3.8-5.6)
[2024-05-13 16:12] LABS: ALB/GLOB Ratio 1.4 RATIO (0.9-2.4); AST(SGOT) 33 U/L (15-37); Alanine Aminotransfer ALT/SGPT 84 U/L (16-61); Albumin, Serum 3.7 g/dL (3.2-5.0); Alkaline Phosphatase 97 U/L (45-117); Anion Gap 8 (5-15); BUN 16 mg/dL (7-18); Calcium,Total 8.8 mg/dL (8.5-10.1); Chloride 106 mmol/L (98-107); Cholesterol 196 mg/dL (200); EST Glomerular Filtration Rate 79 mL/min (>60); Est Glom Filt Rate - Afr Amer 95 mL/min (>60); Globulin 2.6 g/dL (2.2-4.2); Glucose 149 mg/dL (74-106); High Density Lipoprotein 83 mg/dL; Potassium 3.9 mmol/L (3.5-5.1); Protein, Total 6.3 g/dL (6.4-8.2); Sodium Level 139 mmol/L (136-145); Triglycerides 160 mg/dL; Uric Acid 6.2 mg/dL (3.5-7.2); Very Low Density Lipoprotein 32 mg/dL (5-40)
== END | disposition home or self-care (01) ==
LOC: MFPLAB 12:15
PROVIDERS: PCP Family Medicine; Visit Provider Family Medicine
DX: I25.10 Atherosclerotic heart disease of native coronary artery without angina pectoris (principal); E11.8 Type 2 diabetes mellitus with unspecified complications; M10.9 Gout, unspecified
CPT/HCPCS: 36415; 80053; 80061; 82043; 82570; 83036; 84550; 85025

== ENCOUNTER → 2024-05-24 | Outpatient (CLI) | payer MEDICARE, SELFPAY ==
[2022-11-15 10:28] VITALS: BMI 23.1
--- NOTE | 2024-05-24 10:27 | US_ITS ---
STUDY: ULTRASOUND - URINARY BLADDER REASON FOR EXAM: Male, 69 years old. incomplete bladder emptying, evaluate prostate size TECHNIQUE: Ultrasound evaluation of the urinary bladder was performed with real-time and static hillman-scale imaging. COMPARISON: None. FINDINGS: There is no right UVJ calculus. There is a visualized right ureteral jet. There is no left UVJ calculus. There is a visualized left ureteral jet. The distended volume of the urinary bladder is 63 ml. The empty volume of the urinary bladder is 37 ml. The bladder wall is within normal limits. The bladder wall measures . There is no demonstrated bladder wall mass lesion. There are no demonstrated bladder calculi. US/Post Void Residual Bladder IMPRESSION: Normal ultrasound of the urinary bladder. Electronically Signed: Marquis Muniz MD at 13:11 EDT ,
== END | disposition home or self-care (01) ==
LOC: US 10:26
PROVIDERS: PCP Family Medicine; Referring Provider Family Medicine; Visit Provider Family Medicine
DX: R33.9 Retention of urine, unspecified (principal)
CPT/HCPCS: 51798

== ENCOUNTER → 2024-06-10 | Outpatient (CLI) | payer MEDICARE, SELFPAY ==
[2022-11-15 10:28] VITALS: BMI 23.1
[2024-06-10 11:57] LABS: Amphetamine Urine VISTA NEGATIVE (<1000 ng/mL); Barbiturate Urine VISTA NEGATIVE (< 200 ng/mL); Benzodiazepine Urine VISTA NEGATIVE (< 200 ng/mL); Cocaine Urine VISTA NEGATIVE (< 300 ng/mL); Ecstacy Urine VISTA NEGATIVE (< 500 ng/mL); Methadone Urine VISTA NEGATIVE (< 300 ng/mL); PCP Urine VISTA NEGATIVE (< 25 ng/mL); THC Urine VISTA NEGATIVE (< 50 ng/mL); Vista UDS pH Range 7
== END | disposition home or self-care (01) ==
LOC: LAB 11:02
PROVIDERS: PCP Family Medicine; Referring Provider Anesthesiology Pain Medicine; Visit Provider Anesthesiology Pain Medicine
DX: F11.20 Opioid dependence, uncomplicated (principal)
CPT/HCPCS: 80307

== ENCOUNTER → 2024-06-17 | Outpatient (CLI) | payer MEDICARE, SELFPAY ==
[2022-11-15 10:28] VITALS: BMI 23.1
[2024-06-17 12:59] LABS: Anion Gap 3 (5-15); BUN 12 mg/dL (7-18); BUN/Creat Ratio 13.7 RATIO (10-20); Calcium,Total 9.5 mg/dL (8.5-10.1); Chloride 107 mmol/L (98-107); Creatinine, Serum 0.87 mg/dL (0.70-1.30); EST Glomerular Filtration Rate 92 mL/min (>60); Est Glom Filt Rate - Afr Amer 111 mL/min (>60); Glucose 113 mg/dL (74-106); Potassium 4.1 mmol/L (3.5-5.1); Sodium Level 142 mmol/L (136-145)
== END | disposition home or self-care (01) ==
LOC: BIMLAB 09:51
PROVIDERS: PCP Family Medicine; Referring Provider Internal Medicine Cardiovascular Disease; Visit Provider Internal Medicine Cardiovascular Disease
DX: D64.9 Anemia, unspecified (principal); I25.118 Atherosclerotic heart disease of native coronary artery with other forms of angina pectoris; R00.1 Bradycardia, unspecified; I25.10 Atherosclerotic heart disease of native coronary artery without angina pectoris; R07.9 Chest pain, unspecified; I10 Essential (primary) hypertension; Z95.5 Presence of coronary angioplasty implant and graft; E78.5 Hyperlipidemia, unspecified
CPT/HCPCS: 36415; 80048

== ENCOUNTER → 2024-06-25 | Outpatient (CLI) | payer MEDICARE, SELFPAY ==
[2022-11-15 10:28] VITALS: BMI 23.1
--- NOTE | 2024-06-25 08:58 | ECHOD_ITS ---
Reason For Study: CAD/ASHD Procedure This was a 2D Doppler, Color Flow transthoracic echocardiogram. Exam performed in department. Left Ventricle Normal size and thickness. The left ventricular ejection fraction is 60 %. Stage 2 diastolic dysfunction. Right Ventricle Normal right ventricle. Atria The left atrium is moderately enlarged. Normal right atrium. Mitral Valve Mild mitral annular calcification. Trivial mitral valve insufficiency. Tricuspid Valve Trivial tricuspid valve insufficiency. Right ventricular systolic pressure estimated to be 36 mmHg. Aortic Valve Trisinus/trileaflet aortic valve. Pulmonic Valve The pulmonic valve is not well visualized. Trivial pulmonic valve insufficiency. Great Vessels Normal sized aortic root. Pericardium/Pleural No pericardial effusion. MMode/2D Measurements & Calculations LVIDd: 5.8 cm IVSd: 0.92 cm Ao root diam: 3.0 cm LVIDs: 4.3 cm LVPWd: 0.96 cm RVDd: 3.9 cm FS: 25.2 % LAV(MOD-bp): 73.3 ml LVAd ap4: 28.5 cm2 LVAd ap2: 26.0 cm2 LAV(MOD-bp) Indexed: 37.5 ml/m2 LVLd ap4: 7.2 cm LVLd ap2: 7.2 cm LAV(MOD-sp2): 72.0 ml EDV(MOD-sp4): 93.7 ml EDV(MOD-sp2): 79.9 ml LAV(MOD-sp4): 71.6 ml EDV(sp4-el): 96.6 ml EDV(sp2-el): 80.3 ml LVAs ap4: 18.1 cm2 LVAs ap2: 15.4 cm2 LVLs ap4: 6.2 cm LVLs ap2: 5.7 cm ESV(MOD-sp4): 46.5 ml ESV(MOD-sp2): 35.4 ml ESV(sp4-el): 44.4 ml ESV(sp2-el): 35.3 ml EF(MOD-sp4): 50.4 % EF(MOD-sp2): 55.7 % EF(sp4-el): 54.1 % SV(MOD-sp4): 47.2 ml SV(MOD-sp2): 44.5 ml SV(sp4-el): 52.3 ml LA dimension(2D): 4.3 cm LA A4 area: 21.9 cm2 RA A4 area: 17.8 cm2 TAPSE: 2.3 cm Time Measurements MV dec time: 0.21 sec Doppler Measurements & Calculations MV E max marcio: 60.2 cm/sec Lat Peak E' Marcio: 9.6 cm/sec Med Peak E' Marcio: 5.4 cm/sec MV A max marcio: 72.9 cm/sec E/E' lat: 6.3 E/E' med: 11.2 MV E/A: 0.83 MV V2 max: 89.8 cm/sec MV P1/2t max marcio: 82.6 cm/sec Ao V2 max: 96.7 cm/sec MV max P.2 mmHg MV P1/2t: 103.7 msec Ao max P.7 mmHg MV V2 mean: 46.2 cm/sec MV dec slope: 233.4 cm/sec2 Ao V2 mean: 63.3 cm/sec MV mean P.0 mmHg Ao mean P.9 mmHg MV V2 VTI: 32.1 cm MVA(P1/2t): 2.1 cm2 Ao V2 VTI: 24.2 cm AV (velocity ratio): 0.85 LV V1 max: 89.6 cm/sec PA V2 max: 76.1 cm/sec TR max marcio: 284.1 cm/sec LV V1 max P.2 mmHg PA V2 mean: 51.5 cm/sec TR max P.4 mmHg LV V1 mean P.3 mmHg LV V1 mean: 50.7 cm/sec LV V1 VTI: 20.6 cm ECHO/Echo Complete Interpretation Summary The left ventricular ejection fraction is 60 %. Stage 2 diastolic dysfunction. The left atrium is moderately enlarged. Mild mitral annular calcification. Right ventricular systolic pressure estimated to be 36 mmHg. Ordering Physician: Deepthi Jacobs Referring Physician: Jordan Jung Performed By: Radha Valles, RONALDCS, RVT
== END | disposition home or self-care (01) ==
LOC: CVS 08:56
PROVIDERS: PCP Family Medicine; Referring Provider Internal Medicine Cardiovascular Disease; Visit Provider Internal Medicine Cardiovascular Disease
DX: I25.118 Atherosclerotic heart disease of native coronary artery with other forms of angina pectoris (principal); R94.39 Abnormal result of other cardiovascular function study; R00.1 Bradycardia, unspecified; I25.10 Atherosclerotic heart disease of native coronary artery without angina pectoris; R07.9 Chest pain, unspecified; I10 Essential (primary) hypertension; Z95.5 Presence of coronary angioplasty implant and graft; E78.5 Hyperlipidemia, unspecified
CPT/HCPCS: 93306

== ENCOUNTER → 2024-10-29 | Outpatient (CLI) | payer MEDICARE, SELFPAY ==
[2022-11-15 10:28] VITALS: BMI 23.1
[2024-10-29 17:43] LABS: Absolute Lymphocyte Count 1.06 X10^3/uL (0.83-4.51); Absolute Neutrophil Count 7.3 X10^3/uL (2.0-7.7); Basophil# 0.06 X10^3/uL; Basophil% 0.6 % (0-1); Eosinophil# 0.04 X10^3/uL; Eosinophils% 0.4 % (0-5); Hematocrit 35.4 % (40-54); Hemoglobin 10.9 g/dL (13.0-16.5); Lymphocyte # 1.06 X10^3/ul (0.83-4.51); Lymphocyte % 11.3 % (19-41); Mean Corp Hgb Conc 30.8 g/dL (32-36); Mean Corpuscular Hgb 22.2 pg (27.0-32.0); Mean Corpuscular Volume 72.1 fL (80-94); Mean Platelet Vol. 11.4 fl (6.2-12.0); Monocyte# 0.59 X10^3/uL; Monocyte% 6.3 % (0-10); NRBC Flagged by Analyzer 0.2 % (0-5); Neutrophil # 7.28 X10^3/uL (2.7-7.7); Neutrophil % 77.6 % (47-70); Platelet Count 233 K/mm3 (150-450); RBC Distribution Width CV 17.4 % (11.6-14.6); RBC Distribution Width SD 42.5 fl (35.1-43.9); Red Blood Count 4.91 M/mm3 (4.6-6.2); White Blood Count 9.4 K/mm3 (4.4-11.0)
[2024-10-29 17:59] LABS: AST(SGOT) 42 U/L (15-37); Alanine Aminotransfer ALT/SGPT 69 U/L (16-61); Albumin, Serum 3.6 g/dL (3.2-5.0); Alkaline Phosphatase 125 U/L (45-117); Anion Gap 7 (5-15); BUN 32 mg/dL (7-18); BUN/Creat Ratio 27.1 RATIO (10-20); Calcium,Total 9.4 mg/dL (8.5-10.1); Chloride 112 mmol/L (98-107); Cholesterol 246 mg/dL (200); Creatinine, Serum 1.18 mg/dL (0.70-1.30); EST Glomerular Filtration Rate 65 mL/min (>60); Est Glom Filt Rate - Afr Amer 78 mL/min (>60); Globulin 3.6 g/dL (2.2-4.2); Glucose 126 mg/dL (74-106); High Density Lipoprotein 79 mg/dL; Potassium 4.7 mmol/L (3.5-5.1); Protein, Total 7.2 g/dL (6.4-8.2); Sodium Level 141 mmol/L (136-145); Triglycerides 178 mg/dL; Very Low Density Lipoprotein 36 mg/dL (5-40)
[2024-10-29 18:34] LABS: Microalbumin,Random Urine < 5.0 mg/L (NO RANGE EST.)
== END | disposition home or self-care (01) ==
LOC: MFPLAB 15:05
PROVIDERS: PCP Family Medicine; Referring Provider Family Medicine; Visit Provider Family Medicine
DX: I25.10 Atherosclerotic heart disease of native coronary artery without angina pectoris (principal); E11.8 Type 2 diabetes mellitus with unspecified complications; M10.9 Gout, unspecified
CPT/HCPCS: 36415; 80053; 80061; 82043; 82570; 83036; 84550; 85025

== ENCOUNTER → 2024-11-08 | Outpatient (CLI) | payer MEDICARE, SELFPAY ==
[2022-11-15 10:28] VITALS: BMI 23.1
--- NOTE | 2024-11-08 14:48 | CDU_ITS ---
Reason For Study Reason For Study: Stenosis Rt. Velocities/BP Lt. Velocities/BP Prox CCA 72.9/13.5 cm/sec. Prox CCA 95.5/13.3 cm/sec. Mid CCA 89.4/17.9 cm/sec. Mid CCA 94.2/15.7 cm/sec. Dist CCA 66.3/12.4 cm/sec. Dist CCA 68.3/10.6 cm/sec. Prox ICA 141.2/22.6 cm/sec. Prox ICA 63.4/14.2 cm/sec. Mid ICA 114.8/20.4 cm/sec. Mid ICA 56.0/13.0 cm/sec. Dist ICA 41.7/7.8 cm/sec. Dist ICA 92.4/17.5 cm/sec. Rt. ICA/CCA = 1.6. Lt. ICA/CCA = 1.0. Prox ECA 141.2/9.4 cm/sec. Prox ECA 90.4/10.6 cm/sec. Rt. Vert. 30.8/6.6 cm/sec. Lt. Vert. 47.9/8.4 cm/sec. Right Extracranial There is heterogeneous, irregular atherosclerotic plaque noted in the right common carotid artery. There is heterogeneous, irregular atherosclerotic plaque noted in the right internal carotid artery. There is heterogeneous, irregular atherosclerotic plaque noted in the right external carotid artery. Antegrade flow is noted in the right vertebral artery. Left Extracranial There is heterogeneous, irregular atherosclerotic plaque noted in the left common carotid artery. There is heterogeneous, irregular atherosclerotic plaque noted in the left internal carotid artery. There is heterogeneous, irregular atherosclerotic plaque noted in the left external carotid artery. Antegrade flow is noted in the left vertebral artery. Procedure Carotid Duplex 36088. This is a Carotid Duplex examination using B-mode, color flow and specral Doppler. Exam performed in department. VL/Carotid Duplex Ultrasound Interpretation Summary Moderate (50-69%) stenosis right extracranial internal carotid. Mild (<50%) stenosis left extracranial internal carotid. Patent and antegrade vertebrals bilaterally. Ordering Physician: Jordan Jung Referring Physician: Jordan Jung Performed By: Billy Castillo RVT and Student
== END | disposition home or self-care (01) ==
LOC: CVS 14:46
PROVIDERS: PCP Family Medicine; Referring Provider Family Medicine; Visit Provider Family Medicine
DX: I65.23 Occlusion and stenosis of bilateral carotid arteries (principal)
CPT/HCPCS: 93880

== ENCOUNTER → 2024-11-11 | Outpatient (CLI) | payer MEDICARE, SELFPAY ==
[2022-11-15 10:28] VITALS: BMI 23.1
--- NOTE | 2024-11-11 14:29 | RAD_ITS ---
PROCEDURE: CHEST PA AND LATERAL REASON FOR EXAM: Congestion. TECHNIQUE: Frontal and lateral views of the chest. COMPARISON: Chest x-ray of 05/20/2023.. RAD/Chest PA and Lateral IMPRESSION: Mild thoracic spine degenerative changes are seen, along with DISH. The cardiomediastinal silhouette is stable, without evidence of cardiomegaly. Stable mild right hemidiaphragm elevation. Lungs appear clear of acute disease. No pleural effusion or pneumothorax is noted. Reading Location: [id number]
== END | disposition home or self-care (01) ==
LOC: MTRAD 14:27
PROVIDERS: PCP Family Medicine
DX: R09.81 Nasal congestion (principal)
CPT/HCPCS: 71046

== ENCOUNTER → 2024-11-25 | Outpatient (CLI) | payer MEDICARE, SELFPAY ==
[2022-11-15 10:28] VITALS: BMI 23.1
--- NOTE | 2024-11-25 09:50 | NM_ITS ---
EXAM: Nuclear Gastric Emptying CLINICAL HISTORY: Early satiety. Evaluate gastric emptying. COMPARISON: No prior similar studies are available for comparison. TECHNIQUE: Gastric emptying scan was performed with the oral administration of 1.1 mCi Sulfur Colloid 99mTc MDP mixed with cooked solid meal. Delayed uptake images were obtained over the left upper quadrant for one half hours. FINDINGS: The radiotracer is displaced from the stomach to the small bowel. The half life (linear curve fit) of this process is 39.2 min (Midrange of normal: 88 min). There was 41 % gastric emptying within 29.5 minutes. There was 60 % gastric emptying within 59.5 minutes. There was no gastroesophageal reflux visualized during the time of this examination. NM/Gastric Emptying Study IMPRESSION: Unremarkable gastric emptying scan. Physiologic gastric emptying is demonstrated. NORMAL VALUES: The upper limits of normal for gastric retention is as follows (a greater value suggests abnormally delayed gastric emptying): 1hour, 90% 2 hours, 60% 3 hours, 30% 4 hours, 10% The lower limits for gastric retention (a lower value suggests abnormally rapid gastric emptying): 0.5 hours, 70% 1 hour, 30% Delayed gastric retention is defined as: 90% retained at 1 hour, 60% at 2 hours. 30% at 3 hours. 10% at 4 hours. Early dumping begins concurrently within 15 to 30 minutes from ingestion of a meal. Late dumping happens one to three hours after eating. STANDARD REFERENCE DATA: At 60 minutes, the lower limit of normal is 18%, with mean emptying of 54%, upper limit of 70% (too rapid). At 90 minutes, the lower limit of normal is 46%, with mean emptying of 75%. At 120 minutes, The upper limit of normal is 90% (too rapid -> dumping syndrome). At 240 minutes, the lower limit of normal is 90-92%; less than 90% is delayed. Reading Location: [id number]
== END | disposition home or self-care (01) ==
PROVIDERS: PCP Family Medicine; Referring Provider Family Medicine; Visit Provider Family Medicine
DX: R68.81 Early satiety (principal); J45.909 Unspecified asthma, uncomplicated; R09.81 Nasal congestion
CPT/HCPCS: 78264; 94060; 94726; 94729; A9541

== ENCOUNTER → 2024-12-06 | Outpatient (CLI) | payer MEDICARE, SELFPAY ==
[2022-11-15 10:28] VITALS: BMI 23.1
--- NOTE | 2024-12-06 08:50 | RAD_ITS ---
EXAM: Fluoroscopic visualization of the breathing movements of the diaphragm. CLINICAL HISTORY: Shortness of breath. COMPARISON: Comparison is made with prior chest radiograph dated November 11, 2024. TECHNIQUE: Inspiratory and expiratory fluoroscopic imaging of the chest was obtained. FINDINGS: Mild elevation of the right hemidiaphragm. There is normal movement of the right and left hemidiaphragms. No evidence of diaphragmatic paralysis. Degenerative changes of the visualized thoracic vertebrae. RAD/Chest Sniff Test Fluoro Only IMPRESSION: Normal movement of the right and left hemidiaphragms during the inspiration exp iration maneuvers. Reading Location: [facility]
== END | disposition home or self-care (01) ==
LOC: RAD 08:49
PROVIDERS: PCP Family Medicine; Referring Provider Family Medicine; Visit Provider Family Medicine
DX: J45.909 Unspecified asthma, uncomplicated (principal); R09.81 Nasal congestion
CPT/HCPCS: 76000

== ENCOUNTER 2024-12-27 10:25 | Emergency (ER) | payer MEDICARE, SELFPAY ==
[2022-11-15 10:28] VITALS: BMI 23.1
[2024-12-27 10:26] VITALS: BP 122/64; PULSE 59; RESP 16; TEMP 35.9; O2SAT 99; BMI 24.4
[2024-12-27] MEDS: morphine 10 MG/ML Syringe IM (11:25)
[2024-12-27] MEDS: Ondansetron ODT 4 MG Tablet PO (11:25)
--- NOTE | 2024-12-27 11:25 | ED.VIS.BACK ---
HPI History of Present Illness Chief Complaint: Other, Pain/Inj Detail of Chief Complaint: Acute on chronic neck pain. Informant: patient and spouse/S.O. Onset/Context/Timing Onset: - (Chronic neck pain for more than a decade.) Context: Gradual Onset Chronic pain exacerbated by: No acute injury. Timing: Continuous Quality: Sharp, Dull and Aching Location: - (Neck.) Current Severity: Moderate Maximum Severity: Moderate Worsened by: improves with Movement Relieved by: Nothing Associated Symptoms Associated Symptoms: Negative for Numbness, Tingling, Radiation to Right Leg, Radiation to Left Leg, Fever, Abdominal Pain, Dysuria, Unable to Ambulate, Unable to Transfer, Urinary Retention, Urinary Incontinence, Constipation or Fecal Incontinence Narrative Narrative: 69-year-old male acute on chronic neck pain. He has a history of chronic neck pain for more than a decade. He retired from work around 14 years ago due to it. Does not believe he is ever had an MRI. Currently seeing pain management who has him on oxycodone daily. He has been getting spinal injections without relief. Denies any neck or back surgeries. He has a upcoming MRI before the end of the month. He denies any new numbness or weakness. No bowel or bladder incontinence. No fever. No fall or trauma recently. Prior similar symptoms: Yes Recent Illness/Hospitalization: No PFSH PFSH Medical History Padmini esophagitis High cholesterol Easy bruising Excessive bleeding History of ulceration History of edema History of stress test Hypertension Cardiology follow-up encounter Atherosclerosis of coronary artery of [place] heart with stable angina pectoris CAD (coronary artery disease) Fatigue Abnormal stress test Bradycardia Chest pain Impaired glucose tolerance Beta minor thalassemia Hyperlipidemia Essential (primary) hypertension Hiatal hernia with gastroesophageal reflux disease and esophagitis Wears glasses Wears dentures History of hiatal hernia Alcohol use History of steroid therapy Arthritis Anemia Migraine headache Back pain Injury of head and neck Gastric reflux Chewing tobacco nicotine dependence Non-smoker History of echocardiogram GERD (gastroesophageal reflux disease) Screening for intestinal cancer Asthma Gout Home Medications ?Medication ?Instructions ?Recorded ?Last Taken ?Type lisinopril 40 mg tablet 40 mg PO DAILY blood pressure 06/12/22 06/10/23 History nitroglycerin 0.4 mg sublingual 0.4 mg sublingual Q5M PRN 07/25/22 Unknown Rx tablet Cardiac/Chest Pain 30 days #15 tabs oxycodone 5 mg tablet 2.5 mg PO BID pain 02/19/23 06/10/23 History allopurinol 300 mg tablet 300 mg PO DAILY 09/29/23 Unknown History oxycodone-acetaminophen 5 mg-325 1 tab PO DAILY 09/29/23 Unknown History mg tablet hydrochlorothiazide 25 mg tablet 25 mg PO QDAY #90 tabs 06/08/24 Unknown Rx aspirin 81 mg tablet,delayed See Rx Instructions .Route 06/14/24 Unknown Rx release .COMPLEX #90 TABLETS amlodipine 5 mg tablet 5 mg PO QDAY #90 tabs 06/16/24 Unknown Rx clopidogrel 75 mg tablet 75 mg PO DAILY #90 TABLETS 07/05/24 Unknown Rx atorvastatin 40 mg tablet 40 mg PO QHS this is a dose 10/12/24 Unknown Rx increase #90 tabs dapagliflozin propanediol 10 mg 10 mg PO QDAY 12/08/24 Unknown History tablet (Farxiga) metoprolol succinate 25 mg 25 mg PO QDAY 12/08/24 Unknown History tablet,extended release 24 hr tizanidine 4 mg tablet 4 mg PO QDAY 12/08/24 Unknown History oxycodone 5 mg capsule 5 mg PO BID PRN pain 7 days #14 12/27/24 Unknown Rx caps prednisone 20 mg tablet 40 mg (2 x 20 mg) PO DAILY 10 days 12/27/24 Unknown Rx #20 tabs Allergy/AdvReac Type Severity Reaction Status Date / Time Environmental Allergies: Allergy Mild Swelling Verified 12/08/24 09:54 Uncoded (seasonal) Sulfa (Sulfonamide Allergy Unknown Verified 12/08/24 09:54 Antibiotics) Family History Brother Diabetes Surgical History Hx of knee surgery Hx of hernia repair History of coronary artery stent placement (07/24/22) History of Joshua fundoplication (~04/2021) History of colonoscopy History of esophagogastroduodenoscopy (EGD) History of cardiac catheterization S/P cataract surgery Status post surgery S/P inguinal hernia repair Social History Smoking Status: Former smoker alcohol intake: current alcohol intake frequency: 0-2 drinks per day substance use type: does not use caffeine: Yes Type: tea Number of servings: 1 ROS ROS ED ROS Narrative Chronic pain. He denies any recent illness. Constitutional Constitutional ED: Denies chills or fever(s) Eyes Eyes: Denies blurry vision ENT ENT ED: Denies ear pain Cardiovascular Cardiovascular: Denies chest pain Respiratory/Chest Respiratory/Chest: Denies dyspnea Gastrointestinal Gastrointestinal: Denies abdominal pain Genitourinary Genitourinary ED: Denies dysuria or hematuria Musculoskeletal Musculoskeletal: Reports neck pain; Denies arthralgias, back pain or myalgias Integumentary Denies abscess Neurologic Neurologic: Reports headache(s) Psychiatric Psychiatric: Denies anxiety Endocrine Endocrinology: Denies cold intolerance Hematologic/Lymphatic Hematologic/Lymphatic: Denies easy bleeding, easy bruising or lymphadenopathy Allergic/Immunologic Allergic/Immunologic ED: Denies mouth swelling, tongue swelling or urticaria EXAM Physical Exam Narrative Exam Narrative: 69-year-old male sitting upright in bed. No acute distress. Accompanied by his . Vital signs are stable afebrile. H EENT exam pupils round react light. Extra motions are intact. No trauma to his head or scalp. Neck is no paracervical soft tissue tenderness currently. There is no muscle spasm. Trachea midline. He has discomfort with flexion extension and rotation of his neck. Not meningismus. Back and spine otherwise nontender. Lungs clear. Heart regular rhythm. Abdomen soft nontender. Moving all 4 extremities. 5 out of 5 hrbp strength bilaterally. Dorsi plantarflexion intact. No weakness or numbness to the upper or lower extremities currently. No cauda equina. Neurologically is awake and alert. No focal motor or sensory deficits. Const Vital Signs: 12/27/24 10:26 12/27/24 10:42 Temperature 96.6 F L Temperature Source Temporal Pulse Rate 59 L Respiratory Rate 16 Respiratory Effort Normal Respiratory Pattern Normal Blood Pressure 122/64 H Blood Pressure Mean 83 Pulse Ox 99 Oxygen Delivery Method Room Air Positive well nourished and well developed; Negative for obese, cachectic, contractures or unkempt General Appearance ED: well developed and NAD; Negative for unkempt, cachectic, contractures or pallor Nutritional Appearance: Negative for cachectic or obese HEENT Reports moist mucous membranes Negative for trauma or tenderness Eyes PERRL and EOMs intact bilaterally General Eye ED: Negative for pale conjunctiva or scleral icterus Neck no lymphadenopathy, supple and no JVD General: Negative for tenderness Thyroid: Negative for other Resp normal respiratory effort and clear to auscultation bilaterally Effort and Inspection: Negative for pain with movement Auscultation: Negative for rales, rhonchi, wheezes or diminished lung sounds Cardio regular rate, regular rhythm, S1 normal heart sound, S2 normal heart sound and no murmurs Palpation: Negative for palpable S3 Rate: Negative for bradycardia or tachycardic Rhythm: Negative for abnormal rhythm Bruits: Negative for other GI normal to inspection, nondistended, normoactive bowel sounds, soft to palpation, non-tender, non-distended and no masses Inspection: Negative for abdominal distention Auscultation: Negative for hyperactive bowel sounds Palpation: Negative for tender, guarding, mass, pulsatile mass or rebound tenderness present Back/Spine normal to inspection and no thoracic nor lumbar tenderness Back/Spine Narrative: He has discomfort with range of motion of his neck. He is able to do flexion extension and rotation. There is no muscle spasm. There is no specific bony tenderness. General Back: Negative for CVA tenderness Cervical Spine: Negative for cervical spine tenderness and Negative for paracervical muscle tenderness Thoracic Spine / Upper Back: Negative for paraspinal muscle tenderness Lumbar Spine / Lower Back: Negative for ROM limited, straight leg raise negative bilaterally or straight leg raise positive right Extremity normal to inspection and no clubbing, cyanosis or edema General Extremety ED: Negative for edema or tenderness General Extremity: Negative for edema Neuro oriented x3 and no sensory deficits noted Sensorium / Orientation: alert; Negative for confused Motor Exam: strength 5/5 throughout Psych mental status grossly normal Appearance: Negative for unkempt Attitude: No agitated Mood & Affect: Negative for depressed, sad or tearful Skin no rashes or lesions noted and no wounds General Skin Exam: Negative for jaundice or pallor Lesions: No lesion noted Rashes: No rashes noted Trauma: Negative for abrasion or puncture Wounds: Negative for wounds noted MDM MDM MDM Narrative Medical decision making narrative: 69-year-old male acute on chronic neck pain. Patient is seeing pain management. He has an upcoming MRI scheduled. They will make an appointment to see the nursing informatics specialist Dr. Hanna. He will be given IM injection of morphine here. I did write him for a few days of extra oxycodone because he had a run out. We placed on prednisone 40 mg a day for a week. Outpatient follow-up with nursing informatics specialist and his pain management doctor. He does not need emergent MRI today. There is no numbness or weakness. History & Record Review Discussion w/independent historian: Patient Additional record(s) reviewed:: Prior inpatient record, Prior outpatient record, Prior ED visit and Prior labs Discharge Plan Triage Chief Complaint: Other, Pain/Inj ED Provider: Sly Carr Dx/Rx/DC Orders Clinical Impression: Chronic neck pain, History of coronary artery disease Instructions: ED Chronic Pain, ED Neck Pain Prescriptions: New prednisone 20 mg tablet 40 mg PO DAILY 10 Days Qty: 20 0RF oxycodone 5 mg capsule 5 mg PO BID PRN (Reason: pain) 7 Days Qty: 14 0RF No Action lisinopril 40 mg tablet 40 mg PO DAILY Patient Comments: Take 1 tablet by mouth daily oxycodone 5 mg tablet 2.5 mg PO BID oxycodone-acetaminophen 5-325 mg tablet 1 tab PO DAILY allopurinol 300 mg tablet 300 mg PO DAILY Patient Comments: take 1 tablet by mouth once daily hydrochlorothiazide 25 mg tablet 25 mg PO QDAY Qty: 90 3RF amlodipine 5 mg tablet 5 mg PO QDAY Qty: 90 3RF tizanidine 4 mg tablet 4 mg PO QDAY metoprolol succinate 25 mg tablet extended release 24 hr 25 mg PO QDAY dapagliflozin propanediol [Farxiga] 10 mg tablet 10 mg PO QDAY nitroglycerin 0.4 mg Tablet, Sublingual 0.4 mg sublingual Q5M PRN (Reason: Cardiac/Chest Pain) 30 Days Qty: 15 6RF aspirin 81 mg tablet,delayed release (DR/EC) See Rx Instructions .ROUTE .COMPLEX Qty: 90 3RF Dose Instruction: take 1 tablet by mouth once daily Rx Instructions: take 1 tablet by mouth once daily clopidogrel 75 mg tablet 75 mg PO DAILY Qty: 90 3RF atorvastatin 40 mg tablet 40 mg PO QHS Qty: 90 3RF Primary Care Provider: Jordan Jung Referrals: Bryn Almeida MD [Med Staff - Active Staff] - As soon as possible (Call to get appointment scheduled for a few days after MRI will be done) Jordan Jung MD [Primary Care Provider] - As Needed Activity Restrictions/Additional Instructions: Oxycodone for your neck pain. Prednisone daily for the next 7 days that may help with the pain and inflammation. 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 Call and follow-up with Dr. Almeida the nursing informatics specialist for further evaluation after you have your MRI. Print Language: Upper Sorbian Disposition Disposition: Home, Self Care
== END 2024-12-27 11:39 | disposition home or self-care (01) ==
PROVIDERS: Emergency Provider Emergency Medicine; PCP Family Medicine; Visit Provider Emergency Medicine
DX: M54.2 Cervicalgia (principal); I25.10 Atherosclerotic heart disease of native coronary artery without angina pectoris; E78.00 Pure hypercholesterolemia, unspecified; I10 Essential (primary) hypertension; Z87.891 Personal history of nicotine dependence; Z79.899 Other long term (current) drug therapy; M10.9 Gout, unspecified; Z79.82 Long term (current) use of aspirin; Z79.02 Long term (current) use of antithrombotics/antiplatelets; Z95.5 Presence of coronary angioplasty implant and graft
CPT/HCPCS: 96372; 99282

== ENCOUNTER → 2024-12-31 | Outpatient (CLI) | payer MEDICARE, SELFPAY ==
[2022-11-15 10:28] VITALS: BMI 23.1
--- NOTE | 2024-12-31 06:56 | ECHOD_ITS ---
Reason For Study Reason For Study: CAD/ASHD Procedure This was a 2D Doppler, Color Flow transthoracic echocardiogram. Exam performed in department. Left Ventricle Mild concentric left ventricular hypertrophy. The LV systolic function is normal. EF is 60 %. Stage 1 diastolic dysfunction. Right Ventricle Normal right ventricle. Atria The left atrium is mildly enlarged. Normal right atrium. Mitral Valve Trivial mitral valve insufficiency. Tricuspid Valve Trivial tricuspid valve insufficiency. Normal pulmonary artery pressure. Aortic Valve Trisinus/trileaflet aortic valve. Pulmonic Valve Mild (1+) pulmonic valve insufficiency. Great Vessels Normal sized aortic root. Pericardium/Pleural No pericardial effusion. MMode/2D Measurements & Calculations LVIDd: 5.7 cm IVSd: 1.2 cm LVOT diam: 2.0 cm LVIDs: 4.2 cm LVPWd: 0.99 cm LVOT area: 3.1 cm2 FS: 25.3 % Ao root diam: 3.3 cm LAV(MOD-bp): 46.7 ml LVAd ap4: 25.2 cm2 LAV(MOD-bp) Indexed: 24.0 ml/m2 LVLd ap4: 7.7 cm LAV(MOD-sp2): 41.1 ml EDV(MOD-sp4): 70.6 ml LAV(MOD-sp4): 50.8 ml EDV(sp4-el): 69.9 ml LVAs ap4: 15.0 cm2 LVLs ap4: 6.1 cm ESV(MOD-sp4): 32.3 ml ESV(sp4-el): 31.4 ml EF(MOD-sp4): 54.3 % EF(sp4-el): 55.1 % LVAd ap2: 24.6 cm2 SV(MOD-sp4): 38.3 ml SV(MOD-sp2): 44.1 ml LVLd ap2: 7.2 cm SI(MOD-sp4): 19.7 ml/m2 SI(MOD-sp2): 22.6 ml/m2 EDV(MOD-sp2): 72.7 ml EDV(sp2-el): 71.0 ml LVAs ap2: 14.0 cm2 LVLs ap2: 5.6 cm ESV(MOD-sp2): 28.7 ml ESV(sp2-el): 29.4 ml EF(MOD-sp2): 60.6 % SV(sp4-el): 38.5 ml LA dimension(2D): 4.2 cm LA A4 area: 17.3 cm2 RA A4 area: 12.3 cm2 Time Measurements MV dec time: 0.24 sec Doppler Measurements & Calculations MV E max marcio: 59.9 cm/sec Lat Peak E' Marcio: 6.9 cm/sec Med Peak E' Marcio: 4.4 cm/sec MV A max marcio: 74.7 cm/sec E/E' lat: 8.7 E/E' med: 13.6 MV E/A: 0.80 MV V2 max: 84.5 cm/sec Ao V2 max: 131.4 cm/sec MV max P.9 mmHg MV dec slope: 257.6 cm/sec2 Ao max P.9 mmHg MV V2 mean: 50.8 cm/sec Ao V2 mean: 87.3 cm/sec MV mean P.1 mmHg Ao mean P.5 mmHg MV V2 VTI: 34.1 cm Ao V2 VTI: 27.6 cm AV (velocity ratio): 0.81 MVA(VTI): 2.0 cm2 AJ(I,D): 2.5 cm2 AJ(V,D): 2.7 cm2 LV V1 max: 115.2 cm/sec SV(LVOT): 69.3 ml PA V2 max: 101.8 cm/sec LV V1 max P.3 mmHg PA V2 mean: 68.2 cm/sec LV V1 mean P.5 mmHg LV V1 mean: 71.6 cm/sec LV V1 VTI: 22.4 cm PI end-d marcio: 126.3 cm/sec TR max marcio: 223.1 cm/sec TR max P.9 mmHg ECHO/Echo Complete Interpretation Summary Mild concentric left ventricular hypertrophy. The LV systolic function is normal. EF is 60 %. Stage 1 diastolic dysfunction. The left atrium is mildly enlarged. Mild (1+) pulmonic valve insufficiency. Ordering Physician: Deepthi Jacobs Referring Physician: Deepthi Jacobs Performed By: Hannah Moy RCS
--- NOTE | 2024-12-31 10:24 | STRESSREP_ITS ---
Stress Test Report Date: 12/31/2024 Procedure: Pharmacologic stress nuclear imaging study Indications: Coronary artery disease Consent: Per the patient Procedure: The patient underwent pharmacologic (Regadenoson 0.4mg ) evaluation with a peak heart rate of 98 beats per minute (65%predicted maximal heart rate) and a peak blood pressure of 130/68 mmHg. The baseline ECG demonstrated sinus rhythm. The peak pharmacologic ECG no ischemic changes. Rare PVCs noted. There was no complaint of chest discomfort during pharmacologic infusion or recovery. The patient was injected with 13.5 millicuries of technetium 99m Cardiolite and subsequently rest SPECT Cardiolite nuclear imaging was obtained in the horizontal long, vertical long, and short axis views. The patient underwent pharmacologic (Regadenoson) evaluation. The patient was injected with 41.4 millicuries of technetium 99m Cardiolite and subsequently stress SPECT Cardiolite nuclear imaging was obtained in the horizontal long, vertical long, and short axis views. A gated Cardiolite study at peak stress was obtained. The examination was stopped secondary to completion of protocol. Rest and stress SPECT Cardiolite nuclear imaging status post realignment, normalization, and attenuation correction demonstrate no fixed or reversible perfusion defects. There is end systolic thickening and brightening. The gated Cardiolite study demonstrates myocardial thickening and inward wall motion. The reported LVEF is 56%. Impression: 1. Pharmacologic (Regadenoson) evaluation 2. Peak pharmacologic ECG with no ischemic changes. 3. No significant cardiac dysrhythmias noted. 5. Rest and stress SPECT Cardiolite nuclear imaging demonstrate relative uniform tracer uptake and myocardial perfusion appearing within normal limits. 6. The gated Cardiolite study reports an LVEF of 56%. This note was generated with [employer] software. It may contain incorrect words, spelling, and punctuation that were not noted in checking the note before signing.
== END | disposition home or self-care (01) ==
LOC: CVS 06:51
PROVIDERS: PCP Family Medicine; Referring Provider Internal Medicine Cardiovascular Disease; Visit Provider Internal Medicine Cardiovascular Disease
DX: I25.118 Atherosclerotic heart disease of native coronary artery with other forms of angina pectoris (principal); R07.9 Chest pain, unspecified
CPT/HCPCS: 78452; 93017; 93306; A9500; A4216; J2785

== ENCOUNTER → 2025-01-28 | Outpatient (CLI) | payer MEDICARE, SELFPAY ==
[2022-11-15 10:28] VITALS: BMI 23.1
--- NOTE | 2025-01-28 15:15 | CT_ITS ---
PROCEDURE: CHEST WITH CONTRAST 01/28/2025 REASON FOR EXAM: SOB ON EXERTION, EVALUATE FOR INTERSTIAL LUNG DISEASE/FIBROSIS TECHNIQUE: Prone and supine chest CT with intravenous contrast, high resolution CT (HRCT) protocol. Coronal and Sagittal reconstruction series were provided. CONTRAST: VOLUME: 100 mL Isovue-350 gauge IV One or more dose reduction techniques were used (e.g., Automated exposure control, adjustment of the mA and/or kV according to patient size, use of iterative reconstruction technique). RADIATION DOSE SUMMARY: CTDlvol: 14.4 mGy DLP: 572 mGycm COMPARISON: Chest radiograph on 12/06/2024. FINDINGS: Calcified mediastinal and hilar lymph nodes are noted with the largest measuring 1.3 cm. Minimal bilateral basilar atelectatic pulmonary changes. Small sliding hiatal hernia. Mild diffuse spondylosis. Normal thoracic aorta and visualized great vessels. There is no demonstrated aortic dissection. Normal heart and pericardium. Normal visualized trachea and bronchi. The remaining lungs are well expanded. Normal remaining pulmonary parenchyma. Normal pleura. Normal visualized upper abdomen. CT/Chest WITH Contrast IMPRESSION: Coronary artery calcification (CAC) is is present Calcified mediastinal and hilar lymph nodes are noted with the largest measurin g 1.3 cm. Minimal bilateral basilar atelectatic pulmonary changes. Small sliding hiatal hernia. Mild diffuse spondylosis. Reading [facility]
[2025-01-28 15:39] LABS: CREATININE FINGERSTICK 2.2 mg/dL (0.70-1.30)
== END | disposition home or self-care (01) ==
LOC: CT 15:05
PROVIDERS: PCP Family Medicine; Referring Provider Family Medicine; Visit Provider Family Medicine
DX: R06.02 Shortness of breath (principal)
CPT/HCPCS: 71260; Q9967

== ENCOUNTER → 2025-02-02 | Outpatient (CLI) | payer MEDICARE, SELFPAY ==
[2022-11-15 10:28] VITALS: BMI 23.1
[2025-02-02 12:54] LABS: Hematocrit 35.9 % (40-54); Hemoglobin 11.1 g/dL (13.0-16.5); Mean Corp Hgb Conc 30.9 g/dL (32-36); Mean Corpuscular Hgb 22.2 pg (27.0-32.0); Mean Corpuscular Volume 71.7 fL (80-94); Mean Platelet Vol. 12.1 fl (6.2-12.0); Platelet Count 257 K/mm3 (150-450); RBC Distribution Width CV 16.6 % (11.6-14.6); RBC Distribution Width SD 40.6 fl (35.1-43.9); Red Blood Count 5.01 M/mm3 (4.6-6.2); White Blood Count 8.6 K/mm3 (4.4-11.0)
[2025-02-02 13:12] LABS: Erythrocyte Sedimentation Rate 7 mm/hr (0-20)
[2025-02-02 13:43] LABS: CRP < 3.00 mg/L (0.0-3.0)
[2025-02-04 16:09] LABS: Angiotensin Convert Enzyme 39 U/L (14-82)
== END | disposition home or self-care (01) ==
LOC: LAB 12:07
PROVIDERS: PCP Family Medicine; Referring Provider Internal Medicine Pulmonary Disease; Visit Provider Internal Medicine Pulmonary Disease
DX: R06.00 Dyspnea, unspecified (principal)
CPT/HCPCS: 36415; 82164; 85027; 85652; 86140

== ENCOUNTER → 2025-02-09 | Outpatient (CLI) | payer MEDICARE, SELFPAY ==
[2022-11-15 10:28] VITALS: BMI 23.1
[2025-02-09 12:48] LABS: Anion Gap 12 (5-15); BUN 21 mg/dL (4-19); BUN/Creat Ratio 13.4 RATIO (10-20); Calcium,Total 9.1 mg/dL (7.6-11.0); Carbon Dioxide 22.6 mmol/L (21.0-32.0); Chloride 106 mmol/L (98-108); EST Glomerular Filtration Rate 46 (>60); Glucose 111 mg/dL (70-99); Potassium 3.8 mmol/L (3.3-5.1); Sodium Level 141 mmol/L (133-145)
== END | disposition home or self-care (01) ==
LOC: MFPLAB 10:12
PROVIDERS: PCP Family Medicine; Referring Provider Family Medicine; Visit Provider Family Medicine
DX: R94.4 Abnormal results of kidney function studies (principal)
CPT/HCPCS: 36415; 80048

== ENCOUNTER → 2025-02-14 | Outpatient (CLI) | payer MEDICARE, SELFPAY ==
[2022-11-15 10:28] VITALS: BMI 23.1
[2025-02-14 12:56] LABS: Anion Gap 13 (5-15); BUN 24 mg/dL (4-19); BUN/Creat Ratio 16.1 RATIO (10-20); Calcium,Total 8.7 mg/dL (7.6-11.0); Carbon Dioxide 20.2 mmol/L (21.0-32.0); Chloride 109 mmol/L (98-108); Creatinine, Serum 1.52 mg/dL (0.70-1.20); EST Glomerular Filtration Rate 49 (>60); Glucose 182 mg/dL (70-99); Potassium 3.6 mmol/L (3.3-5.1); Sodium Level 142 mmol/L (133-145)
== END | disposition home or self-care (01) ==
LOC: MFPLAB 09:42
PROVIDERS: PCP Family Medicine; Referring Provider Family Medicine; Visit Provider Family Medicine
DX: R94.4 Abnormal results of kidney function studies (principal)
CPT/HCPCS: 36415; 80048

== ENCOUNTER → 2025-02-24 | Outpatient (CLI) | payer MEDICARE, SELFPAY ==
[2022-11-15 10:28] VITALS: BMI 23.1
--- NOTE | 2025-02-24 08:48 | RDU_ITS ---
Reason For Study Reason For Study: CKD Right Renal Artery Left Renal Artery Right renal artery ostium 122.7/32.7 Left renal artery ostium 81.0/12.9 RSV/EDV. PSV/EDV. Right renal artery proximal 109.5/23.9 Left renal artery proximal PSV/EDV PSV/EDV. 93.2/14.6 . Right renal artery mid 131.5/30.5 Left renal artery mid 114.9/18.1 PSV/EDV. PSV/EDV . Right renal artery distal 109.5/21.7 Left renal artery distal 105.7/19.9 PSV/EDV. PSV/EDV. Right RAR 1.64. Left RAR 1.44. Right Renal Parenchyma Left Renal Parenchyma Upper Pole Medula 25.2/6.7 PSV/EDV. Left upper pole medulla 23.0/6.0 Right upper pole medulla EDR 0.30 . PSV/EDV . Right upper pole medulla R.I. 0.73 . Left upper pole medulla EDR 0.30 . Upper [place] Cortx 12.8/3.5 PSV/EDV. Left upper pole medulla R.I. 0.74 . Right upper pole cortex EDR 0.30 . UP Cortex 13.5/5.0 PSV/EDV. Right upper pole cortex R.I. 0.72 . Left upper pole cortex EDR 0.40 . Right lower Pole medulla 26.7/6.7 Left upper pole cortex R.I. 0.63 . PSV/EDV . Left lower Pole medulla 33.4/7.4 Right lower pole medulla EDR 0.30 . PSV/EDV . Right lower pole medulla R.I. 0.75 . Left lower pole medulla EDR 0.20 . Lower Pole Cortex 12.4/4.9 PSV/EDV. Left lower pole medulla R.I. 0.78 . Right lower pole cortex EDR 0.40 . Lower Pole Cortx 19.7/4.5 PSV/EDV. Right lower pole cortex R.I. 0.60 . Left lower pole cortex EDR 0.20 . Right Renal Hilar Left lower pole cortex R.I. 0.77 . Right Hilar avg 46.4/11.9 PSV/EDV. Left Renal Hilar Right hilar acceleration time 40 m/sec. LT Hilar avg 73.2/13.0 PSV/EDV . Right Renal Dimensions Left hilar acceleration time 30 m/sec. Right kidney size 11.04 cm . Left Renal Dimensions Right cortical dimension 1.54 cm . Left kidney size 10.03 cm . Left cortical dimension 1.34 cm . Aorta Proximal abdominal aorta 2.79 x 2.55 cm . Proximal abdominal aorta peak systolic velocity is 67.1 cm/sec . Distal abdominal aorta 1.95 x 1.86 cm . Distal abdominal aorta peak systolic velocity is 80.2 cm/sec . Procedures Renal Artery Duplex with B-Mode, Pulsed Wave and Color Doppler. VL/Renal Artery Duplex Ultrasound Interpretation Summary Right renal artery patent with normal velocities and no evidence of stenosis. Left renal artery patent with normal velocities and no evidence of stenosis. Right renal vein patent. Left renal vein patent. Right kidney normal in size. Left kidney normal in size. Ordering Physician: Jordan Jung Referring Physician: Jordan Jung Performed By: Billy Castillo RVMarlena
== END | disposition home or self-care (01) ==
LOC: CVS 08:46
PROVIDERS: PCP Family Medicine; Referring Provider Family Medicine; Visit Provider Family Medicine
DX: N18.9 Chronic kidney disease, unspecified (principal)
CPT/HCPCS: 93975

== ENCOUNTER → 2025-06-02 | Outpatient (CLI) | payer MEDICARE, SELFPAY ==
[2022-11-15 10:28] VITALS: BMI 23.1
[2025-06-02 12:42] LABS: AST(SGOT) 73 U/L (<=37); Alanine Aminotransfer ALT/SGPT 101 U/L (<=46); Albumin, Serum 3.7 g/dL (3.4-4.8); Alkaline Phosphatase 98 U/L (40-129); Bilirubin, Direct 0.18 mg/dL (0.00-0.30); Cholesterol 171 mg/dL (<=200); Globulin 2.4 g/dL (2.2-4.2); Low Density Lipoprotein Calc. 61 mg/dL; Triglycerides 69 mg/dL; Very Low Density Lipoprotein 14 mg/dL (5-40); cholesterol:hdl ratio screen 1.77
== END | disposition home or self-care (01) ==
LOC: MTLAB 10:11
PROVIDERS: PCP Family Medicine; Referring Provider Nurse Practitioner Family; Visit Provider Nurse Practitioner Family
DX: E78.5 Hyperlipidemia, unspecified (principal); I10 Essential (primary) hypertension; Z95.5 Presence of coronary angioplasty implant and graft
CPT/HCPCS: 36415; 80061; 80076

== ENCOUNTER → 2025-08-11 | Outpatient (CLI) | payer MEDICARE, SELFPAY ==
[2022-11-15 10:28] VITALS: BMI 23.1
[2025-08-11 13:24] LABS: AST(SGOT) 28 U/L (<=37); Alanine Aminotransfer ALT/SGPT 33 U/L (<=46); Albumin, Serum 3.9 g/dL (3.4-4.8); Alkaline Phosphatase 135 U/L (40-129); Bilirubin, Direct 0.18 mg/dL (0.00-0.30); Cholesterol 322 mg/dL (<=200); Globulin 2.4 g/dL (2.2-4.2); Low Density Lipoprotein Calc. 191 mg/dL; Triglycerides 401 mg/dL; Very Low Density Lipoprotein 80 mg/dL (5-40); cholesterol:hdl ratio screen 6.41
--- OUTSIDE RECORDS SUMMARY | 2025-08-11 14:40 | XMS RPT_ITS | CCD ---
Author Organization [facility] Care Team Providers Care Group Home Manager Name Role Phone Dr. Donny Jung Primary Care Provider [phone] Dr. oDnny Jung Referring Provider Dr. Donny Jung Other Provider Reynaldo, Dr. Lacey Attending Provider Dulce Allen Attending Provider Unavailable Dr. Donny Jung Primary Care Provider Dr. Donny Jung Referring Provider Dr. Donny Jung Other Provider Dr. Deepthi Jacobs Attending Provider Dulce Allen Attending Provider Unavailable Dr. Deepthi Jacobs Referring Provider Reynaldo, Dr. Lacey Other Provider Dr. Surjit Cristobal Attending Provider Dr. Maxi Cintron Attending Provider Roof TAXI DRIVER, TAXI DRIVER-C Donny Love Attending Provider Reynaldo, Dr. Lacey Admit Provider Dr. Donny Jung Primary Care Provider Dr. Donny Jung Referring Provider Reynaldo, Dr. Lacey Attending Provider Dr. Donny Jung Primary Care Provider Dr. Deepthi Jacobs Referring Provider Reynaldo, Dr. Lacey Other Provider Reynaldo, Dr. Lacey Attending Provider Dr. Donny Jung Referring Provider Dr. Ousmane Fink Attending Provider Dr. Jose M Gross Attending Provider Dr. Donny Jung Primary Care Provider Reynaldo, Dr. Lacey Admit Provider Reynaldo, Dr. Lacey Attending Provider Reynaldo, Dr. Lacey Referring Provider Reynaldo, Dr. Lacey Other Provider Dr. Donny Jung Referring Provider Dr. Ousmane Fink Attending Provider 1([facility])-[phone] Jose M Gross Attending Provider 1([facility] )[phone] Dr. Donny Jung Primary Care Provider Reynaldo, Dr. Lacey Attending Provider ERICH RAJAN, DONNY Primary Care Physician CAT HERNANDEZ Attending Unavailable ERICH RAJAN, DONNY Primary Care [facility] Dr. Donny Jung Primary Care Provider Dr. Donny Jung Referring Provider Reynaldo, Dr. Lacey Attending Provider Dr. Jose M Gross Attending Provider Dr. Donny Jung Primary Care Provider Dr. Donny Jung Referring Provider Dr. Jose M Gross Attending Provider Dr. Jose M Gross Referring Provider Dr. Jose M Gross Other Provider Dr. Donny Jung Primary Care Provider Dr. Donny Jung Referring Provider Dr. Deepthi Jacobs Attending Provider Dr. Donny Jung Primary Care Provider Dr. Jose M Gross Attending Provider Dr. Donny Jung Referring Provider Erich RAJAN, Dr. Donny Nguyen Primary Care Provider [phone] Erich RAJAN, Dr. Donny Nguyen Attending Provider Erich RAJAN, Dr. Donny Nguyen Referring Provider Aleks RAJAN, Dr. Romeo Attending Provider Erich RAJAN, Dr. Donny Nguyen Primary Care Provider [phone] Erich RAJAN, Dr. Donny Nguyen Attending Provider Erich RAJAN, Dr. Donny Nguyen Referring Provider Aleks RAJAN, Dr. Romeo Attending Provider Hayden TAXI DRIVER-C, Sangeeta Attending Provider Hayden TAXI DRIVER-C, Sangeeta Referring Provider Reynaldo RAJAN, Dr. Lacey Attending Provider Bruno RAJAN, Dr. Heart Emergency Provider Bruno RAJAN, Dr. Heart Attending Provider Reynaldo RAJAN, Dr. Lacey Referring Provider Reynaldo RAJAN, Dr. Lacey Other Provider Unavailable Primary Care Provider UnavailMELITON Dos Santos Referring Unavailable Dotty RAJAN, Dr. Lake Hicks Attending Provider Dr. Lake Storm MD, V Referring Provider Dr. Bryn Almeida MD Attending Provider Dr. Maxi Cintron MD Attending Provider Erich RAJAN, Dr. Donny Nguyen Primary Care Provider Erich RAJAN, Dr. Donny Nguyen Attending Provider Erich RAJAN, Dr. Donny Nguyen Referring Provider Dr. Stephan Brito DO Attending Provider Erich RAJAN, Dr. Donny Nguyen Primary Care Physician Erich RAJAN, Dr. Donny Nguyen Attending Physician [phone] Erich RAJAN, Dr. Donny Nguyen Referring Provider Dotty RAJAN, Dr. Lake Hicks Attending Physician Juan Pablo RAJAN, Dr. Clemente Attending Physician Saida RAJAN, Dr. German Attending Physician Aleks RAJAN, Dr. Romeo Attending Physician James TAXI DRIVER-CDonny Attending Physician [phone] Erich RAJAN, Dr. Donny Nguyen Primary Care Physician Erich RAJAN, Dr. Donny Nguyen Attending Physician [phone] Erich RAJAN, Dr. Donny Nguyen Referring Provider [phone] [facility] TAXI DRIVER-CDonny Referring Provider Reynaldo, Deepthi Attending Unavailable Reynaldo, Deepthi Referring Unavailable Schinner, Donny E Primary Care Unavailable Maxi Cintron Attending Unavailable Schinner, Donny E Primary Care Unavailable Bryn Almeida Attending Unavailable Schinner, Donny E Primary Care Unavailable Schinner, Donny E Referring Unavailable Reynaldo, Deepthi Attending Unavailable Schinner, Donny E Primary Care Unavailable Schinner, Donny E Referring Unavailable Schinner, Donny E Attending Unavailable Schinner, Donny E Primary Care Unavailable Schinner, Donny E Referring Unavailable Schinner, Donny E Attending Unavailable Schinner, Donny E Referring Unavailable Schinner, Donny E Primary Care Unavailable Schinner, Donny E Attending Unavailable Schinner, Donny E Primary Care Unavailable Schinner, Donny E Referring Unavailable Ousmane Fink Attending Unavailable Schinner, Donny E Primary Care Unavailable Schinner, Donny E Referring Unavailable Reynaldo, Deepthi Attending Unavailable Reynaldo, Deepthi Consulting Unavailable Reynaldo, Deepthi Referring Unavailable Schinner, Donny E Primary Care Unavailable Schinner, Donny E Referring Unavailable Donny Ramirez NP Attending Unavailable Schinner, Donny E Primary Care Unavailable Stephan Brito Attending Unavailable Schinner, Donny E Primary Care Unavailable SchinnerDonny E Referring Unavailable Schinner, Donny E Referring Unavailable Ousmane Fink Attending Unavailable SchinDonny mora E Primary Care Unavailable Deepthi Jacobs Attending Unavailable ReynaldoDeepthi Referring Unavailable Schinner, Donny E Primary Care Unavailable Hayden TAXI DRIVER, Sangeeta Referring Unavailable Hayden TAXI DRIVER, Sangeeta Attending Unavailable Schinner, Donny E Primary Care Unavailable Schinner, Donny E Primary Care Unavailable SchinDonny mora E Referring Unavailable SchinnerDonny E Attending Unavailable Schinner, Donny E Primary Care Unavailable Schinner, Donny E Referring Unavailable SchinnerDonny E Attending Unavailable Roof TAXI DRIVER, Donny Love Referring Unavailable Roof TAXI DRIVER, Donny Love Attending Unavailable Schinner, Donny E Primary Care Unavailable Schinner, Donny E Primary Care Unavailable SibiliaLake V Referring Unavailable SibiliaLake V Attending Unavailable Schinner, Donny E Referring Unavailable SchinDonny mora E Attending Unavailable Schinmorgan, Donny E Primary Care Unavailable Schinner, Donny E Primary Care Unavailable Sly Carr Attending Unavailable Schinner, Donny E Primary Care Unavailable Schinner, Donny E Referring Unavailable SchinDonny mora E Attending Unavailable SchinDonny mora E Referring Unavailable SchinDonny mora Attending Unavailable Schinner, Donny E Primary Care Unavailable ReynaldoDeepthi sweet Referring Unavailable ReynaldoDeepthi sweet Attending Unavailable SchinDonny mora E Primary Care Unavailable Deepthi Jacobs Referring Unavailable ReynaldoDeepthi sweet Attending Unavailable SchDonny chavez E Primary Care Unavailable SchinDonny mora E Referring Unavailable SchDonny chavez E Attending Unavailable Schinmorgan Donny E Primary Care Unavailable Allergies Allergy Classification Reported Allergen(s) Allergy Type Date of Onset Reaction(s) Facility (20 sources) Sulfonamides (Antibiotic); Translations: [SULFA (SULFONAMIDE ANTIBIOTICS)] Allergy to substance 6 Unknown [facility] (18 sources) Citalopram Drug Allergy 2 Rash [facility] (18 sources) cyclobenzaprine Drug Allergy 2 fatigue [facility] (18 sources) FLUoxetine Drug Allergy 2 Other [facility] (18 sources) PARoxetine Drug Allergy 2 Other [facility] (13 sources) Environmental Allergies: Uncoded; Translations: [Environmental Allergies: Uncoded] Allergy to substance 5 Swelling [facility] (3 sources) Citalopram; Translations: [CITALOPRAM HYDROBROMIDE] Drug Allergy 6 Rash [facility] Work Phone: (3 sources) FLUoxetine; Translations: [FLUOXETINE HCL] Drug Allergy 6 [facility] (3 sources) PARoxetine; Translations: [PAROXETINE HCL] Drug Allergy 6 [facility] (2 sources) Sulfonamides (Antibiotic) Propensity to adverse reactions 6 [facility] (1 source) Sulfonamides (Antibiotic) Drug allergy (disorder) 5 [facility] Repository Medications Current Medications Medication Drug Class(es) Dates Sig (Normalized) Sig (Original) allopurinol 300 mg oral tablet (20 sources) Xanthine Oxidase Inhibitor Start: 09-29-2023 take 1 tablet by mouth once daily Start: 06-12-2022 End: 11-04-2022 take 1 tablet by mouth once daily Allopurinol 300 mg tablet Discontinued 300 mg PO DAILY June 12, 2022 12:00am November 04, 2022 3:37pm gout Start: 11-12-2013 End: 06-12-2022 take 3 tablets by mouth once daily Allopurinol 100 MG tablet Discontinued 300 mg PO DAILY November 12, 2013 1:00am June 12, 2022 3:59pm GOUT Start: 11-12-2013 End: 06-12-2022 take 300 mg by mouth once daily Allopurinol Discontinu ed 300 MG PO DAILY November 12, 2013 1:00am June 12, 2022 3:59pm take 1 tablet by jon th once daily allopurinol 100 mg tablet Take 100 mg by mouth once daily. Active cycloSPORINE 0.5 mg/ml ophthalmic suspension (2 sources) Calcineurin Inhibitor Immunosuppressant Start: 05-25-2025 dapagliflozin 10 mg oral tablet (12 sources) Sodium-Glucose Cotransporter 2 Inhibitor Start: 12-08-2024 take 1 tablet by mouth once daily 24 hr metoprolol succinate 25 mg extended release oral tablet (20 sources) beta-Adrenergic Yuliet Start: 12-08-2024 End: 05-02-2025 take 1 tablet by mouth once daily Start: 09-29-2023 End: 12-08-2024 take 1 tablet by mouth once daily Metoprolol Succinate 50 mg tablet extended release 24 hr Discontinued 50 mg PO DAILY 90 3 June 23, 2024 2:01pm December 08, 2024 10:00am BP Start: 06-18-2022 End: 09-29-2023 take 2 tablets by mouth once daily Metoprolol Succinate 50 mg tablet extended release 24 hr Discontinued 25 mg PO DAILY June 18, 2022 11:52am September 29, 2023 12:03pm BP Start: 06-18-2022 End: 09-29-2023 take 25 mg by mouth once daily Metoprolol Succinate Di scontinued 25 MG PO DAILY June 18, 2022 11:52am September 29, 2023 12:03pm Start: 10-21-2020 End: 06-18-2022 take 1 tablet by mouth once daily Metoprolol Succinate 50 MG tablet extended release 24 hr Discontinued 50 mg PO DAILY October 21, 2020 1:00am June 18, 2022 11:54am BP nitroglycerin 0.4 mg subling ual tablet (20 sources) Nitrate Vasodilator Start: 07-25-2022 Start: 07-25-2022 Nitroglycerin Active 0.4 MG SL Q5M 15 July 25, 2022 1:00am omeprazole 40 mg delayed release oral capsule (20 sources) Proton Pump Inhibitor Start: 05-23-2023 take 40 mg by mouth once daily Omeprazole Active 40 MG PO DAILY 60 May 23, 2023 12:00am Start: 11-04-2022 End: 02-19-2023 take 1 capsule by mouth once daily Omeprazole 40 mg capsule,delayed release(DR/EC) Discontinued 40 mg PO DAILY 60 November 04, 2022 1:00am February 19, 2023 2:39pm Start: 11-12-2013 End: 10-21-2020 take 1 capsule by mouth once daily Omeprazole 40 MG capsule,delayed release(DR/EC) Discontinued 40 mg PO DAILY November 12, 2013 1:00am October 21, 2020 1:32am rosuvastatin calcium 40 mg oral tablet (2 sources) HMG-CoA Reductase Inhibitor Start: 05-25-2025 take 1 tablet by mouth once daily topiramate 25 mg oral capsule (4 sources) Start: 05-13-2013 topiramate (TOPAMAX) 25 mg capsule Begin with one tablet at night for first three days, then one tablet in morning and one at night for next three days, and finally take three times a day. 90 capsule 1 05/13/2013 Active take 1 tablet by mouth twice ihsan ly topiramate (TOPAMAX) 25 mg tablet Take 25 mg by mouth twice daily. Active traMADol hydrochloride 50 mg oral tablet (6 sources) Opioid Agonist Start: 05-25-2025 take 1 tablet by mouth twice daily as needed Start: 06-14-2013 take 1 tablet by jon twice daily traMADol 50 mg tablet Indications: Cervicogenic headache , Headache(784.0) Take 1 tablet by mouth twice daily. 60 tablet 0 06/14/2013 Active Completed/Discontinued Medications Medication Drug Class(es) Dates Sig (Normalized) Sig (Original) acetaminophen 300 mg / butalbital 50 mg / caffeine 40 mg oral capsule (20 sources) Barbiturate, Central Nervous System Stimulant, Methylxanthine Start: 11-12-2013 End: 10-21-2020 Butalbital-Acetami nophen-Caff 1 EACH capsule Discontinued 1 NMA PO EVERY 6 HOURS NEEDED November 12, 2013 1:00am October 21, 2020 1:32am Start: 11-12-2013 End: 10-21-2020 Vubctnpwkt-Kaidnnuzlyvkt-Xfh f Discontinued 1 EACH PO EVERY 6 HOURS NEEDED November 12, 2013 1:00am October 21, 2020 1:32am acetaminophen 325 mg / HYDROcodone bitartrate 5 mg oral tablet (20 sources) Opioid Agonist Start: 05-03-2021 End: 05-05-2021 Hydrocodone-Acetaminophen 5- 325 mg tablet Discontinued 1 {tbl} PO EVERY 6 HOURS as needed for pain 6 2 0 May 03, 2021 May 04, 2021 12:00am May 05, 2021 12:01am Hiatal hernia with gastroesophageal reflux disease and esophagitis Diaphragmatic hernia without obstruction or gangrene Gastro-esophageal reflux disease with esophagitis, without bleeding Start: 05-03-2021 End: 05-05-2021 take 1 tablet by mouth every six hours Hydrocodone-Acetaminophen Discontinued 1 TABLET PO EVERY 6 HOURS 6 2 May 03, 2021 May 04, 2021 11:01pm acetaminophen 325 mg / oxyCODONE hydrochloride 5 mg oral tablet (17 sources) Opioid Agonist Start: 09-29-2023 End: 05-25-2025 Oxycodone-Acetaminophen 5-32 5 mg tablet Discontinued 1 {tbl} PO DAILY 0 September 29, 2023 1:00am May 25, 2025 10:53am Start: 09-29-2023 take 1 tablet by jon th once daily Oxycodone-Acetaminophen Active 1 TABLET PO DAILY September 29, 2023 1:00am [id number] actuat albuterol 0.09 mg/actuat metered dose inhaler (19 sources) beta2-Adrenergic Agonist Start: 06-09-2023 End: 09-29-2023 Albuterol Sulfate 90 mcg/actuation HFA aerosol inhaler Discontinued 2 NMA INHALATION NEEDED June 09, 2023 12:00am September 29, 2023 12:02pm SOB Start: 06-09-2023 End: 09-29-2023 Albuterol Sulfate Discontinu ed 2 INH INHALATION NEEDED June 09, 2023 12:00am September 29, 2023 12:02pm amLODIPine 5 mg oral tablet (20 sources) Dihydropyridine Calcium Channel Yuliet Start: 06-08-2024 End: 01-25-2025 take 1 tablet by mouth once daily Amlodipine 5 mg tablet Discontinued 5 mg PO daily 90 June 14, 2024 1:24pm June 16, 2024 10:20am Start: 11-26-2022 End: 06-08-2024 take 1 tablet by mouth once daily Amlodipine 10 mg tablet Discontinued 10 mg PO DAILY November 26, 2022 12:00am June 08, 2024 3:44pm Start: 10-21-2020 End: 11-04-2022 take 1 tablet by mouth once daily Amlodipine 10 MG tablet Discontinued 10 mg PO DAILY October 21, 2020 1:00am November 04, 2022 3:37pm BP On Hold: nausea aspirin 81 mg delayed release oral tablet (20 sources) Platelet Aggregation Inhibitor, Nonsteroidal Anti-inflammatory Drug Start: 06-18-2022 End: 06-14-2024 take 1 tablet by mouth once daily Aspirin 81 mg tablet,delayed release (DR/EC) Discontinued 0 .ROUTE .COMPLEX 90 June 19, 2023 10:02am June 14, 2024 8:08am take 1 tablet by mouth once daily atorvastatin 40 mg oral tablet (20 sources) HMG-CoA Reductase Inhibitor Start: 10-03-2023 End: 05-25-2025 take 1 tablet by mouth at bedtime Atorvastatin 40 mg tablet Discontinued 40 mg PO AT BEDTIME October 12, 2024 12:23pm May 25, 2025 10:54am this is a dose increase Start: 10-21-2020 End: 10-03-2023 take 1 tablet by mouth at bedtime Atorvastatin 20 MG tablet Discontinued 20 mg PO AT BEDTIME October 21, 2020 1:00am October 03, 2023 11:31am cholesterol clopidogrel 75 mg oral tablet (20 sources) [id number] Platelet Inhibitor Start: 07-25-2022 End: 05-25-2025 take 1 tablet by mouth once daily Clopidogrel 75 mg tablet Discontinued 75 mg PO DAILY July 05, 2024 10:28am May 25, 2025 11:15am esomeprazole 20 mg delayed release oral capsule (20 sources) Proton Pump Inhibitor Start: 10-21-2020 End: 06-12-2022 take 1 capsule by mouth once daily Esomeprazole Magnesium (Nexium) 20 MG capsule,delayed release(DR/EC) Discontinued 20 mg PO DAILY October 21, 2020 1:00am June 12, 2022 4:03pm GERD fluconazole 200 mg oral tablet (19 sources) Azole Antifungal Start: 06-13-2023 End: 09-29-2023 take 1 tablet by mouth once daily Fluconazole 200 mg tablet Discontinued 200 mg PO DAILY 28 June 13, 2023 12:00am September 29, 2023 12:03pm hydroCHLOROthiazide 25 mg oral tablet (16 sources) Thiazide Diuretic Start: 06-08-2024 End: 01-25-2025 take 1 tablet by mouth once daily Hydrochlorothiazide 25 mg tablet Discontinued 25 mg PO daily June 08, 2024 12:00am January 25, 2025 3:38pm lisinopril 40 mg oral tablet (20 sources) Angiotensin Converting Enzyme Inhibitor Start: 06-12-2022 End: 01-25-2025 take 1 tablet by mouth once daily Lisinopril 40 mg tablet Discontinued 40 mg PO DAILY June 12, 2022 12:00am January 25, 2025 11:51am blood pressure Start: 10-21-2020 End: 06-12-2022 take 1 tablet by mouth once daily Lisinopril 20 MG tablet Discontinued 20 mg PO DAILY October 21, 2020 1:00am June 12, 2022 4:00pm BP meloxicam 15 mg oral tablet (20 sources) Nonsteroidal Anti-inflammatory Drug Start: 06-12-2022 End: 06-18-2022 take 1 tablet by mouth once daily Meloxicam 15 mg tablet Discontinued 15 mg PO DAILY June 12, 2022 12:00am June 18, 2022 11:20am Start: 05-13-2013 End: 10-21-2020 take 1 tablet by mouth once daily Meloxicam (Mobic) 15 mg tablet Discontinued 15 mg PO DAILY 45 0 May 05, 2019 12:00am October 21, 2020 1:32am nefazodone hydrochloride 100 mg oral tablet (20 sources) Serotonin Reuptake Inhibitor Start: 09-18-2005 End: 05-05-2019 take 1 tablet by mouth once daily Nefazodone 100 MG tablet Discontinued 100 mg PO DAILY November 12, 2013 1:00am May 05, 2019 8:07am oxyCODONE hydrochloride 5 mg oral capsule (20 sources) Opioid Agonist Start: 12-27-2024 End: 05-25-2025 take 1 capsule by mouth twice daily as needed for pain Oxycodone 5 mg capsule Discontinued 5 mg PO TWICE A DAY as needed for pain 14 7 0 December 27, 2024 May 25, 2025 10:52am Chronic neck pain Cervicalgia Other chronic pain Start: 02-19-2023 End: 05-25-2025 take 2.5 mg by mouth twice daily Oxycodone 5 mg tablet Discontinued 2.5 mg PO TWICE A DAY 0 February 19, 2023 2:39pm May 25, 2025 10:53am pain Start: 02-19-2023 take 2.5 mg by mouth twice daily Oxycodone Active 2.5 MG PO TWICE A DAY February 19, 2023 2:39pm Start: 02-19-2023 take 5 mg by mouth once daily Oxycodone Active 5 MG PO DAILY February 19, 2023 2:39pm Start: 06-12-2022 End: 02-19-2023 take 1 tablet by mouth twice daily Oxycodone 5 mg tablet Discontinued 5 mg PO TWICE A DAY 0 June 12, 2022 12:00am February 19, 2023 2:40pm pain Start: 03-23-2021 End: 06-12-2022 take 1 tablet by mouth every six hours as needed for pain Oxycodone 5 mg Tablet Discontinued 5 mg PO EVERY 6 HOURS as needed for Pain March 23, 2021 12:00am June 12, 2022 4:02pm On Hold: Order Changed predniSONE 20 mg oral tablet (11 sources) Start: 12-27-2024 End: 02-03-2025 take 2 tablets by mouth once daily Prednisone 20 mg tablet Discontinued 40 mg PO DAILY 20 10 0 December 27, 2024 12:00am February 03, 2025 9:26am sucralfate 1000 mg oral tablet (20 sources) Aluminum Complex Start: 11-04-2022 End: 02-19-2023 take 1 tablet by mouth at bedtime Sucralfate (Carafate) 1 gram tablet Discontinued 1 g PO before meals and at bedtime 60 0 November 04, 2022 1:00am February 19, 2023 2:39pm tiZANidine 4 mg oral tablet (12 sources) Central alpha-2 Adrenergic Agonist Start: 12-08-2024 End: 02-03-2025 take 1 tablet by mouth once daily Tizanidine 4 mg tablet Discontinued 4 mg PO daily December 08, 2024 12:00am February 03, 2025 9:27am Problems Active Problems Problem Classification Problem Date Documented Date Episodic/Chronic Abdominal hernia (20 sources) Gastroesophageal reflux disease with hiatal hernia; Translations: [Diaphragmatic hernia without obstruction or gangrene] 06-12-2022 Episodic Alcohol-related disorders (2 sources) Alcohol dependence; Translations: [Alcohol dependence, uncomplicated] 01-04-2025 Chronic Anxiety disorders (2 sources) Panic disorder without agoraphobia; Translations: [Panic disorder [episodic paroxysmal anxiety]] 01-04-2025 Chronic Asthma (20 sources) Asthma; Translations: [Unspecified asthma, uncomplicated] Onset: 12-08-2024 06-12-2022 Chronic Cardiac dysrhythmias (20 sources) Bradycardia; Translations: [Bradycardia, unspecified] Episodic Chronic kidney disease (1 source) Chronic kidney disease, unspecified; Translations: [Chronic kidney disease, unspecified] Onset: 03-02-2025 Chronic Coronary atherosclerosis and other heart disease (20 sources) Coronary arteriosclerosis; Translations: [Atherosclerotic heart disease of [place] coronary artery without angina pectoris] Onset: 11-11-2024 Chronic Comment on above: PTCA/JUMA Prox LAD Or sirio 3.0x13mm, JUMA Mid LAD Orsirio 3.0x18mm, JUMA distal LCX Orsirio 3.0x15mm 07/24/22 Coronary atherosclerosis and other heart disease (10 sources) Presence of coronary angioplasty implant and graft; Translations: [Percutaneous transluminal coronary angioplasty status] Onset: 07-09-2022 Episodic Deficiency and other anemia (20 sources) Beta thalassemia trait; Translations: [Thalassemia minor] 06-12-2022 Chronic Deficiency and other anemia (2 sources) Thalassemia; Translations: [Other thalassemias] 01-04-2025 Chronic Deficiency and other anemia (20 sources) Anemia; Translations: [Anemia, unspecified] 07-25-2022 Episodic Disorders of lipid metabolism (20 sources) Hypercholesterolemia; Translations: [Pure hypercholesterolemia, unspecified] Onset: 06-13-2025 Chronic Esophageal disorders (20 sources) Gastroesophageal reflux disease; Translations: [Gastro-esophageal reflux disease without esophagitis] Chronic Essential hypertension (20 sources) Hypertensive disorder; Translations: [Essential (primary) hypertension] Onset: 05-25-2025 Chronic Gout and other crystal arthropathies (20 sources) Gout; Translations: [Gout, unspecified] 06-12-2022 Chronic Headache; including migraine (1 source) Headache; including migraine; Translations: [Headache, unspecified] Onset: 01-07-2025 Malaise and fatigue (20 sources) Fatigue; Translations: [Other fatigue] Episodic Mood disorders (2 sources) Depressive disorder; Translations: [Other specified depressive episodes] 01-04-2025 Chronic Mycoses (20 sources) Candidiasis of the esophagus; Translations: [Candidal esophagitis] 07-03-2023 Episodic Occlusion or stenosis of precerebral arteries (1 source) Occlusion and stenosis of bilateral carotid arteries; Translations: [Occlusion and stenosis of bilateral carotid arteries] Onset: 11-19-2024 Chronic Other acquired deformities (11 sources) Spondylolisthesis; Translations: [Spondylolisthesis, cervical region] 02-04-2025 Episodic Other and ill-defined heart disease (20 sources) Diastolic dysfunction; Translations: [Other ill-defined heart diseases] 12-08-2024 Chronic Other circulatory disease (11 sources) H/O: heart disorder; Translations: [Personal history of other diseases of the circulatory system] 12-27-2024 Episodic Other endocrine disorders (2 sources) Polyglandular dysfunction; Translations: [Polyglandular dysfunction, unspecified] Onset: 05-04-2007 01-04-2025 Chronic Other nervous system disorders (2 sources) Carpal tunnel syndrome of right wrist; Translations: [Carpal tunnel syndrome, right upper limb] Onset: 05-13-2013 05-13-2013 Chronic Other nervous system disorders (11 sources) Cervical myelopathy; Translations: [Disease of spinal cord, unspecified] 02-04-2025 Chronic Residual codes; unclassified (16 sources) Edema of lower extremity; Translations: [Localized edema] 06-08-2024 Episodic Spondylosis; intervertebral disc disorders; other back problems (6 sources) Arthropathy of cervical spine facet joint; Translations: [Spondylosis without myelopathy or radiculopathy, cervical region] Onset: 05-13-2013 05-13-2013 Chronic Unclassified (9 sources) Call to get appointment scheduled for a few days after MRI will be done Past or Other Problems Problem Classification Problem Date Documented Da te Episodic/Chronic Deficiency and other anemia (1 source) Anemia, unspecified; Translations: [Anemia, unspecified] Onset: 07-07-2024 Episodic Gastritis and duodenitis (2 sources) Acute gastritis; Translations: [Acute gastritis without bleeding] Onset: 05-04-2007 01-04-2025 Episodic Headache; including migraine (4 sources) Cervicogenic headache; Translations: [Cervicogenic headache] Onset: 05-13-2013 05-13-2013 Episodic Nonspecific chest pain (20 sources) Chest pain; Translations: [Chest pain, unspecified] Onset: 01-18-2025 06-12-2022 Episodic Other lower respiratory disease (1 source) Dyspnea, unspecified; Translations: [Dyspnea, unspecified] Onset: 02-07-2025 Episodic Other lower respiratory disease (1 source) Shortness of breath; Translations: [Shortness of breath] Onset: 02-03-2025 Episodic Other screening for suspected conditions (not mental disorders or infectious disease) (20 sources) Patient encounter status; Translations: [Encounter for screening for malignant neoplasm of intestinal tract, unspecified] Onset: 02-18-2025 Episodic Other upper respiratory disease (1 source) Nasal congestion; Translations: [Nasal congestion] Onset: 11-25-2024 Episodic Residual codes; unclassified (2 sources) Early satiety; Translations: [Early satiety] Onset: 11-18-2024 Episodic Spondylosis; intervertebral disc disorders; other back problems (20 sources) Chronic neck pain; Translations: [Cervicalgia] Onset: 06-03-2013 12-27-2024 Episodic Results Test Name Value Interpretation Reference Range Facility Bilirubin directOrdered By: Donny Ramirez on 06-02-2025 Bilirubin.direct [Mass/Vol] 0.18 mg/dL 0.00-0.30 [facility] Bilirubin, totalOrdered By: Dnony Ramirez on 06-02-2025 Bilirubin [Mass/Vol] 0.34 mg/dL 0.00-1.30 [facility] Calculated very low density lipoprotein (VLDL) cholesterol measurementOrdered By: Donny Ramirez on 06-02-2025 Calculated very low density lipoprotein (VLDL) cholesterol measurement 14 mg/dL 5-40 [facility] LDL calc ser/plasOrdered By: Donny Ramirez on 06-02-2025 Cholesterol in LDL [Mass/Vol] 61 mg/dL [facility] Comment on above: Oddpflkvgf=711-062 m g/dL & Higher Bxad=528 mg/dL or greaterFriedwald Equation for LDL-C Laboratory - Chemistry and C hemistry - challengeOrdered By: Donny Ramirez on 06-02-2025 AST [Catalytic activity/Vol] 73 U/L High <38 [facility] Lipid Profileon 06-02-2025 CHOL:HDL 1.77 Normal [facility] Comment on above: Performed By: #### L 500.3400, L500.4100 #### [facility] [address] [place], [address] Cholesterol [Mass/Vol] 171 mg/dL Normal <=200 [facility] Comment on above: Result Comment: Chol esterol level, Desirable <200 mg/dL Borderline high cholesterol 200-239 mg/dL High cholesterol >=240 mg/dL Recommendations of the NCEP Adult Treatment Panel for the following risk-cutoff thresholds for the [place] population. Performed By: #### L 500.3400, L500.4100 #### [facility] [address] [place], [address] Cholesterol in HDL [Mass/Vol] 97 mg/dL Normal [facility] Comment on above: Result Comment: Stephy onal Cholesterol Education Program (NCEP) guidelines: <40 mg/dL: Low HDL-cholesterol (major risk factor for CHD) >= 60 mg/dL: High HDL-cholesterol (negative risk factor for CHD) HDL-cholesterol is affected by a number of factors, e.g. smoking, exercise, hormones, sex and age. Performed By: #### L 500.3400, L500.4100 #### [facility] [address] [place], [address] Cholesterol in LDL [Mass/Vol] 61 mg/dL Normal [facility] Comment on above: Result Comment: Bord xjhaji=888-766 mg/dL Higher Uuym=444 mg/dL or greater Friedwald Equation for LDL-C Performed By: #### L 500.3400, L500.4100 #### [facility] [address] [place], [address] Cholesterol in VLDL [Mass/Vol] 14 mg/dL Normal 5-40 [facility] Comment on above: Performed By: #### L 500.3400, L500.4100 #### [facility] [address] [place], [address] Triglyceride [Mass/Vol] 69 mg/dL Normal [facility] Comment on above: Result Comment: The drugs N-Acetylcysteine and Metamizole may falsely depress this assay. Normal range: <150 mg/dL Borderline High: 150-199 mg/dL High: 200-499 mg/dL Very High: >500 mg/dL Performed By: #### L 500.3400, L500.4100 #### [facility] [address] [place], [address] Liver Profileon 06-02-2025 Albumin [Mass/Vol] 3.7 g/dL Normal 3.4-4.8 [facility] Comment on above: Performed By: #### L 500.3400, L500.4100 #### [facility] [address] [place], [address] ALK PHOS 98 U/L Normal 40-129 [facility] Comment on above: Performed By: #### L 500.3400, L500.4100 #### [facility] [address] [place], [address] ALT [Catalytic activity/Vol] 101 U/L High <=46 [facility] Comment on above: Performed By: #### L 500.3400, L500.4100 #### [facility] [address] [place], [address] AST [Catalytic activity/Vol] 73 U/L High <=37 [facility] Comment on above: Performed By: #### L 500.3400, L500.4100 #### [facility] [address] [place], [address] Bilirubin [Mass/Vol] 0.34 mg/dL Normal 0.00-1.30 [facility] Comment on above: Performed By: #### L 500.3400, L500.4100 #### [facility] [address] [place], [address] Bilirubin.direct [Mass/Vol] 0.18 mg/dL Normal 0.00-0.30 [facility] Comment on above: Performed By: #### L 500.3400, L500.4100 #### [facility] [address] [place], [address] Globulin (S) [Mass/Vol] 2.4 g/dL Normal 2.2-4.2 [facility] Comment on above: Performed By: #### L 500.3400, L500.4100 #### [facility] [address] [place], [place], [id number] T PROT 6.1 g/dL Normal 5.9-8.4 [facility] Comment on above: Performed By: #### L 500.3400, L500.4100 #### [facility] [address] [place], [place], [address] Screening total cholesterol/ high density lipoprotein (HDL) cholesterol ratioOrdered By: Donny Ramirez on 06-02-2025 Cholesterol.total/Choles terol in HDL [Mass ratio] 1.77 {ratio} [facility] Serum globulin measurementOr dered By: Donny Ramirez on 06-02-2025 Globulin (S) [Mass/Vol] 2.4 g/dL 2.2-4.2 [facility] Serum or plasma alanine damon otransferase (ALT) measurementOrdered By: Donny Ramirez on 06-02-2025 ALT [Catalytic activity/Vol] 101 U/L High <47 [facility] Serum or plasma albumin no urement (mass/volume)Ordered By: Donny Ramirez on 06-02-2025 Albumin [Mass/Vol] 3.7 g/dL 3.4-4.8 [facility] Serum or plasma alkaline suhas sphatase measurementOrdered By: Donny Ramirez on 06-02-2025 ALP [Catalytic activity/Vol] 98 U/L 40-129 [facility] Serum or plasma cholesterol in HDL measurement (mass/volume)Ordered By: Donny Ramirez on 06-02-2025 Cholesterol in HDL [Mass/Vol] 97 mg/dL >40 [facility] Comment on above: National Cholesterol Education Program (NCEP) guidelines:<40 mg/dL: Low HDL-cholesterol (major risk factor for CHD)>= 60 mg/dL: High HDL-cholesterol (negative risk factor for CHD)HDL-cholesterol is affected by a number of factors, e.g. smoking, exercise, hormones, sex and age. Serum or plasma cholesterol measurement (mass/volume)Ordered By: Donny Ramirez on 06-02-2025 Cholesterol [Mass/Vol] 171 mg/dL <201 [facility] Comment on above: Cholesterol level, D esirable <200 mg/dLBorderline high cholesterol 200-239 mg/dLHigh cholesterol >=240 mg/dLRecommendations of the NCEP Adult Treatment Panel for the following risk-cutoff thresholds for the [place] population. Total proteinOrdered By: Luis bryd James on 06-02-2025 Protein [Mass/Vol] 6.1 g/dL 5.9-8.4 [facility] Triglycerides measurementOrd ered By: Donny James on 06-02-2025 Triglyceride [Mass/Vol] 69 mg/dL <199 [facility] Comment on above: The drugs N-Acetylcy steine and Metamizole may falsely depress this assay. Normal range: <150 mg/dLBorderline High: 150-199 mg/dLHigh: 200-499 mg/dLVery High: >500 mg/dL Cardiology Visit Reporton Cardiology Visit Report [facility] [place] [id number] [facility] [place] [address] OFFICE VISIT Date of Service: 05/25/25 MR#: [id number] Acct: [id number] Name: LAKE JACKSON Rep #: [id number] : 1955 Provider: KYE lang Age/Sex: 70/M Location: [facility] Status: Signed HPI HPI History of Present Illness Details: Lake has history of CAD status post JUMA to the LAD and to the distal left circumflex coronary artery. With stenting in July 2022 he noted dull chest ache when walking uphill. Echocardiogram on 12/31/2024 showed mild concentric LVH, LV function 60%, and no significant valve disease. Stress test on 12/31/2024 showed baseline ECG of sinus rhythm, no ECG ischemic changes, and nuclear images negative for ischemia. He denies chest, arm, jaw, or neck discomfort. He denies palpitations. He states occasional, bilateral lower extremity edema. He denies claudication. He denies shortness of breath with activity, shortness of breath at rest, orthopnea, or PND. He denies chronic cough. He denies significant, sudden weight gain. He denies lightheadedness, dizziness, near-syncope, or syncope. He denies blood in urine, blood in stool, or epistaxis. He denies fever with chills. He denies myalgia. He denies fatigue. His exercise level has remained stable. Intake Vital Signs 02/03/25 09:23 05/25/25 10:41 Height 5 ft 10.08 in 5 ft 10.08 in Weight: 174 lb BMI 24.9 BP 163/94 H Blood Pressure Location Lt brachial Position Sitting Respiration 16 Pulse 60 Pulse Source NIBP Intake Visit Reasons: 6 M Manager Field Required: No Is patient in pain?: No Allergies Environmental Allergies: Uncoded (seasonal) Allergy (Mild, Verified 05/25/25 10:51) Swelling Sulfa (Sulfonamide Antibiotics) Allergy (Verified 05/25/25 10:51) Unknown Medications ???Medication ???Instructions ???Recorded ???Confirmed ???Type nitroglycerin 0.4 mg sublingual 0.4 mg sublingual Q5M PRN 07/25/22 05/25/25 Rx tablet Cardiac/Chest Pain 30 days #15 tab s allopurinol 300 mg tablet 300 mg PO DAILY 09/29/23 05/25/25 History aspirin 81 mg tablet,delayed See Rx Instructions .Route 4 05/25/25 Rx release .COMPLEX #90 TABLETS dapagliflozin propanediol 10 mg 10 mg PO QDAY 12/08/24 05/25/25 Hi story tablet (Farxiga) metoprolol succinate 25 mg 25 mg PO QDAY #90 tabs 05/02/25 Rx tablet,extended release 24 hr cyclosporine 0.05 % eye drops in a 1 drp ophthalmic (eye) BID 05/2505/25/25 History dropperette (Restasis) rosuvastatin 40 mg tablet 40 mg PO QDAY 05/25/25 05/25/25 Hi story tramadol 50 mg tablet 50 mg PO BID PRN 05/25/25 05/25/25 History Ejection fraction %: 60 Have you fallen in the past year?: No PFSH Medical History Padmini esophagitis High cholesterol Easy bruising Excessive bleeding History of ulceration History of edema History of stress test Hypertension Cardiology follow-up encounter Atherosclerosis of coronary artery of [place] heart with stable angina pectoris CAD (coronary artery disease) Fatigue Abnormal stress test Bradycardia Chest pain Impaired glucose tolerance Beta minor thalassemia Hyperlipidemia Essential (primary) hypertension Hiatal hernia with gastroesophageal reflux disease and esophagitis Wears glasses Wears dentures History of hiatal hernia Alcohol use History of steroid therapy Arthritis Anemia Migraine headache Back pain Injury of head and neck Gastric reflux Chewing tobacco nicotine dependence Non-smoker History of echocardiogram GERD (gastroesophageal reflux disease) Screening for intestinal cancer Asthma Gout Surgical History Hx of knee surgery Hx of hernia repair History of coronary artery stent placement (07/24/22) History of Joshua fundoplication ( 04/2021) History of colonoscopy History of esophagogastroduodenoscop y (EGD) History of cardiac catheterization S/P cataract surgery Status post surgery S/P inguinal hernia repair Family History Brother Diabetes Social History Smoking Status: Never smoker alcohol intake: current alcohol intake frequency: a few times a month substance use type: does not use caffeine: Yes Type: tea Number of servings: 1 ROS Const Const: Negative for fatigue or weakness Eyes Eyes: Negative for change in vision ENT ENT: Negative for dizziness or balance problems Cardio Chest Pain: No Palpitations: No Edema: Bilateral (Occasionally) Muscle aches with walking: None Resp Respiratory: Negative for SOB with activity, SOB at rest or SOB orthopnea SOB lying down GI GI: Negative (more content not included)... Normal [facility] Duplex ultrasound of renal a rtery reportOrdered By: Ousmane Fink on 02-28-2025 Study report [facility] [address] [place] [address] Renal Artery Duplex Ultrasound 02/24/25 0858 MR#: [id number] Acct: [id number] Name: LAKE JACKSON Rep #:[id number] : 1955 69 From: Ousmane Friedman Attending Dr: Dr. Donny Jung MD Status: REG CLI Ordering Dr: Donny Jung MD Date: 02/24/25 Location: [facility] Sex: M C Admitted: Reason For Study Reason For Study: CKD Right Renal Artery Left Renal Artery Right renal artery ostium 122.7/32.7 Left renal artery ostium 81.0/12.9 RSV/EDV. PSV/EDV. Right renal artery proximal 109.5/23.9 Left renal artery proximal PSV/EDV PSV/EDV. 93.2/14.6 . Right renal artery mid 131.5/30.5 Left renal artery mid 114.9/18.1 PSV/EDV. PSV/EDV . Right renal artery distal 109.5/21.7 Left renal artery distal 105.7/19.9 PSV/EDV. PSV/EDV. Right RAR 1.64. Left RAR 1.44. Right Renal Parenchyma Left Renal Parenchyma Upper Pole Medula 25.2/6.7 PSV/EDV. Left upper pole medulla 23.0/6.0 Right upper pole medulla EDR 0.30 . PSV/EDV . Right upper pole medulla R.I. 0.73 . Left upper pole medulla EDR 0.30 . Upper Isaac Cortx 12.8/3.5 PSV/EDV. Left upper pole medulla R.I. 0.74 . Right upper pole cortex EDR 0.30 . UPCortex 13.5/5.0 PSV/EDV. Right upper pole cortex R.I. 0.72 . Left upper pole cortex EDR 0.40 . Right lower Pole medulla 26.7/6.7 Left upper pole cortex R.I. 0.63 . PSV/EDV . Left lower Pole medulla 33.4/7.4 Right lower pole medulla EDR 0.30 . PSV/EDV . Right lower pole medulla R.I. 0.75 . Left lower pole medulla EDR 0.20 . Lower Pole Cortex 12.4/4.9 PSV/EDV. Left lower pole medulla R.I. 0.78 . Right lower pole cortex EDR 0.40 . Lower Pole Cortx 19.7/4.5 PSV/EDV. Right lower pole cortex R.I. 0.60 . Left lower pole cortex EDR 0.20 . Right Renal Hilar Left lower pole cortex R.I. 0.77 . Right Hilar avg 46.4/11.9 PSV/EDV. Left Renal Hilar Right hilar acceleration time 40 m/sec. LTHilar avg 73.2/13.0 PSV/EDV . Right Renal Dimensions Left hilar acceleration time 30 m/sec. Right kidney size 11.04 cm . Left Renal Dimensions Right cortical dimension 1.54 cm . Left kidney size 10.03 cm . Left cortical dimension 1.34 cm . Aorta Proximal abdominal aorta 2.79 x 2.55 cm . Proximal abdominal aorta peak systolicvelocity is 67.1 cm/sec . Distal abdominal aorta 1.95 x 1.86 cm . Distal abdominal aorta peak systolic velocity is 80.2 cm/sec . Procedures Renal Artery Duplex with B-Mode, Pulsed Wave and Color Doppler. VL/Renal Artery Duplex Ultrasound Interpretation Summary Right renal artery patent with normal velocities and no evidence of stenosis. Left renal artery patent with normal velocities and no evidence of stenosis. Right renal vein patent. Left renal vein patent. Right kidney normal in size. Left kidney normal in size. ___ Ordering Physician: Donny Jung Referring Physician: Donny Jung Performed By: Billy Castillo, T 02/28/251624 Date _ Ousmane Fink MD CC: Dr. Donny Jung MD ~ Date Dictated: 02/24/25857 Date Transcribed: 02/28/251624 Bladder Changer: Signed [facility] Work Phone: Renal Artery Duplex Ultrasou ndon 02-24-2025 Renal Artery Duplex Ultrasound [facility] [address] [place] [address] Renal Artery Duplex Ultrasound 02/24/25857 MR#: [id number] Acct: [id number] Name: LAKE JACKSON Rep #: [id number] : 1955 69 From: Ousmane Fink MD Attending Dr: Dr. Donny Jung MD Status: R EG CLI Ordering Dr: Donny Jung MD Date: 02/24/25 Location: [facility] Sex: M C Admitted: Reason For Study Reason For Study: CKD Right Renal Artery Left Renal Artery Right renal artery ostium 122.7/32.7 Left renal artery ostium 81.0/12.9 RSV/EDV. PSV/EDV. Right renal artery proximal 109.5/23.9 Left renal artery proximal PSV/EDV PSV/EDV. 93.2/14.6 . Right renal artery mid 131.5/30.5 Left renal artery mid 114.9/18.1 PSV/EDV. PSV/EDV . Right renal artery distal 109.5/21.7 Left renal artery distal 105.7/19.9 PSV/EDV. PSV/EDV. Right RAR 1.64. Left RAR 1.44. Right Renal Parenchyma Left Renal Parenchyma Upper Pole Medula 25.2/6.7 PSV/EDV. Left upper pole medulla 23.0/6.0 Right upper pole medulla EDR 0.30 . PSV/EDV . Right upper pole medulla R.I. 0.73 . Left upper pole medulla EDR 0.30 . Upper Isaac Cortx 12.8/3.5 PSV/EDV. Left upper pole medulla R.I. 0.74 . Right upper pole cortex EDR 0.30 . UP Cortex 13.5/5.0 PSV/EDV. Right upper pole cortex R.I. 0.72 . Left upper pole cortex EDR 0.40 . Right lower Pole medulla 26.7/6.7 Left upper pole cortex R.I. 0.63 . PSV/EDV . Left lower Pole medulla 33.4/7.4 Right lower pole medulla EDR 0.30 . PSV/EDV . Right lower pole medulla R.I. 0.75 . Left lower pole medulla EDR 0.20 . Lower Pole Cortex 12.4/4.9 PSV/EDV. Left lower pole medulla R.I. 0.78 . Right lower pole cortex EDR 0.40 . Lower Pole Cortx 19.7/4.5 PSV/EDV. Right lower pole cortex R.I. 0.60 . Left lower pole cortex EDR 0.20 . Right Renal Hilar Left lower pole cortex R.I. 0.77 . Right Hilar avg 46.4/11.9 PSV/EDV. Left Renal Hilar Right hilar acceleration time 40 m/sec. LT Hilar avg 73.2/13.0 PSV/EDV . Right Renal Dimensions Left hilar acceleration time 30 m/sec. Right kidney size 11.04 cm . Left Renal Dimensions Right cortical dimension 1.54 cm . Left kidney size 10.03 cm . Left cortical dimension 1.34 cm . Aorta Proximal abdominal aorta 2.79 x 2.55 cm . Proximal abdominal aorta peak systolic velocity is 67.1 cm/sec . Distal abdominal aorta 1.95 x 1.86 cm . Distal abdominal aorta peak systolic velocity is 80.2 cm/sec . Procedures Renal Artery Duplex with B-Mode, Pulsed Wave and Color Doppler. VL/Renal Artery Duplex Ultrasound Interpretation Summary Right renal artery patent with normal velocities and no evidence of stenosis. Left renal artery patent with normal velocities and no evidence of stenosis. Right renal vein patent. Left renal vein patent. Right kidney normal in size. Left kidney normal in size. ___ Ordering Physician: Donny Jung Referring Physician: Donny Jung Performed By: Billy Castillo, T 02/28/251624 Date Ousmane Fink MD CC: Dr. Donny Jung MD Date Dictated: 02/24/25 0858 Date Transcribed: 02/28/251624 Bladder Changer: Signed Normal [facility] Anion gap in Serum or Plasma Ordered By: Donny Jung on 02-14-2025 Anion gap [Moles/Vol] 13 mmol/L - [facility] BUN/creatinine ratioOrdered By: Donny Jung on 02-14-2025 Urea nitrogen/Creatinine [Mass ratio] 16.1 mg/mg 06-27 [facility] Basic Metabolic Profile (BMP )on 02-14-2025 BUN/CRE 16.1 RATIO Normal 06-27 [facility] Comment on above: Performed By: #### L 500.2500 #### [facility] [address] [place], [address] Calcium [Mass/Vol] 8.7 mg/dL Normal 7.6-11.0 [facility] Comment on above: Performed By: #### L 500.2500 #### [facility] [address] [place], [address] Chloride [Moles/Vol] 109 mmol/L High 98-108 [facility] Comment on above: Performed By: #### L 500.2500 #### [facility] [address] [place], [address] CO2 [Moles/Vol] 20.2 mmol/L Low 21.0-32.0 [facility] Comment on above: Performed By: #### L 500.2500 #### [facility] [address] [place], [address] Creatinine [Mass/Vol] 1.52 mg/dL High 0.70-1.20 [facility] Comment on above: Performed By: #### L 500.2500 #### [facility] [address] [place], [address] GAP 13 Normal 01-20 [facility] Comment on above: Performed By: #### L 500.2500 #### [facility] [address] [place], [address] GFR/1.73 sq M.predicted among non-blacks MDRD (S/P/Bld) [Vol rate/Area] 49 mL/min/{1.73_m2} Low >60 [facility] Comment on above: Result Comment: mL/m in/1.73m2 CKD-EPI Creatinine Equation (2020) Performed By: #### L 500.2500 #### [facility] [address] [place], [address] Glucose [Mass/Vol] 182 mg/dL High 70-99 [facility] Comment on above: Performed By: #### L 500.2500 #### [facility] [address] [place], [address] Potassium [Moles/Vol] 3.6 mmol/L Normal 3.3-5.1 [facility] Comment on above: Performed By: #### L 500.2500 #### [facility] [address] [place], [address] Sodium [Moles/Vol] 142 mmol/L Normal 133-145 [facility] Comment on above: Performed By: #### L 500.2500 #### [facility] [address] [place], [address] Urea nitrogen [Mass/Vol] 24 mg/dL High 4-19 [facility] Comment on above: Performed By: #### L 500.2500 #### [facility] [address] [place], [address] Carbon dioxide, total [Moles /volume] in Central venous bloodOrdered By: Donny Jung on 02-14-2025 CO2 [Moles/Vol] 20.2 mmol/L Low 21.0-32.0 [facility] Chloride assayOrdered By: Zaria Jung on 02-14-2025 Chloride [Moles/Vol] 109 mmol/L High 98-108 [facility] Glomerular filtration rate ( GFR) estimation/1.73 sq m using serum, plasma, or whole bOrdered By: Donny Jung on 02-14-2025 GFR/1.73 sq M.predicted among non-blacks MDRD (S/P/Bld) [Vol rate/Area] 49 mL/min/{1.73_m2} Low >60 [facility] Comment on above: mL/min/1.73m2 CKD-EP I Creatinine Equation (2020) Potassium measurement (mass/ volume)Ordered By: Donny Jung on 02-14-2025 Potassium (Unsp spec) [Mass/Vol] 3.6 mmol/L 3.3-5.1 [facility] Serum creatinine measurement (mass/volume)Ordered By: Donny Jung on 02-14-2025 Creatinine [Mass/Vol] 1.52 mg/dL High 0.70-1.20 [facility] Serum glucose measurement (m ass/volume)Ordered By: Donny Jung on 02-14-2025 Glucose [Mass/Vol] 182 mg/dL High 70-99 [facility] Serum or plasma calcium no urement (mass/volume)Ordered By: Donny Jung on 02-14-2025 Calcium [Mass/Vol] 8.7 mg/dL 7.6-11.0 [facility] Serum or plasma urea nitroge n measurement (mass/volume)Ordered By: Donny Jung on 02-14-2025 Urea nitrogen [Mass/Vol] 24 mg/dL High 4-19 [facility] Sodium levelOrdered By: Donny Jung on 02-14-2025 Sodium [Moles/Vol] 142 mmol/L 133-145 [facility] Anion gap in Serum or Plasma Ordered By: Donny Jung on 02-09-2025 Anion gap [Moles/Vol] 12 mmol/L 5-15 [facility] BUN/creatinine ratioOrdered By: Donny Jung on 02-09-2025 Urea nitrogen/Creatinine [Mass ratio] 13.4 mg/mg 10- [facility] Basic Metabolic Profile (BMP )on 02-09-2025 BUN/CRE 13.4 RATIO Normal - [facility] Comment on above: Order Comment: Order Date: 02/09/25Order Info: [id number] - BMP Performed By: #### L 500.3400, L500.4100 #### [facility] [address] [place], [address] Calcium [Mass/Vol] 9.1 mg/dL Normal 7.6-11.0 [facility] Comment on above: Order Comment: Order Date: 02/09/25Order Info: [id number] - BMP Performed By: #### L 500.3400, L500.4100 #### [facility] [address] [place], [address] Chloride [Moles/Vol] 106 mmol/L Normal 98-108 [facility] [facility] Comment on above: Order Comment: Order Date: 02/09/25Order Info: 666- - BMP Performed By: #### L 500.3400, L500.4100 #### [facility] [address] [place], [address] CO2 [Moles/Vol] 22.6 mmol/L Normal 21.0-32.0 [facility] Comment on above: Order Comment: Order Date: 02/09/25Order Info: 666-09 - BMP Performed By: #### L 500.3400, L500.4100 #### [facility] [address] [place], [address] Creatinine [Mass/Vol] 1.60 mg/dL High 0.70-1.20 [facility] Comment on above: Order Comment: Order Date: 02/09/25Order Info: 666- - BMP Performed By: #### L 500.3400, L500.4100 #### [facility] [address] [place], [address] GAP 12 Normal 5-15 [facility] Comment on above: Order Comment: Order Date: 02/09/25Order Info: 666- - BMP Performed By: #### L 500.3400, L500.4100 #### [facility] [address] [place], [address] GFR/1.73 sq M.predicted among non-blacks MDRD (S/P/Bld) [Vol rate/Area] 46 mL/min/{1.73_m2} Low >60 [facility] Comment on above: Order Comment: Order Date: 02/09/25Order Info: 0667- - BMP Result Comment: mL/m in/1.73m2 CKD-EPI Creatinine Equation (2020) Performed By: #### L 500.3400, L500.4100 #### [facility] [address] [place], [address] Glucose [Mass/Vol] 111 mg/dL High 70-99 [facility] Comment on above: Order Comment: Order Date: 02/09/25Order Info: 06 - BMP Performed By: #### L 500.3400, L500.4100 #### [facility] [address] [place], [address] Potassium [Moles/Vol] 3.8 mmol/L Normal 3.3-5.1 [facility] Comment on above: Order Comment: Order Date: 02/09/25Order Info: 06 - BMP Performed By: #### L 500.3400, L500.4100 #### [facility] [address] [place], [address] Sodium [Moles/Vol] 141 mmol/L Normal 133-145 [facility] Comment on above: Order Comment: Order Date: 02/09/25Order Info: 06 - BMP Performed By: #### L 500.3400, L500.4100 #### [facility] [address] [place], [address] Urea nitrogen [Mass/Vol] 21 mg/dL High 4-19 [facility] Comment on above: Order Comment: Order Date: 02/09/25Order Info: 06 - BMP Performed By: #### L 500.3400, L500.4100 #### [facility] [address] [place], [address] Carbon dioxide, total [Moles /volume] in Central venous bloodOrdered By: Donny Jung on 02-09-2025 CO2 [Moles/Vol] 22.6 mmol/L 21.0-32.0 [facility] Chloride assayOrdered By: Zaria Jung on 02-09-2025 Chloride [Moles/Vol] 106 mmol/L 98-108 [facility] Glomerular filtration rate ( GFR) estimation/1.73 sq m using serum, plasma, or whole bOrdered By: Donny Jung on 02-09-2025 GFR/1.73 sq M.predicted among non-blacks MDRD (S/P/Bld) [Vol rate/Area] 46 mL/min/{1.73_m2} Low >60 [facility] Comment on above: mL/min/1.73m2 CKD-EP I Creatinine Equation (2020) Potassium measurement (mass/ volume)Ordered By: Donny Jung on 02-09-2025 Potassium (Unsp spec) [Mass/Vol] 3.8 mmol/L 3.3-5.1 [facility] Serum creatinine measurement (mass/volume)Ordered By: Donny Jung on 02-09-2025 Creatinine [Mass/Vol] 1.60 mg/dL High 0.70-1.20 [facility] Serum glucose measurement (m ass/volume)Ordered By: Donny Jung on 02-09-2025 Glucose [Mass/Vol] 111 mg/dL High 70-99 [facility] Serum or plasma calcium no urement (mass/volume)Ordered By: Donny Jung on 02-09-2025 Calcium [Mass/Vol] 9.1 mg/dL 7.6-11.0 [facility] Serum or plasma urea nitroge n measurement (mass/volume)Ordered By: Donny Jung on 02-09-2025 Urea nitrogen [Mass/Vol] 21 mg/dL High 4-19 [facility] Sodium levelOrdered By: Donny Jung on 02-09-2025 Sodium [Moles/Vol] 141 mmol/L 133-145 [facility] Angiotensin Convert Enzymeon 02-04-2025 ANGIOT-CONV.ENZ 39 U/L Normal 14-82 [facility] Comment on above: Result Comment: Perf ormed at: - [facility] [address] [id number] Event Staff Member: Morris Asencio PhD, Phone: [phone] Performed By: #### L 500.9725, L537.8256 #### [facility] [address] [place], [address] Cerv Spine 4 or 5 Viewson Cerv Spine 4 or 5 Views [facility] Services [address] [place] [address] Cerv Spine 4 or 5 Views MR#: [id number] Acct: [id number] Name: LAKE JACKSON Rep #: [id number] : 1955 M 69 From: Matt Mcdonald MD PCP: Dr. Donny Jung MD Status: DEP AMB Study: Cerv Spine 4 or 5 Views Date of Exam: 02/03/25 Exam# [id number] Ordering Dr: Emily Gonzales PROCEDURE: CERV SPINE 4 OR 5 VIEWS 02/03/2025 REASON FOR EXAM: CHRONIC PAIN TECHNIQUE: Neutral, flexed and extended lateral views of the cervical spine. FINDINGS: Vertebrae: Maintained. No evidence of acute fracture or dislocation. disc spaces: Mild to moderate discogenic degenerative changes. Alignment: No instability on flexion or extension views. soft tissues: Unremarkable. Other: RAD/Cerv Spine 4 or 5 Views IMPRESSION: Spondylosis. Reading Location: [id number] CC: TAXI DRIVER-Simone Gonzales; Dr. Donny Jung MD Bladder Changer: Signed Normal [facility] Orthopedic Visit Reporton Orthopedic Visit Report [facility] [address] [place] [address] [address] [place], [place] [address] OFFICE VISIT Date of Service: 02/03/25 MR#: [id number] Acct: [id number] Name: ALEJANDROLAKE BACK Rep #: [id number] : 1955 Provider: Dr. Bryn Almeida MD Age/Sex: 69/M Location: [facility] Status: Signed Intake Vital Signs 12/27/24 10:26 02/03/25 09:23 Height 5 ft 10.08 in 5 ft 10.08 in Weight: 165 lb 6 oz BMI 23.6 Intake Visit Reasons: CERVICAL SPINE Chief Complaint: Cervical spine pain Accompanied by: Is patient in pain?: Yes Pain scale (1-10): 8 Allergies Environmental Allergies: Uncoded (seasonal) Allergy (Mild, Verified 02/03/25 09:25) Swelling Sulfa (Sulfonamide Antibiotics) Allergy (Verified 02/03/25 09:25) Unknown Medications ???Medication ???Instructions ???Recorded ???Confirmed ???Type nitroglycerin 0.4 mg sublingual 0.4 mg sublingual Q5M PRN 07/25/22 02/03/25 Rx tablet Cardiac/Chest Pain 30 days #15 tab s oxycodone 5 mg tablet 2.5 mg PO BID pain 02/19/23 History allopurinol 300 mg tablet 300 mg PO DAILY 09/29/23 02/03/25 History oxycodone-acetaminophen 5 mg-325 1 tab PO DAILY 09/29/23 02/03/25 H istory mg tablet aspirin 81 mg tablet,delayed See Rx Instructions .Route 4 02/03/25 Rx release .COMPLEX #90 TABLETS clopidogrel 75 mg tablet 75 mg PO DAILY #90 TABLETS 4 02/03/25 Rx atorvastatin 40 mg tablet 40 mg PO QHS this is a dose 02/03/25 Rx increase #90 tabs dapagliflozin propanediol 10 mg 10 mg PO QDAY 12/08/24 02/03/25 Hi story tablet (Farxiga) metoprolol succinate 25 mg 25 mg PO QDAY 12/08/24 02/03/25 Hi story tablet,extended release 24 hr oxycodone 5 mg capsule 5 mg PO BID PRN pain 7 days #14 02/03/25 Rx caps Have you fallen in the past year?: No PFSH Medical History Padmini esophagitis High cholesterol Easy bruising Excessive bleeding History of ulceration History of edema History of stress test Hypertension Cardiology follow-up encounter Atherosclerosis of coronary artery of [place] heart with stable angina pectoris CAD (coronary artery disease) Fatigue Abnormal stress test Bradycardia Chest pain Impaired glucose tolerance Beta minor thalassemia Hyperlipidemia Essential (primary) hypertension Hiatal hernia with gastroesophageal reflux disease and esophagitis Wears glasses Wears dentures History of hiatal hernia Alcohol use History of steroid therapy Arthritis Anemia Migraine headache Back pain Injury of head and neck Gastric reflux Chewing tobacco nicotine dependence Non-smoker History of echocardiogram GERD (gastroesophageal reflux disease) Screening for intestinal cancer Asthma Gout Surgical History Hx of knee surgery Hx of hernia repair History of coronary artery stent placement (07/24/22) History of Joshua fundoplication ( 04/2021) History of colonoscopy History of esophagogastroduodenoscop y (EGD) History of cardiac catheterization S/P cataract surgery Status post surgery S/P inguinal hernia repair Family History Brother Diabetes Social History Smoking Status: Former smoker alcohol intake: current alcohol intake frequency: 0-2 drinks per day substance use type: does not use caffeine: Yes Type: tea Number of servings: 1 HPI CERVICAL SPINE Details: This documentation accurately reflects the service provided and the decisions made by me, Dr. Bryn Almeida MD 02/03/25 0939. Part of today???s visit was documented by Salvador Nelson MA, acting as scribe. LA[place] JACKSON is a 69 year old M here today for cervical spine pain. Patient is having pain right behind the base of the neck. The pain is a severe sharp, and achy pain. Patient has been having neck pain since 2012, and it got worse after his last procedure radio frequency ablation with Dr. Ramírez 8 weeks ago. Patient denies any back surgeries. Moving from side to side makes the pain worse. Any movement in general makes the pain worse.Patient got injections in his back from Dr. Ramírez. He has been seeing Dr. Ramírez for 10 years. Patient's last injections was 8 weeks ago. The injections have been lasting about 3 months. Th last injection that patient got 8 weeks ago made the pain worse. He had to go to the ER, because the pain was so bad. Patient went to the ER about a month ago. The ER gave him a shot of morphine.Patient is a boarder line diabetic. His lowest number was 135 on the diabetic monitor. Patient is on blood thinners. Patient denies any smoking or d (more content not included)... Normal [facility] CBC-Complete Blood Cnt No Di ffon 02-02-2025 Erythrocyte distribution width (RBC) [Ratio] 16.6 % High 11.6-14.6 [facility] Comment on above: Performed By: #### L 500.3400, L500.4100 #### [facility] [address] [place], [address] Hematocrit (Bld) [Volume fraction] 35.9 % Low 40-54 [facility] Comment on above: Performed By: #### L 500.3400, L500.4100 #### [facility] [address] [place], [address] Hemoglobin (Bld) [Mass/Vol] 11.1 g/dL Low 13.0-16.5 [facility] Comment on above: Performed By: #### L 500.3400, L500.4100 #### [facility] [address] [place], [address] MCH (RBC) [Entitic mass] 22.2 pg Low 27.0-32.0 [facility] Comment on above: Performed By: #### L 500.3400, L500.4100 #### [facility] [address] [place], [address] MCHC (RBC) [Mass/Vol] 30.9 g/dL Low 32-36 [facility] Comment on above: Performed By: #### L 500.3400, L500.4100 #### [facility] [address] [place], [address] MCV (RBC) [Entitic vol] 71.7 fL Low 80-94 [facility] Comment on above: Performed By: #### L 500.3400, L500.4100 #### [facility] [address] [place], [address] Platelet mean volume (Bld) [Entitic vol] 12.1 fL High 6.2-12.0 [facility] Comment on above: Performed By: #### L 500.3400, L500.4100 #### [facility] [address] [place], [address] Platelets (Bld) [#/Vol] 257 10*3/uL Normal 150-450 [facility] Comment on above: Performed By: #### L 500.3400, L500.4100 #### [facility] [address] [place], [address] RBC (Bld) [#/Vol] 5.01 10*6/uL Normal 4.6-6.2 [facility] Comment on above: Performed By: #### L 500.3400, L500.4100 #### [facility] [address] [place], [address] RDW SD 40.6 fl Normal 35.1-43.9 [facility] Comment on above: Performed By: #### L 500.3400, L500.4100 #### [facility] [address] [place], [address] WBC (Bld) [#/Vol] 8.6 10*3/uL Normal 4.4-11.0 [facility] Comment on above: Performed By: #### L 500.3400, L500.4100 #### [facility] [address] [place], [address] CRPon 02-02-2025 C-REACTIVE PROT < 3.00 Normal 0.0-3.0 [facility] Comment on above: Performed By: #### L 500.3400, L500.4100 #### [facility] [address] [place], [place], [address] Erythrocyte Sed Rateon 02-02 SED RATE 7 mm/hr Normal 0-20 [facility] Comment on above: Performed By: #### L 500.3400, L500.4100 #### [facility] [address] [place], [place], [address] Erythrocyte distribution wid th ratioOrdered By: [place] on 02-02-2025 Erythrocyte distribution width (RBC) [Ratio] 16.6 % High 11.6-14.6 [facility] Erythrocyte distribution wid th standard deviationOrdered By: [place] on 02-02-2025 Erythrocyte distribution width (RBC) [Ratio] 40.6 fl 35.1-43.9 [facility] Erythrocyte sedimentation ra teOrdered By: [place] on 02-02-2025 ESR (Bld) [Velocity] 7 mm/h 0-20 [facility] Hematocrit Auto (Bld) [Volum e fraction]Ordered By: [place] on 02-02-2025 Hematocrit (Bld) [Volume fraction] 35.9 % Low 40-54 [facility] Hemoglobin measurementOrdere d By: [place] on 02-02-2025 Hemoglobin (Bld) [Mass/Vol] 11.1 g/dL Low 13.0-16.5 [facility] MCV (mean corpuscular volume ) determinationOrdered By: [place] on 02-02-2025 MCV (RBC) [Entitic vol] 71.7 fL Low 80-94 [facility] Mean corpuscular hemoglobin (MCH) determinationOrdered By: [place] on 02-02-2025 MCH (RBC) [Entitic mass] 22.2 pg Low 27.0-32.0 [facility] Mean corpuscular hemoglobin concentration (MCHC) determinationOrdered By: [place] on 02-02-2025 MCHC (RBC) [Mass/Vol] 30.9 g/dL Low 32-36 [facility] Mean platelet volume determi nationOrdered By: [place] on 02-02-2025 Platelet mean volume (Bld) [Entitic vol] 12.1 fL High 6.2-12.0 [facility] Platelet countOrdered By: Rika Storm on 02-02-2025 Platelets (Bld) [#/Vol] 257 10*3/uL 150-450 [facility] RBC Auto (Bld) [#/Vol]Ordere d By: [place] on 02-02-2025 RBC (Bld) [#/Vol] 5.01 10*6/uL 4.6-6.2 [facility] Serum or plasma C reactive p rotein measurement (mass/volume)Ordered By: [place] on 02-02-2025 CRP [Mass/Vol] mg/L 0.0-3.0 [facility] Serum or plasma angiotensin converting enzyme measurement (enzymatic activity/volume)Ordered By: [place] on 02-02-2025 Angiotensin converting enzyme [Catalytic activity/Vol] 39 U/L 14-82 [facility] Comment on above: Performed at: [place] [id number] Director: Morris Asencio PhD, Phone: [phone] White blood cell (WBC) count Ordered By: [place] on 02-02-2025 WBC (Bld) [#/Vol] 8.6 10*3/uL 4.4-11.0 [facility] CREATININE FINGERSTICKon Creatinine [Mass/Vol] 2.2 mg/dL High 0.70-1.30 [facility] Comment on above: Performed By: #### L 9100.0200 #### [facility] [address] [place], [place], [address] GFR/1.73 sq M.predicted among non-blacks MDRD (S/P/Bld) [Vol rate/Area] 31.0000 mL/min/{1.73_m2} Low >60 [facility] Comment on above: Performed By: #### L 9100.0200 #### [facility] [address] [place], [place], [address] Chest WITH Contraston 2024 Chest WITH Contrast [facility] Services [address] [place], [place] [address] Chest WITH Contrast MR#: [id number] Acct: [id number] Name: LAKE JACKSON Rep #: [id number] : 1955 M 69 From: Carmen byrd MD PCP: Dr. Donny Jung MD Status: REG CLI Study: Chest WITH Contrast Date of Exam: 01/28/25 Exam# [id number] Ordering Dr: Donny Jung MD PROCEDURE: CHEST WITH CONTRAST 01/28/2025 REASON FOR EXAM: SOB ON EXERTION, EVALUATE FOR INTERSTIAL LUNG DISEASE/FIBROSIS TECHNIQUE: Prone and supine chest CT with intravenous contrast, high resolution CT (HRCT) protocol. Coronal and Sagittal reconstruction series were provided. CONTRAST: VOLUME: 100 mL Isovue-350 gauge IV One or more dose reduction techniques were used (e.g., Automated exposure control, adjustment of the mA and/or kV according to patient size, use of iterative reconstruction technique). RADIATION DOSE SUMMARY: CTDlvol: 14.4 mGy DLP: 572 mGycm COMPARISON: Chest radiograph on 12/06/2024. FINDINGS: Calcified mediastinal and hilar lymph nodes are noted with the largest measuring 1.3 cm. Minimal bilateral basilar atelectatic pulmonary changes. Small sliding hiatal hernia. Mild diffuse spondylosis. Normal thoracic aorta and visualized great vessels. There is no demonstrated aortic dissection. Normal heart and pericardium. Normal visualized trachea and bronchi. The remaining lungs are well expanded. Normal remaining pulmonary parenchyma. Normal pleura. Normal visualized upper abdomen. CT/Chest WITH Contrast IMPRESSION: Coronary artery calcification (CAC) is is present Calcified mediastinal and hilar lymph nodes are noted with the largest measuring 1.3 cm. Minimal bilateral basilar atelectatic pulmonary changes. Small sliding hiatal hernia. Mild diffuse spondylosis. Reading Location: [place] [address] CC: Dr. Donny Jung MD Bladder Changer: Signed Normal [facility] Creatinine measurement at dsideOrdered By: Donny Jung on 01-28-2025 Creatinine [Mass/Vol] 2.2 mg/dL High 0.70-1.30 [facility] EGFROrdered By: Donny corona on 01-28-2025 GFR/1.73 sq M.predicted among non-blacks MDRD (S/P/Bld) [Vol rate/Area] 31.0000 mL/min/{1.73_m2} Low >60 [facility] MR Brain WO and W contrast I Von 01-07-2025 * * *Final Report* * * DATE OF EXAM: Jan 07 2025 8:25AM [id number] - MRI BRAIN WO/W IVCON / PROCEDURE REASON: headache dysdiadochokinesia * * * * Physician Interpretation * * * * EXAMINATION: MRI BRAIN WO/W IVCON, MRI CERVICAL SPINE WO IVCON CLINICAL HISTORY: Headache, dysdiadokinesia TECHNIQUE: Routine brain MRI protocol without and with contrast including diffusion images. Routine cervical spine MR protocol without gadolinium. Contrast: 7 mL Elucirem IV COMPARISON: None. RESULT: BRAIN: Acute Change: Small focus of subtle DWI hyperintensity/ADC hypointensity-isointensit y within the left morris radiata, suspicious for tiny subacute infarct. No additional areas of acute infarct. Hemorrhage: No evidence of prior parenchymal hemorrhage on the susceptibility weighted images. Mass Lesion/ Mass Effect: No evidence of an intracranial mass or extra-axial fluid collection. No abnormal parenchymal or leptomeningeal enhancement is noted following contrast administration. No significant mass effect. Left cerebellar developmental venous anomaly. Chronic Change: Scattered patchy areas of increased T2 and FLAIR signal are present in the supratentorial white matter which is a nonspecific finding but likely represents mild chronic microvascular ischemia. Parenchyma: No significant volume loss for age. Ventricles: Normal caliber and morphology. Skull Base: Hypothalamic and pituitary region are grossly normal. Craniocervical junction is normal. No significant marrow replacement process. Vasculature: Major intracranial arterial structures, and dural venous sinuses show typical flow void, suggesting patency by spin echo criteria. Other: Bilateral ocular lens replacement are present. Trace fluid in the left mastoid air cells. CERVICAL SPINE: Counting reference: Craniocervical junction. Anatomic Variants: None. Localizer images: Degenerative changes of the shoulders, right greater than left. Dextrocurvature of the upper thoracic spine. Alignment: Mild straightening of the normal cervical lordosis. Minimal retrolisthesis of C3 upon C4. Craniocervical junction: Mild narrowing of the cranial cervical junction due to degenerative changes. Cord: The visualized cord is within normal limits of signal intensity and morphology. Bone marrow signal/fracture: Heterogenous marrow signal could be due to osteopenia and is nonspecific. Small hypointense focus within the C7 vertebral body could represent a bone island although is indeterminate. No evidence of pathologic marrow infiltration. No evidence of prior fracture. Multilevel disc height loss and degenerative endplate changes, most pronounced at C5-6. Cervical soft tissues: No significant prevertebral edema. The paravertebral soft tissues are grossly maintained. C2-C3: Canal and foramina are patent. C3-C4: Moderate canal stenosis with contributions from a disc osteophyte complex and dorsal ligamentum flavum infolding, causing complete effacement of ventral and dorsal CSF spaces with ventral and dorsal cord abutment. Mild to moderate bilateral neural foraminal stenosis due to uncovertebral and facet hypertrophy. C4-C5: Mild canal stenosis with contributions from a disc bulge causing partial effacement of the ventral CSF space. Minimal bilateral neural foraminal stenosis due to uncovertebral and facet hypertrophy. C5-C6: Mild to moderate canal stenosis with contributions from a disc osteophyte complex and dorsal ligament of flavum infolding, causing near complete effacement of the ventral and dorsal CSF spaces. Moderate bilateral neural foraminal stenosis due to uncovertebral and facet hypertrophy. C6-C7: No significant canal stenosis despite a disc bulge and dorsal ligament of flavum infolding. Mild bilateral neural foraminal stenosis due to uncovertebral and facet hypertrophy. C7-T1: Canal and foramina are patent. DIVISION OF RADIOLOGY Provider, [facility] - 01/07/2025 * * *Final Report* * * DATE OF EXAM: Jan 07 2025 8:25AM WR [id number] - MRI BRAIN WO/W IVCON / PROCEDURE REASON: headache dysdiadochokinesia * * * * Physician Interpretation * * * * EXAMINATION: MRI BRAIN WO/W IVCON, MRI CERVICAL SPINE WO IVCON CLINICAL HISTORY: Headache, dysdiadokinesia TECHNIQUE: Routine brain MRI protocol without and with contrast including diffusion images. Routine cervical spine MR protocol without gadolinium. Contrast: 7 mL Elucirem IV COMPARISON: None. RESULT: BRAIN: Acute Change: Small focus of subtle DWI hyperintensity/ADC hypointensity-isointensit y within the left morris radiata, suspicious for tiny subacute infarct. No additional areas of acute infarct. Hemorrhage: No evidence of prior parenchymal hemorrhage on the susceptibility weighted images. Mass Lesion/ Mass Effect: No evidence of an intracranial mass or extra-axial fluid collection. No abnormal parenchymal or leptomeningeal enhancement is noted following contrast administration. No significant mass effect. Left cerebellar developmental venous anomaly. Chronic Change: Scattered patchy areas of increased T2 and FLAIR signal are present in the supratentorial white matter which is a nonspecific finding but likely represents mild chronic microvascular ischemia. Parenchyma: No significant volume loss for age. Ventricles: Normal caliber and morphology. Skull Base: Hypothalamic and pituitary region are grossly normal. Craniocervical junction is normal. No significant marrow replacement process. Vasculature: Major intracranial arterial structures, and dural venous sinuses show typical flow void, suggesting patency by spin echo criteria. Other: Bilateral ocular lens replacement are present. Trace fluid in the left mastoid air cells. CERVICAL SPINE: Counting reference: Craniocervical junction. Anatomic Variants: None. Localizer images: Degenerative changes of the shoulders, right greater than left. Dextrocurvature of the upper thoracic spine. Alignment: Mild straightening of the normal cervical lordosis. Minimal retrolisthesis of C3 upon C4. Craniocervical junction: Mild narrowing of the cranial cervical junction due to degenerative changes. Cord: The visualized cord is within normal limits of signal intensity and morphology. Bone marrow signal/fracture: Heterogenous marrow signal could be due to osteopenia and is nonspecific. Small hypointense focus within the C7 vertebral body could represent a bone island although is indeterminate. No evidence of pathologic marrow infiltration. No evidence of prior fracture. Multilevel disc height loss and degenerative endplate changes, most pronounced at C5-6. Cervical soft tissues: No significant prevertebral edema. The paravertebral soft tissues are grossly maintained. C2-C3: Canal and foramina are patent. C3-C4: Moderate canal stenosis with contributions from a disc osteophyte complex and dorsal ligamentum flavum infolding, causing complete effacement of ventral and dorsal CSF spaces with ventral and dorsal cord abutment. Mild to moderate bilateral neural foraminal stenosis due to uncovertebral and facet hypertrophy. C4-C5: Mild canal stenosis with contributions from a disc bulge causing partial effacement of the ventral CSF space. Minimal bilateral neural foraminal stenosis due to uncovertebral and facet hypertrophy. C5-C6: Mild to moderate canal stenosis with contributions from a disc osteophyte complex and dorsal ligament of flavum infolding, causing near complete effacement of the ventral and dorsal CSF spaces. Moderate bilateral neural foraminal stenosis due to uncovertebral and facet hypertrophy. C6-C7: No significant canal stenosis despite a disc bulge and dorsal ligament of flavum infolding. Mild bilateral neural foraminal stenosis due to uncovertebral and facet hypertrophy. C7-T1: Canal and foramina are patent. IMPRESSION IMPRESSION: Suspect tiny subacute infarct within the left morris radiata. No evidence of significant hemorrhage. No abnormal intracranial enhancement. Multilevel degenerative changes of the cervical spine, most pronounced at C3-4 where there is moderate canal stenosis. Varying degrees of neural foraminal narrowing, most pronounced at C5-6, as discussed. Anatomic Variant: None. Assume 7 cervical vertebrae with counting from the craniocervical junction. Bladder Changer: MANI Transcribe Date/Time: Jan 07 2025 8:32A Dictated by : JUAN F QUIROGA MD This examination was interpreted and the report reviewed and electronically signed by: JUAN F QUIROGA MD on Jan 07 2025 2:38PM [facility] MR Cervical spine WO contras ton 01-07-2025 * * *Final Report* * * DATE OF EXAM: Jan 07 2025 8:25AM [facility] 0297 - MRI CERVICAL SPINE WO IVCON / PROCEDURE REASON: cervical wo * * * * Physician Interpretation * * * * EXAMINATION: MRI BRAIN WO/W IVCON, MRI CERVICAL SPINE WO IVCON CLINICAL HISTORY: Headache, dysdiadokinesia TECHNIQUE: Routine brain MRI protocol without and with contrast including diffusion images. Routine cervical spine MR protocol without gadolinium. Contrast: 7 mL Elucirem IV COMPARISON: None. RESULT: BRAIN: Acute Change: Small focus of subtle DWI hyperintensity/ADC hypointensity-isointensit y within the left morris radiata, suspicious for tiny subacute infarct. No additional areas of acute infarct. Hemorrhage: No evidence of prior parenchymal hemorrhage on the susceptibility weighted images. Mass Lesion/ Mass Effect: No evidence of an intracranial mass or extra-axial fluid collection. No abnormal parenchymal or leptomeningeal enhancement is noted following contrast administration. No significant mass effect. Left cerebellar developmental venous anomaly. Chronic Change: Scattered patchy areas of increased T2 and FLAIR signal are present in the supratentorial white matter which is a nonspecific finding but likely represents mild chronic microvascular ischemia. Parenchyma: No significant volume loss for age. Ventricles: Normal caliber and morphology. Skull Base: Hypothalamic and pituitary region are grossly normal. Craniocervical junction is normal. No significant marrow replacement process. Vasculature: Major intracranial arterial structures, and dural venous sinuses show typical flow void, suggesting patency by spin echo criteria. Other: Bilateral ocular lens replacement are present. Trace fluid in the left mastoid air cells. CERVICAL SPINE: Counting reference: Craniocervical junction. Anatomic Variants: None. Localizer images: Degenerative changes of the shoulders, right greater than left. Dextrocurvature of the upper thoracic spine. Alignment: Mild straightening of the normal cervical lordosis. Minimal retrolisthesis of C3 upon C4. Craniocervical junction: Mild narrowing of the cranial cervical junction due to degenerative changes. Cord: The visualized cord is within normal limits of signal intensity and morphology. Bone marrow signal/fracture: Heterogenous marrow signal could be due to osteopenia and is nonspecific. Small hypointense focus within the C7 vertebral body could represent a bone island although is indeterminate. No evidence of pathologic marrow infiltration. No evidence of prior fracture. Multilevel disc height loss and degenerative endplate changes, most pronounced at C5-6. Cervical soft tissues: No significant prevertebral edema. The paravertebral soft tissues are grossly maintained. C2-C3: Canal and foramina are patent. C3-C4: Moderate canal stenosis with contributions from a disc osteophyte complex and dorsal ligamentum flavum infolding, causing complete effacement of ventral and dorsal CSF spaces with ventral and dorsal cord abutment. Mild to moderate bilateral neural foraminal stenosis due to uncovertebral and facet hypertrophy. C4-C5: Mild canal stenosis with contributions from a disc bulge causing partial effacement of the ventral CSF space. Minimal bilateral neural foraminal stenosis due to uncovertebral and facet hypertrophy. C5-C6: Mild to moderate canal stenosis with contributions from a disc osteophyte complex and dorsal ligament of flavum infolding, causing near complete effacement of the ventral and dorsal CSF spaces. Moderate bilateral neural foraminal stenosis due to uncovertebral and facet hypertrophy. C6-C7: No significant canal stenosis despite a disc bulge and dorsal ligament of flavum infolding. Mild bilateral neural foraminal stenosis due to uncovertebral and facet hypertrophy. C7-T1: Canal and foramina are patent. DIVISION OF RADIOLOGY Provider, [facility] - 01/07/2025 * * *Final Report* * * DATE OF EXAM: Jan 07 2025 8:25AM [facility] [id number] - MRI CERVICAL SPINE WO IVCON / PROCEDURE REASON: cervical wo * * * * Physician Interpretation * * * * EXAMINATION: MRI BRAIN WO/W IVCON, MRI CERVICAL SPINE WO IVCON CLINICAL HISTORY: Headache, dysdiadokinesia TECHNIQUE: Routine brain MRI protocol without and with contrast including diffusion images. Routine cervical spine MR protocol without gadolinium. Contrast: 7 mL Elucirem IV COMPARISON: None. RESULT: BRAIN: Acute Change: Small focus of subtle DWI hyperintensity/ADC hypointensity-isointensit y within the left morris radiata, suspicious for tiny subacute infarct. No additional areas of acute infarct. Hemorrhage: No evidence of prior parenchymal hemorrhage on the susceptibility weighted images. Mass Lesion/ Mass Effect: No evidence of an intracranial mass or extra-axial fluid collection. No abnormal parenchymal or leptomeningeal enhancement is noted following contrast administration. No significant mass effect. Left cerebellar developmental venous anomaly. Chronic Change: Scattered patchy areas of increased T2 and FLAIR signal are present in the supratentorial white matter which is a nonspecific finding but likely represents mild chronic microvascular ischemia. Parenchyma: No significant volume loss for age. Ventricles: Normal caliber and morphology. Skull Base: Hypothalamic and pituitary region are grossly normal. Craniocervical junction is normal. No significant marrow replacement process. Vasculature: Major intracranial arterial structures, and dural venous sinuses show typical flow void, suggesting patency by spin echo criteria. Other: Bilateral ocular lens replacement are present. Trace fluid in the left mastoid air cells. CERVICAL SPINE: Counting reference: Craniocervical junction. Anatomic Variants: None. Localizer images: Degenerative changes of the shoulders, right greater than left. Dextrocurvature of the upper thoracic spine. Alignment: Mild straightening of the normal cervical lordosis. Minimal retrolisthesis of C3 upon C4. Craniocervical junction: Mild narrowing of the cranial cervical junction due to degenerative changes. Cord: The visualized cord is within normal limits of signal intensity and morphology. Bone marrow signal/fracture: Heterogenous marrow signal could be due to osteopenia and is nonspecific. Small hypointense focus within the C7 vertebral body could represent a bone island although is indeterminate. No evidence of pathologic marrow infiltration. No evidence of prior fracture. Multilevel disc height loss and degenerative endplate changes, most pronounced at C5-6. Cervical soft tissues: No significant prevertebral edema. The paravertebral soft tissues are grossly maintained. C2-C3: Canal and foramina are patent. C3-C4: Moderate canal stenosis with contributions from a disc osteophyte complex and dorsal ligamentum flavum infolding, causing complete effacement of ventral and dorsal CSF spaces with ventral and dorsal cord abutment. Mild to moderate bilateral neural foraminal stenosis due to uncovertebral and facet hypertrophy. C4-C5: Mild canal stenosis with contributions from a disc bulge causing partial effacement of the ventral CSF space. Minimal bilateral neural foraminal stenosis due to uncovertebral and facet hypertrophy. C5-C6: Mild to moderate canal stenosis with contributions from a disc osteophyte complex and dorsal ligament of flavum infolding, causing near complete effacement of the ventral and dorsal CSF spaces. Moderate bilateral neural foraminal stenosis due to uncovertebral and facet hypertrophy. C6-C7: No significant canal stenosis despite a disc bulge and dorsal ligament of flavum infolding. Mild bilateral neural foraminal stenosis due to uncovertebral and facet hypertrophy. C7-T1: Canal and foramina are patent. IMPRESSION IMPRESSION: Suspect tiny subacute infarct within the left morris radiata. No evidence of significant hemorrhage. No abnormal intracranial enhancement. Multilevel degenerative changes of the cervical spine, most pronounced at C3-4 where there is moderate canal stenosis. Varying degrees of neural foraminal narrowing, most pronounced at C5-6, as discussed. Anatomic Variant: None. Assume 7 cervical vertebrae with counting from the craniocervical junction. Bladder Changer: [facility] Transcribe Date/Time: Jan 07 2025 8:32A Dictated by : JUAN F QUIROGA MD This examination was interpreted and the report reviewed and electronically signed by: JUAN F QUIROGA MD on Jan 07 2025 2:38PM [facility] MRI BRAIN WO/W IVCONon 01-07 MRI BRAIN WO/W IVCON * * *Final Report* * * DATE OF EXAM: Jan 07 2025 8:25AM [facility] [id number] - MRI BRAIN WO/W IVCON / PROCEDURE REASON: headache dysdiadochokinesia * * * * Physician Interpretation * * * * EXAMINATION: MRI BRAIN WO/W IVCON, MRI CERVICAL SPINE WO IVCON CLINICAL HISTORY: Headache, dysdiadokinesia TECHNIQUE: Routine brain MRI protocol without and with contrast including diffusion images. Routine cervical spine MR protocol without gadolinium. Contrast: 7 mL Elucirem IV COMPARISON: None. RESULT: BRAIN: Acute Change: Small focus of subtle DWI hyperintensity/ADC hypointensity-isointensit y within the left morris radiata, suspicious for tiny subacute infarct. No additional areas of acute infarct. Hemorrhage: No evidence of prior parenchymal hemorrhage on the susceptibility weighted images. Mass Lesion/ Mass Effect: No evidence of an intracranial mass or extra-axial fluid collection. No abnormal parenchymal or leptomeningeal enhancement is noted following contrast administration. No significant mass effect. Left cerebellar developmental venous anomaly. Chronic Change: Scattered patchy areas of increased T2 and FLAIR signal are present in the supratentorial white matter which is a nonspecific finding but likely represents mild chronic microvascular ischemia. Parenchyma: No significant volume loss for age. Ventricles: Normal caliber and morphology. Skull Base: Hypothalamic and pituitary region are grossly normal. Craniocervical junction is normal. No significant marrow replacement process. Vasculature: Major intracranial arterial structures, and dural venous sinuses show typical flow void, suggesting patency by spin echo criteria. Other: Bilateral ocular lens replacement are present. Trace fluid in the left mastoid air cells. CERVICAL SPINE: Counting reference: Craniocervical junction. Anatomic Variants: None. Localizer images: Degenerative changes of the shoulders, right greater than left. Dextrocurvature of the upper thoracic spine. Alignment: Mild straightening of the normal cervical lordosis. Minimal retrolisthesis of C3 upon C4. Craniocervical junction: Mild narrowing of the cranial cervical junction due to degenerative changes. Cord: The visualized cord is within normal limits of signal intensity and morphology. Bone marrow signal/fracture: Heterogenous marrow signal could be due to osteopenia and is nonspecific. Small hypointense focus within the C7 vertebral body could represent a bone island although is indeterminate. No evidence of pathologic marrow infiltration. No evidence of prior fracture. Multilevel disc height loss and degenerative endplate changes, most pronounced at C5-6. Cervical soft tissues: No significant prevertebral edema. The paravertebral soft tissues are grossly maintained. C2-C3: Canal and foramina are patent. C3-C4: Moderate canal stenosis with contributions from a disc osteophyte complex and dorsal ligamentum flavum infolding, causing complete effacement of ventral and dorsal CSF spaces with ventral and dorsal cord abutment. Mild to moderate bilateral neural foraminal stenosis due to uncovertebral and facet hypertrophy. C4-C5: Mild canal stenosis with contributions from a disc bulge causing partial effacement of the ventral CSF space. Minimal bilateral neural foraminal stenosis due to uncovertebral and facet hypertrophy. C5-C6: Mild to moderate canal stenosis with contributions from a disc osteophyte complex and dorsal ligament of flavum infolding, causing near complete effacement of the ventral and dorsal CSF spaces. Moderate bilateral neural foraminal stenosis due to uncovertebral and facet hypertrophy. C6-C7: No significant canal stenosis despite a disc bulge and dorsal ligament of flavum infolding. Mild bilateral neural foraminal stenosis due to uncovertebral and facet hypertrophy. C7-T1: Canal and foramina are patent. IMPRESSION: Suspect tiny subacute infarct within the left morris radiata. No evidence of significant hemorrhage. No abnormal intracranial enhancement. Multilevel degenerative changes of the cervical spine, most pronounced at C3-4 where there is moderate canal stenosis. Varying degrees of neural foraminal narrowing, most pronounced at C5-6, as discussed. Anatomic Variant: None. Assume 7 cervical vertebrae with counting from the craniocervical junction. Bladder Changer: MANI Transcribe Date/Time: Jan 07 2025 8:32A Dictated by : JUAN F QUIROGA MD This examination was interpreted and the report reviewed and electronically signed by: JUAN F QUIROGA MD on Jan 07 2025 2:38PM EST [id number] [facility] MRI CERVICAL SPINE WO IVCONo n 01-07-2025 MRI CERVICAL SPINE WO IVCON * * *Final Report* * * DATE OF EXAM: Jan 07 2025 8:25AM [facility] 0297 - MRI CERVICAL SPINE WO IVCON / PROCEDURE REASON: cervical wo * * * * Physician Interpretation * * * * EXAMINATION: MRI BRAIN WO/W IVCON, MRI CERVICAL SPINE WO IVCON CLINICAL HISTORY: Headache, dysdiadokinesia TECHNIQUE: Routine brain MRI protocol without and with contrast including diffusion images. Routine cervical spine MR protocol without gadolinium. Contrast: 7 mL Elucirem IV COMPARISON: None. RESULT: BRAIN: Acute Change: Small focus of subtle DWI hyperintensity/ADC hypointensity-isointensit y within the left morris radiata, suspicious for tiny subacute infarct. No additional areas of acute infarct. Hemorrhage: No evidence of prior parenchymal hemorrhage on the susceptibility weighted images. Mass Lesion/ Mass Effect: No evidence of an intracranial mass or extra-axial fluid collection. No abnormal parenchymal or leptomeningeal enhancement is noted following contrast administration. No significant mass effect. Left cerebellar developmental venous anomaly. Chronic Change: Scattered patchy areas of increased T2 and FLAIR signal are present in the supratentorial white matter which is a nonspecific finding but likely represents mild chronic microvascular ischemia. Parenchyma: No significant volume loss for age. Ventricles: Normal caliber and morphology. Skull Base: Hypothalamic and pituitary region are grossly normal. Craniocervical junction is normal. No significant marrow replacement process. Vasculature: Major intracranial arterial structures, and dural venous sinuses show typical flow void, suggesting patency by spin echo criteria. Other: Bilateral ocular lens replacement are present. Trace fluid in the left mastoid air cells. CERVICAL SPINE: Counting reference: Craniocervical junction. Anatomic Variants: None. Localizer images: Degenerative changes of the shoulders, right greater than left. Dextrocurvature of the upper thoracic spine. Alignment: Mild straightening of the normal cervical lordosis. Minimal retrolisthesis of C3 upon C4. Craniocervical junction: Mild narrowing of the cranial cervical junction due to degenerative changes. Cord: The visualized cord is within normal limits of signal intensity and morphology. Bone marrow signal/fracture: Heterogenous marrow signal could be due to osteopenia and is nonspecific. Small hypointense focus within the C7 vertebral body could represent a bone island although is indeterminate. No evidence of pathologic marrow infiltration. No evidence of prior fracture. Multilevel disc height loss and degenerative endplate changes, most pronounced at C5-6. Cervical soft tissues: No significant prevertebral edema. The paravertebral soft tissues are grossly maintained. C2-C3: Canal and foramina are patent. C3-C4: Moderate canal stenosis with contributions from a disc osteophyte complex and dorsal ligamentum flavum infolding, causing complete effacement of ventral and dorsal CSF spaces with ventral and dorsal cord abutment. Mild to moderate bilateral neural foraminal stenosis due to uncovertebral and facet hypertrophy. C4-C5: Mild canal stenosis with contributions from a disc bulge causing partial effacement of the ventral CSF space. Minimal bilateral neural foraminal stenosis due to uncovertebral and facet hypertrophy. C5-C6: Mild to moderate canal stenosis with contributions from a disc osteophyte complex and dorsal ligament of flavum infolding, causing near complete effacement of the ventral and dorsal CSF spaces. Moderate bilateral neural foraminal stenosis due to uncovertebral and facet hypertrophy. C6-C7: No significant canal stenosis despite a disc bulge and dorsal ligament of flavum infolding. Mild bilateral neural foraminal stenosis due to uncovertebral and facet hypertrophy. C7-T1: Canal and foramina are patent. IMPRESSION: Suspect tiny subacute infarct within the left morris radiata. No evidence of significant hemorrhage. No abnormal intracranial enhancement. Multilevel degenerative changes of the cervical spine, most pronounced at C3-4 where there is moderate canal stenosis. Varying degrees of neural foraminal narrowing, most pronounced at C5-6, as discussed. Anatomic Variant: None. Assume 7 cervical vertebrae with counting from the craniocervical junction. Bladder Changer: [facility] Transcribe Date/Time: Jan 07 2025 8:32A Dictated by : JUAN F QUIROGA MD This examination was interpreted and the report reviewed and electronically signed by: JUAN F QUIROGA MD on Jan 07 2025 2:38PM EST [id number] [facility] No Panel Informationon 01-07 IMPRESSION: Suspect tiny subacute infarct within the left morris radiata. No evidence of significant hemorrhage. No abnormal intracranial enhancement. Multilevel degenerative changes of the cervical spine, most pronounced at C3-4 where there is moderate canal stenosis. Varying degrees of neural foraminal narrowing, most pronounced at C5-6, as discussed. Anatomic Variant: None. Assume 7 cervical vertebrae with counting from the craniocervical junction. Bladder Changer: [facility] Transcribe Date/Time: Jan 07 2025 8:32A Dictated by : JUAN F QUIROGA MD This examination was interpreted and the report reviewed and electronically signed by: JUAN F QUIROGA MD on Jan 07 2025 2:38PM EST DIVISION OF RADIOLOGY Radiology Study observation (narrative) Jessica friedman [facility] No Panel InformationOrdered By: [facility] Provider on 01-07-2025 [facility] Cardiovascular stress test r eportOrdered By: Deepthi Jacobs on 12-31-2024 Study report [facility] [address] [place] [address] MR#: [id number] Acct: [id number] Name: LAKE JACKSON Rep #: [id number] : 1955 69 From: Deepthi Jacobs MD Primary Care: Dr. Donny Jung MD Sta tus: REG CLI Referring Dr: Deepthi Jacobs MD Sex: M C Stress Test Report Date: 12/31/2024 Procedure: Pharmacologic stress nuclear imaging study Indications: Coronary artery disease Consent: Per the patient Procedure: The patient underwent pharmacologic (Regadenoson 0.4mg ) evaluation with a peak heart rate of 98 beats per minute (65%predicted maximal heart rate) and a peak blood pressure of 130/68 mmHg. The baseline ECG demonstrated sinus rhythm. The peak pharmacologic ECG no ischemic changes. Rare PVCs noted. There was no complaint of chest discomfort during pharmacologic infusion or recovery. The patient was injected with 13.5 millicuries of technetium 99m Cardiolite and subsequently rest SPECT Cardiolite nuclear imaging was obtained in the horizontal long, vertical long, and short axis views. The patient underwent pharmacologic (Regadenoson) evaluation. The patient was injected with 41.4 millicuries of technetium 99m Cardiolite and subsequently stress SPECT Cardiolite nuclear imaging was obtained in the horizontal long, vertical long, andshort axis views. A gated Cardiolite study at peak stress was obtained. The examination was stopped secondary to completion of protocol. Rest and stress SPECT Cardiolite nuclear imaging status post realignment, normalization, and attenuation correction demonstrate no fixed or reversible perfusion defects. There is end systolic thickening and brightening. The gatedCardiolite study demonstrates myocardial thickening and inward wall motion. Thereported LVEF is 56%. Impression: 1. Pharmacologic (Regadenoson) evaluation 2. Peak pharmacologic ECG with no ischemic changes. 3. No significant cardiac dysrhythmias noted. 5. Rest and stress SPECT Cardiolite nuclear imaging demonstrate relative uniform tracer uptake and myocardial perfusion appearing within normal limits. 6. The gated Cardiolite study reports an LVEF of 56%. This note was generated with [employer] software. It may contain incorrectwords, spelling, and punctuation that were not noted in checking the note beforesigning. 12/31/24 1032 Date _ Deepthi Jacobs MD CC: Dr. Deepthi Jacobs MD; Dr. Donny Jung MD ~ Date Dictated: 12/31/24 1024 Date Transcribed: 12/31/24 1024 Bladder Changer: HERIBERTO Lee [facility] Work Phone: Echo Completeon 12-31-2024 Echo Complete [facility] [address] [place] [address] Echo Complete 12/31/24 0928 MR#: [id number] Acct: [id number] Name: LA[place] JACKSON Rep #: [id number] : 1955 69 From: Deepthi Jacobs MD Attending Dr: Dr. Deepthi Jacobs MD Status: REG CLI Ordering Dr: Deepthi Jacobs MD Date: 12/31/24 Location: [facility] Sex: M C Admitted: Reason For Study Reason For Study: CAD/ASHD Procedure This was a 2D Doppler, Color Flow transthoracic echocardiogram. Exam performed in department. Left Ventricle Mild concentric left ventricular hypertrophy. The LV systolic function is normal. EF is 60 %. Stage 1 diastolic dysfunction. Right Ventricle Normal right ventricle. Atria The left atrium is mildly enlarged. Normal right atrium. Mitral Valve Trivial mitral valve insufficiency. Tricuspid Valve Trivial tricuspid valve insufficiency. Normal pulmonary artery pressure. Aortic Valve Trisinus/trileaflet aortic valve. Pulmonic Valve Mild (1+) pulmonic valve insufficiency. Great Vessels Normal sized aortic root. Pericardium/Pleural No pericardial effusion. MMode/2D Measurements Calculations LVIDd: 5.7 cm IVSd: 1.2 cm LVOT diam: 2.0 cm LVIDs: 4.2 cm LVPWd: 0.99 cm LVOT area: 3.1 cm2 FS: 25.3 % Ao root diam: 3.3 cm LAV(MOD-bp): 46.7 ml LVAd ap4: 25.2 cm2 LAV(MOD-bp) Indexed: 24.0 ml/m2 LVLd ap4: 7.7 cm LAV(MOD-sp2): 41.1 ml EDV(MOD-sp4): 70.6 ml LAV(MOD-sp4): 50.8 ml EDV(sp4-el): 69.9 ml LVAs ap4: 15.0 cm2 LVLs ap4: 6.1 cm ESV(MOD-sp4): 32.3 ml ESV(sp4-el): 31.4 ml EF(MOD-sp4): 54.3 % EF(sp4-el): 55.1 % LVAd ap2: 24.6 cm2 SV(MOD-sp4): 38.3 ml SV(MOD-sp2): 44.1 ml LVLd ap2: 7.2 cm SI(MOD-sp4): 19.7 ml/m2 SI(MOD-sp2): 22.6 ml/m2 EDV(MOD-sp2): 72.7 ml EDV(sp2-el): 71.0 ml LVAs ap2: 14.0 cm2 LVLs ap2: 5.6 cm ESV(MOD-sp2): 28.7 ml ESV(sp2-el): 29.4 ml EF(MOD-sp2): 60.6 % SV(sp4-el): 38.5 ml LA dimension(2D): 4.2 cm LA A4 area: 17.3 cm2 RA A4 area: 12.3 cm2 Time Measurements MV dec time: 0.24 sec Doppler Measurements Calculations MV E max brianna: 59.9 cm/sec Lat Peak E' Brianna: 6.9 cm/sec Med Peak E' Brianna: 4.4 cm/sec MV A max brianna: 74.7 cm/sec E/E' lat: 8.7 E/E' med: 13.6 MV E/A: 0.80 MV V2 max: 84.5 cm/sec Ao V2 max: 131.4 cm/sec MV max P.9 mmHg MV dec slope: 257.6 cm/sec2 Ao max P.9 mmHg MV V2 mean: 50.8 cm/sec Ao V2 mean: 87.3 cm/sec MV mean P.1 mmHg Ao mean P.5 mmHg MV V2 VTI: 34.1 cm Ao V2 VTI: 27.6 cm AV (velocity ratio): 0.81 MVA(VTI): 2.0 cm2 AJ(I,D): 2.5 cm2 AJ(V,D): 2.7 cm2 LV V1 max: 115.2 cm/sec SV(LVOT): 69.3 ml PA V2 max: 101.8 cm/sec LV V1 max P.3 mmHg PA V2 mean: 68.2 cm/sec LV V1 mean P.5 mmHg LV V1 mean: 71.6 cm/sec LV V1 VTI: 22.4 cm PI end-d brianna: 126.3 cm/sec TR max brianna: 223.1 cm/sec TR max P.9 mmHg ECHO/Echo Complete Interpretation Summary Mild concentric left ventricular hypertrophy. The LV systolic function is normal. EF is 60 %. Stage 1 diastolic dysfunction. The left atrium is mildly enlarged. Mild (1+) pulmonic valve insufficiency. ___ Ordering Physician: Deepthi Jacobs Referring Physician: Deepthi Jacobs Performed By: Hannah Moy RCS 12/31/24 1130 Date Deepthi Jacobs MD CC: Dr. Deepthi Jacobs MD; Dr. Donny Jung MD Date Dictated: 12/31/24927 Date Transcribed: 12/31/241129 Bladder Changer: Signed Normal [facility] Echocardiogram study reportO rdered By: Deepthi Jacobs on 12-31-2024 Study report [facility] [address] [place] [address] Echo Complete 12/31/24927 MR#: [id number] Acct: [id number] Name: [place] JACK[place] Rep #:[id number] : 1955 69 From: Deepthi Jacobs MD Attending Dr: Dr. Deepthi Jacobs MD Status: REG CLI Ordering Dr: Deepthi Jacobs MD Date: Location: [facility] Sex: M C Admitted: Reason For Study Reason For Study: CAD/ASHD Procedure This was a 2D Doppler, Color Flow transthoracic echocardiogram. Exam performed in department. Left Ventricle Mild concentric left ventricular hypertrophy. The LV systolic function is normal. EF is 60 %. Stage 1 diastolic dysfunction. Right Ventricle Normal right ventricle. Atria The left atrium is mildly enlarged. Normal right atrium. Mitral Valve Trivial mitral valve insufficiency. Tricuspid Valve Trivial tricuspid valve insufficiency. Normal pulmonary artery pressure. Aortic Valve Trisinus/trileaflet aortic valve. Pulmonic Valve Mild (1+) pulmonic valve insufficiency. Great Vessels Normal sized aortic root. Pericardium/Pleural No pericardial effusion. MMode/2D Measurements & Calculations LVIDd: 5.7 cm IVSd: 1.2 cm LVOT diam: 2.0 cm LVIDs: 4.2 cm LVPWd: 0.99 cm LVOT area: 3.1 cm2 FS: 25.3 % Ao root diam: 3.3 cm LAV(MOD-bp): 46.7 ml LVAd ap4: 25.2 cm2 LAV(MOD-bp) Indexed: 24.0 ml/m2 LVLd ap4: 7.7 cm LAV(MOD-sp2): 41.1 ml EDV(MOD-sp4): 70.6 ml LAV(MOD-sp4): 50.8 ml EDV(sp4-el): 69.9 ml LVAs ap4: 15.0 cm2 LVLs ap4: 6.1 cm ESV(MOD-sp4): 32.3 ml ESV(sp4-el): 31.4 ml EF(MOD-sp4): 54.3 % EF(sp4-el): 55.1 % LVAd ap2: 24.6 cm2 SV(MOD-sp4): 38.3 ml SV(MOD-sp2): 44.1 ml LVLd ap2: 7.2 cm SI(MOD-sp4): 19.7 ml/m2 SI(MOD-sp2): 22.6 ml/m2 EDV(MOD-sp2): 72.7 ml EDV(sp2-el): 71.0 ml LVAs ap2: 14.0 cm2 LVLs ap2: 5.6 cm ESV(MOD-sp2): 28.7 ml ESV(sp2-el): 29.4 ml EF(MOD-sp2): 60.6 % SV(sp4-el): 38.5 ml LA dimension(2D): 4.2 cm LA A4 area: 17.3 cm2 RA A4 area: 12.3 cm2 Time Measurements MV dec time: 0.24 sec Doppler Measurements & Calculations MV E max brianna: 59.9 cm/sec Lat Peak E' Brianna: 6.9 cm/sec Med Peak E' Brianna: 4.4 cm/sec MV A max brianna: 74.7 cm/sec E/E' lat: 8.7 E/E' med: 13.6 MV E/A: 0.80 MV V2 max: 84.5 cm/sec Ao V2 max: 131.4 cm/sec MV max P.9 mmHg MV dec slope: 257.6 cm/sec2 Ao max P.9 mmHg MV V2 mean: 50.8 cm/sec Ao V2 mean: 87.3 cm/sec MV mean P.1 mmHg Ao mean P.5 mmHg MV V2 VTI: 34.1 cm Ao V2 VTI: 27.6 cm AV (velocity ratio): 0.81 MVA(VTI): 2.0 cm2 AJ(I,D): 2.5 cm2 AJ(V,D): 2.7 cm2 LV V1 max: 115.2 cm/sec SV(LVOT): 69.3 ml PA V2 max: 101.8 cm/sec LV V1 max P.3 mmHg PA V2 mean: 68.2 cm/sec LV V1 mean P.5 mmHg LV V1 mean: 71.6 cm/sec LV V1 VTI: 22.4 cm PI end-d brianna: 126.3 cm/sec TR max brianna: 223.1 cm/sec TR max P.9 mmHg ECHO/Echo Complete Interpretation Summary Mild concentric left ventricular hypertrophy. The LV systolic function is normal. EF is 60 %. Stage 1 diastolic dysfunction. The left atrium is mildly enlarged. Mild (1+) pulmonic valve insufficiency. ___ Ordering Physician: Deepthi Jacobs Referring Physician: Deepthi Jacobs Performed By: Hannah Moy RCS 12/31/24 1130 Date _ Deepthi Jacobs MD CC: Dr. Deepthi Jacobs MD; Dr. Donny Jung MD ~ Date Dictated: 12/31/24927 Date Transcribed: 12/31/24 113 Bladder Changer: Signed [facility] Work Phone: Stress Reporton 12-31-2024 Stress Report [facility] [address] [place] [address] [place] [address] MR#: [id number] Acct: [id number] Name: [place] JACK[place] Rep #: [id number] : 1955 69 From: Deepthi Jacobs MD Primary Care: Dr. Donny Jung MD Status: REG CLI Referring Dr: Deepthi Jacobs MD Sex: M C Stress Test Report Date: 12/31/2024 Procedure: Pharmacologic stress nuclear imaging study Indications: Coronary artery disease Consent: Per the patient Procedure: The patient underwent pharmacologic (Regadenoson 0.4mg ) evaluation with a peak heart rate of 98 beats per minute (65%predicted maximal heart rate) and a peak blood pressure of 130/68 mmHg. The baseline ECG demonstrated sinus rhythm. The peak pharmacologic ECG no ischemic changes. Rare PVCs noted. There was no complaint of chest discomfort during pharmacologic infusion or recovery. The patient was injected with 13.5 millicuries of technetium 99m Cardiolite and subsequently rest SPECT Cardiolite nuclear imaging was obtained in the horizontal long, vertical long, and short axis views. The patient underwent pharmacologic (Regadenoson) evaluation. The patient was injected with 41.4 millicuries of technetium 99m Cardiolite and subsequently stress SPECT Cardiolite nuclear imaging was obtained in the horizontal long, vertical long, and short axis views. A gated Cardiolite study at peak stress was obtained. The examination was stopped secondary to completion of protocol. Rest and stress SPECT Cardiolite nuclear imaging status post realignment, normalization, and attenuation correction demonstrate no fixed or reversible perfusion defects. There is end systolic thickening and brightening. The gated Cardiolite study demonstrates myocardial thickening and inward wall motion. The reported LVEF is 56%. Impression: 1. Pharmacologic (Regadenoson) evaluation 2. Peak pharmacologic ECG with no ischemic changes. 3. No significant cardiac dysrhythmias noted. 5. Rest and stress SPECT Cardiolite nuclear imaging demonstrate relative uniform tracer uptake and myocardial perfusion appearing within normal limits. 6. The gated Cardiolite study reports an LVEF of 56%. This note was generated with [employer] dictation software. It may contain incorrect words, spelling, and punctuation that were not noted in checking the note before signing. 12/31/24 1032 Date Deepthi Jacobs MD CC: Dr. Deepthi Jacobs MD; Dr. Donny Jung MD Date Dictated: 12/31/24 1024 Date Transcribed: 12/31/24 1024 Bladder Changer: HERIBERTO Signed Normal [facility] Emergency Department Summary on 12-27-2024 Emergency Department Summary [facility] Records Department [address] [place] [id number] Emergency Department Summary 12/27/24 MR#: [id number] Acct: [id number] Name: [place] Rep #: [id number] : 1955 69 From: Sly Carr MD PCP: Dr. Donny Jung MD Status:DEP ER Location: ED HPI History of Present Illness Chief Complaint: Other, Pain/Inj Detail of Chief Complaint: Acute on chronic neck pain. Informant: patient and spouse/S.O. Onset/Context/Timing Onset: - (Chronic neck pain for more than a decade.) Context: Gradual Onset Chronic pain exacerbated by: No acute injury. Timing: Continuous Quality: Sharp, Dull and Aching Location: - (Neck.) Current Severity: Moderate Maximum Severity: Moderate Worsened by: improves with Movement Relieved by: Nothing Associated Symptoms Associated Symptoms: Negative for Numbness, Tingling, Radiation to Right Leg, Radiation to Left Leg, Fever, Abdominal Pain, Dysuria, Unable to Ambulate, Unable to Transfer, Urinary Retention, Urinary Incontinence, Constipation or Fecal Incontinence Narrative Narrative: 69-year-old male acute on chronic neck pain. He has a history of chronic neck pain for more than a decade. He retired from work around 14 years ago due to it. Does not believe he is ever had an MRI. Currently seeing pain management who has him on oxycodone daily. He has been getting spinal injections without relief. Denies any neck or back surgeries. He has a upcoming MRI before the end of the month. He denies any new numbness or weakness. No bowel or bladder incontinence. No fever. No fall or trauma recently. Prior similar symptoms: Yes Recent Illness/Hospitalization: No PFSH PFS Medical History Padmini esophagitis High cholesterol Easy bruising Excessive bleeding History of ulceration History of edema History of stress test Hypertension Cardiology follow-up encounter Atherosclerosis of coronary artery of [place] heart with stable angina pectoris CAD (coronary artery disease) Fatigue Abnormal stress test Bradycardia Chest pain Impaired glucose tolerance Beta minor thalassemia Hyperlipidemia Essential (primary) hypertension Hiatal hernia with gastroesophageal reflux disease and esophagitis Wears glasses Wears dentures History of hiatal hernia Alcohol use History of steroid therapy Arthritis Anemia Migraine headache Back pain Injury of head and neck Gastric reflux Chewing tobacco nicotine dependence Non-smoker History of echocardiogram GERD (gastroesophageal reflux disease) Screening for intestinal cancer Asthma Gout Home Medications ???Medication ???Instructions ???Recorded ???Last Taken ???Type lisinopril 40 mg tablet 40 mg PO DAILY blood pressure 01/2706/10/23 History nitroglycerin 0.4 mg sublingual 0.4 mg sublingual Q5M PRN 07/25/22 Unknown Rx tablet Cardiac/Chest Pain 30 days #15 tab s oxycodone 5 mg tablet 2.5 mg PO BID pain 02/19/23 History allopurinol 300 mg tablet 300 mg PO DAILY 09/29/23 Unknown H istory oxycodone-acetaminophen 5 mg-325 1 tab PO DAILY 09/29/23 Unknown Hi story mg tablet hydrochlorothiazide 25 mg tablet 25 mg PO QDAY #90 tabs 06/08/24 Un known Rx aspirin 81 mg tablet,delayed See Rx Instructions .Route 4 Unknown Rx release .COMPLEX #90 TABLETS amlodipine 5 mg tablet 5 mg PO QDAY #90 tabs 06/16/24 Unk nown Rx clopidogrel 75 mg tablet 75 mg PO DAILY #90 TABLETS 4 Unknown Rx atorvastatin 40 mg tablet 40 mg PO QHS this is a dose Unknown Rx increase #90 tabs dapagliflozin propanediol 10 mg 10 mg PO QDAY 12/08/24 Unknown His tory tablet (Farxiga) metoprolol succinate 25 mg 25 mg PO QDAY 12/08/24 Unknown His tory tablet,extended release 24 hr tizanidine 4 mg tablet 4 mg PO QDAY 12/08/24 Unknown Hist ory oxycodone 5 mg capsule 5 mg PO BID PRN pain 7 days #14 Unknown Rx caps prednisone 20 mg tablet 40 mg (2 x 20 mg) PO DAILY 10 days 12/27/24 Unknown Rx #20 tabs Allergy/AdvReac Type Severity Reaction Status Date / Time Environmental Allergies: Allergy Mild Swelling Verified 12/08/24 09:54 Uncoded (seasonal) Sulfa (Sulfonamide Allergy Unknown Verified 12/08/24 09:54 Antibiotics) Family History Brother Diabetes Surgical History Hx of knee surgery Hx of hernia repair History of coronary artery stent placement (07/24/22) History of Joshua fundoplication ( 04/2021) History of colonoscopy History of esophagogastroduodenoscop y (EGD) History of cardiac catheterization S/P cataract surgery Status post surgery S/P inguinal hernia repair Social History (Reviewed (more content not included)... Normal [facility] Cardiology Visit Reporton Cardiology Visit Report [facility] [address] [place] [address] OFFICE VISIT Date of Service: 12/08/24 MR#: [id number] Acct: [id number] Name: [place] JACKSON Rep #: [id number] : 1955 Provider: Dr. Deepthi Jacobs MD Age/Sex: 69/M Location[place] [facility] [place] Status: Signed HPI HPI History of Present Illness Details: [place] has history of CAD status post JUMA to the LAD and to the distal left circumflex coronary artery. Denies any angina. Shortness of breath with exertion. No orthopnea. No PND. Occasional ankle edema. Intake Vital Signs 06/08/24 08:34 12/08/24 08:21 Height 5 ft 10 in 5 ft 10 in Weight: 175 lb BMI 25.1 BP 102/69 Blood Pressure Location Lt brachial Position Sitting Respiration 18 Pulse 84 Pulse Source NIBP Intake Visit Reasons: 6 M FU Manager Field Required: No Accompanied by: Is patient in pain?: Yes (chronic; following pain management) Allergies Environmental Allergies: Uncoded (seasonal) Allergy (Mild, Verified 12/08/24 09:54) Swelling Sulfa (Sulfonamide Antibiotics) Allergy (Verified 12/08/24 09:54) Unknown Medications ???Medication ???Instructions ???Recorded ???Confirmed ???Type lisinopril 40 mg tablet 40 mg PO DAILY blood pressure 10/0 01/2712/08/24 History nitroglycerin 0.4 mg sublingual 0.4 mg sublingual Q5M PRN 07/25/22 12/08/24 Rx tablet Cardiac/Chest Pain 30 days #15 tab s oxycodone 5 mg tablet 2.5 mg PO BID pain 02/19/23 History allopurinol 300 mg tablet 300 mg PO DAILY 09/29/23 12/08/24 History oxycodone-acetaminophen 5 mg-325 1 tab PO DAILY 09/29/23 12/08/24 H istory mg tablet hydrochlorothiazide 25 mg tablet 25 mg PO QDAY #90 tabs 06/08/24 Rx aspirin 81 mg tablet,delayed See Rx Instructions .Route 12/08/24 Rx release .COMPLEX #90 TABLETS amlodipine 5 mg tablet 5 mg PO QDAY #90 tabs 06/16/2411/02 Rx clopidogrel 75 mg tablet 75 mg PO DAILY #90 TABLETS 4 12/08/24 Rx atorvastatin 40 mg tablet 40 mg PO QHS this is a dose 12/08/24 Rx increase #90 tabs dapagliflozin propanediol 10 mg 10 mg PO QDAY 12/08/24 12/08/24 Hi story tablet (Farxiga) metoprolol succinate 25 mg 25 mg PO QDAY 12/08/24 12/08/24 Hi story tablet,extended release 24 hr tizanidine 4 mg tablet 4 mg PO QDAY 12/08/24 12/08/24 His tory Ejection fraction %: 60 Have you fallen in the past year?: No PFSH Medical History Abnormal stress test Alcohol use Anemia Arthritis Asthma Atherosclerosis of coronary artery of [place] heart with stable angina pectoris Back pain Beta minor thalassemia Bradycardia CAD (coronary artery disease) Padmini esophagitis Cardiology follow-up encounter Chest pain Chewing tobacco nicotine dependence Easy bruising Essential (primary) hypertension Excessive bleeding Fatigue Gastric reflux GERD (gastroesophageal reflux disease) Gout Hiatal hernia with gastroesophageal reflux disease and esophagitis High cholesterol History of echocardiogram History of edema History of hiatal hernia History of steroid therapy History of stress test History of ulceration Hyperlipidemia Hypertension Impaired glucose tolerance Injury of head and neck Migraine headache Non-smoker Screening for intestinal cancer Wears dentures Wears glasses Surgical History History of cardiac catheterization History of colonoscopy History of coronary artery stent placement (07/24/22) History of esophagogastroduodenoscop y (EGD) History of Joshua fundoplication ( 04/2021) Hx of hernia repair Hx of knee surgery S/P cataract surgery S/P inguinal hernia repair Status post surgery Family History Brother Diabetes Social History Smoking Status: Never smoker alcohol intake: current alcohol intake frequency: 0-2 drinks per day substance use type: does not use caffeine: Yes Type: tea Number of servings: 1 ROS Const Const: Positive for fatigue, headache(s) and weight gain (r/t orthopedic limitation); Negative for weakness ENT ENT: Positive for headache(s); Negative for dizziness, Nosebleed/epistaxis or balance problems Cardio Chest Pain: No Palpitations: No Edema: Right (occasional) and Left (persistent) Muscle aches with walking: None Resp Respiratory: Positive for SOB with activity; Negative for SOB at rest or SOB orthopnea SOB lying down GI GI: Positive for nausea (with headaches); Negative vomiting or heartburn Musc Musc: Positive for muscle aches/ myalgia (chronic; following chronic pain management) and joint pain (more content not included)... Normal [facility] Chest Sniff Test Fluoro Only on 12-06-2024 Chest Sniff Test Fluoro Only [facility] [address] [place] [address] Chest Sniff Test Fluoro Only MR#: [id number] Acct: [id number] Name: [place] JACK[place] Rep #: [id number] : 1955 M 69 From: Benjamin ortiz MD PCP: Dr. Donny Jung MD Status: [facility] Study: Chest Sniff Test Fluoro Only Date of Exam: Exam# [id number] Ordering Dr: Donny Jung MD EXAM: Fluoroscopic visualization of the breathing movements of the diaphragm. CLINICAL HISTORY: Shortness of breath. COMPARISON: Comparison is made with prior chest radiograph dated November 11, 2024. TECHNIQUE: Inspiratory and expiratory fluoroscopic imaging of the chest was obtained. FINDINGS: Mild elevation of the right hemidiaphragm. There is normal movement of the right and left hemidiaphragms. No evidence of diaphragmatic paralysis. Degenerative changes of the visualized thoracic vertebrae. RAD/Chest Sniff Test Fluoro Only IMPRESSION: Normal movement of the right and left hemidiaphragms during the inspiration expiration maneuvers. Reading Location: [place] [address] CC: Dr. Donny Jung MD Bladder Changer: Signed Normal [facility] Gastric Emptying Studyon Gastric Emptying Study [facility] [address] [place] [address] Gastric Emptying Study MR#: [id number] Acct: [id number] Name: [place] JACK[place] Rep #: [id number] : 1955 M 69 From: Asher Friedman PCP: Dr. Donny Jung MD Status: REG CLI Study: Gastric Emptying Study Date of Exam: 11/25/24 Exam# [id number] Ordering Dr: Donny Jung MD EXAM: Nuclear Gastric Emptying CLINICAL HISTORY: Early satiety. Evaluate gastric emptying. COMPARISON: No prior similar studies are available for comparison. TECHNIQUE: Gastric emptying scan was performed with the oral administration of 1.1 mCi Sulfur Colloid 99mTc MDP mixed with cooked solid meal. Delayed uptake images were obtained over the left upper quadrant for one half hours. FINDINGS: The radiotracer is displaced from the stomach to the small bowel. The half life (linear curve fit) of this process is 39.2 min (Midrange of normal: 88 min). There was 41 % gastric emptying within 29.5 minutes. There was 60 % gastric emptying within 59.5 minutes. There was no gastroesophageal reflux visualized during the time of this examination. NM/Gastric Emptying Study IMPRESSION: Unremarkable gastric emptying scan. Physiologic gastric emptying is demonstrated. NORMAL VALUES: The upper limits of normal for gastric retention is as follows (a greater value suggests abnormally delayed gastric emptying): 1hour, 90% 2 hours, 60% 3 hours, 30% 4 hours, 10% The lower limits for gastric retention (a lower value suggests abnormally rapid gastric emptying): 0.5 hours, 70% 1 hour, 30% Delayed gastric retention is defined as: 90% retained at 1 hour, 60% at 2 hours. 30% at 3 hours. 10% at 4 hours. Early dumping begins concurrently within 15 to 30 minutes from ingestion of a meal. Late dumping happens one to three hours after eating. STANDARD REFERENCE DATA: At 60 minutes, the lower limit of normal is 18%, with mean emptying of 54%, upper limit of 70% (too rapid). At 90 minutes, the lower limit of normal is 46%, with mean emptying of 75%. At 120 minutes, The upper limit of normal is 90% (too rapid -> dumping syndrome). At 240 minutes, the lower limit of normal is 90-92%; less than 90% is delayed. Reading Location: [address] CC: Dr. Donny Jung MD Bladder Changer: Signed Normal [facility] Chest PA and Lateralon 11-11 Chest PA and Lateral [facility] [address] [place] [address] Chest PA and Lateral MR#: [id number] Acct: [id number] Name: [place] JACK[place] Rep #: [id number] : 1955 M 69 From: Asher Friedman PCP: Dr. Donny Jung MD Status: REG CLI Study: Chest PA and Lateral Date of Exam: 11/11/24 Exam# [id number] Ordering Dr: Sangeeta Blake NP [employer] -Simone PROCEDURE: CHEST PA AND LATERAL REASON FOR EXAM: Congestion. TECHNIQUE: Frontal and lateral views of the chest. COMPARISON: Chest x-ray of 05/20/2023.. RAD/Chest PA and Lateral IMPRESSION: Mild thoracic spine degenerative changes are seen, along with DISH. The cardiomediastinal silhouette is stable, without evidence of cardiomegaly. Stable mild right hemidiaphragm elevation. Lungs appear clear of acute disease. No pleural effusion or pneumothorax is noted. Reading Location: [address] CC: Sangeeta BIRCH NP-C [place]; Dr. Donny Jung MD Bladder Changer: Signed Normal [facility] Carotid Duplex Ultrasoundon 11-08-2024 Carotid Duplex Ultrasound [facility] [address] [place] [address] Carotid Duplex Ultrasound 11/08/24 1506 MR#: [id number] Acct: [id number] Name: [place] JACKSON Rep #: [id number] : 1955 69 From: Ousmane Fink MD Attending Dr: Dr. Donny Jung MD Status: R EG CLI Ordering Dr: Donny Jung MD Date: 11/08/24 Location: [facility] Sex: M C Admitted: Reason For Study Reason For Study: Stenosis Rt. Velocities/BP Lt. Velocities/BP Prox CCA 72.9/13.5 cm/sec. Prox CCA 95.5/13.3 cm/sec. Mid CCA 89.4/17.9 cm/sec. Mid CCA 94.2/15.7 cm/sec. Dist CCA 66.3/12.4 cm/sec. Dist CCA 68.3/10.6 cm/sec. Prox ICA 141.2/22.6 cm/sec. Prox ICA 63.4/14.2 cm/sec. Mid ICA 114.8/20.4 cm/sec. Mid ICA 56.0/13.0 cm/sec. Dist ICA 41.7/7.8 cm/sec. Dist ICA 92.4/17.5 cm/sec. Rt. ICA/CCA = 1.6. Lt. ICA/CCA = 1.0. Prox ECA 141.2/9.4 cm/sec. Prox ECA 90.4/10.6 cm/sec. Rt. Vert. 30.8/6.6 cm/sec. Lt. Vert. 47.9/8.4 cm/sec. Right Extracranial There is heterogeneous, irregular atherosclerotic plaque noted in the right common carotid artery. There is heterogeneous, irregular atherosclerotic plaque noted in the right internal carotid artery. There is heterogeneous, irregular atherosclerotic plaque noted in the right external carotid artery. Antegrade flow is noted in the right vertebral artery. Left Extracranial There is heterogeneous, irregular atherosclerotic plaque noted in the left common carotid artery. There is heterogeneous, irregular atherosclerotic plaque noted in the left internal carotid artery. There is heterogeneous, irregular atherosclerotic plaque noted in the left external carotid artery. Antegrade flow is noted in the left vertebral artery. Procedure Carotid Duplex [id number]. This is a Carotid Duplex examination using B-mode, color flow and specral Doppler. Exam performed in department. VL/Carotid Duplex Ultrasound Interpretation Summary Moderate (50-69%) stenosis right extracranial internal carotid. Mild (<50%) stenosis left extracranial internal carotid. Patent and antegrade vertebrals bilaterally. ___ Ordering Physician: Donny Jung Referring Physician: Donny Jung Performed By: Billy Castillo RVT and Student 11/08/241816 Date Ousmane Fink MD CC: Dr. Donny Jung MD Date Dictated: 11/08/24 1506 Date Transcribed: 11/08/241816 Bladder Changer: Signed Normal [facility] Duplex ultrasound of carotid artery reportOrdered By: Ousmane Fink on 11-08-2024 Study report [facility] [address] [place] [address] Carotid Duplex Ultrasound 11/08/24 1506 MR#: [id number] Acct: [id number] Name: [place] Rep #:[id number] : 1955 69 From: Ousmane Friedman Attending Dr: Dr. Donny Jung MD Status: REG CLI Ordering Dr: Donny Jung MD Date: 11/08/24 Location: [facility]S Sex: M C Admitted: Reason For Study Reason For Study: Stenosis Rt. Velocities/BP Lt. Velocities/BP Prox CCA 72.9/13.5 cm/sec. Prox CCA 95.5/13.3 cm/sec. Mid CCA 89.4/17.9 cm/sec. Mid CCA 94.2/15.7 cm/sec. Dist CCA 66.3/12.4 cm/sec. Dist CCA 68.3/10.6 cm/sec. Prox ICA 141.2/22.6 cm/sec. Prox ICA 63.4/14.2 cm/sec. Mid ICA 114.8/20.4 cm/sec. Mid ICA 56.0/13.0 cm/sec. Dist ICA 41.7/7.8 cm/sec. Dist ICA 92.4/17.5 cm/sec. Rt. ICA/CCA = 1.6. Lt. ICA/CCA = 1.0. Prox ECA 141.2/9.4 cm/sec. Prox ECA 90.4/10.6 cm/sec. Rt. Vert. 30.8/6.6 cm/sec. Lt. Vert. 47.9/8.4 cm/sec. Right Extracranial There is heterogeneous, irregular atherosclerotic plaque noted in the right common carotid artery. There is heterogeneous, irregular atherosclerotic plaque noted in the right internal carotid artery. There is heterogeneous, irregular atherosclerotic plaque noted in the right external carotid artery. Antegrade flow is noted in the right vertebral artery. Left Extracranial There is heterogeneous, irregular atherosclerotic plaque noted in the left common carotid artery. There is heterogeneous, irregular atherosclerotic plaque noted in the left internal carotid artery. There is heterogeneous, irregular atherosclerotic plaque noted in the left external carotid artery. Antegrade flow is noted in the left vertebral artery. Procedure Carotid Duplex 51807. This is a Carotid Duplex examination using B-mode, color flow and specral Doppler. Exam performed in department. VL/Carotid Duplex Ultrasound Interpretation Summary Moderate (50-69%) stenosis right extracranial internal carotid. Mild (<50%) stenosis left extracranial internal carotid. Patent and antegrade vertebrals bilaterally. ___ Ordering Physician: Donny Jung Referring Physician: Donny Jung Performed By: Billy Castillo RVT and Student 11/08/241816 Date _ Ousmane Fink MD CC: Dr. Donny Jung MD ~ Date Dictated: 11/08/24 1506 Date Transcribed: 11/08/241816 Bladder Changer: Signed [facility] Work Phone: Absolute lymphocyte countOrd ered By: Donny Jung on 10-29-2024 Lymphocytes Auto (Unsp spec) [#/Vol] 1.06 10*3/uL 0.83-4.51 [facility] Absolute neutrophil countOrd ered By: Donny Erich on 10-29-2024 Neutrophils (Bld) [#/Vol] 7.3 10*3/uL 2.0-7.7 [facility] Albumin to globulin ratioOrd ered By: Donny Jung on 10-29-2024 Albumin/Globulin [Mass ratio] 1.0 {ratio} 0.9-2.4 [facility] Automated lymphocyte count a s percentage of total leukocytesOrdered By: Donny Jung on 10-29-2024 Lymphocytes/100 WBC Auto (Unsp spec) 11.3 % Low 19-41 [facility] Basophil percentageOrdered B y: Donny Jung on 10-29-2024 Basophils/100 WBC (Bld) 0.6 % 0-1 [facility] Bilirubin, totalOrdered By: Donny Jung on 10-29-2024 Bilirubin [Mass/Vol] 0.50 mg/dL 0.20-1.00 [facility] Comment on above: For patients on eltr ombopag therapy, use of Dimension [place] TBIL is not recommended. Blood urea nitrogen (BUN)/cr eatinine ratioOrdered By: Donny Jung on 10-29-2024 Urea nitrogen/Creatinine [Mass ratio] 27.1 mg/mg High 10-20 [facility] CBC W/Diff, Automatedon 10-10 Absolute Lymph 1.06 X10 3/uL Normal 0.83-4.51 [facility] Comment on above: Order Comment: Order Date: 10/29/24 Order Info: 0184-1 - CBCD Performed By: #### L 100.0100, L500.4050, L500.4100, L501.1400, L502.0250, L501.9985 #### [facility] [address] [place], [place], [id number] Absolute Neut 7.3 X10 3/uL Normal 2.0-7.7 [facility] Comment on above: Order Comment: Order Date: 10/29/24 Order Info: 0184-1 - CBCD Performed By: #### L 100.0100, L500.4050, L500.4100, L501.1400, L502.0250, L501.9985 #### [facility] [address] [place], [address] Basophils/100 WBC (Bld) 0.6 % Normal 0-1 [facility] Comment on above: Order Comment: Order Date: 10/29/24 Order Info: 0184-1 - CBCD Performed By: #### L 100.0100, L500.4050, L500.4100, L501.1400, L502.0250, L501.9985 #### [facility] [address] [place], [address] Eosinophils/100 WBC (Bld) 0.4 % Normal 0-5 [facility] Comment on above: Order Comment: Order Date: 10/29/24 Order Info: 0184-1 - CBCD Performed By: #### L 100.0100, L500.4050, L500.4100, L501.1400, L502.0250, L501.9985 #### [facility] [address] [place], [address] Erythrocyte distribution width (RBC) [Ratio] 17.4 % High 11.6-14.6 [facility] Comment on above: Order Comment: Order Date: 10/29/24 Order Info: 0184-1 - CBCD Performed By: #### L 100.0100, L500.4050, L500.4100, L501.1400, L502.0250, L501.9985 #### [facility] [address] [place], [address] Hematocrit (Bld) [Volume fraction] 35.4 % Low 40-54 [facility] Comment on above: Order Comment: Order Date: 10/29/24 Order Info: 0184-1 - CBCD Performed By: #### L 100.0100, L500.4050, L500.4100, L501.1400, L502.0250, L501.9985 #### [facility] [address] [place], [address] Hemoglobin (Bld) [Mass/Vol] 10.9 g/dL Low 13.0-16.5 [facility] Comment on above: Order Comment: Order Date: 10/29/24 Order Info: 0184-1 - CBCD Performed By: #### L 100.0100, L500.4050, L500.4100, L501.1400, L502.0250, L501.9985 #### [facility] [address] [place], [address] IG% 3.800 High 0.0-0.9 [facility] Comment on above: Order Comment: Order Date: 10/29/24 Order Info: 0184 - CBCD Result Comment: IG% - Immature Granulocytes (promyelocytes, myelocytes and metamyelocytes) > 1% indicates that a LEFT SHIFT is Present. Performed By: #### L 100.0100, L500.4050, L500.4100, L501.1400, L502.0250, L501.9985 #### [facility] [address] [place], [address] Lymphocytes/100 WBC (Bld) 11.3 % Low 19-41 [facility] Comment on above: Order Comment: Order Date: 10/29/24 Order Info: 0184-1 - CBCD Performed By: #### L 100.0100, L500.4050, L500.4100, L501.1400, L502.0250, L501.9985 #### [facility] [address] [place], [address] MCH (RBC) [Entitic mass] 22.2 pg Low 27.0-32.0 [facility] Comment on above: Order Comment: Order Date: 10/29/24 Order Info: 0184-1 - CBCD Performed By: #### L 100.0100, L500.4050, L500.4100, L501.1400, L502.0250, L501.9985 #### [facility] [address] [place], [address] MCHC (RBC) [Mass/Vol] 30.8 g/dL Low 32-36 [facility] Comment on above: Order Comment: Order Date: 10/29/24 Order Info: 0184-1 - CBCD Performed By: #### L 100.0100, L500.4050, L500.4100, L501.1400, L502.0250, L501.9985 #### [facility] [address] [place], [address] MCV (RBC) [Entitic vol] 72.1 fL Low 80-94 [facility] Comment on above: Order Comment: Order Date: 10/29/24 Order Info: 0184-1 - CBCD Performed By: #### L 100.0100, L500.4050, L500.4100, L501.1400, L502.0250, L501.9985 #### [facility] [address] [facility] [place], [address] Monocytes/100 WBC (Bld) 6.3 % Normal 0-10 [facility] Comment on above: Order Comment: Order Date: 10/29/24 Order Info: 0184-1 - CBCD Performed By: #### L 100.0100, L500.4050, L500.4100, L501.1400, L502.0250, L501.9985 #### [facility] [address] [place], [address] Neutrophils/100 WBC (Bld) 77.6 % High 47-70 [facility] Comment on above: Order Comment: Order Date: 10/29/24 Order Info: 0184-1 - CBCD Performed By: #### L 100.0100, L500.4050, L500.4100, L501.1400, L502.0250, L501.9985 #### [facility] [address] [place], [address] Nucleated RBC (Bld) [#/Vol] 0.2 10*3/uL Normal 0-5 [facility] Comment on above: Order Comment: Order Date: 10/29/24 Order Info: 018- - CBCD Performed By: #### L 100.0100, L500.4050, L500.4100, L501.1400, L502.0250, L501.9985 #### [facility] [address] [place], [address] Platelet mean volume (Bld) [Entitic vol] 11.4 fL Normal 6.2-12.0 [facility] Comment on above: Order Comment: Order Date: 10/29/24 Order Info: [id number] - CBCD Performed By: #### L 100.0100, L500.4050, L500.4100, L501.1400, L502.0250, L501.9985 #### [facility] [address] [place], [address] Platelets (Bld) [#/Vol] 233 10*3/uL Normal 150-450 [facility] Comment on above: Order Comment: Order Date: 10/29/24 Order Info: [id number] - CBCD Performed By: #### L 100.0100, L500.4050, L500.4100, L501.1400, L502.0250, L501.9985 #### [facility] [address] [place], [address] RBC (Bld) [#/Vol] 4.91 10*6/uL Normal 4.6-6.2 [facility] Comment on above: Order Comment: Order Date: 10/29/24 Order Info: 0184- - CBCD Performed By: #### L 100.0100, L500.4050, L500.4100, L501.1400, L502.0250, L501.9985 #### [facility] [address] [place], [address] RDW SD 42.5 fl Normal 35.1-43.9 [facility] Comment on above: Order Comment: Order Date: 10/29/24 Order Info: 0184-1 - CBCD Performed By: #### L 100.0100, L500.4050, L500.4100, L501.1400, L502.0250, L501.9985 #### [facility] [address] [place], [address] WBC (Bld) [#/Vol] 9.4 10*3/uL Normal 4.4-11.0 [facility] Comment on above: Order Comment: Order Date: 10/29/24 Order Info: 0184- - CBCD Performed By: #### L 100.0100, L500.4050, L500.4100, L501.1400, L502.0250, L501.9985 #### [facility] [address] [place], [place], [id number] Carbon dioxide measurementOr dered By: Donny Jung on 10-29-2024 CO2 [Moles/Vol] 22.0 mmol/L 21.0-32.0 [facility] Chloride measurementOrdered By: Donny Jung on 10-29-2024 Chloride [Moles/Vol] 112 mmol/L High 98-107 [facility] Comprehensive Metabolic Prof ilon 10-29-2024 Albumin [Mass/Vol] 3.6 g/dL Normal 3.2-5.0 [facility] Comment on above: Order Comment: Order Date: 10/29/24 Order Info: [id number] - CMP Order Info: [id number] - LIPID Order Info: [id number] - URIC Performed By: #### L 100.0100, L500.4050, L500.4100, L501.1400, L502.0250, L501.9985 #### [facility] [address] [place], [address] Albumin/Globulin [Mass ratio] 1.0 {ratio} Normal 0.9-2.4 [facility] Comment on above: Order Comment: Order Date: 10/29/24 Order Info: 785- - CMP Order Info: - LIPID Order Info: [id number] - URIC Performed By: #### L 100.0100, L500.4050, L500.4100, L501.1400, L502.0250, L501.9985 #### [facility] [address] [place], [address] ALK P 125 U/L High 45-117 [facility] Comment on above: Order Comment: Order Date: 10/29/24 Order Info: [id number] - CMP Order Info: - LIPID Order Info: [id number] - URIC Performed By: #### L 100.0100, L500.4050, L500.4100, L501.1400, L502.0250, L501.9985 #### [facility] [address] [place], [address] ALT [Catalytic activity/Vol] 69 U/L High 16-61 [facility] Comment on above: Order Comment: Order Date: 10/29/24 Order Info: [id number] - CMP Order Info: - LIPID Order Info: [id number] - URIC Performed By: #### L 100.0100, L500.4050, L500.4100, L501.1400, L502.0250, L501.9985 #### [facility] [address] [place], [address] AST [Catalytic activity/Vol] 42 U/L High 15-37 [facility] Comment on above: Order Comment: Order Date: 10/29/24 Order Info: [id number] - CMP Order Info: - LIPID Order Info: [id number] - URIC Performed By: #### L 100.0100, L500.4050, L500.4100, L501.1400, L502.0250, L501.9985 #### [facility] [address] [place], [address] Bilirubin [Mass/Vol] 0.50 mg/dL Normal 0.20-1.00 [facility] Comment on above: Order Comment: Order Date: 10/29/24 Order Info: 0786- - CMP Order Info: - LIPID Order Info: [id number] - URIC Result Comment: For patients on eltrombopag therapy, use of Dimension [place] TBIL is not recommended. Performed By: #### L 100.0100, L500.4050, L500.4100, L501.1400, L502.0250, L501.9985 #### [facility] [address] [place], [address] BUN/CRE 27.1 RATIO High 10-20 [facility] Comment on above: Order Comment: Order Date: 10/29/24 Order Info: 0786 - CMP Order Info: [id number] - LIPID Order Info: [id number] - URIC Performed By: #### L 100.0100, L500.4050, L500.4100, L501.1400, L502.0250, L501.9985 #### [facility] [address] [place], [address] CA,Total 9.4 mg/dL Normal 8.5-10.1 [facility] Comment on above: Order Comment: Order Date: 10/29/24 Order Info: 0786- - CMP Order Info: [id number] - LIPID Order Info: [id number] - URIC Performed By: #### L 100.0100, L500.4050, L500.4100, L501.1400, L502.0250, L501.9985 #### [facility] [address] [place], [address] Chloride [Moles/Vol] 112 mmol/L High 98-107 [facility] Comment on above: Order Comment: Order Date: 10/29/24 Order Info: [id number] - CMP Order Info: - LIPID Order Info: [id number] - URIC Performed By: #### L 100.0100, L500.4050, L500.4100, L501.1400, L502.0250, L501.9985 #### [facility] [address] [place], [address] CO2 [Moles/Vol] 22.0 mmol/L Normal 21.0-32.0 [facility] Comment on above: Order Comment: Order Date: 10/29/24 Order Info: [id number] - CMP Order Info: - LIPID Order Info: [id number] - URIC Performed By: #### L 100.0100, L500.4050, L500.4100, L501.1400, L502.0250, L501.9985 #### [facility] [address] [place], [address] Creatinine [Mass/Vol] 1.18 mg/dL Normal 0.70-1.30 [facility] Comment on above: Order Comment: Order Date: 10/29/24 Order Info: 785-09 - CMP Order Info: - LIPID Order Info: [id number] - URIC Result Comment: The validity of the calculated GFR GFRAA in patients over 70 years has not been determined. Clinical correlation is essential. Performed By: #### L 100.0100, L500.4050, L500.4100, L501.1400, L502.0250, L501.9985 #### [facility] [address] [place], [address] EST GFR - AA 78 mL/min Normal >60 [facility] Comment on above: Order Comment: Order Date: 10/29/24 Order Info: 785-09 - CMP Order Info: [id number] - LIPID Order Info: [id number] - URIC Result Comment: Afri can [place] GFR Calc Performed By: #### L 100.0100, L500.4050, L500.4100, L501.1400, L502.0250, L501.9985 #### [facility] [address] [place], [place], [address] GAP 7 Normal 5-15 [facility] Comment on above: Order Comment: Order Date: 10/29/24 Order Info: 07- - CMP Order Info: - LIPID Order Info: [id number] - URIC Performed By: #### L 100.0100, L500.4050, L500.4100, L501.1400, L502.0250, L501.9985 #### [facility] [address] [place], [place], [address] GFR/1.73 sq M.predicted among non-blacks MDRD (S/P/Bld) [Vol rate/Area] 65 mL/min/{1.73_m2} Normal >60 [facility] Comment on above: Order Comment: Order Date: 10/29/24 Order Info: 785-09 - CMP Order Info: - LIPID Order Info: [id number] - URIC Result Comment: Non- GFR Calc Performed By: #### L 100.0100, L500.4050, L500.4100, L501.1400, L502.0250, L501.9985 #### [facility] [address] [place], [place], [address] Globulin (S) [Mass/Vol] 3.6 g/dL Normal 2.2-4.2 [facility] Comment on above: Order Comment: Order Date: 10/29/24 Order Info: 785-09 - CMP Order Info: [id number] - LIPID Order Info: [id number] - URIC Performed By: #### L 100.0100, L500.4050, L500.4100, L501.1400, L502.0250, L501.9985 #### [facility] [address] [place], [place], [address] Glucose [Mass/Vol] 126 mg/dL High 74-106 [facility] Comment on above: Order Comment: Order Date: 10/29/24 Order Info: 785-09 - CMP Order Info: - LIPID Order Info: [id number] - URIC Result Comment: Fast ing Glucose result greater than or equal to 126 mg/dL suggests DIABETES MELLITUS per A.D.A. criteria. Performed By: #### L 100.0100, L500.4050, L500.4100, L501.1400, L502.0250, L501.9985 #### [facility] [address] [place], [address] Potassium [Moles/Vol] 4.7 mmol/L Normal 3.5-5.1 [facility] Comment on above: Order Comment: Order Date: 10/29/24 Order Info: 785-09 - CMP Order Info: - LIPID Order Info: [id number] - URIC Performed By: #### L 100.0100, L500.4050, L500.4100, L501.1400, L502.0250, L501.9985 #### [facility] [address] [place], [address] Sodium [Moles/Vol] 141 mmol/L Normal 136-145 [facility] Comment on above: Order Comment: Order Date: 10/29/24 Order Info: 785-09 - CMP Order Info: - LIPID Order Info: [id number] - URIC Performed By: #### L 100.0100, L500.4050, L500.4100, L501.1400, L502.0250, L501.9985 #### [facility] [address] [place], [address] T PROT 7.2 g/dL Normal 6.4-8.2 [facility] Comment on above: Order Comment: Order Date: 10/29/24 Order Info: 785-09 - CMP Order Info: - LIPID Order Info: [id number] - URIC Performed By: #### L 100.0100, L500.4050, L500.4100, L501.1400, L502.0250, L501.9985 #### [facility] [address] [place], [address] Urea nitrogen [Mass/Vol] 32 mg/dL High 7-18 [facility] Comment on above: Order Comment: Order Date: 10/29/24 Order Info: [id number] - CMP Order Info: [id number] - LIPID Order Info: [id number] - URIC Performed By: #### L 100.0100, L500.4050, L500.4100, L501.1400, L502.0250, L501.9985 #### [facility] [address] [place], [address] Eosinophil percentageOrdered By: Donny Jung on 10-29-2024 Eosinophils/100 WBC (Bld) 0.4 % 0-5 [facility] Erythrocyte distribution wid th ratioOrdered By: Donny Jung on 10-29-2024 Erythrocyte distribution width (RBC) [Ratio] 17.4 % High 11.6-14.6 [facility] Erythrocyte distribution wid th standard deviationOrdered By: Donny Jung on 10-29-2024 Erythrocyte distribution width (RBC) [Entitic vol] 42.5 fL 35.1-43.9 [facility] Erythrocyte distribution width (RBC) [Ratio] 42.5 fl 35.1-43.9 [facility] Estimated glomerular filtrat ion rate (GFR) AmericanOrdered By: Donny Jung on 10-29-2024 Estimated GFR (MDRD) Amer 78 mL/min >60 [facility] Comment on above: GFR Calc Glomerular filtration rate ( GFR) estimationOrdered By: Donny Jung on 10-29-2024 Estimated GFR (MDRD) Non-Af Amer 65 mL/min >60 [facility] Comment on above: Non- GFR Calc GFR/1.73 sq M.predicted among non-blacks MDRD (S/P/Bld) [Vol rate/Area] 65 mL/min/{1.73_m2} >60 [facility] Comment on above: Non- GFR Calc Glucose measurementOrdered B y: Donny Jung on 10-29-2024 Glucose [Mass/Vol] 126 mg/dL High 74-106 [facility] Comment on above: Fasting Glucose resu lt greater than or equal to 126 mg/dL suggests DIABETES MELLITUS per A.D.A. criteria. Hematocrit Auto (Bld) [Volum e fraction]Ordered By: Donny Jung on 10-29-2024 Hematocrit (Bld) [Volume fraction] 35.4 % Low 40-54 [facility] Hemoglobin A1con 10-29-2024 HbA1c (Bld) [Mass fraction] 7.0 % High 3.8-5.6 [facility] Comment on above: Order Comment: Order Date: 10/29/24Order Info: [id number] - A1C Result Comment: Norm al < 5.7 % Prediabetic 5.7 - 6.4 % Diabetic >or= 6.5 % Please note range changes. Performed By: #### L 500.3400, L500.4100 #### [facility] [place], [address] Hemoglobin A1c percentageOrd ered By: Donny Jung on 10-29-2024 HbA1c (Bld) [Mass fraction] 7.0 % High 3.8-5.6 [facility] Comment on above: Normal < 5.7 % Predi abetic 5.7 - 6.4 % Diabetic >or= 6.5 % Please note range changes. Hemoglobin measurementOrdere d By: Donny Jung on 10-29-2024 Hemoglobin (Bld) [Mass/Vol] 10.9 g/dL Low 13.0-16.5 [facility] High density lipoprotein (HD L) measurementOrdered By: Donny Jung on 10-29-2024 Cholesterol in HDL [Mass/Vol] 79 mg/dL >40 [facility] Comment on above: The drugs N-Acetylcy steine and Metamizole may falsely depress this assay. Reference Range HDL <40 mg/dL Low HDL Cholesterol HDL >or= 60 mg/dL High HDL Cholesterol Immature granulocytes/100 WB C Auto (Bld)Ordered By: Donny Jung on 10-29-2024 Immature granulocytes/100 WBC (Bld) 3.800 % High 0.0-0.9 [facility] Comment on above: IG% - Immature Granu locytes (promyelocytes, myelocytes and metamyelocytes) > 1% indicates that a LEFT SHIFT is Present. Laboratory - Chemistry and C hemistry - challengeOrdered By: Donny Jung on 10-29-2024 AST [Catalytic activity/Vol] 42 U/L High 15-37 [facility] Lipid Profileon 10-29-2024 Cholesterol [Mass/Vol] 246 mg/dL High 200 [facility] Comment on above: Order Comment: Order Date: 10/29/24 Order Info: [id number] - CMP Order Info: - LIPID Order Info: [id number] - URIC Result Comment: <200 mg/dL Desirable 200-240 mg/dL Borderline >240 mg/dL High Risk Performed By: #### L 100.0100, L500.4050, L500.4100, L501.1400, L502.0250, L501.9985 #### [facility] [address] [place], [address] Cholesterol in HDL [Mass/Vol] 79 mg/dL Normal [facility] Comment on above: Order Comment: Order Date: 10/29/24 Order Info: [id number] - CMP Order Info: - LIPID Order Info: [id number] - URIC Result Comment: The drugs N-Acetylcysteine and Metamizole may falsely depress this assay. Reference Range HDL <40 mg/dL Low HDL Cholesterol HDL >or= 60 mg/dL High HDL Cholesterol Performed By: #### L 100.0100, L500.4050, L500.4100, L501.1400, L502.0250, L501.9985 #### [facility] [address] [place], [address] Cholesterol in LDL [Mass/Vol] 131 mg/dL High 0-130 [facility] Comment on above: Order Comment: Order Date: 10/29/24 Order Info: 0786 - CMP Order Info: - LIPID Order Info: [id number] - URIC Performed By: #### L 100.0100, L500.4050, L500.4100, L501.1400, L502.0250, L501.9985 #### [facility] [address] [facility] [place], [place], [address] Cholesterol in VLDL [Mass/Vol] 36 mg/dL Normal 5-40 [facility] Comment on above: Order Comment: Order Date: 10/29/24 Order Info: [id number] - CMP Order Info: [id number] - LIPID Order Info: [id number] - URIC Performed By: #### L 100.0100, L500.4050, L500.4100, L501.1400, L502.0250, L501.9985 #### [facility] [address] [facility] [place], [address] (029) Triglyceride [Mass/Vol] 178 mg/dL Normal [facility] Comment on above: Order Comment: Order Date: 10/29/24 Order Info: [id number] - CMP Order Info: [id number] - LIPID Order Info: [id number] - URIC Result Comment: The drugs N-Acetylcysteine and Metamizole may falsely depress this assay. Serum Triglycerides Reference Interval Normal <150 mg/dL Borderline high 150 - 199 mg/dL High 200 - 499 mg/dL Very High > or = 500 mg/dL Performed By: #### L 100.0100, L500.4050, L500.4100, L501.1400, L502.0250, L501.9985 #### [facility] [address], [place], [id number] Low density lipoprotein (LDL ) cholesterol measurementOrdered By: Donny Jung on 10-29-2024 Cholesterol in LDL [Mass/Vol] 131 mg/dL High 0-130 [facility] Lymphocytes Auto (Unsp spec) [#/Vol]Ordered By: Donny Jung on 10-29-2024 Lymphocytes (Bld) [#/Vol] 1.06 10*3/uL 0.83-4.51 [facility] Lymphocytes/100 WBC Auto (Un sp spec)Ordered By: Donny Jung on 10-29-2024 Lymphocytes/100 WBC (Bld) 11.3 % Low 19-41 [facility] MCV (mean corpuscular volume ) determinationOrdered By: Donny Jung on 10-29-2024 MCV (RBC) [Entitic vol] 72.1 fL Low 80-94 [facility] Mean corpuscular hemoglobin (MCH) determinationOrdered By: Donny Jung on 10-29-2024 MCH (RBC) [Entitic mass] 22.2 pg Low 27.0-32.0 [facility] Mean corpuscular hemoglobin concentration (MCHC) determinationOrdered By: Donny Jung on 10-29-2024 MCHC (RBC) [Mass/Vol] 30.8 g/dL Low 32-36 [facility] Mean platelet volume determi nationOrdered By: Donny Jung on 10-29-2024 Platelet mean volume (Bld) [Entitic vol] 11.4 fL 6.2-12.0 [facility] Microalb:Creat Ratio,Random URon 10-29-2024 Creatinine [Mass/Vol] 27.60 mg/dL Normal NO RAN GE EST. [facility] Comment on above: Order Comment: Order Date: 10/29/24 Order Info: [id number] - MIACRE Order Info: [id number] - MIALB Performed By: #### L 100.0100, L500.4050, L500.4100, L501.1400, L502.0250, L501.9985 #### [facility] [address] [place], [address] MALB:CRE TNP Normal <30 mg/g CRE [facility] Comment on above: Order Comment: Order Date: 10/29/24 Order Info: [id number] - MIACRE Order Info: [id number] - MIALB Performed By: #### L 100.0100, L500.4050, L500.4100, L501.1400, L502.0250, L501.9985 #### [facility] [address] [place], [address] MICROALBUMIN,UR < 5.0 Normal NO RANGE EST. [facility] Comment on above: Order Comment: Order Date: 10/29/24 Order Info: [id number] - MIACRE Order Info: [id number] - MIALB Performed By: #### L 100.0100, L500.4050, L500.4100, L501.1400, L502.0250, L501.9985 #### [facility] [place], [address] Monocyte percentageOrdered B y: Donny Jung on 10-29-2024 Monocytes/100 WBC (Bld) 6.3 % 0-10 [facility] Neutrophil percentageOrdered By: Donny Jung on 10-29-2024 Neutrophils/100 WBC (Bld) 77.6 % High 47-70 [facility] Nucleated red blood cell per centageOrdered By: Donny Jung on 10-29-2024 Nucleated RBC/100 WBC (Bld) [Ratio] 0.2 % 0-5 [facility] Platelet countOrdered By: Zaria Jung on 10-29-2024 Platelets (Bld) [#/Vol] 233 10*3/uL 150-450 [facility] Potassium measurementOrdered By: Donny Jung on 10-29-2024 Potassium [Moles/Vol] 4.7 mmol/L 3.5-5.1 [facility] RBC Auto (Bld) [#/Vol]Ordere d By: Donny Jung on 10-29-2024 RBC (Bld) [#/Vol] 4.91 10*6/uL 4.6-6.2 [facility] Random urine microalbumin me asurementOrdered By: Donny Jung on 10-29-2024 Urine Random Microalbumin < 5.0 mg/L NO RANGE EST. [facility] Serum anion gap measurementO rdered By: Donny Jung on 10-29-2024 Anion gap [Moles/Vol] 7 mmol/L 5-15 [facility] Serum globulin measurementOr dered By: Donny Jung on 10-29-2024 Globulin (S) [Mass/Vol] 3.6 g/dL 2.2-4.2 [facility] Serum or plasma alanine damon otransferase (ALT) measurementOrdered By: Donny Jung on 10-29-2024 ALT [Catalytic activity/Vol] 69 U/L High 16-61 [facility] Serum or plasma albumin no urement (mass/volume)Ordered By: Donny Jung on 10-29-2024 Albumin [Mass/Vol] 3.6 g/dL 3.2-5.0 [facility] Serum or plasma alkaline suhas sphatase measurementOrdered By: Donny Jung on 10-29-2024 ALP [Catalytic activity/Vol] 125 U/L High 45-117 [facility] Serum or plasma calcium on urement (mass/volume)Ordered By: Donny Jung on 10-29-2024 Calcium [Mass/Vol] 9.4 mg/dL 8.5-10.1 [facility] Serum or plasma cholesterol measurement (mass/volume)Ordered By: Donny Jung on 10-29-2024 Cholesterol [Mass/Vol] 246 mg/dL High <200 [facility] Comment on above: <200 mg/dL Desirable 200-240 mg/dL Borderline >240 mg/dL High Risk Serum or plasma creatinine m easurement (mass/volume)Ordered By: Donny Jung on 10-29-2024 Creatinine [Mass/Vol] 1.18 mg/dL 0.70-1.30 [facility] Comment on above: The validity of the calculated GFR & GFRAA in patients over 70 years has not been determined. Clinical correlation is essential. Serum or plasma urea nitroge n measurement (mass/volume)Ordered By: Donny Jung on 10-29-2024 Urea nitrogen [Mass/Vol] 32 mg/dL High 7-18 [facility] Serum or plasma uric acid me asurement (mass/volume)Ordered By: Donny Jung on 10-29-2024 Urate [Mass/Vol] 6.0 mg/dL 3.5-7.2 [facility] Comment on above: The drugs N-Acetylcy steine and Metamizole may falsely depress this assay. Sodium levelOrdered By: Donny Jung on 10-29-2024 Sodium [Moles/Vol] 141 mmol/L 136-145 [facility] Total proteinOrdered By: Luis Jung on 10-29-2024 Protein [Mass/Vol] 7.2 g/dL 6.4-8.2 [facility] Triglycerides measurementOrd ered By: Donny Jung on 10-29-2024 Triglyceride [Mass/Vol] 178 mg/dL <199 [facility] Comment on above: The drugs N-Acetylcy steine and Metamizole may falsely depress this assay.Serum Triglycerides Reference Interval Normal <150 mg/dL Borderline high 150 - 199 mg/dL High 200 - 499 mg/dL Very High > or = 500 mg/dL Uric Acidon 10-29-2024 URIC 6.0 mg/dL Normal 3.5-7.2 [facility] Comment on above: Order Comment: Order Date: 10/29/24 Order Info: [id number] - CMP Order Info: [id number] - LIPID Order Info: [id number] - URIC Result Comment: The drugs N-Acetylcysteine and Metamizole may falsely depress this assay. Performed By: #### L 100.0100, L500.4050, L500.4100, L501.1400, L502.0250, L501.9985 #### [facility] [address] [facility] [place], [address] Urine albumin/creatinine rat io for detection of microalbuminuriaOrdered By: Donny Jung on 10-29-2024 Urine Microalbumin/Creatinine Ratio TNP [facility] Comment on above: Test not performed Urine creatinine measurement (mass/volume)Ordered By: Donny Jung on 10-29-2024 Creatinine (U) [Mass/Vol] 27.60 mg/dL NO RANGE EST. [facility] Very low density lipoprotein (VLDL) cholesterol measurementOrdered By: Donny Jung on 10-29-2024 Very low density lipoprotein (VLDL) cholesterol measurement 36 mg/dL 5-40 [facility] VLDL Cholesterol 36 mg/dL -40 [facility] White blood cell (WBC) count Ordered By: Donny Jung on 10-29-2024 WBC (Bld) [#/Vol] 9.4 10*3/uL 4.4-11.0 [facility] Echo Completeon 06-25-2024 Echo Complete [facility] [address] [place] [address] Echo Complete 06/25/24 0908 MR#: [id number] Acct: [id number] Name: [place] Rep #: [id number] : 1955 69 From: Deepthi Jacobs MD Attending Dr: Dr. Deepthi Jacobs MD Status: REG CLI Ordering Dr: Deepthi Jacobs MD Date: 06/25/24 Location: [facility] Sex: M C Admitted: Reason For Study: CAD/ASHD Procedure This was a 2D Doppler, Color Flow transthoracic echocardiogram. Exam performed in department. Left Ventricle Normal size and thickness. The left ventricular ejection fraction is 60 %. Stage 2 diastolic dysfunction. Right Ventricle Normal right ventricle. Atria The left atrium is moderately enlarged. Normal right atrium. Mitral Valve Mild mitral annular calcification. Trivial mitral valve insufficiency. Tricuspid Valve Trivial tricuspid valve insufficiency. Right ventricular systolic pressure estimated to be 36 mmHg. Aortic Valve Trisinus/trileaflet aortic valve. Pulmonic Valve The pulmonic valve is not well visualized. Trivial pulmonic valve insufficiency. Great Vessels Normal sized aortic root. Pericardium/Pleural No pericardial effusion. MMode/2D Measurements Calculations LVIDd: 5.8 cm IVSd: 0.92 cm Ao root diam: 3.0 cm LVIDs: 4.3 cm LVPWd: 0.96 cm RVDd: 3.9 cm FS: 25.2 % LAV(MOD-bp): 73.3 ml LVAd ap4: 28.5 cm2 LVAd ap2: 26.0 cm2 LAV(MOD-bp) Indexed: 37.5 ml/m2 LVLd ap4: 7.2 cm LVLd ap2: 7.2 cm LAV(MOD-sp2): 72.0 ml EDV(MOD-sp4): 93.7 ml EDV(MOD-sp2): 79.9 ml LAV(MOD-sp4): 71.6 ml EDV(sp4-el): 96.6 ml EDV(sp2-el): 80.3 ml LVAs ap4: 18.1 cm2 LVAs ap2: 15.4 cm2 LVLs ap4: 6.2 cm LVLs ap2: 5.7 cm ESV(MOD-sp4): 46.5 ml ESV(MOD-sp2): 35.4 ml ESV(sp4-el): 44.4 ml ESV(sp2-el): 35.3 ml EF(MOD-sp4): 50.4 % EF(MOD-sp2): 55.7 % EF(sp4-el): 54.1 % SV(MOD-sp4): 47.2 ml SV(MOD-sp2): 44.5 ml SV(sp4-el): 52.3 ml LA dimension(2D): 4.3 cm LA A4 area: 21.9 cm2 RA A4 area: 17.8 cm2 TAPSE: 2.3 cm Time Measurements MV dec time: 0.21 sec Doppler Measurements Calculations MV E max brianna: 60.2 cm/sec Lat Peak E' Brianna: 9.6 cm/sec Med Peak E' Brianna: 5.4 cm/sec MV A max brianna: 72.9 cm/sec E/E' lat: 6.3 E/E' med: 11.2 MV E/A: 0.83 MV V2 max: 89.8 cm/sec MV P1/2t max brianna: 82.6 cm/sec Ao V2 max: 96.7 cm/sec MV max P.2 mmHg MV P1/2t: 103.7 msec Ao max P.7 mmHg MV V2 mean: 46.2 cm/sec MV dec slope: 233.4 cm/sec2 Ao V2 mean: 63.3 cm/sec MV mean P.0 mmHg Ao mean P.9 mmHg MV V2 VTI: 32.1 cm MVA(P1/2t): 2.1 cm2 Ao V2 VTI: 24.2 cm AV (velocity ratio): 0.85 LV V1 max: 89.6 cm/sec PA V2 max: 76.1 cm/sec TR max brianna: 284.1 cm/sec LV V1 max P.2 mmHg PA V2 mean: 51.5 cm/sec TR max P.4 mmHg LV V1 mean P.3 mmHg LV V1 mean: 50.7 cm/sec LV V1 VTI: 20.6 cm ECHO/Echo Complete Interpretation Summary The left ventricular ejection fraction is 60 %. Stage 2 diastolic dysfunction. The left atrium is moderately enlarged. Mild mitral annular calcification. Right ventricular systolic pressure estimated to be 36 mmHg. ___ Ordering Physician: Deepthi Jacobs Referring Physician: Donny Jung Performed By: Radha Valles, ISIDRO, RVT 06/28/24804 Date Deepthi Jacobs MD CC: Dr. Deepthi Jacobs MD; Dr. Donny Jung MD Date Dictated: 06/25/24907 Date Transcribed: 06/28/24804 Bladder Changer: Signed Normal [facility] Basic Metabolic Profile (BMP )on 06-17-2024 BUN/CRE 13.7 RATIO Normal - [facility] Comment on above: Performed By: #### L 500.2500 #### [facility] [address] [place], [place], [id number] CA,Total 9.5 mg/dL Normal 8.5-10.1 [facility] Comment on above: Performed By: #### L 500.2500 #### [facility] [address] [place], [address] Chloride [Moles/Vol] 107 mmol/L Normal 98-107 [facility] Comment on above: Performed By: #### L 500.2500 #### [facility] [address] [place], [address] CO2 [Moles/Vol] 32.0 mmol/L Normal 21.0-32.0 [facility] Comment on above: Performed By: #### L 500.2500 #### [facility] [address] [place], [address] Creatinine [Mass/Vol] 0.87 mg/dL Normal 0.70-1.30 [facility] Comment on above: Result Comment: The validity of the calculated GFR GFRAA in patients over 70 years has not been determined. Clinical correlation is essential. Performed By: #### L 500.2500 #### [facility] [address] [place], [address] EST GFR - AA 111 mL/min Normal >60 [facility] Comment on above: Result Comment: Afri can [place] GFR Calc Performed By: #### L 500.2500 #### [facility] [address] [place], [address] GAP 3 Low 5-15 [facility] Comment on above: Performed By: #### L 500.2500 #### [facility] [address] [place], [address] GFR/1.73 sq M.predicted among non-blacks MDRD (S/P/Bld) [Vol rate/Area] 92 mL/min/{1.73_m2} Normal >60 [facility] Comment on above: Result Comment: Non- GFR Calc Performed By: #### L 500.2500 #### [facility] [address] [place], [address] Glucose [Mass/Vol] 113 mg/dL High 74-106 [facility] Comment on above: Result Comment: Fast ing Glucose result from 100 to 125 mg/dL suggests IMPAIRED HOMEOSTASIS per A.D.A. criteria. Performed By: #### L 500.2500 #### [facility] [address] [place], [address] Potassium [Moles/Vol] 4.1 mmol/L Normal 3.5-5.1 [facility] Comment on above: Performed By: #### L 500.2500 #### [facility] [address] [place], [address] Sodium [Moles/Vol] 142 mmol/L Normal 136-145 [facility] Comment on above: Performed By: #### L 500.2500 #### [facility] [address] [place], [place], [id number] Urea nitrogen [Mass/Vol] 12 mg/dL Normal 7-18 [facility] Comment on above: Performed By: #### L 500.2500 #### [facility] [address] [place], [place], [id number] Absolute lymphocyte countOrd ered By: Donny Jung on 12-25-2023 Lymphocytes Auto (Unsp spec) [#/Vol] 1.59 10*3/uL 0.83-4.51 [facility] Automated lymphocyte count a s percentage of total leukocytesOrdered By: Donny Jung on 12-25-2023 Lymphocytes/100 WBC Auto (Unsp spec) 15.0 % 19-41 [facility] Basophil percentageOrdered B y: Donny Jung on 12-25-2023 Basophils/100 WBC (Bld) 0.7 % 0-1 [facility] Bilirubin [Mass/Vol] 0.50 mg/dL 0.20-1.00 [facility] Comment on above: For patients on eltr ombopag therapy, use of Dimension [place] TBIL is not recommended. Chloride [Moles/Vol] 107 mmol/L 98-107 [facility] Cholesterol [Mass/Vol] 196 mg/dL <200 [facility] Comment on above: <200 mg/dL Desirable 200-240 mg/dL Borderline >240 mg/dL High Risk Eosinophils/100 WBC (Bld) 0.0 % 0-5 [facility] Glucose [Mass/Vol] 107 mg/dL 74-106 [facility] Comment on above: Fasting Glucose resu lt from 100 to 125 mg/dL suggests IMPAIRED HOMEOSTASIS per A.D.A. criteria. Hemoglobin (Bld) [Mass/Vol] 10.8 g/dL 13.0-16.5 [facility] Monocytes/100 WBC (Bld) 7.8 % 0-10 [facility] Neutrophils (Bld) [#/Vol] 7.7 10*3/uL 2.0-7.7 [facility] Neutrophils/100 WBC (Bld) 72.7 % 47-70 [facility] Potassium [Moles/Vol] 3.8 mmol/L 3.5-5.1 [facility] Protein [Mass/Vol] 6.5 g/dL 6.4-8.2 [facility] Sodium [Moles/Vol] 141 mmol/L 136-145 [facility] Triglyceride [Mass/Vol] 150 mg/dL <199 [facility] Comment on above: The drugs N-Acetylcy steine and Metamizole may falsely depress this assay.Serum Triglycerides Reference Interval Normal <150 mg/dL Borderline high 150 - 199 mg/dL High 200 - 499 mg/dL Very High > or = 500 mg/dL WBC (Bld) [#/Vol] 10.6 10*3/uL 4.4-11.0 [facility] Determination of erythrocyte mean corpuscular volume (MCV)Ordered By: Donny Jung on 12-25-2023 MCV (RBC) [Entitic vol] 72.1 fL 80-94 [facility] Erythrocyte distribution wid th ratioOrdered By: Donny Jung on 12-25-2023 Erythrocyte distribution width (RBC) [Ratio] 16.6 % 11.6-14.6 [facility] Erythrocyte distribution wid th standard deviationOrdered By: Donny Jung on 12-25-2023 Erythrocyte distribution width (RBC) [Entitic vol] 42.0 fL 35.1-43.9 [facility] Hematocrit Auto (Bld) [Volum e fraction]Ordered By: Donny Jung on 12-25-2023 Hematocrit (Bld) [Volume fraction] 35.7 % 40-54 [facility] Immature granulocytes/100 WB C Auto (Bld)Ordered By: Donny Jung on 12-25-2023 Immature granulocytes/100 WBC (Bld) 3.800 % 0.0-0.9 [facility] Comment on above: IG% - Immature Granu locytes (promyelocytes, myelocytes and metamyelocytes) > 1% indicates that a LEFT SHIFT is Present. Laboratory - Chemistry and C hemistry - challengeOrdered By: Donny Jung on 12-25-2023 Albumin/Globulin [Mass ratio] 1.2 {ratio} 0.9-2.4 [facility] ALP [Catalytic activity/Vol] 90 U/L 45-117 [facility] ALT [Catalytic activity/Vol] 87 U/L 16-61 [facility] Cholesterol in HDL [Mass/Vol] 73 mg/dL >40 [facility] Comment on above: The drugs N-Acetylcy steine and Metamizole may falsely depress this assay. Reference Range HDL <40 mg/dL Low HDL Cholesterol HDL >or= 60 mg/dL High HDL Cholesterol Cholesterol in LDL [Mass/Vol] 93 mg/dL 0-130 [facility] CO2 [Moles/Vol] 28.0 mmol/L 21.0-32.0 [facility] Globulin (S) [Mass/Vol] 2.9 g/dL 2.2-4.2 [facility] Urea nitrogen/Creatinine [Mass ratio] 23.3 mg/mg 10-20 [facility] - Hematology and Cell countsOrdered By: Donny Jung on 12-25-2023 MCH (RBC) [Entitic mass] 21.8 pg 27.0-32.0 [facility] MCHC (RBC) [Mass/Vol] 30.3 g/dL 32-36 [facility] Nucleated RBC/100 WBC (Bld) [Ratio] 0 % 0-5 [facility] Platelet mean volume (Bld) [Entitic vol] 11.3 fL 6.2-12.0 [facility] Platelets (Bld) [#/Vol] 278 10*3/uL 150-450 [facility] No Panel InformationOrdered By: Donny Jung on 12-25-2023 Estimated GFR (MDRD) Amer 96 mL/min >60 [facility] Comment on above: GFR Calc Estimated GFR (MDRD) Non-Af Amer 80 mL/min >60 [facility] Comment on above: Non- GFR Calc Urine Microalbumin/Creatinine Ratio 4.8 mg/g CRE <30 [facility] VLDL Cholesterol 30 mg/dL 5-40 [facility] RBC Auto (Bld) [#/Vol]Ordere d By: Donny Jung on 12-25-2023 RBC (Bld) [#/Vol] 4.95 10*6/uL 4.6-6.2 [facility] Serum or plasma calcium no urement (mass/volume)Ordered By: Donny Jung on 12-25-2023 Calcium [Mass/Vol] 8.9 mg/dL 8.5-10.1 [facility] Serum or plasma creatinine m easurement (mass/volume)Ordered By: Donny Jung on 12-25-2023 Creatinine [Mass/Vol] 0.99 mg/dL 0.70-1.30 [facility] Comment on above: The validity of the calculated GFR & GFRAA in patients over 70 years has not been determined. Clinical correlation is essential. Serum or plasma thyroid stim ulating hormone (TSH) measurement (units/volume)Ordered By: Donny Jung on 12-25-2023 TSH Qn 1.52 uIU/mL 0.358-3.74 [facility] Serum or plasma urea nitroge n measurement (mass/volume)Ordered By: Donny Jung on 12-25-2023 Urea nitrogen [Mass/Vol] 23 mg/dL 718 [facility] Serum or plasma uric acid me asurement (mass/volume)Ordered By: Donny Jung on 12-25-2023 Urate [Mass/Vol] 6.9 mg/dL 3.5-7.2 [facility] Comment on above: The drugs N-Acetylcy steine and Metamizole may falsely depress this assay. Thin prep Papanicolaou smear with manual screeningOrdered By: Donny Jung on 12-25-2023 Thin prep Papanicolaou smear with manual screening 3.6 g/dL 3.2-5.0 [facility] Thin prep Papanicolaou smear with manual screening 31 U/L 15-37 [facility] Thin prep Papanicolaou smear with manual screening 6 5-15 [facility] Thin prep Papanicolaou smear with manual screening 5.8 mg/L NO RANGE EST. [facility] Urine creatinine measurement (mass/volume)Ordered By: Donny Jung on 12-25-2023 Creatinine (U) [Mass/Vol] 122.00 mg/dL NO RANGE EST. [facility] Whole blood hemoglobin A1c/t otal hemoglobin ratio (mass fraction)Ordered By: Donny Jung on 12-25-2023 HbA1c (Bld) [Mass fraction] 6.2 % 3.8-5.6 [facility] Comment on above: Normal < 5.7 % Predi abetic 5.7 - 6.4 % Diabetic >or= 6.5 % Please note range changes. Basophil percentageOrdered B y: Deepthi Jacobs on 10-02-2023 Bilirubin [Mass/Vol] 0.50 mg/dL 0.20-1.00 [facility] Comment on above: For patients on eltr ombopag therapy, use of Dimension [place] TBIL is not recommended. Chloride [Moles/Vol] 110 mmol/L 98-107 [facility] Cholesterol [Mass/Vol] 205 mg/dL <200 [facility] Comment on above: <200 mg/dL Desirable 200-240 mg/dL Borderline >240 mg/dL High Risk Glucose [Mass/Vol] 121 mg/dL 74-106 [facility] Comment on above: Fasting Glucose resu lt from 100 to 125 mg/dL suggests IMPAIRED HOMEOSTASIS per A.D.A. criteria. Potassium [Moles/Vol] 4.0 mmol/L 3.5-5.1 [facility] Protein [Mass/Vol] 6.7 g/dL 6.4-8.2 [facility] Sodium [Moles/Vol] 142 mmol/L 136-145 [facility] Triglyceride [Mass/Vol] 128 mg/dL <199 [facility] Comment on above: The drugs N-Acetylcy steine and Metamizole may falsely depress this assay.Serum Triglycerides Reference Interval Normal <150 mg/dL Borderline high 150 - 199 mg/dL High 200 - 499 mg/dL Very High > or = 500 mg/dL Laboratory - Chemistry and C hemistry - challengeOrdered By: Deepthi Jacobs on 10-02-2023 Albumin/Globulin [Mass ratio] 1.0 {ratio} 0.9-2.4 [facility] ALP [Catalytic activity/Vol] 98 U/L 45-117 [facility] ALT [Catalytic activity/Vol] 25 U/L 16-61 [facility] Cholesterol in HDL (Body fld) [Mass/Vol] 67 mg/dL >40 [facility] Comment on above: The drugs N-Acetylcy steine and Metamizole may falsely depress this assay. Reference Range HDL <40 mg/dL Low HDL Cholesterol HDL >or= 60 mg/dL High HDL Cholesterol Cholesterol in LDL (Body fld) [Moles/Vol] 112 mg/dL 0-130 [facility] Cholesterol in VLDL Calc [Moles/Vol] 26 mg/dL 5-40 [facility] CK [Catalytic activity/Vol] 33 U/L 39-308 [facility] CO2 [Moles/Vol] 28.0 mmol/L 21.0-32.0 [facility] Globulin (S) [Mass/Vol] 3.4 g/dL 2.2-4.2 [facility] Urea nitrogen/Creatinine [Mass ratio] 20.2 mg/mg 10-20 [facility] No Panel InformationOrdered By: Deepthi Jacobs on 10-02-2023 Estimated GFR (MDRD) Amer 91 mL/min >60 [facility] Comment on above: GFR Calc Estimated GFR (MDRD) Non-Af Amer 75 mL/min >60 [facility] Comment on above: Non- GFR Calc Serum or plasma calcium no urement (mass/volume)Ordered By: Deepthi Jacobs on 10-02-2023 Calcium [Mass/Vol] 9.0 mg/dL 8.5-10.1 [facility] Serum or plasma creatinine m easurement (mass/volume)Ordered By: Deepthi Jacobs on 10-02-2023 Creatinine [Mass/Vol] 1.04 mg/dL 0.70-1.30 [facility] Comment on above: The validity of the calculated GFR & GFRAA in patients over 70 years has not been determined. Clinical correlation is essential. Serum or plasma urea nitroge n measurement (mass/volume)Ordered By: Deepthi Jacobs on 10-02-2023 Urea nitrogen [Mass/Vol] 21 mg/dL 7-18 [facility] Thin prep Papanicolaou smear with manual screeningOrdered By: Deepthi Jacobs on 10-02-2023 Thin prep Papanicolaou smear with manual screening 3.3 g/dL 3.2-5.0 [facility] Thin prep Papanicolaou smear with manual screening 11 U/L 15-37 [facility] Thin prep Papanicolaou smear with manual screening 4 5-15 [facility] Absolute lymphocyte countOrd ered By: Donny Jung on 09-17-2023 Lymphocytes Auto (Unsp spec) [#/Vol] 1.34 10*3/uL 0.83-4.51 [facility] Basophil percentageOrdered B y: Donny Jung on 09-17-2023 Basophils/100 WBC (Bld) 0.5 % 0-1 [facility] Bilirubin [Mass/Vol] 0.70 mg/dL 0.20-1.00 [facility] Comment on above: For patients on eltr ombopag therapy, use of Dimension [place] TBIL is not recommended. Chloride [Moles/Vol] 106 mmol/L 98-107 [facility] Cholesterol [Mass/Vol] 254 mg/dL <200 [facility] Comment on above: <200 mg/dL Desirable 200-240 mg/dL Borderline >240 mg/dL High Risk Eosinophils/100 WBC (Bld) 0.3 % 0-5 [facility] Glucose [Mass/Vol] 120 mg/dL 74-106 [facility] Comment on above: Fasting Glucose resu lt from 100 to 125 mg/dL suggests IMPAIRED HOMEOSTASIS per A.D.A. criteria. Neutrophils (Bld) [#/Vol] 8.1 10*3/uL 2.0-7.7 [facility] Neutrophils/100 WBC (Bld) 78.1 % 47-70 [facility] Potassium [Moles/Vol] 3.7 mmol/L 3.5-5.1 [facility] Protein [Mass/Vol] 6.9 g/dL 6.4-8.2 [facility] Sodium [Moles/Vol] 139 mmol/L 136-145 [facility] Triglyceride [Mass/Vol] 409 mg/dL <199 [facility] Comment on above: The drugs N-Acetylcy steine and Metamizole may falsely depress this assay. TRIGLYCERIDE IS GREATER THAN 400 mg/dL. LDL RESULT IS INVALID AND WILL NOT BE REPORTED.Serum Triglycerides Reference Interval Normal <150 mg/dL Borderline high 150 - 199 mg/dL High 200 - 499 mg/dL Very High > or = 500 mg/dL WBC (Bld) [#/Vol] 10.3 10*3/uL 4.4-11.0 [facility] Blood erythrocytes count (nu mber/volume)Ordered By: Donny Jung on 09-17-2023 RBC (Bld) [#/Vol] 5.31 10*6/uL 4.6-6.2 [facility] Blood hemoglobin measurement (mass/volume)Ordered By: Donny Jung on 09-17-2023 Hemoglobin (Bld) [Mass/Vol] 11.8 g/dL 13.0-16.5 [facility] Blood lymphocytes/100 leukoc ytesOrdered By: Donny Jung on 09-17-2023 Lymphocytes/100 WBC (Bld) 13.0 % 19-41 [facility] Blood monocytes/100 leukocyt esOrdered By: Donny Jung on 09-17-2023 Monocytes/100 WBC (Bld) 6.4 % 0-10 [facility] Blood platelet mean volumeOr dered By: Donny Jung on 09-17-2023 Platelet mean volume (Bld) [Entitic vol] 10.3 fL 6.2-12.0 [facility] Determination of erythrocyte mean corpuscular volume (MCV)Ordered By: Donny Jung on 09-17-2023 MCV (RBC) [Entitic vol] 69.5 fL 80-94 [facility] Hematocrit Auto (Bld) [Volum e fraction]Ordered By: Donny Jung on 09-17-2023 Hematocrit (Bld) [Volume fraction] 36.9 % 40-54 [facility] Laboratory - Chemistry and C hemistry - challengeOrdered By: Donny Jung on 09-17-2023 ALP [Catalytic activity/Vol] 120 U/L 45-117 [facility] ALT [Catalytic activity/Vol] 40 U/L 16-61 [facility] CO2 [Moles/Vol] 25.0 mmol/L 21.0-32.0 [facility] Globulin (S) [Mass/Vol] 3.3 g/dL 2.2-4.2 [facility] Urea nitrogen/Creatinine [Mass ratio] 14.5 mg/mg 10-20 [facility] Laboratory - Chemistry and C hemistry - challengeOrdered By: Deepthi Jacobs on 09-17-2023 CK [Catalytic activity/Vol] 47 U/L 39-308 [facility] Laboratory - Hematology and Cell countsOrdered By: Donny Jung on 09-17-2023 Erythrocyte distribution width (RBC) [Entitic vol] 42.5 fL 35.1-43.9 [facility] Erythrocyte distribution width (RBC) [Ratio] 17.2 % 11.6-14.6 [facility] Immature granulocytes/100 WBC (Bld) 1.700 % 0.0-0.9 [facility] Comment on above: IG% - Immature Granu locytes (promyelocytes, myelocytes and metamyelocytes) > 1% indicates that a LEFT SHIFT is Present. MCH (RBC) [Entitic mass] 22.2 pg 27.0-32.0 [facility] Nucleated RBC/100 WBC (Bld) [Ratio] 0 % 0-5 [facility] MCHC Auto (RBC) [Mass/Vol]Or dered By: Donny Jung on 09-17-2023 MCHC (RBC) [Mass/Vol] 32.0 g/dL 32-36 [facility] No Panel InformationOrdered By: Donny Jung on 09-17-2023 Estimated GFR (MDRD) Amer 85 mL/min >60 [facility] Comment on above: GFR Calc Estimated GFR (MDRD) Non-Af Amer 70 mL/min >60 [facility] Comment on above: Non- GFR Calc Platelets bldOrdered By: Luis Jung on 09-17-2023 Platelets (Bld) [#/Vol] 232 10*3/uL 150-450 [facility] Serum or plasma albumin no urement (mass/volume)Ordered By: Donny Jung on 09-17-2023 Albumin [Mass/Vol] 3.6 g/dL 3.2-5.0 [facility] Serum or plasma albumin/glob ulin mass ratioOrdered By: Donny Jung on 09-17-2023 Albumin/Globulin [Mass ratio] 1.1 {ratio} 0.9-2.4 [facility] Serum or plasma calcium no urement (mass/volume)Ordered By: Donny Jung on 01-10-2024 Calcium [Mass/Vol] 9.5 mg/dL 8.5-10.1 [facility] Serum or plasma cholesterol in HDL measurement (mass/volume)Ordered By: Donny Jung on 09-17-2023 Cholesterol in HDL [Mass/Vol] 59 mg/dL >40 [facility] Comment on above: The drugs N-Acetylcy steine and Metamizole may falsely depress this assay. Reference Range HDL <40 mg/dL Low HDL Cholesterol HDL >or= 60 mg/dL High HDL Cholesterol Serum or plasma cholesterol in VLDL measurement (mass/volume)Ordered By: Donny Jung on 09-17-2023 Cholesterol in VLDL [Mass/Vol] TNP [facility] Comment on above: Test not performed Serum or plasma creatinine m easurement (mass/volume)Ordered By: Donny Jung on 09-17-2023 Creatinine [Mass/Vol] 1.10 mg/dL 0.70-1.30 [facility] Comment on above: The validity of the calculated GFR & GFRAA in patients over 70 years has not been determined. Clinical correlation is essential. Serum or plasma low density lipoprotein (LDL) cholesterol measurement (mass/volume)Ordered By: Donny Jung on 09-17-2023 Cholesterol in LDL [Mass/Vol] [facility] Comment on above: Test not performed Serum or plasma urea nitroge n measurement (mass/volume)Ordered By: Donny Jung on 09-17-2023 Urea nitrogen [Mass/Vol] 16 mg/dL 7-18 [facility] Serum or plasma uric acid me asurement (mass/volume)Ordered By: Donny Jung on 09-17-2023 Urate [Mass/Vol] 8.5 mg/dL 3.5-7.2 [facility] Comment on above: The drugs N-Acetylcy steine and Metamizole may falsely depress this assay. Thin prep Papanicolaou smear with manual screeningOrdered By: Donny Jung on 09-17-2023 Thin prep Papanicolaou smear with manual screening 21 U/L 15-37 [facility] Thin prep Papanicolaou smear with manual screening 8 5-15 [facility] Whole blood hemoglobin A1c/t otal hemoglobin ratio (mass fraction)Ordered By: Donny Jung on 01-10-2024 HbA1c (Bld) [Mass fraction] 7.3 % 3.8-5.6 [facility] Comment on above: Normal < 5.7 % Predi abetic 5.7 - 6.4 % Diabetic >or= 6.5 % Please note range changes. Laboratory - Drug toxicology Ordered By: Meliton Ramírez on 07-23-2023 Amphetamines Ql (U) Negative <1000 ng/mL [facility] Benzodiazepines Ql (U) Negative < 200 ng/mL [facility] Cannabinoids Screen Ql (U) Negative < 50 ng/mL [facility] Cocaine Ql (U) Negative < 300 ng/mL [facility] Opiates Ql (U) Negative < 300 ng/mL [facility] No Panel InformationOrdered By: Meliton Ramírez on 07-23-2023 MDMA (Ecstasy) Screen Negative < 500 ng/mL [facility] Miscellaneous Test See comment [facility] Comment on above: [id number] 6+OXYCODONE-B UND (ng/mL) DRUG RESULT SCREEN CUTOFF____ Amphetamines,Urine Negative ng/mL 1000 Amphetamine test includes Amphetamine and Methamphetamine.Barbiturates Negative ng/mL 200Benzodiazepines Negative ng/mL 200Cannabinoid Negative ng/mL 20Cocaine (Metab) Negative ng/mL 300Opiates Negative ng/mL 300 Opiates test includes Codeine, Morphine, Hydromorphone, Hydrocodone. Oxycodone/Oxymorphone,Urine Negative ng/mL 300 Test includes Oxycodone and Oxymorphone. TESTING PERFORMED AT [facility]. ORIGINAL REPORT ON FILE IN LAB CONTAINS ADDITIONAL TEST SITE INFORMATION. Urine Barbiturates Screen Negative < 200 ng/mL [facility] Urine Drug Screen Comment [facility] Comment on above: CONFIRMATORY TESTING FOR ALL POSITIVE URINE DRUG SCREENRESULTS WILL ONLY BE SENT OUT UPON PHYSICIAN ORDER. VISTA Urine Drug Screen methods provide only preliminaryanalytical test results. A more specific alternate chemicalmethod must be used in order to obtain a confirmedanalytical result. Gas chromatography/mass spectrometery(GC/MS) is the preferred confirmatory method. Clinicalconsideration and professional judgement should be appliedto any drug of abuse test result, particularly whenpreliminary positive results are used. URINE TCA TESTING MUST BE ORDERED SEPARATELY. USE TESTMNEMONIC: [facility] Urine Methadone Screen Negative < 300 ng/mL [facility] Urine phencyclidine (PCP) de tectionOrdered By: Meliton Ramírez on 07-23-2023 Phencyclidine Ql (U) Negative < 25 ng/mL [facility] .Auto Diffon 04-03-2023 Basophil, Absolute 0.1 10 3/mcL Normal 0.0-0.2 Count includes the [facility] ([place]) Comment on above: Performed By: #### A 1C, BMP, GFR, MORPH, CBC, ADIFF, ANEU #### [address] [address] Basophils/100 WBC (Bld) 0.9 % Normal 0.0-2.5 A [facility] ([place]) Comment on above: Performed By: #### A 1C, BMP, GFR, MORPH, CBC, ADIFF, ANEU #### [address] [address] Eosinophil, Absolute 0.3 10 3/mcL Normal 0.0-0.4 [facility] ([place]) Comment on above: Performed By: #### A 1C, BMP, GFR, MORPH, CBC, ADIFF, ANEU #### [address] [address] Eosinophils/100 WBC (Bld) 3.1 % Normal 0.0-7.0 [facility] ([place]) Comment on above: Performed By: #### A 1C, BMP, GFR, MORPH, CBC, ADIFF, ANEU #### [address] [address] Lymphocyte, Absolute 1.5 10 3/mcL Normal 0.8-3.9 [facility] ([place]) Comment on above: Performed By: #### A 1C, BMP, GFR, MORPH, CBC, ADIFF, ANEU #### [address] [address] Lymphocytes/100 WBC (Bld) 17.5 % Normal 10.0-50.0 [facility] ([place]) Comment on above: Performed By: #### A 1C, BMP, GFR, MORPH, CBC, ADIFF, ANEU #### [address] [address] Monocyte, Absolute 0.9 10 3/mcL Normal 0.2-1.0 Count includes the [facility] ([place]) Comment on above: Performed By: #### A 1C, BMP, GFR, MORPH, CBC, ADIFF, ANEU #### [address] [address] Monocytes/100 WBC (Bld) 10.2 % Normal 1.7-13.0 [facility] ([place]) Comment on above: Performed By: #### A 1C, BMP, GFR, MORPH, CBC, ADIFF, ANEU #### [address] [address] Neutrophils/100 WBC (Bld) 68.3 % Normal 37.0-80.0 [facility] ([place]) Comment on above: Performed By: #### A 1C, BMP, GFR, MORPH, CBC, ADIFF, ANEU #### [address] [address] .GFRon 04-03-2023 GFR 62 ml/min/1.73sqm Normal [facility] ([place]) Comment on above: Result Comment: GFR Population mean for , Non- Americans Ages 20-29 = 116 mL/min/1.73 sq.m. Ages 30-39 = 107 mL/min/1.73 sq.m. Ages 40-49 = 99 mL/min/1.73 sq.m. Ages 50-59 = 93 mL/min/1.73 sq.m. Ages 60-69 = 85 mL/min/1.73 sq.m. Ages 70+ = 75 mL/min/1.73 sq.m. Chronic Kidney Disease: Less than 60 mL/min/1.73 square meters End Stage Renal Disease: Less than 15 mL/min/1.73 square meters Performed By: #### A 1C, BMP, GFR, MORPH, CBC, ADIFF, ANEU #### [address] [address] GFR Non- 51 ml/min/1.73sqm Normal [facility] ([place]) Comment on above: Result Comment: GFR Population mean for , Non- Americans Ages 20-29 = 116 mL/min/1.73 sq.m. Ages 30-39 = 107 mL/min/1.73 sq.m. Ages 40-49 = 99 mL/min/1.73 sq.m. Ages 50-59 = 93 mL/min/1.73 sq.m. Ages 60-69 = 85 mL/min/1.73 sq.m. Ages 70+ = 75 mL/min/1.73 sq.m. Chronic Kidney Disease: Less than 60 mL/min/1.73 square meters End Stage Renal Disease: Less than 15 mL/min/1.73 square meters Performed By: #### A 1C, BMP, GFR, MORPH, CBC, ADIFF, ANEU #### [place] [address] .Morphon 04-03-2023 Anisocytosis Ql (Bld) 1+ Normal [facility] ([place]) Comment on above: Performed By: #### A 1C, BMP, GFR, MORPH, CBC, ADIFF, ANEU #### [place] [id number] Microcytosis 1+ Normal [facility] ([place]) Comment on above: Performed By: #### A 1C, BMP, GFR, MORPH, CBC, ADIFF, ANEU #### [address] [address] Ovalocytes 1+ Normal [facility] ([place]) Comment on above: Performed By: #### A 1C, BMP, GFR, MORPH, CBC, ADIFF, ANEU #### [place] [id number] Platelet Estimate Normal Normal [facility] ([place]) Comment on above: Performed By: #### A 1C, BMP, GFR, MORPH, CBC, ADIFF, ANEU #### [address] [address] .NEUABSon 04-03-2023 Neutrophil, Absolute 5.9 10 3/mcL Normal 2.9-6.2 [facility] ([place]) Comment on above: Performed By: #### A 1C, BMP, GFR, MORPH, CBC, ADIFF, ANEU #### [address] [address] A1Con 04-03-2023 HbA1c (Bld) [Mass fraction] 6.4 % Normal 4.3-6.4 [facility] ([place]) Comment on above: Performed By: #### A 1C, BMP, GFR, MORPH, CBC, ADIFF, ANEU #### [address] [address] BMPon 04-03-2023 BUN/Creatinine Ratio 17 ratio Normal 7-27 Count includes the [facility] ([place]) Comment on above: Performed By: #### A 1C, BMP, GFR, MORPH, CBC, ADIFF, ANEU #### [address] [address] Calcium [Mass/Vol] 9.3 mg/dL Normal 8.4-10.2 [facility] ([place] Comment on above: Performed By: #### A 1C, BMP, GFR, MORPH, CBC, ADIFF, ANEU #### [address] [address] Chloride [Moles/Vol] 103 mmol/L Normal 98-107 Count includes the [facility] ([place]) Comment on above: Performed By: #### A 1C, BMP, GFR, MORPH, CBC, ADIFF, ANEU #### [address] [address] CO2 [Moles/Vol] 30 mmol/L Normal 23-31 [facility] ([place]) Comment on above: Performed By: #### A 1C, BMP, GFR, MORPH, CBC, ADIFF, ANEU #### [address] [address] Creatinine [Mass/Vol] 1.38 mg/dL High 0.70-1.30 [facility] ([place]) Comment on above: Performed By: #### A 1C, BMP, GFR, MORPH, CBC, ADIFF, ANEU #### [address] [address] Electrolyte Balance 7.0 mEq/L Normal 4.0-15.0 [facility] ([place]) Comment on above: Performed By: #### A 1C, BMP, GFR, MORPH, CBC, ADIFF, ANEU #### [address] [address] Glucose [Mass/Vol] 102 mg/dL Normal 80-115 [facility] ([place] Comment on above: Performed By: #### A 1C, BMP, GFR, MORPH, CBC, ADIFF, ANEU #### [address] [address] Potassium [Moles/Vol] 5.3 mmol/L High 3.5-5.1 [facility] ([place]) Comment on above: Performed By: #### A 1C, BMP, GFR, MORPH, CBC, ADIFF, ANEU #### [address] [address] Sodium [Moles/Vol] 140 mmol/L Normal 136-145 [facility] ([place] Comment on above: Performed By: #### A 1C, BMP, GFR, MORPH, CBC, ADIFF, ANEU #### [address] [address] Urea nitrogen [Mass/Vol] 24 mg/dL High 7-18 [facility] ([place]) Comment on above: Performed By: #### A 1C, BMP, GFR, MORPH, CBC, ADIFF, ANEU #### [address] [address] CBCon 04-03-2023 Erythrocyte distribution width (RBC) [Ratio] 17.6 % High 11.5-14.5 [facility] ([place]) Comment on above: Performed By: #### A 1C, BMP, GFR, MORPH, CBC, ADIFF, ANEU #### [address] [address] Hematocrit (Bld) [Volume fraction] 36.2 % Low 42.0-52.0 [facility] ([place]) Comment on above: Performed By: #### A 1C, BMP, GFR, MORPH, CBC, ADIFF, ANEU #### [address] [address] Hgb 11.7 G/dL Low 14.0-18.0 [facility] ([place]) Comment on above: Performed By: #### A 1C, BMP, GFR, MORPH, CBC, ADIFF, ANEU #### [address] [address] MCH (RBC) [Entitic mass] 21.8 pg Low 27.0-31.2 [facility] ([place]) Comment on above: Performed By: #### A 1C, BMP, GFR, MORPH, CBC, ADIFF, ANEU #### [address] [address] MCHC 32.3 G/dL Normal 31.8-35.4 [facility] ([place]) Comment on above: Performed By: #### A 1C, BMP, GFR, MORPH, CBC, ADIFF, ANEU #### [address] [address] MCV (RBC) [Entitic vol] 67.4 fL Low 80.0-94.0 [facility] ([place]) Comment on above: Performed By: #### A 1C, BMP, GFR, MORPH, CBC, ADIFF, ANEU #### [address] [address] Platelet 253 10 3/mcL Normal 130-400 [facility] ([place]) Comment on above: Performed By: #### A 1C, BMP, GFR, MORPH, CBC, ADIFF, ANEU #### [address] [address] Platelet mean volume (Bld) [Entitic vol] 8.4 fL Normal 7.4-10.4 [facility] ([place]) Comment on above: Performed By: #### A 1C, BMP, GFR, MORPH, CBC, ADIFF, ANEU #### [place] [address] [place], [place] [address] RBC 5.36 10 6/mcL Normal 4.04-6.13 [facility] ([place]) Comment on above: Performed By: #### A 1C, BMP, GFR, MORPH, CBC, ADIFF, ANEU #### [place] [address] [place], [place] [address] WBC 8.7 10 3/mcL Normal 4.6-10.8 [facility] ([place]) Comment on above: Performed By: #### A 1C, BMP, GFR, MORPH, CBC, ADIFF, ANEU #### [address] [address] LABORATORYOrdered By: SYSTEM SYSTEM on 04-03-2023 Anisocytosis Ql (Bld) 1+ *NA* (04/03/23 11:52 AM) Invalid Interpretation Code AO Workflow SS Basophil, Absolute 0.1 103/mcL Invalid Interpretation Code 0.0 - 0.2 10^3/mcL AO Workflow SS Basophils/100 WBC (Bld) 0.9 % Invalid Interpretation Code 0.0 - 2.5 % AO Workflow SS Calcium [Mass/Vol] 9.3 mg/dL Invalid Interpretation Code 8.4 - 10.2 mg/dL AO ADM SS Chloride [Moles/Vol] 103 mmol/L Invalid Interpretation Code 98 - 107 mmol/L AO ADM SS CO2 [Moles/Vol] 30 mmol/L Invalid Interpretation Code 23 - 31 mmol/L AO ADM SS Creatinine [Mass/Vol] 1.38 mg/dL Invalid Interpretation Code 0.70 - 1.30 mg/dL AO ADM SS Electrolyte Balance 7.0 mEq/L Invalid Interpretation Code 4.0 - 15.0 mEq/L AO ADM SS Eosinophil, Absolute 0.3 103/mcL Invalid Interpretation Code 0.0 - 0.4 10^3/mcL AO Workflow SS Eosinophils/100 WBC (Bld) 3.1 % Invalid Interpretation Code 0.0 - 7.0 % AO Workflow SS Erythrocyte distribution width (RBC) [Ratio] 17.6 % Invalid Interpretation Code 11.5 - 14.5 % AO Workflow SS GFR/1.73 sq M.predicted among blacks MDRD (S/P/Bld) [Vol rate/Area] 62 ml/min/1.73sqm Invalid Interpretation Code AO Chemistry S Comment on above: Interpretive Data: GFR Population mean for , Non- Americans Ages 20-29 = 116 mL/min/1.73 sq.m. Ages 30-39 = 107 mL/min/1.73 sq.m. Ages 40-49 = 99 mL/min/1.73 sq.m. Ages 50-59 = 93 mL/min/1.73 sq.m. Ages 60-69 = 85 mL/min/1.73 sq.m. Ages 70+ = 75 mL/min/1.73 sq.m. Chronic Kidney Disease: Less than 60 mL/min/1.73 square meters End Stage Renal Disease: Less than 15 mL/min/1.73 square meters GFR/1.73 sq M.predicted among non-blacks MDRD (S/P/Bld) [Vol rate/Area] 51 ml/min/1.73sqm Invalid Interpretation Code AO Chemistry S Comment on above: Interpretive Data: GFR Population mean for , Non- Americans Ages 20-29 = 116 mL/min/1.73 sq.m. Ages 30-39 = 107 mL/min/1.73 sq.m. Ages 40-49 = 99 mL/min/1.73 sq.m. Ages 50-59 = 93 mL/min/1.73 sq.m. Ages 60-69 = 85 mL/min/1.73 sq.m. Ages 70+ = 75 mL/min/1.73 sq.m. Chronic Kidney Disease: Less than 60 mL/min/1.73 square meters End Stage Renal Disease: Less than 15 mL/min/1.73 square meters Glucose [Mass/Vol] 102 mg/dL Invalid Interpretation Code 80 - 115 mg/dL AO ADM SS HbA1c (Bld) [Mass fraction] 6.4 % Invalid Interpretation Code 4.3 - 6.4 % AO ADM SS Hematocrit (Bld) [Volume fraction] 36.2 % Invalid Interpretation Code 42.0 - 52.0 % AO Workflow SS Hemoglobin (Bld) [Mass/Vol] 11.7 G/dL Invalid Interpretation Code 14.0 - 18.0 G/dL AO Workflow SS Lymphocyte, Absolute 1.5 103/mcL Invalid Interpretation Code 0.8 - 3.9 10^3/mcL AO Workflow SS Lymphocytes/100 WBC (Bld) 17.5 % Invalid Interpretation Code 10.0 - 50.0 % AO Workflow SS MCH (RBC) [Entitic mass] 21.8 pg Invalid Interpretation Code 27.0 - 31.2 pg AO Workflow SS MCHC 32.3 G/dL Invalid Interpretation Code 31.8 - 35.4 G/dL AO Workflow SS MCV (RBC) [Entitic vol] 67.4 fL Invalid Interpretation Code 80.0 - 94.0 fL AO Workflow SS Microcytes Ql (Bld) 1+ *NA* (04/03/23 11:52 AM) Invalid Interpretation Code AO Workflow SS Monocyte, Absolute 0.9 103/mcL Invalid Interpretation Code 0.2 - 1.0 10^3/mcL AO Workflow SS Monocytes/100 WBC (Bld) 10.2 % Invalid Interpretation Code 1.7 - 13.0 % AO Workflow SS Neutrophil, Absolute 5.9 103/mcL Invalid Interpretation Code 2.9 - 6.2 10^3/mcL AO Workflow SS Neutrophils/100 WBC (Bld) 68.3 % Invalid Interpretation Code 37.0 - 80.0 % AO Workflow SS Ovalocytes LM Ql (Bld) 1+ *NA* (04/03/23 11:52 AM) Invalid Interpretation Code AO Workflow SS Platelet Estimate Normal *NA* (04/03/23 11:52 AM) Invalid Interpretation Code AO Workflow SS Platelet mean volume (Bld) [Entitic vol] 8.4 fL Invalid Interpretation Code 7.4 - 10.4 fL AO Workflow SS Platelets (Bld) [#/Vol] 253 103/mcL Invalid Interpretation Code 130 - 400 10^3/mcL AO Workflow SS Potassium [Moles/Vol] 5.3 mmol/L Invalid Interpretation Code 3.5 - 5.1 mmol/L AO ADM SS RBC (Bld) [#/Vol] 5.36 106/mcL Invalid Interpretation Code 4.04 - 6.13 10^6/mcL AO Workflow SS Sodium [Moles/Vol] 140 mmol/L Invalid Interpretation Code 136 - 145 mmol/L AO ADM SS Urea nitrogen [Mass/Vol] 24 mg/dL Invalid Interpretation Code 7 - 18 mg/dL AO ADM SS Urea nitrogen/Creatinine [Mass ratio] 17 ratio Invalid Interpretation Code 7 - 27 ratio AO ADM SS WBC (Bld) [#/Vol] 8.7 103/mcL Invalid Interpretation Code 4.6 - 10.8 10^3/mcL AO Workflow SS Basophil percentageOrdered B y: Dr. Jacobs on 11-15-2022 Cholesterol [Mass/Vol] 200 mg/dL <200 [facility] Comment on above: <200 mg/dL Desirable 200-240 mg/dL Borderline >240 mg/dL High Risk Triglyceride [Mass/Vol] 163 mg/dL <199 [facility] Comment on above: The drugs N-Acetylcy steine and Metamizole may falsely depress this assay.Serum Triglycerides Reference Interval Normal <150 mg/dL Borderline high 150 - 199 mg/dL High 200 - 499 mg/dL Very High > or = 500 mg/dL Laboratory - Chemistry and C hemistry - challengeOrdered By: Dr. Jacobs on 11-15-2022 ALT [Catalytic activity/Vol] 38 U/L 16-61 [facility] CK [Catalytic activity/Vol] 64 U/L 39-308 [facility] Serum or plasma cholesterol in HDL measurement (mass/volume)Ordered By: Dr. Jacobs on 11-15-2022 Cholesterol in HDL [Mass/Vol] 53 mg/dL >40 [facility] Comment on above: The drugs N-Acetylcy steine and Metamizole may falsely depress this assay. Reference Range HDL <40 mg/dL Low HDL Cholesterol HDL >or= 60 mg/dL High HDL Cholesterol Serum or plasma cholesterol in VLDL measurement (mass/volume)Ordered By: Dr. Jacobs on 11-15-2022 Cholesterol in VLDL [Mass/Vol] 33 mg/dL 5-40 [facility] Serum or plasma low density lipoprotein (LDL) cholesterol measurement (mass/volume)Ordered By: Dr. Jacobs on 11-15-2022 Cholesterol in LDL [Mass/Vol] 114 mg/dL 0-130 [facility] Thin prep Papanicolaou smear with manual screeningOrdered By: Dr. Jacobs on 11-15-2022 Thin prep Papanicolaou smear with manual screening 23 U/L 15-37 [facility] Absolute lymphocyte countOrd ered By: Dr. Jung on 10-30-2022 Lymphocytes Auto (Unsp spec) [#/Vol] 0.76 10*3/uL 0.83-4.51 [facility] Basophil percentageOrdered B y: Dr. Jung on 10-30-2022 Basophils/100 WBC (Bld) 0.4 % 0-1 [facility] Bilirubin [Mass/Vol] 0.80 mg/dL 0.20-1.00 [facility] Comment on above: For patients on eltr ombopag therapy, use of Dimension [place] TBIL is not recommended. Chloride [Moles/Vol] 109 mmol/L 98-107 [facility] Cholesterol [Mass/Vol] 183 mg/dL <200 [facility] Comment on above: <200 mg/dL Desirable 200-240 mg/dL Borderline >240 mg/dL High Risk Eosinophils/100 WBC (Bld) 0.4 % 0-5 [facility] Glucose [Mass/Vol] 110 mg/dL 74-106 [facility] Comment on above: Fasting Glucose resu lt from 100 to 125 mg/dL suggests IMPAIRED HOMEOSTASIS per A.D.A. criteria. Neutrophils (Bld) [#/Vol] 7.5 10*3/uL 2.0-7.7 [facility] Neutrophils/100 WBC (Bld) 82.3 % 47-70 [facility] Potassium [Moles/Vol] 4.2 mmol/L 3.5-5.1 [facility] Protein [Mass/Vol] 6.4 g/dL 6.4-8.2 [facility] Sodium [Moles/Vol] 143 mmol/L 136-145 [facility] Triglyceride [Mass/Vol] 138 mg/dL <199 [facility] Comment on above: The drugs N-Acetylcy steine and Metamizole may falsely depress this assay.Serum Triglycerides Reference Interval Normal <150 mg/dL Borderline high 150 - 199 mg/dL High 200 - 499 mg/dL Very High > or = 500 mg/dL WBC (Bld) [#/Vol] 9.1 10*3/uL 4.4-11.0 [facility] Blood erythrocytes count (nu mber/volume)Ordered By: Dr. Jung on 10-30-2022 RBC (Bld) [#/Vol] 4.85 10*6/uL 4.6-6.2 [facility] Blood hemoglobin measurement (mass/volume)Ordered By: Dr. Jung on 10-30-2022 Hemoglobin (Bld) [Mass/Vol] 10.6 g/dL 13.0-16.5 [facility] Blood lymphocytes/100 leukoc ytesOrdered By: Dr. Jung on 10-30-2022 Lymphocytes/100 WBC (Bld) 8.3 % 19-41 [facility] Blood monocytes/100 leukocyt esOrdered By: Dr. Jung on 10-30-2022 Monocytes/100 WBC (Bld) 7.3 % 0-10 [facility] Blood platelet mean volumeOr dered By: Dr. Jung on 10-30-2022 Platelet mean volume (Bld) [Entitic vol] 11.3 fL 6.2-12.0 [facility] Determination of erythrocyte mean corpuscular volume (MCV)Ordered By: Dr. Jung on 10-30-2022 MCV (RBC) [Entitic vol] 72.6 fL 80-94 [facility] Hematocrit Auto (Bld) [Volum e fraction]Ordered By: Dr. Jung on 10-30-2022 Hematocrit (Bld) [Volume fraction] 35.2 % 40-54 [facility] Laboratory - Chemistry and C hemistry - challengeOrdered By: Dr. Jung on 10-30-2022 ALP [Catalytic activity/Vol] 88 U/L 45-117 [facility] ALT [Catalytic activity/Vol] 39 U/L 16-61 [facility] CO2 [Moles/Vol] 24.0 mmol/L 21.0-32.0 [facility] Globulin (S) [Mass/Vol] 2.8 g/dL 2.2-4.2 [facility] Urea nitrogen/Creatinine [Mass ratio] 16.3 mg/mg 10-20 [facility] Laboratory - Hematology and Cell countsOrdered By: Dr. Jung on 10-30-2022 Erythrocyte distribution width (RBC) [Entitic vol] 44.1 fL 35.1-43.9 [facility] Erythrocyte distribution width (RBC) [Ratio] 17.4 % 11.6-14.6 [facility] Immature granulocytes/100 WBC (Bld) 1.300 % 0.0-0.9 [facility] Comment on above: IG% - Immature Granu locytes (promyelocytes, myelocytes and metamyelocytes) > 1% indicates that a LEFT SHIFT is Present. MCH (RBC) [Entitic mass] 21.9 pg 27.0-32.0 [facility] Nucleated RBC/100 WBC (Bld) [Ratio] 0 % 0-5 [facility] MCHC Auto (RBC) [Mass/Vol]Or dered By: Dr. Jung on 10-30-2022 MCHC (RBC) [Mass/Vol] 30.1 g/dL 32-36 [facility] No Panel InformationOrdered By: Dr. Jung on 10-30-2022 Estimated GFR (MDRD) Amer 113 mL/min >60 [facility] Comment on above: GFR Calc Estimated GFR (MDRD) Non-Af Amer 94 mL/min >60 [facility] Comment on above: Non- GFR Calc Platelets bldOrdered By: Dr. Jung on 10-30-2022 Platelets (Bld) [#/Vol] 189 10*3/uL 150-450 [facility] Serum or plasma albumin no urement (mass/volume)Ordered By: Dr. Jung on 10-30-2022 Albumin [Mass/Vol] 3.6 g/dL 3.2-5.0 [facility] Serum or plasma albumin/glob ulin mass ratioOrdered By: Dr. Jung on 10-30-2022 Albumin/Globulin [Mass ratio] 1.3 {ratio} 0.9-2.4 [facility] Serum or plasma calcium no urement (mass/volume)Ordered By: Dr. Jung on 10-30-2022 Calcium [Mass/Vol] 8.9 mg/dL 8.5-10.1 [facility] Serum or plasma cholesterol in HDL measurement (mass/volume)Ordered By: Dr. Jung on 10-30-2022 Cholesterol in HDL [Mass/Vol] 58 mg/dL >40 [facility] Comment on above: The drugs N-Acetylcy steine and Metamizole may falsely depress this assay. Reference Range HDL <40 mg/dL Low HDL Cholesterol HDL >or= 60 mg/dL High HDL Cholesterol Serum or plasma cholesterol in VLDL measurement (mass/volume)Ordered By: Dr. Jung on 10-30-2022 Cholesterol in VLDL [Mass/Vol] 28 mg/dL 5-40 [facility] Serum or plasma creatinine m easurement (mass/volume)Ordered By: Dr. Jung on 10-30-2022 Creatinine [Mass/Vol] 0.86 mg/dL 0.70-1.30 [facility] Comment on above: The validity of the calculated GFR & GFRAA in patients over 70 years has not been determined. Clinical correlation is essential. Serum or plasma low density lipoprotein (LDL) cholesterol measurement (mass/volume)Ordered By: Dr. Jung on 10-30-2022 Cholesterol in LDL [Mass/Vol] 97 mg/dL 0-130 [facility] Serum or plasma urea nitroge n measurement (mass/volume)Ordered By: Dr. Jung on 10-30-2022 Urea nitrogen [Mass/Vol] 14 mg/dL 7-18 [facility] Serum or plasma uric acid me asurement (mass/volume)Ordered By: Dr. Jung on 10-30-2022 Urate [Mass/Vol] 5.9 mg/dL 3.5-7.2 [facility] Comment on above: The drugs N-Acetylcy steine and Metamizole may falsely depress this assay. Thin prep Papanicolaou smear with manual screeningOrdered By: Dr. Jung on 10-30-2022 Thin prep Papanicolaou smear with manual screening 14 U/L 15-37 [facility] Thin prep Papanicolaou smear with manual screening 10 5-15 [facility] Whole blood hemoglobin A1c/t otal hemoglobin ratio (mass fraction)Ordered By: Dr. Jung on 10-30-2022 HbA1c (Bld) [Mass fraction] 5.9 % 3.8-5.6 [facility] Comment on above: Normal < 5.7 % Predi abetic 5.7 - 6.4 % Diabetic >or= 6.5 % Please note range changes. Laboratory - Drug toxicology Ordered By: Dr. Ramírez on 09-10-2022 Amphetamines Ql (U) Negative <1000 ng/mL [facility] Benzodiazepines Ql (U) Negative < 200 ng/mL [facility] Cannabinoids Screen Ql (U) Negative < 50 ng/mL [facility] Cocaine Ql (U) Negative < 300 ng/mL [facility] Opiates Ql (U) Negative < 300 ng/mL [facility] No Panel InformationOrdered By: Dr. Ramírez on 09-10-2022 MDMA (Ecstasy) Screen Negative < 500 ng/mL [facility] Miscellaneous Test See comment [facility] Comment on above: [id number] 6+OXYCODONE-B UND (ng/mL) DRUG RESULT SCREEN CUTOFF____ Amphetamines,Urine Negative ng/mL 1000 Amphetamine test includes Amphetamine and Methamphetamine.Barbiturates Negative ng/mL 200Benzodiazepines Negative ng/mL 200Cannabinoid Negative ng/mL 20Cocaine (Metab) Negative ng/mL 300Opiates Negative ng/mL 300 Opiates test includes Codeine, Morphine, Hydromorphone, Hydrocodone. Oxycodone/Oxymorphone,Urine Positive ng/mL 300 Test includes Oxydodone and Oxymorphone. Oxycodone PositiveOxycodone Conf,MS,UR 945 ng/mL 300 Oxymorphone Negative 300 TESTING PERFORMED AT [facility]. ORIGINAL REPORT ON FILE IN LAB CONTAINS ADDITIONAL TEST SITE INFORMATION. Urine Barbiturates Screen Negative < 200 ng/mL [facility] Urine Drug Screen Comment [facility] Comment on above: CONFIRMATORY TESTING FOR ALL POSITIVE URINE DRUG SCREENRESULTS WILL ONLY BE SENT OUT UPON PHYSICIAN ORDER. VISTA Urine Drug Screen methods provide only preliminaryanalytical test results. A more specific alternate chemicalmethod must be used in order to obtain a confirmedanalytical result. Gas chromatography/mass spectrometery(GC/MS) is the preferred confirmatory method. Clinicalconsideration and professional judgement should be appliedto any drug of abuse test result, particularly whenpreliminary positive results are used. URINE TCA TESTING MUST BE ORDERED SEPARATELY. USE TESTMNEMONIC: [facility] Urine Methadone Screen Negative < 300 ng/mL [facility] Urine phencyclidine (PCP) de tectionOrdered By: Dr. Ramírez on 09-10-2022 Phencyclidine Ql (U) Negative < 25 ng/mL [facility] Basophil percentageOrdered B y: Dr. Jacobs on 08-13-2022 WBC (Bld) [#/Vol] 6.8 10*3/uL 4.4-11.0 [facility] Blood erythrocytes count (nu mber/volume)Ordered By: Dr. Jacobs on 08-13-2022 RBC (Bld) [#/Vol] 5.02 10*6/uL 4.6-6.2 [facility] Blood hemoglobin measurement (mass/volume)Ordered By: Dr. Jacobs on 08-13-2022 Hemoglobin (Bld) [Mass/Vol] 11.3 g/dL 13.0-16.5 [facility] Blood platelet mean volumeOr dered By: Dr. Jacobs on 08-13-2022 Platelet mean volume (Bld) [Entitic vol] 10.4 fL 6.2-12.0 [facility] Determination of erythrocyte mean corpuscular volume (MCV)Ordered By: Dr. Jacobs on 08-13-2022 MCV (RBC) [Entitic vol] 71.3 fL 80-94 [facility] Hematocrit Auto (Bld) [Volum e fraction]Ordered By: Dr. Jacobs on 08-13-2022 Hematocrit (Bld) [Volume fraction] 35.8 % 40-54 [facility] Laboratory - Chemistry and C hemistry - challengeOrdered By: Dr. Jacobs on 08-13-2022 ALT [Catalytic activity/Vol] 75 U/L 16-61 [facility] Laboratory - Hematology and Cell countsOrdered By: Dr. Jacobs on 08-13-2022 Erythrocyte distribution width (RBC) [Entitic vol] 40.1 fL 35.1-43.9 [facility] Erythrocyte distribution width (RBC) [Ratio] 16.2 % 11.6-14.6 [facility] MCH (RBC) [Entitic mass] 22.5 pg 27.0-32.0 [facility] MCHC Auto (RBC) [Mass/Vol]Or dered By: Dr. Jacobs on 08-13-2022 MCHC (RBC) [Mass/Vol] 31.6 g/dL 32-36 [facility] Platelets bldOrdered By: Dr. Jacobs on 08-13-2022 Platelets (Bld) [#/Vol] 279 10*3/uL 150-450 [facility] Thin prep Papanicolaou smear with manual screeningOrdered By: Dr. Jacbos on 08-13-2022 Thin prep Papanicolaou smear with manual screening 34 U/L 15-37 [facility] Basophil percentageOrdered B y: Dr. Jacobs on 07-25-2022 Bilirubin [Mass/Vol] 0.60 mg/dL 0.20-1.00 [facility] Comment on above: For patients on eltr ombopag therapy, use of Dimension [place] TBIL is not recommended. Chloride [Moles/Vol] 105 mmol/L 98-107 [facility] Glucose [Mass/Vol] 131 mg/dL 74-106 [facility] Comment on above: Fasting Glucose resu lt greater than or equal to 126 mg/dL suggests DIABETES MELLITUS per A.D.A. criteria. Potassium [Moles/Vol] 3.8 mmol/L 3.5-5.1 [facility] Protein [Mass/Vol] 5.7 g/dL 6.4-8.2 [facility] Sodium [Moles/Vol] 138 mmol/L 136-145 [facility] WBC (Bld) [#/Vol] 7.8 10*3/uL 4.4-11.0 [facility] Blood erythrocytes count (nu mber/volume)Ordered By: Dr. Jacobs on 07-25-2022 RBC (Bld) [#/Vol] 4.41 10*6/uL 4.6-6.2 [facility] Blood hemoglobin measurement (mass/volume)Ordered By: Dr. Jacobs on 07-25-2022 Hemoglobin (Bld) [Mass/Vol] 9.6 g/dL 13.0-16.5 [facility] Blood platelet mean volumeOr dered By: Dr. Jacobs on 07-25-2022 Platelet mean volume (Bld) [Entitic vol] 10.7 fL 6.2-12.0 [facility] Determination of erythrocyte mean corpuscular volume (MCV)Ordered By: Dr. Jacobs on 07-25-2022 MCV (RBC) [Entitic vol] 70.1 fL 80-94 [facility] Hematocrit Auto (Bld) [Volum e fraction]Ordered By: Dr. Jacobs on 07-25-2022 Hematocrit (Bld) [Volume fraction] 30.9 % 40-54 [facility] Laboratory - Chemistry and C hemistry - challengeOrdered By: Dr. Jacobs on 07-25-2022 ALP [Catalytic activity/Vol] 100 U/L 45-117 [facility] ALT [Catalytic activity/Vol] 109 U/L 16-61 [facility] CO2 [Moles/Vol] 26.0 mmol/L 21.0-32.0 [facility] Globulin (S) [Mass/Vol] 2.7 g/dL 2.2-4.2 [facility] Urea nitrogen/Creatinine [Mass ratio] 21.0 mg/mg 10-20 [facility] Laboratory - Hematology and Cell countsOrdered By: Dr. Jacobs on 07-25-2022 Erythrocyte distribution width (RBC) [Entitic vol] 41.1 fL 35.1-43.9 [facility] Erythrocyte distribution width (RBC) [Ratio] 16.4 % 11.6-14.6 [facility] MCH (RBC) [Entitic mass] 21.8 pg 27.0-32.0 [facility] MCHC Auto (RBC) [Mass/Vol]Or dered By: Dr. Jacobs on 07-25-2022 MCHC (RBC) [Mass/Vol] 31.1 g/dL 32-36 [facility] No Panel InformationOrdered By: Dr. Jacobs on 07-25-2022 Estimated Creatinine Clearance Calc 70.67 ml/min [facility] Estimated GFR (MDRD) Amer 152 mL/min >60 [facility] Comment on above: GFR Calc Estimated GFR (MDRD) Non-Af Amer 126 mL/min >60 [facility] Comment on above: Non- GFR Calc Platelets bldOrdered By: Dr. Jacobs on 07-25-2022 Platelets (Bld) [#/Vol] 148 10*3/uL 150-450 [facility] Serum or plasma albumin no urement (mass/volume)Ordered By: Dr. Jacobs on 07-25-2022 Albumin [Mass/Vol] 3.0 g/dL 3.2-5.0 [facility] Serum or plasma albumin/glob ulin mass ratioOrdered By: Dr. Jacobs on 07-25-2022 Albumin/Globulin [Mass ratio] 1.1 {ratio} 0.9-2.4 [facility] Serum or plasma calcium no urement (mass/volume)Ordered By: Dr. Jacobs on 07-25-2022 Calcium [Mass/Vol] 8.2 mg/dL 8.5-10.1 [facility] Serum or plasma creatinine m easurement (mass/volume)Ordered By: Dr. Jacobs on 07-25-2022 Creatinine [Mass/Vol] 0.67 mg/dL 0.70-1.30 [facility] Comment on above: The validity of the calculated GFR & GFRAA in patients over 70 years has not been determined. Clinical correlation is essential. Serum or plasma urea nitroge n measurement (mass/volume)Ordered By: Dr. Jacobs on 07-25-2022 Urea nitrogen [Mass/Vol] 14 mg/dL 7-18 [facility] Thin prep Papanicolaou smear with manual screeningOrdered By: Dr. Jacobs on 07-25-2022 Thin prep Papanicolaou smear with manual screening 31 U/L 15-37 [facility] Thin prep Papanicolaou smear with manual screening 7 5-15 [facility] No Panel InformationOrdered By: Dr. Jacobs on 07-24-2022 Activated Clotting Time 248 sec 74-137 [facility] INR in Blood by Coagulation assayOrdered By: Dr. Jacobs on 07-11-2022 INR Coag (Bld) [Relative time] 1.0 {INR} [facility] Laboratory - CoagulationOrde red By: Dr. Jacobs on 07-11-2022 aPTT Coag (Bld) [Time] 27.9 s 24.1-36.2 [facility] PT Coag (PPP) [Time] 12.6 s 11.7-14.9 [facility] Basophil percentageOrdered B y: Dr. Jacobs on 07-08-2022 Basophil percentage < 0.9 mg/dL 0.70-1.30 [facility] No Panel InformationOrdered By: Dr. Jacobs on 07-08-2022 Bedside Estimated GFR (eGFR) > 60.0000 mL/min >60 [facility] No Panel InformationOrdered By: Dr. Jacobs on 06-18-2022 Thyroid Stimulating Hormone (TSH) 1.90 uIU/mL 0.358-3.74 [facility] Absolute lymphocyte counton 04-30-2022 Lymphocytes Auto (Unsp spec) [#/Vol] 0.97 10*3/uL 0.83-4.51 [facility] Work Phone: Basophil percentageon 2021 Basophil percentage 0 SEEN /hpf 0-5 [facility] Work Phone: Cholesterol [Mass/Vol] 190 mg/dL <200 [facility] Work Phone: Comment on above: <200 mg/dL Desirable 200-240 mg/dL Borderline >240 mg/dL High Risk Triglyceride [Mass/Vol] 111 mg/dL <199 [facility] Work Phone: Comment on above: The drugs N-Acetylcy steine and Metamizole may falsely depress this assay.Serum Triglycerides Reference Interval Normal <150 mg/dL Borderline high 150 - 199 mg/dL High 200 - 499 mg/dL Very High > or = 500 mg/dL Basophils/100 WBC (Bld) 0.1 % 0-1 [facility] Work Phone: Bilirubin [Mass/Vol] 0.60 mg/dL 0.20-1.00 [facility] Work Phone: Comment on above: For patients on eltr ombopag therapy, use of Dimension [place] TBIL is not recommended. Chloride [Moles/Vol] 110 mmol/L 98-107 [facility] Work Phone: Eosinophils/100 WBC (Bld) 0.3 % 0-5 [facility] Work Phone: Glucose [Mass/Vol] 110 mg/dL 74-106 [facility] Work Phone: Comment on above: Fasting Glucose resu lt from 100 to 125 mg/dL suggests IMPAIRED HOMEOSTASIS per A.D.A. criteria. Neutrophils (Bld) [#/Vol] 5.4 10*3/uL 2.0-7.7 [facility] Work Phone: [phone] Neutrophils/100 WBC (Bld) 76.2 % 47-70 [facility] Work Phone: Potassium [Moles/Vol] 4.3 mmol/L 3.5-5.1 [facility] Work Phone: Protein [Mass/Vol] 6.2 g/dL 6.4-8.2 [facility] Work Phone: Sodium [Moles/Vol] 142 mmol/L 136-145 [facility] Work Phone: WBC (Bld) [#/Vol] 7.0 10*3/uL 4.4-11.0 [facility] Work Phone: Bilirubin Test strip Ql (U)o n 04-30-2022 Bilirubin Ql (U) Negative Negative [facility] Work Phone: Blood erythrocytes count (nu mber/volume)on 04-30-2022 RBC (Bld) [#/Vol] 5.04 10*6/uL 4.6-6.2 [facility] Work Phone: Blood hemoglobin measurement (mass/volume)on 04-30-2022 Hemoglobin (Bld) [Mass/Vol] 11.2 g/dL 13.0-16.5 [facility] Work Phone: Blood lymphocytes/100 leukoc yteson 04-30-2022 Lymphocytes/100 WBC (Bld) 13.8 % 19-41 [facility] Work Phone: Blood monocytes/100 leukocyt eson 04-30-2022 Monocytes/100 WBC (Bld) 8.5 % 0-10 [facility] Work Phone: Blood platelet mean volumeon 04-30-2022 Platelet mean volume (Bld) [Entitic vol] 10.2 fL 6.2-12.0 [facility] Work Phone: [phone] Determination of erythrocyte mean corpuscular volume (MCV)on 04-30-2022 MCV (RBC) [Entitic vol] 70.4 fL 80-94 [facility] Work Phone: Hematocrit Auto (Bld) [Volum e fraction]on 04-30-2022 Hematocrit (Bld) [Volume fraction] 35.5 % 40-54 [facility] Work Phone: Ketones Test strip Ql (U)on 04-30-2022 Ketones Ql (U) Negative Negative [facility] Work Phone: Laboratory - Chemistry and C hemistry - challengeon 04-30-2022 ALP [Catalytic activity/Vol] 109 U/L 45-117 [facility] Work Phone: ALT [Catalytic activity/Vol] 70 U/L 16-61 [facility] Work Phone: CO2 [Moles/Vol] 26.0 mmol/L 21.0-32.0 [facility] Work Phone: Globulin (S) [Mass/Vol] 2.9 g/dL 2.2-4.2 [facility] Work Phone: Urea nitrogen/Creatinine [Mass ratio] 17.2 mg/mg 10-20 [facility] Work Phone: Laboratory - Hematology and Cell countson 04-30-2022 Erythrocyte distribution width (RBC) [Entitic vol] 38.5 fL 35.1-43.9 [facility] Work Phone: Erythrocyte distribution width (RBC) [Ratio] 15.6 % 11.6-14.6 [facility] Work Phone: Immature granulocytes/100 WBC (Bld) 1.100 % 0.0-0.9 [facility] Work Phone: Comment on above: IG% - Immature Granu locytes (promyelocytes, myelocytes and metamyelocytes) > 1% indicates that a LEFT SHIFT is Present. MCH (RBC) [Entitic mass] 22.2 pg 27.0-32.0 [facility] Work Phone: Nucleated RBC/100 WBC (Bld) [Ratio] 0 % 0-5 [facility] Work Phone: MCHC Auto (RBC) [Mass/Vol]on 04-30-2022 MCHC (RBC) [Mass/Vol] 31.5 g/dL 32-36 [facility] Work Phone: Mucus LM Ql (Urine sed)on Mucus Ql (Urine sed) 0 SEEN /hpf [facility] Work Phone: Nitrite Test strip Ql (U)on 04-30-2022 Nitrite Ql (U) Negative Negative [facility] Work Phone: No Panel Informationon 04-30 Estimated GFR (MDRD) Amer 103 mL/min >60 [facility] Work Phone: Comment on above: GFR Calc Estimated GFR (MDRD) Non-Af Amer 85 mL/min >60 [facility] Work Phone: Comment on above: Non- GFR Calc Platelets bldon 04-30-2022 Platelets (Bld) [#/Vol] 213 10*3/uL 150-450 [facility] Work Phone: Protein Test strip Ql (U)on 04-30-2022 Protein Ql (U) Negative Negative [facility] Work Phone: Serum or plasma albumin no urement (mass/volume)on 04-30-2022 Albumin [Mass/Vol] 3.3 g/dL 3.2-5.0 [facility] Work Phone: Serum or plasma albumin/glob ulin mass ratioon 04-30-2022 Albumin/Globulin [Mass ratio] 1.1 {ratio} 0.9-2.4 [facility] Work Phone: Serum or plasma calcium no urement (mass/volume)on 04-30-2022 Calcium [Mass/Vol] 8.8 mg/dL 8.5-10.1 [facility] Work Phone: Serum or plasma cholesterol in HDL measurement (mass/volume)on 04-30-2022 Cholesterol in HDL [Mass/Vol] 76 mg/dL >40 [facility] Work Phone: Comment on above: The drugs N-Acetylcy steine and Metamizole may falsely depress this assay. Reference Range HDL <40 mg/dL Low HDL Cholesterol HDL >or= 60 mg/dL High HDL Cholesterol Serum or plasma cholesterol in VLDL measurement (mass/volume)on 04-30-2022 Cholesterol in VLDL [Mass/Vol] 22 mg/dL 5-40 [facility] Work Phone: Serum or plasma creatinine m easurement (mass/volume)on 04-30-2022 Creatinine [Mass/Vol] 0.93 mg/dL 0.70-1.30 [facility] Work Phone: Comment on above: The validity of the calculated GFR & GFRAA in patients over 70 years has not been determined. Clinical correlation is essential. Serum or plasma low density lipoprotein (LDL) cholesterol measurement (mass/volume)on 04-30-2022 Cholesterol in LDL [Mass/Vol] 92 mg/dL 0-130 [facility] Work Phone: Serum or plasma urea nitroge n measurement (mass/volume)on 04-30-2022 Urea nitrogen [Mass/Vol] 16 mg/dL 7-18 [facility] Work Phone: Serum or plasma uric acid me asurement (mass/volume)on 04-30-2022 Urate [Mass/Vol] 5.8 mg/dL 3.5-7.2 [facility] Work Phone: Comment on above: The drugs N-Acetylcy steine and Metamizole may falsely depress this assay. Squamous epithelial cells de tection in urine sediment by light microscopyon 04-30-2022 Epithelial cells.squamous LM Ql (Urine sed) 0 SEEN /hpf 0-5 [facility] Work Phone: Thin prep Papanicolaou smear with manual screeningon 04-30-2022 Thin prep Papanicolaou smear with manual screening 27 U/L 15-37 [facility] Work Phone: Thin prep Papanicolaou smear with manual screening 6 5-15 [facility] Work Phone: Urine blood detectionon 04-09 RBC Ql (U) Negative Negative [facility] Work Phone: RBC Ql (U) 0 SEEN /hpf 0-5 [facility] Work Phone: Urine clarityon 04-30-2022 Clarity (U) Sl. Cloudy Clear [facility] Work Phone: Urine color determinationon 04-30-2022 Color (U) Yellow Yellow [facility] Work Phone: Urine glucose detectionon Glucose Ql (U) Normal mg/dl Normal [facility] Work Phone: Urine leukocyte esterase det ection by dipstickon 04-30-2022 Leukocyte esterase Test strip Ql (U) Negative Negative [facility] Work Phone: Urine pHon 04-30-2022 pH (U) 6.5 [pH] 5.0 - 8.0 [facility] Work Phone: Urine sediment bacteria coun t by microscopy (number/high power field)on 04-30-2022 Bacteria LM.HPF (Urine sed) [#/Area] 0 /[HPF] None Seen [facility] Work Phone: Urine specific gravity measu rementon 04-30-2022 Specific gravity (U) [Rel density] 1.010 1.002-1.03 0 [facility] Work Phone: Urobilinogen Auto test strip Ql (U)on 04-30-2022 Urobilinogen Ql (U) Normal mg/dl Normal [facility] Work Phone: Whole blood hemoglobin A1c/t otal hemoglobin ratio (mass fraction)on 04-30-2022 HbA1c (Bld) [Mass fraction] 5.8 % 3.8-5.6 [facility] Work Phone: Comment on above: Normal < 5.7 % Predi abetic 5.7 - 6.4 % Diabetic >or= 6.5 % Please note range changes. Laboratory - Drug toxicology on 03-27-2022 Amphetamines Ql (U) Negative <1000 ng/mL [facility] Work Phone: Benzodiazepines Ql (U) Negative < 200 ng/mL [facility] Work Phone: Cannabinoids Screen Ql (U) Negative < 50 ng/mL [facility] Work Phone: Cocaine Ql (U) Negative < 300 ng/mL [facility] Work Phone: Opiates Ql (U) Negative < 300 ng/mL [facility] Work Phone: No Panel Informationon 03-27 MDMA (Ecstasy) Screen Negative < 500 ng/mL [facility] Work Phone: Miscellaneous Test See comment [facility] Work Phone: Comment on above: [id number] 6+OXYCODONE-B UND (ng/mL) DRUG RESULT SCREEN CUTOFF____ Amphetamines,Urine Negative ng/mL 1000 Amphetamine test includes Amphetamine and Methamphetamine.Barbiturates Negative ng/mL 200Benzodiazepines Negative ng/mL 200Cannabinoid Negative ng/mL 20Cocaine (Metab) Negative ng/mL 300Opiates Negative ng/mL 300 Opiates test includes Codeine, Morphine, Hydromorphone, Hydrocodone. Oxycodone/Oxymorphone,Urine Positive ng/mL 300 Test includes Oxydodone and Oxymorphone. Oxycodone Positive Oxycodone Conf, [place], [place] 1292 mg/mL 300 Oxymorphone Negative 300 TESTING PERFORMED AT [facility]. ORIGINAL REPORT ON FILE IN LAB CONTAINS ADDITIONAL TEST SITE INFORMATION. Urine Barbiturates Screen Negative < 200 ng/mL [facility] Work Phone: Urine Drug Screen Comment [facility] Work Phone: Comment on above: CONFIRMATORY TESTING FOR ALL POSITIVE URINE DRUG SCREENRESULTS WILL ONLY BE SENT OUT UPON PHYSICIAN ORDER. VISTA Urine Drug Screen methods provide only preliminaryanalytical test results. A more specific alternate chemicalmethod must be used in order to obtain a confirmedanalytical result. Gas chromatography/mass spectrometery(GC/MS) is the preferred confirmatory method. Clinicalconsideration and professional judgement should be appliedto any drug of abuse test result, particularly whenpreliminary positive results are used. URINE TCA TESTING MUST BE ORDERED SEPARATELY. USE TESTMNEMONIC: [facility] Urine Methadone Screen Negative < 300 ng/mL [facility] Work Phone: Urine phencyclidine (PCP) de tectionon 03-27-2022 Phencyclidine Ql (U) Negative < 25 ng/mL [facility] Work Phone: Absolute lymphocyte counton 12-26-2021 Lymphocytes Auto (Unsp spec) [#/Vol] 1.10 10*3/uL 0.83-4.51 [facility] Work Phone: Basophil percentageon 2021 Basophils/100 WBC (Bld) 0.6 % 0-1 [facility] Work Phone: Bilirubin [Mass/Vol] 0.70 mg/dL 0.20-1.00 [facility] Work Phone: Comment on above: For patients on eltr ombopag therapy, use of Dimension [place] TBIL is not recommended. Chloride [Moles/Vol] 107 mmol/L 98-107 [facility] Work Phone: Cholesterol [Mass/Vol] 183 mg/dL <200 [facility] Work Phone: Comment on above: <200 mg/dL Desirable 200-240 mg/dL Borderline >240 mg/dL High Risk Eosinophils/100 WBC (Bld) 2.5 % 0-5 [facility] Work Phone: Glucose [Mass/Vol] 104 mg/dL 74-106 [facility] Work Phone: Comment on above: Fasting Glucose resu lt from 100 to 125 mg/dL suggests IMPAIRED HOMEOSTASIS per A.D.A. criteria. Neutrophils (Bld) [#/Vol] 4.7 10*3/uL 2.0-7.7 [facility] Work Phone: Neutrophils/100 WBC (Bld) 72.3 % 47-70 [facility] Work Phone: Potassium [Moles/Vol] 3.9 mmol/L 3.5-5.1 [facility] Work Phone: [phone] Protein [Mass/Vol] 6.9 g/dL 6.4-8.2 [facility] Work Phone: [phone] Sodium [Moles/Vol] 140 mmol/L 136-145 [facility] Work Phone: Triglyceride [Mass/Vol] 149 mg/dL <199 [facility] Work Phone: Comment on above: The drugs N-Acetylcy steine and Metamizole may falsely depress this assay.Serum Triglycerides Reference Interval Normal <150 mg/dL Borderline high 150 - 199 mg/dL High 200 - 499 mg/dL Very High > or = 500 mg/dL WBC (Bld) [#/Vol] 6.5 10*3/uL 4.4-11.0 [facility] Work Phone: Blood erythrocytes count (nu mber/volume)on 12-26-2021 RBC (Bld) [#/Vol] 5.35 10*6/uL 4.6-6.2 [facility]: Blood hemoglobin measurement (mass/volume)on 12-26-2021 Hemoglobin (Bld) [Mass/Vol] 11.9 g/dL 13.0-16.5 [facility] Work Phone: Blood lymphocytes/100 leukoc yteson 12-26-2021 Lymphocytes/100 WBC (Bld) 16.9 % 19-41 [facility] Work Phone: Blood monocytes/100 leukocyt eson 12-26-2021 Monocytes/100 WBC (Bld) 6.9 % 0-10 [facility] Work Phone: Blood platelet mean volumeon 12-26-2021 Platelet mean volume (Bld) [Entitic vol] 11.9 fL 6.2-12.0 [facility] Work Phone: Determination of erythrocyte mean corpuscular volume (MCV)on 12-26-2021 MCV (RBC) [Entitic vol] 68.6 fL 80-94 [facility] Work Phone: Hematocrit Auto (Bld) [Volum e fraction]on 12-26-2021 Hematocrit (Bld) [Volume fraction] 36.7 % 40-54 [facility] Work Phone: Laboratory - Chemistry and C hemistry - challengeon 12-26-2021 ALP [Catalytic activity/Vol] 108 U/L 45-117 [facility] Work Phone: ALT [Catalytic activity/Vol] 72 U/L 16-61 [facility] Work Phone: CO2 [Moles/Vol] 22.0 mmol/L 21.0-32.0 [facility] Work Phone: Globulin (S) [Mass/Vol] 3.0 g/dL 2.2-4.2 [facility] Work Phone: Urea nitrogen/Creatinine [Mass ratio] 13.4 mg/mg 10-20 [facility] Work Phone: Laboratory - Hematology and Cell countson 12-26-2021 Erythrocyte distribution width (RBC) [Entitic vol] 39.5 fL 35.1-43.9 [facility] Work Phone: Erythrocyte distribution width (RBC) [Ratio] 16.6 % 11.6-14.6 [facility] Work Phone: Immature granulocytes/100 WBC (Bld) 0.800 % 0.0-0.9 [facility] Work Phone: Comment on above: IG% - Immature Granu locytes (promyelocytes, myelocytes and metamyelocytes) > 1% indicates that a LEFT SHIFT is Present. MCH (RBC) [Entitic mass] 22.2 pg 27.0-32.0 [facility] Work Phone: Nucleated RBC/100 WBC (Bld) [Ratio] 0 % 0-5 [facility] Work Phone: MCHC Auto (RBC) [Mass/Vol]on 12-26-2021 MCHC (RBC) [Mass/Vol] 32.4 g/dL 32-36 [facility] Work Phone: No Panel Informationon 12-26 Estimated GFR (MDRD) Amer 99 mL/min >60 [facility] Work Phone: Comment on above: GFR Calc Estimated GFR (MDRD) Non-Af Amer 82 mL/min >60 [facility] Work Phone: Comment on above: Non- GFR Calc Platelets bldon 12-26-2021 Platelets (Bld) [#/Vol] 210 10*3/uL 150-450 [facility] Work Phone: Serum or plasma albumin no urement (mass/volume)on 12-26-2021 Albumin [Mass/Vol] 3.9 g/dL 3.2-5.0 [facility] Work Phone: Serum or plasma albumin/glob ulin mass ratioon 12-26-2021 Albumin/Globulin [Mass ratio] 1.3 {ratio} 0.9-2.4 [facility] Work Phone: Serum or plasma calcium no urement (mass/volume)on 12-26-2021 Calcium [Mass/Vol] 8.6 mg/dL 8.5-10.1 [facility] Work Phone: Serum or plasma cholesterol in HDL measurement (mass/volume)on 12-26-2021 Cholesterol in HDL [Mass/Vol] 62 mg/dL >40 [facility] Work Phone: Comment on above: The drugs N-Acetylcy steine and Metamizole may falsely depress this assay. Reference Range HDL <40 mg/dL Low HDL Cholesterol HDL >or= 60 mg/dL High HDL Cholesterol Serum or plasma cholesterol in VLDL measurement (mass/volume)on 12-26-2021 Cholesterol in VLDL [Mass/Vol] 30 mg/dL 5-40 [facility] Work Phone: Serum or plasma creatinine m easurement (mass/volume)on 12-26-2021 Creatinine [Mass/Vol] 0.97 mg/dL 0.70-1.30 [facility] Work Phone: Comment on above: The validity of the calculated GFR & GFRAA in patients over 70 years has not been determined. Clinical correlation is essential. Serum or plasma low density lipoprotein (LDL) cholesterol measurement (mass/volume)on 12-26-2021 Cholesterol in LDL [Mass/Vol] 91 mg/dL 0-130 [facility] Work Phone: Serum or plasma urea nitroge n measurement (mass/volume)on 12-26-2021 Urea nitrogen [Mass/Vol] 13 mg/dL 7-18 [facility] Work Phone: Serum or plasma uric acid me asurement (mass/volume)on 12-26-2021 Urate [Mass/Vol] 6.5 mg/dL 3.5-7.2 [facility] Work Phone: Comment on above: The drugs N-Acetylcy steine and Metamizole may falsely depress this assay. Thin prep Papanicolaou smear with manual screeningon 12-26-2021 Thin prep Papanicolaou smear with manual screening 43 U/L 15-37 [facility] Work Phone: Thin prep Papanicolaou smear with manual screening 11 5-15 [facility] Work Phone: Vital Signs Date Time Vital Sign Value Performing Clinician Shirai marimary 05-25-2025 10:41-0400 Body height [address] Donny Jung MD Work Phone: [facility] 05-25-2025 10:41-0400 Body mass index (BMI) [Ratio] 24.9 kg/m2 Dr. Donny Jung MD Work Phone: [facility] 05-25-2025 10:41-0400 Body weight 78.[address] Donny Jung MD Work Phone: [facility] 05-25-2025 10:41-0400 Diastolic blood pressure 94 mm[Hg] Dr. Donny Jung MD Work Phone: [facility] 05-25-2025 10:41-0400 Heart rate 60 /min Dr. Donny Jung MD Work Phone: [facility] 05-25-2025 10:41-0400 Respiratory rate 16 /min Dr. Donny Jung MD Work Phone: [facility] 05-25-2025 10:41-0400 Systolic blood pressure 163 mm[Hg] Dr. Dnony Jung MD Work Phone: [facility] 02-03-2025 09:23-0400 Body height [address] Donny Jung MD Work Phone: [facility] 02-03-2025 09:23-0400 Body mass index (BMI) [Ratio] 23.6 kg/m2 Dr. Donny Jung MD Work Phone: [facility] 02-03-2025 09:23-0400 Body weight 75.[address] Donny Jung MD Work Phone: [facility] 12-27-2024 10:26-0400 Body height [address] Donny Jung MD Work Phone: [facility] 12-27-2024 10:26-0400 Body mass index (BMI) [Ratio] 24.4 kg/m2 Dr. Donny Jung MD Work Phone: [facility] 12-27-2024 10:26-0400 Body temperature 96.6 [degF] Dr. Donny Jung MD Work Phone: 2(492)698-571460 [place] [address] 12-27-2024 10:26-0400 Body weight 77.[address] Donny Jung MD Work Phone: 3(454)370-637860 [place] [address] 12-27-2024 10:26-0400 Diastolic blood pressure 64 mm[Hg] Dr. Donny Jung MD Work Phone: 3(740)570-558264 [address] 12-27-2024 10:26-0400 Heart rate 59 /min Dr. Donny Jung MD Work Phone: 5(696)158-618060 [place] [address] 12-27-2024 10:26-0400 Respiratory rate 16 /min Dr. Donny Jung MD Work Phone: 2(628)949-676660 [place] [address] 12-27-2024 10:26-0400 SaO2% (BldA) [Mass fraction] 99 % Dr. Donny Jung MD Work Phone: [facility] 12-27-2024 10:26-0400 Systolic blood pressure 122 mm[Hg] Dr. Donny Jung MD Work Phone: [facility] 12-08-2024 08:21-0400 Body mass index (BMI) [Ratio] 25.1 kg/m2 Dr. Donny Jung MD Work Phone: [facility] 12-08-2024 08:21-0400 Body weight 79.[address] Donny Jung MD Work Phone: [facility] 12-08-2024 08:21-0400 Diastolic blood pressure 69 mm[Hg] Dr. Donny Jung MD Work Phone: 3(002)621-761360 [place] [address] 12-08-2024 08:21-0400 Heart rate 84 /min Dr. Donny Jung MD Work Phone: [facility] 12-08-2024 08:21-0400 Respiratory rate 18 /min Dr. Donny Jung MD Work Phone: [facility] 12-08-2024 08:21-0400 Systolic blood pressure 102 mm[Hg] Dr. Donny Jung MD Work Phone: [facility] 09-29-2023 10:56-0500 Body height 177.[address] Donny Jung Work Phone: [facility] 09-29-2023 10:56-0500 Body mass index (BMI) [Ratio] 23.5 kg/m2 Dr. Donny Jung Work Phone: [facility] 09-29-2023 10:56-0500 Body weight 74.[address] Donny Jung Work Phone: [facility] 09-29-2023 10:56-0500 Diastolic blood pressure 57 mm[Hg] Dr. Donny Jung Work Phone: [facility] 09-29-2023 10:56-0500 Heart rate 60 /min Dr. Donny Jung Work Phone: [facility] 09-29-2023 10:56-0500 Respiratory rate 16 /min Dr. Donny Jung Work Phone: [facility] 09-29-2023 10:56-0500 Systolic blood pressure 113 mm[Hg] Dr. Donny Jung Work Phone: [facility] 06-10-2023 08:19-0400 Body temperature 97.8 [degF] Dr. Donny Jung Work Phone: [facility] 06-10-2023 08:19-0400 Diastolic blood pressure 71 mm[Hg] Dr. Donny Jung Work Phone: [facility] 06-10-2023 08:19-0400 Heart rate 57 /min Dr. Donny Jung Work Phone: [facility] 06-10-2023 08:19-0400 Respiratory rate 18 /min Dr. Donny Jung Work Phone: [facility] 06-10-2023 08:19-0400 SaO2% (BldA) [Mass fraction] 97 % Dr. Donny Jung Work Phone: [facility] 06-10-2023 08:19-0400 Systolic blood pressure 120 mm[Hg] Dr. Donny Jung Work Phone: [facility] 06-10-2023 08:02-0400 Inhaled oxygen flow rate 3 L/min Dr. Donny Jung Work Phone: [facility] 06-10-2023 07:13-0400 Body height 177.[address] Donny Jung Work Phone: [facility] 06-10-2023 07:13-0400 Body mass index (BMI) [Ratio] 23.9 kg/m2 Dr. Donny Jung Work Phone: 4(983)444-031060 [place] [address] 06-10-2023 07:13-0400 Body weight 75.[address] Donny Jung Work Phone: [facility] 05-23-2023 13:08-0400 Body height 177.[address] Donny Jung Work Phone: [facility] 05-23-2023 13:08-0400 Body mass index (BMI) [Ratio] 24.1 kg/m2 Dr. Donny Jung Work Phone: [facility] 05-23-2023 13:08-0400 Body temperature 98.2 [degF] Dr. Donny Jung Work Phone: [facility] 05-23-2023 13:08-0400 Body weight 76.[address] Donny Jung Work Phone: [facility] 05-23-2023 13:08-0400 Diastolic blood pressure 71 mm[Hg] Dr. Donny Jung Work Phone: [facility] 05-23-2023 13:08-0400 Heart rate 78 /min Dr. Donny Jung Work Phone: [facility] 05-23-2023 13:08-0400 Respiratory rate 16 /min Dr. Donny Jung Work Phone: [facility] 05-23-2023 13:08-0400 SaO2% (BldA) [Mass fraction] 99 % Dr. Donny Jung Work Phone: [facility] 05-23-2023 13:08-0400 Systolic blood pressure 124 mm[Hg] Dr. Donny Jung Work Phone: [facility] 02-19-2023 14:36-0400 Body mass index (BMI) [Ratio] 23.3 kg/m2 Dr. Donny Jung Work Phone: [facility] 02-19-2023 14:36-0400 Body weight 73.[address] Donny Jung Work Phone: [facility] 02-19-2023 14:36-0400 Diastolic blood pressure 72 mm[Hg] Dr. Donny Jung Work Phone: [facility] 02-19-2023 14:36-0400 Heart rate 54 /min Dr. Donny Jung Work Phone: [facility] 02-19-2023 14:36-0400 Respiratory rate 16 /min Dr. Donny Jung Work Phone: [facility] 02-19-2023 14:36-0400 Systolic blood pressure 116 mm[Hg] Dr. Donny Jung Work Phone: [facility] 11-15-2022 10:28-0500 Body height 177.[address] Donny Jung Work Phone: [facility] 11-15-2022 10:28-0500 Body weight 73.[address] Donny Jung Work Phone: [facility] 11-06-2022 00:27-0500 Body weight 75.[address] Donny Jung Work Phone: [facility] 11-04-2022 14:36-0500 Body height 177.[address] Donny Jung Work Phone: [facility] 11-04-2022 14:36-0500 Body mass index (BMI) [Ratio] 23.3 kg/m2 Dr. Donny Jung Work Phone: [facility] 11-04-2022 14:36-0500 Body temperature 97 [degF] Dr. Donny Jung Work Phone: [facility] 11-04-2022 14:36-0500 Body weight 73.[address] Donny Jung Work Phone: [facility] 11-04-2022 14:36-0500 Diastolic blood pressure 78 mm[Hg] Dr. Donny Jung Work Phone: [facility] 11-04-2022 14:36-0500 Heart rate 64 /min Dr. Donny Jung Work Phone: [facility] 11-04-2022 14:36-0500 Respiratory rate 17 /min Dr. Donny Jung Work Phone: [facility] 11-04-2022 14:36-0500 SaO2% (BldA) [Mass fraction] 97 % Dr. Donny Jung Work Phone: [facility] 11-04-2022 14:36-0500 Systolic blood pressure 136 mm[Hg] Dr. Donny Jung Work Phone: [facility] 10-18-2022 10:42-0500 Body weight 75.[address] Donny Jung Work Phone: [facility] 09-18-2022 10:35-0500 Body height 177.[address] Donny Jung Work Phone: [facility] 09-18-2022 10:35-0500 Body weight 73.[address] Donny Jung Work Phone: [facility] 09-18-2022 10:19-0500 Body mass index (BMI) [Ratio] 23.1 kg/m2 Dr. Donny Jung Work Phone: [facility] 09-18-2022 10:19-0500 Heart rate 62 /min Dr. Donny Jung Work Phone: [facility] 09-18-2022 10:19-0500 SaO2% (BldA) [Mass fraction] 98 % Dr. Donny Jung Work Phone: [facility] 08-13-2022 09:52-0500 Body height 177.[address] Donny Jung Work Phone: [facility] Work Phone: 08-13-2022 09:52-0500 Body mass index (BMI) [Ratio] 23.1 kg/m2 Dr. Donny Jung Work Phone: [facility] 08-13-2022 09:52-0500 Body weight 73.[address] Donny Jung Work Phone: [facility] 08-13-2022 09:52-0500 Diastolic blood pressure 62 mm[Hg] Dr. Donny Jung Work Phone: [facility] 08-13-2022 09:52-0500 Heart rate 60 /min Dr. Donny Jung Work Phone: [facility] 08-13-2022 09:52-0500 Respiratory rate 16 /min Dr. Donny Jung Work Phone: [facility] 08-13-2022 09:52-0500 Systolic blood pressure 110 mm[Hg] Dr. Donny Jung Work Phone: [facility] 07-25-2022 11:00-0500 Heart rate 63 /min Dr. Donny Jung Work Phone: [facility] 07-25-2022 10:45-0500 Body temperature 97.9 [degF] Dr. Donny Jung Work Phone: [facility] 07-25-2022 10:45-0500 Diastolic blood pressure 69 mm[Hg] Dr. Donny Jung Work Phone: [facility] 07-25-2022 10:45-0500 Respiratory rate 18 /min Dr. Donny Jung Work Phone: [facility] 07-25-2022 10:45-0500 SaO2% (BldA) [Mass fraction] 97 % Dr. Donny Jung Work Phone: [facility] 07-25-2022 10:45-0500 Systolic blood pressure 132 mm[Hg] Dr. Donny Jung Work Phone: [facility] 07-25-2022 06:00-0500 Body weight 71.[address] Donny Jung Work Phone: [facility] 07-24-2022 07:52-0500 Body height 177.[address] Donny Jung Work Phone: [facility] Work Phone: 07-23-2022 07:08-0500 Body mass index (BMI) [Ratio] 22.6 kg/m2 Dr. Donny Jung Work Phone: [facility] 07-08-2022 13:31-0400 Diastolic blood pressure 82 mm[Hg] Dr. Donny Jung Work Phone: [facility] 07-08-2022 13:31-0400 Heart rate 68 /min Dr. Donny Jung Work Phone: [facility] 07-08-2022 13:31-0400 Respiratory rate 16 /min Dr. Donny Jung Work Phone: [facility] 07-08-2022 13:31-0400 SaO2% (BldA) [Mass fraction] 96 % Dr. Donny Jung Work Phone: [facility] 07-08-2022 13:31-0400 Systolic blood pressure 135 mm[Hg] Dr. Donny Jung Work Phone: [facility] 07-08-2022 12:53-0400 Body height 177.[address] Donny Jung Work Phone: [facility] Work Phone: 07-08-2022 12:53-0400 Body mass index (BMI) [Ratio] 22.2 kg/m2 Dr. Donny Jung Work Phone: [facility] 07-08-2022 12:53-0400 Body temperature 98.7 [degF] Dr. Donny Jung Work Phone: [facility] 07-08-2022 12:53-0400 Body weight 70.[address] Donny Jung Work Phone: [facility] 06-18-2022 11:16-0400 Body height 177.[address] Donny Jung Work Phone: [facility] Work Phone: 06-18-2022 11:16-0400 Body mass index (BMI) [Ratio] 22.6 kg/m2 Dr. Donny Jung Work Phone: [facility] 06-18-2022 11:16-0400 Body weight 71.[address] Donny Jung Work Phone: [facility] 06-18-2022 11:16-0400 Diastolic blood pressure 78 mm[Hg] Dr. Donny Jung Work Phone: [facility] 06-18-2022 11:16-0400 Heart rate 52 /min Dr. Donny Jung Work Phone: [facility] 06-18-2022 11:16-0400 Respiratory rate 16 /min Dr. Donny Jung Work Phone: [facility] 06-18-2022 11:16-0400 Systolic blood pressure 138 mm[Hg] Dr. Donny Jung Work Phone: [facility] Encounters Encounter Date Encounter Type Care Provider Facility Start: 06-02-2025 End: 06-02-[address] Donny Jung MD Work Phone: -[facility] Start: 06-02-2025 End: 06-02-2025 Patient encounter procedure Donny Ramirez TAXI DRIVER-C -[facility] Work Phone: Start: 06-02-2025 End: 06-02-2025 ambulatory Donny Ramirez TAXI DRIVER Facility:[facility] Start: 05-25-2025 End: 05-25-2025 Patient encounter procedure Donny Ramirez TAXI DRIVER-C -[facility] Work Phone: Start: 05-25-2025 End: 05-25-[address] Donny Jung MD Work Phone: -[facility] Start: 02-24-2025 Non-patient / Non-visit Dr. Ousmane bull MD -[facility] Start: 02-24-2025 End: 02-24-[address] Donny Jung MD Work Phone: [facility] Work Phone: Start: 02-24-2025 End: 02-24-[address] Donny Jung MD -Cardiovascular Services Work Phone: Start: 02-24-2025 End: 02-24-2025 ambulatory Donny Jung Facility:[facility] Start: 02-14-2025 End: 02-14-[address] Donny Jung MD Work Phone: [facility] Work Phone: Start: 02-14-2025 End: 02-14-[address] Donny Jung MD -[facility] Start: 02-14-2025 End: 02-14-2025 ambulatory Donny Jung Facility:[facility] Start: 02-09-2025 End: 02-09-[address] Donny Jung MD Work Phone: [facility] Work Phone: Start: 02-09-2025 End: 02-09-[address] Donny Jung MD -Laboratory [facility] Start: 02-09-2025 End: 02-09-2025 ambulatory Donny Jung Facility:[facility] Start: 02-03-2025 End: 02-03-[address] Maxi Cintron MD -[facility] Start: 02-03-2025 End: 02-03-[address] Donny Jung MD Work Phone: [facility] Work Phone: Start: 02-02-2025 End: 02-02-[address] Donny Jung MD Work Phone: [facility] Work Phone: Start: 02-02-2025 End: 02-02-[address] Lake Storm MD -Laboratory Work Phone: Start: 02-02-2025 End: 02-02-2025 ambulatory Donny Jung Facility:[facility] Start: 01-28-2025 End: 01-28-[address] Donny Jung MD Work Phone: [facility] Work Phone: Start: 01-28-2025 End: 01-28-[address] Donny Jung MD -Cat Scan [facility] Work Phone: Start: 01-28-2025 End: 01-28-2025 ambulatory Donny Jung Facility:[facility] Start: 01-07-2025 ambulatory MELITON RAMÍREZ Fac ility:[facility] Start: 01-07-2025 End: 01-07-2025 Subsequent hospital visit by physician [facility] (I-Stat/1.5t) Work Phone: Radiology Comment on above: Headache, unspecifie d [R51.9] Start: 12-31-2024 ambulatory Deepthi Reynaldo Facility:[facility] Start: 12-31-2024 Non-patient / Non-visit Dr. Deepthi lin MD -[facility] Start: 12-31-2024 End: 12-31-[address] Donny Jung MD Work Phone: [facility] Work Phone: Start: 12-31-2024 End: 12-31-[address] Deepthi Jacobs MD -Cardiovascular Services Work Phone: Start: 12-31-2024 End: 12-31-2024 ambulatory Deepthi Reynaldo Facility:[facility] Start: 12-27-2024 End: 12-27-2024 Emergency department patient visit Dr. Donny Jung MD Work Phone: -Emergency Department Work Phone: Start: 12-08-2024 End: 12-08-[address] Deepthi Jacobs MD -[facility] Work Phone: Start: 12-08-2024 End: 12-08-2024 ambulatory Deepthi Reynaldo Facility:[facility] Start: 12-06-2024 End: 12-06-[address] Donny Jung MD Work Phone: [facility] Work Phone: Start: 12-06-2024 End: 12-06-[address] Donny Jung MD -Radiology, [facility] Work Phone: Start: 12-06-2024 End: 12-06-2024 ambulatory Donny uJng Facility:[facility] Start: 11-25-2024 Non-patient / Non-visit Dr. Stephan monae DO -[facility] Start: 11-25-2024 End: 11-25-[address] Donny Jung MD Work Phone: [facility] Work Phone: Start: 11-25-2024 End: 11-25-[address] Donny Jung MD -Pulmonary Services/Neurology Work Phone: Start: 11-25-2024 End: 11-25-2024 ambulatory Donny Jung Facility:[facility] Start: 11-11-2024 End: 11-11-[address] Donny Jung MD Work Phone: [facility] Work Phone: Start: 11-11-2024 End: 11-11-2024 Patient encounter [facility] Start: 11-11-2024 End: 11-11-2024 ambulatory Sangeeta Blake NP Facility:[facility] Start: 11-08-2024 Non-patient / Non-visit Dr. Ousmane bull MD -[facility] Start: 11-08-2024 End: 11-08-2024 ambulatory Dr. Donny Jung MD Work Phone: [facility] Work Phone: Start: 11-08-2024 End: 11-08-[address] Donny Jung MD -Cardiovascular Services Work Phone: Start: 11-08-2024 End: 11-08-2024 ambulatory Donny Jung Facility:[facility] Start: 10-29-2024 End: 10-29-[address] Donny Jung MD Work Phone: [facility] Work Phone: Start: 10-29-2024 End: 10-29-[address] [facility] Start: 10-29-2024 End: 10-29-2024 ambulatory Donny Jung Facility:[facility] Start: 06-25-2024 ambulatory Deepthi Reynaldo Facility:[facility] Start: 06-25-2024 End: 06-25-2024 ambulatory Deepthi Reynaldo Facility:[facility] Start: 06-17-2024 End: 06-17-2024 ambulatory Deepthi Reynaldo Facility:[facility] Start: 12-25-2023 End: 12-25-[address] Donny Jung Work Phone: [facility] Work Phone: Start: 12-25-2023 End: 12-25-[address] Donny Jung Work Phone: [facility] Start: 10-02-2023 End: 10-02-[address] Donny Jung Work Phone: [facility] Start: 09-29-2023 End: 09-29-[address] Donny Jung Work Phone: [facility] Work Phone: Start: 09-17-2023 End: 09-17-[address] Donny Jung Work Phone: [facility] Work Phone: Start: 09-17-2023 End: 09-17-[address] Donny Jung Work Phone: [facility] Work Phone: Start: 07-23-2023 End: 07-23-[address] Donny Jung Work Phone: [facility] Work Phone: Start: 07-23-2023 End: 07-23-[address] Donny Jung Work Phone: [facility] Work Phone: Start: 07-03-2023 End: 07-03-[address] Donny Jung Work Phone: [facility] Work Phone: Start: 06-10-2023 Non-patient / Non-visit Dr. Zaria Jung Work Phone: [facility] Start: 06-10-2023 End: 06-10-2023 Admission to same day surgery center Dr. Donny Jung Work Phone: [facility]-Endoscopy Work Phone: Start: 05-23-2023 End: 05-23-[address] Donny Jung Work Phone: [facility] Work Phone: Start: 05-20-2023 End: 05-20-[address] Donny Jung Work Phone: [facility] Work Phone: Start: 05-20-2023 End: 05-20-[address] Donny Jung Work Phone: [facility] Work Phone: Start: 04-03-2023 End: 04-04-2023 ambulatory CAT RIGGINS Facility:[facility] Start: 04-03-2023 End: 04-03-2023 Patient encounter procedure CAT RIGGINS [facility] Start: 02-19-2023 End: 02-19-2023 Admission to same day surgery center Dr. Donny Jung Work Phone: [facility] Start: 02-19-2023 End: 02-19-[address] Donny Jung Work Phone: [facility] Work Phone: Start: 12-02-2022 End: 12-02-[address] Donny Jung Work Phone: [facility] Start: 11-29-2022 End: 12-06-[address] Donny Jung Work Phone: [facility] Work Phone: Start: 11-29-2022 End: 12-06-[address] Donny Jung Work Phone: [facility]-Cardiac Rehab Start: 11-20-[address] Donny Jung Work Phone: [facility] Start: 11-15-2022 End: 11-15-[address] Donny Jung Work Phone: [facility] Work Phone: Start: 11-15-2022 End: 11-15-[address] Donny Jung Work Phone: [facility]-Laboratory Start: 11-06-[address] Donny Jung Work Phone: [facility]Card[facility] Start: 11-04-2022 End: 11-04-[address] Donny Jung Work Phone: [facility] Start: 11-04-2022 End: 11-05-[address] Donny Jung Work Phone: [facility] Work Phone: Start: 11-04-2022 End: 11-05-[address] Donny Jung Work Phone: [facility]-Cardiac Rehab Start: 11-01-2022 Non-patient / Non-visit Dr. Zaria Jung Work Phone: [facility] Start: 11-01-[address] [facility] Start: 10-30-2022 End: 10-30-[address] Donny Jung Work Phone: [facility] Work Phone: Start: 10-30-2022 End: 10-30-[address] Donny Jung Work Phone: [facility] Start: 10-07-2022 End: 10-08-[address] Donny Jung Work Phone: [facility] Work Phone: Start: 10-07-2022 End: 10-08-[address] Donny Jung Work Phone: [facility]Cardiac [facility] Start: 09-30-[address] Donny Jung Work Phone: [facility] Start: 09-23-[address] Donny Jung Work Phone: [facility] Start: 09-18-2022 End: 09-18-[address] Donny Jung Work Phone: [facility] Work Phone: Start: 09-18-2022 End: 09-18-[address] Donny Jung Work Phone: [facility]Card[facility] Start: 09-10-2022 End: 09-10-[address] Donny Jung Work Phone: [facility] Work Phone: Start: 09-10-2022 End: 09-10-[address] Donny Jung Work Phone: [facility] Start: 08-29-2022 End: 08-29-[address] Donny Jung Work Phone: [facility] Work Phone: Start: 08-29-2022 End: 08-29-[address] Donny Jung Work Phone: [facility] Start: 08-13-2022 End: 08-13-[address] Donny Jung Work Phone: [facility] Work Phone: Start: 08-13-2022 End: 08-13-[address] Donny Jung Work Phone: [facility] Start: 07-26-2022 Non-patient / Non-visit [facility]. Zaria Jung Work Phone: [facility] Start: 07-25-2022 Non-patient / Non-visit Dr. Zaria Jung Work Phone: [facility] Start: 07-24-2022 End: 07-25-2022 Evaluation and management of inpatient Dr. Donny Jung Work Phone: [facility]-Progressive Care Unit Start: 07-24-2022 End: 07-25-[address] Donny Jung Work Phone: [facility] Work Phone: Start: 07-19-2022 Non-patient / Non-visit Dr. Zaria Jung Work Phone: [facility] Start: 07-11-2022 Non-patient / Non-visit Dr. Zaria Jung Work Phone: [facility] Start: 07-11-2022 End: 07-11-[address] Donny Jung Work Phone: [facility] Work Phone: Start: 07-11-2022 End: 07-11-[address] Donny Jung Work Phone: [facility]-Cardiovascular Services Start: 07-10-2022 Non-patient / Non-visit Dr. Zaria Jung Work Phone: [facility] Start: 07-08-2022 Non-patient / Non-visit Dr. Zaria Jung Work Phone: [facility] Start: 07-08-2022 End: 07-08-[address] Donny Jung Work Phone: [facility] Work Phone: Start: 07-08-2022 End: 07-08-[address] Donny Jung Work Phone: [facility] Start: 06-18-2022 End: 06-18-[address] Donny Jung Work Phone: [facility] Work Phone: Start: 06-18-2022 End: 06-18-[address] Donny Jung Work Phone: [facility]-Laboratory Start: 06-18-2022 End: 06-18-[address] Donny Jung Work Phone: [facility] Start: 06-12-2022 Non-patient / Non-visit Dr. Zaria Jung Work Phone: [facility] Start: 06-07-2022 Non-patient / Non-visit Dr. Zaria Jung Work Phone: [facility] Start: 06-07-2022 End: 06-07-[address] Donny Jung Work Phone: [facility] Work Phone: Start: 06-07-2022 End: 06-07-[address] Donny Jung Work Phone: [facility]-Cardiovascular Services Start: 04-30-2022 End: 04-30-2022 ambulatory [facility] Work Phone: Start: 04-30-2022 End: 04-30-2022 Patient encounter procedure [facility] Start: 03-27-2022 End: 03-27-2022 Patient encounter procedure [facility] Start: 12-26-2021 End: 12-26-2021 Patient encounter procedure [facility] Procedures Date Procedure Procedure Detail Performing Clinician Start: 02-03-2025 X-ray of cervical spine Dr. Donny Jung MD Work Phone: Start: 01-28-2025 CT of thorax with contrast Dr. Donny Jung MD Work Phone: Start: 01-07-2025 Mri brain brain stem w/o w/contrast material [facility] Provider Start: 12-31-2024 Cardiovascular stres s test using pharmacologic stress agent Dr. Donny Jung MD Work Phone: Start: 12-06-[address] Donny Jung MD Work Phone: Start: 11-25-2024 Radionuclide gastric emptying study Dr. Donny Jung MD Work Phone: Start: 11-11-2024 X-ray of chest, PA a nd lateral views Dr. Donny Jung MD Work Phone: Start: 10-29-2024 Measurement of renal function Dr. Donny Jung MD Work Phone: Comment on above: GFR Calc Start: 10-29-[address] Donny Jung MD Work Phone: Start: 10-29-2024 Urine microalbumin/creatinine ratio measurement Dr. Donny Jung MD Work Phone: Comment on above: Test not performed Start: 05-20-2023 Plain chest X-ray Dr. Violetta Jung Work Phone: Start: 08-29-2022 Plain chest X-ray Dr. Violetta Jung Work Phone: Start: 07-24-2022 History of placement of stent for coronary artery disease History of coronary artery stent placement Donny FISHMAN Comment on above: PTCA/JUMA Prox LAD Or sirio 3.0x13mm, JUMA Mid LAD Orsirio 3.0x18mm, JUMA distal LCX Orsirio 3.0x15mm 07/24/22 Start: 07-11-2022 Plain chest X-ray Dr. Violetta Jung Work Phone: Start: 07-09-2022 History of placement of stent for coronary artery disease History of coronary artery stent placement Dr. Donny Jung Work Phone: Start: 07-08-2022 CT angiography of co ronary arteries Dr. Donny Jung Work Phone: Start: 06-07-2022 Radionuclide imaging of perfusion of myocardium under exercise stress Dr. Donny Jung Work Phone: History of cataract extraction S/P cataract surgery Plan of Treatment Date Care Activity Detail Author Start: 12-19-2026 Urine microalbumin profile DTaP,Tdap,Td Vaccine (2 - Td or Tdap) [facility] Start: 05-25-2025 Hepatic function panel [facility] Start: 02-03-2025 X-ray of cervical spine Cerv Spine 4 or 5 Views [facility] Start: 02-03-2025 XR Cervical spine 4 or 5 Views [facility] Start: 12-27-2024 End: 12-27-2024 [facility] Start: 11-29-2024 Covid-19 Vaccine ( season) Covid-19 Vaccine () [facility] Start: 11-25-2024 Radionuclide gastric emptying study Gastric Emptying Study [facility] Start: 09-08-2024 Advance Directive Discussion Advance Directive Discussion [facility] Start: 06-10-2023 Egd transoral biopsy single/multiple EGD BIOPSY SINGLE/MULTIPLE [facility] Start: 06-10-2023 Patient discharge [facility] Start: 07-26-2022 Patient referral [facility] Work Phone: Start: 07-25-2022 Patient discharge [facility] Start: 07-24-2022 Following clinical pathway protocol [facility] Start: 07-24-2022 Admission procedure [facility] Start: 07-24-2022 Ambulation without limitation [facility] Start: 07-24-2022 Pulse taking [facility] Start: 07-24-2022 Cardiac monitoring [facility] Start: 07-24-2022 Cardiac rehabilitation - phase 1 [facility] Start: 07-24-2022 Cardiac rehabilitation - phase 2 [facility] Start: 07-24-2022 Notification of physician [facility] Start: 07-24-2022 Oxygen therapy [facility] Start: 07-24-2022 Patient discharge [facility] Start: 07-24-2022 Provision of activity privileges [facility] Start: 07-24-2022 Taking patient vital signs [facility] Start: 07-24-2022 Vascular disease risk assessment [facility] Start: 07-24-2022 Vital signs measurements [facility] Start: 07-24-2022 End: 07-24-2022 [facility] Start: 03-27-2022 Procedure [facility] Work Phone: Start: 1998 Diabetes Screening Diabetes Screening [facility] Start: 1998 Screening for malignant neoplasm of colon [facility] Start: 1988 Lipid panel Lipid Screening [facility] Start: 1971 Hepatitis C screening Hepatitis C Screening [facility] Alanine aminotransfe rase [Enzymatic activity/volume] in Serum or Plasma [facility] Work Phone: Alanine aminotransfe rase [Enzymatic activity/volume] in Serum or Plasma [facility] Alanine aminotransfe rase [Enzymatic activity/volume] in Serum or Plasma [facility] Angiotensin converti ng enzyme [Enzymatic activity/volume] in Serum or Plasma [facility] Aspartate aminotrans ferase [Enzymatic activity/volume] in Serum or Plasma [facility] Work Phone: Aspartate aminotrans ferase [Enzymatic activity/volume] in Serum or Plasma [facility] Aspartate aminotrans ferase [Enzymatic activity/volume] in Serum or Plasma [facility] Complete blood count [facility] Creatine kinase [Enz ymatic activity/volume] in Serum or Plasma [facility] Work Phone: Creatine kinase [Enz ymatic activity/volume] in Serum or Plasma [facility] Creatine kinase [Enz ymatic activity/volume] in Serum or Plasma [facility] CTA Heart and Morris ry arteries W contrast IV [facility] Work Phone: Lipid 1995 panel - S michael or Plasma [facility] Work Phone: Lipid 1995 panel - S michael or Plasma [facility] Lipid 1995 panel - S michael or Plasma [facility] Lipid 1995 panel - S michael or Plasma [facility] NM Heart Views W str ess and W radionuclide IV [facility] Patient Education ED Chronic Eileen n ED Neck Pain [facility] Work Phone: Patient referral [facility] Work Phone: Procedure [facility] Work Phone: [facility] Work Phone: [facility] Immunizations Immunization Date Immunization Notes Care Provider [facility] 07-01-2022 Influenza, high dose seasonal Dr. Donny Jung MD Work Phone: [facility] 07-01-2022 influenza, high dose seasonal, preservative-free Dr. Donny Jung Work Phone: [facility] 08-22-2021 Covid (Moderna) Dr. Donny chavez Work Phone: [facility] 11-16-2020 Covid ([employer] Jan[employer]) Dr. Donny Jung Work Phone: [facility] Payers Date Payer Category Payer Medicare (Managed Care) MMO VERO DVANTAGE HMO [id number] 2024 [facility] [id number] 2015 Medicare [id number] 1955 Unknown [id number] [id number] .2.627 Unknown [id number] 2.16.840.1.975111.3.579 .2.462 Unknown [id number] 2.16.840.1.546280.3.579 .2.462 Unknown [id number] 2.16.840.1.397411.3.579 .2.462 Unknown [id number] 2.16.840.1.206953.3.579 .2.462 Unknown [id number] 2.16.840.1.668297.3.579 .2.462 Unknown [id number] 2.16.840.1.028193.3.579 .2.462 Unknown [id number] 2.16.840.1.248047.3.579 .2.462 Unknown [id number] 2.16.840.1.492661.3.579 .2.462 Unknown [id number] 2.16.840.1.553325.3.579 .2.462 Unknown [id number] 2.16.840.1.642286.3.579 .2.462 Unknown [id number] 2.16.840.1.472975.3.579 .2.462 Unknown [id number] 2.16.840.1.683380.3.579 .2.462 Unknown [id number] 2.16.840.1.047395.3.579 .2.462 Unknown [id number] 2.16.840.1.444140.3.579 .2.462 Unknown [id number] 2.16.840.1.800608.3.579 .2.462 Unknown [id number] 2.16.840.1.929172.3.579 .2.462 Unknown [id number] 2.16.840.1.692610.3.579 .2.462 Unknown [id number] 2.16.840.1.376146.3.579 .2.462 Unknown [id number] 2.16.840.1.958251.3.579 .2.462 Unknown [id number] 2.16.840.1.547456.3.579 .2.462 Unknown [id number] 2.16.840.1.763748.3.579 .2.462 Unknown [id number] 2.16.840.1.567554.3.579 .2.462 Unknown [id number] 2.16.840.1.612903.3.579 .2.462 Unknown [id number] 2.16840.1.475856.3.579 .2.462 Unknown [id number] 2.16.840.1.206944.3.579 .2.462 Social History Date Type Detail Facility Start: 05-01-2021 End: 06-09-2023 Tobacco smoking status MIIS Unknown if ever smoked [facility] Start: 10-21-2020 None [facility] Start: 10-21-2020 Spouse/ Signif icant Other [facility] Start: 10-21-2020 Chew [facility] Start: 1955 Sex Assigned At Male [facility] Start: 09-29-2023 End: 05-25-2025 Tobacco smoking status NHIS Never smoked tobacco (finding) [facility] Start: 11-11-2024 End: 01-05-2025 Sex Male (finding) [facility] Start: 12-27-2024 Tobacco smoking stat us MIIS Ex-smoker (finding) [facility] Start: 05-13-2013 Tobacco use and exposure User of smokeless tobacco [facility] History of tobacco use Snuff User [facility] Start: 06-03-2013 Alcoholic beverage intake Current drinker of alcohol (finding) [facility] Start: 1955 Sex assigned at Not on file [facility] Gender identity Not on file [facility] Medical Equipment Procedure Code Equipment Code Equipment Original Text Equipment Identifier Dates Joshua fundoplication PLEDGET,SO FT 8x8x1.6mm FDA Start: 05-01-2021 Joshua fundoplication PLEDGET,SO FT 8x8x1.6mm FDA Start: 05-01-2021 Joshua fundoplication Ligation c lip, synthetic polymer, non-bioabsorbable ()[id number] FDA Start: 05-01-2021 Joshua fundoplication PLEDGET,SO FT 8x8x1.6mm FDA Start: 05-01-2021 Joshua fundoplication PLEDGET,SO FT 8x8x1.6mm FDA Start: 05-01-2021 Joshua fundoplication PLEDGET,SO FT 8x8x1.6mm FDA Start: 05-01-2021 Joshua fundoplication PLEDGET,SO FT 8x8x1.6mm FDA Start: 05-01-2021 Joshua fundoplication PLEDGET,SO FT 8x8x1.6mm FDA Start: 05-01-2021 Joshua fundoplication PLEDGET,SO FT 8x8x1.6mm FDA Start: 05-01-2021 Joshua fundoplication PLEDGET,SO FT 8x8x1.6mm FDA Start: 05-01-2021 Joshua fundoplication PLEDGET,SO FT 8x8x1.6mm FDA Start: 05-01-2021 Joshua fundoplication PLEDGET,SO FT 8x8x1.6mm FDA Start: 05-01-2021 Joshua fundoplication PLEDGET,SO FT 8x8x1.6mm FDA Start: 05-01-2021 Joshua fundoplication PLEDGET,SO FT 8x8x1.6mm FDA Start: 05-01-2021 Joshua fundoplication PLEDGET,SO FT 8x8x1.6mm FDA Start: 05-01-2021 Joshua fundoplication PLEDGET,SO FT 8x8x1.6mm FDA Start: 05-01-2021 Joshua fundoplication PLEDGET,SO FT 8x8x1.6mm FDA Start: 05-01-2021 Joshua fundoplication PLEDGET,SO FT 8x8x1.6mm FDA Start: 05-01-2021 Joshua fundoplication PLEDGET,SO FT 8x8x1.6mm FDA Start: 05-01-2021 Joshua fundoplication PLEDGET,SO FT 8x8x1.6mm FDA Start: 05-01-2021 Joshua fundoplication PLEDGET,SO FT 8x8x1.6mm FDA Start: 05-01-2021 Joshua fundoplication PLEDGET,SO FT 8x8x1.6mm FDA Start: 05-01-2021 Joshua fundoplication PLEDGET,SO FT 8x8x1.6mm FDA Start: 05-01-2021 Joshua fundoplication PLEDGET,SO FT 8x8x1.6mm FDA Start: 05-01-2021 Joshua fundoplication PLEDGET,SO FT 8x8x1.6mm FDA Start: 05-01-2021 Joshua fundoplication PLEDGET,SO FT 8x8x1.6mm FDA Start: 05-01-2021 Joshua fundoplication PLEDGET,SO FT 8x8x1.6mm FDA Start: 05-01-2021 Joshua fundoplication PLEDGET,SO FT 8x8x1.6mm FDA Start: 05-01-2021 Joshua fundoplication PLEDGET,SO FT 8x8x1.6mm FDA Start: 05-01-2021 Joshua fundoplication PLEDGET,SO FT 8x8x1.6mm FDA Start: 05-01-2021 Joshua fundoplication PLEDGET,SO FT 8x8x1.6mm FDA Start: 05-01-2021 Joshua fundoplication PLEDGET,SO FT 8x8x1.6mm FDA Start: 05-01-2021 Joshua fundoplication PLEDGET,SO FT 8x8x1.6mm FDA Start: 05-01-2021 Joshua fundoplication PLEDGET,SO FT 8x8x1.6mm FDA Start: 05-01-2021 Joshua fundoplication PLEDGET,SO FT 8x8x1.6mm FDA Start: 05-01-2021 Joshua fundoplication PLEDGET,SO FT 8x8x1.6mm FDA Start: 05-01-2021 Joshua fundoplication PLEDGET,SO FT 8x8x1.6mm FDA Start: 05-01-2021 Joshua fundoplication PLEDGET,SO FT 8x8x1.6mm FDA Start: 05-01-2021 Joshua fundoplication PLEDGET,SO FT 8x8x1.6mm FDA Start: 05-01-2021 Joshua fundoplication PLEDGET,SO FT 8x8x1.6mm FDA Start: 05-01-2021 Joshua fundoplication PLEDGET,SO FT 8x8x1.6mm FDA Start: 05-01-2021 Joshua fundoplication PLEDGET,SO FT 8x8x1.6mm FDA Start: 05-01-2021 Joshua fundoplication PLEDGET,SO FT 8x8x1.6mm FDA Start: 05-01-2021 Joshua fundoplication PLEDGET,SO FT 8x8x1.6mm FDA Start: 05-01-2021 Joshua fundoplication PLEDGET,SO FT 8x8x1.6mm FDA Start: 05-01-2021 Joshua fundoplication PLEDGET,SO FT 8x8x1.6mm FDA Start: 05-01-2021 Joshua fundoplication PLEDGET,SO FT 8x8x1.6mm FDA Start: 05-01-2021 Joshua fundoplication PLEDGET,SO FT 8x8x1.6mm FDA Start: 05-01-2021 Joshua fundoplication PLEDGET,SO FT 8x8x1.6mm FDA Start: 05-01-2021 Joshua fundoplication PLEDGET,SO FT 8x8x1.6mm FDA Start: 05-01-2021 Joshua fundoplication PLEDGET,SO FT 8x8x1.6mm FDA Start: 05-01-2021 Joshua fundoplication PLEDGET,SO FT 8x8x1.6mm FDA Start: 05-01-2021 Joshua fundoplication PLEDGET,SO FT 8x8x1.6mm FDA Start: 05-01-2021 Joshua fundoplication PLEDGET,SO FT 8x8x1.6mm FDA Start: 05-01-2021 Joshua fundoplication PLEDGET,SO FT 8x8x1.6mm FDA Start: 05-01-2021 Joshua fundoplication PLEDGET,SO FT 8x8x1.6mm FDA Start: 05-01-2021 Joshua fundoplication PLEDGET,SO FT 8x8x1.6mm FDA Start: 05-01-2021 Joshua fundoplication PLEDGET,SO FT 8x8x1.6mm FDA Start: 05-01-2021 Joshua fundoplication PLEDGET,SO FT 8x8x1.6mm FDA Start: 05-01-2021 Joshua fundoplication PLEDGET,SO FT 8x8x1.6mm FDA Start: 05-01-2021 Joshua fundoplication PLEDGET,SO FT 8x8x1.6mm FDA Start: 05-01-2021 Joshua fundoplication PLEDGET,SO FT 8x8x1.6mm FDA Start: 05-01-2021 Joshua fundoplication PLEDGET,SO FT 8x8x1.6mm FDA Start: 05-01-2021 Joshua fundoplication PLEDGET,SO FT 8x8x1.6mm FDA Start: 05-01-2021 Joshua fundoplication PLEDGET,SO FT 8x8x1.6mm FDA Start: 05-01-2021 Joshua fundoplication PLEDGET,SO FT 8x8x1.6mm FDA Start: 05-01-2021 Joshua fundoplication PLEDGET,SO FT 8x8x1.6mm FDA Start: 05-01-2021 Joshua fundoplication PLEDGET,SO FT 8x8x1.6mm FDA Start: 05-01-2021 Joshua fundoplication PLEDGET,SO FT 8x8x1.6mm FDA Start: 05-01-2021 Joshua fundoplication PLEDGET,SO FT 8x8x1.6mm FDA Start: 05-01-2021 Joshua fundoplication PLEDGET,SO FT 8x8x1.6mm FDA Start: 05-01-2021 Joshua fundoplication PLEDGET,SO FT 8x8x1.6mm FDA Start: 05-01-2021 Joshua fundoplication PLEDGET,SO FT 8x8x1.6mm FDA Start: 05-01-2021 Joshua fundoplication PLEDGET,SO FT 8x8x1.6mm FDA Start: 05-01-2021 Joshua fundoplication PLEDGET,SO FT 8x8x1.6mm FDA Start: 05-01-2021 ([id number]) Drug-eluting coronary artery stent, bioabsorbable-isaac ymer-coated ()[id number] FDA Start: 07-24-2022 ([id number]) Drug-eluting coronary artery stent, bioabsorbable-isaac ymer-coated ()[id number] FDA Start: 07-24-2022 ([id number]) Drug-eluting coronary artery stent, bioabsorbable-isaac ymer-coated ()[id number] FDA Start: 07-24-2022 Goals Date Patient Goal Desired Activity /State Functional Status Date Assessment Result Facility 07-25-2022 Functional status Up ad desean [facility] Work Phone: Mental Status Date Assessment Result Facility 12-27-2024 Cognitive function Level Of Cons ciousness Awake;Alert;Appropriate;Follow s Commands [facility] Work Phone: 06-10-2023 Cognitive function Sedated [facility] Work Phone: 07-25-2022 Cognitive function Voice/Name [facility] Work Phone: 07-08-2022 Cognitive function Voice/Name [facility] Work Phone: Clinical Notes 07-24-2022 to 02-03-2025 Note Date & Type Note Facility 02-03-2025 Evaluation note Diagnosis Onset Date Resolution Cervical myelopathy acute January 072024 9:22am Spondylolisthesis of cervical region acute February 03, 2025 9:22am History of coronary artery stent placement July 24, 2022 acute May 25, 2025 10:30am Essential (primary) hypertension chronic May 25, 2025 10:30am Grade II diastolic dysfunction chronic May 25, 2025 10:30am Hyperlipidemia chronic May 25, 2025 10:30am [facility] Work Phone: 1(975) 842-853505-25-2025 Radiology Diagnostic study note [facility] [address] [place] [address] Chest WITH Contrast MR#: [id number] Acct: [id number] Name: LAKE JACK[place] Rep #: [id number] 9 : 1955 M 69 From: Melany Marino MD PCP: Dr. Donny Jung MD Status: RE G CLI Study:Chest WITH Contrast Date of Exam: 01/28/25 Exam# [id number] Ordering Dr: Donny Jung MD PROCEDURE: CHEST WITH CONTRAST 01/28/2025 REASON FOR EXAM: SOB ON EXERTION, EVALUATE FOR INTERSTIAL LUNG DISEASE/FIBROSIS TECHNIQUE: Prone and supine chest CT with intravenous contrast, high resolution CT (HRCT) protocol. Coronal and Sagittal reconstruction series were provided. CONTRAST: VOLUME: 100 mL Isovue-350 gauge IV One or more dose reduction techniques were used (e.g., Automated exposure control, adjustment of the mA and/or kV according to patient size, use of iterative reconstruction technique). RADIATION DOSE SUMMARY: CTDlvol: 14.4 mGy DLP: 572 mGycm COMPARISON: Chest radiograph on 12/06/2024. FINDINGS: Calcified mediastinal and hilar lymph nodes are noted with the largest measuring1.3 cm. Minimal bilateral basilar atelectatic pulmonary changes. Small sliding hiatal hernia. Mild diffuse spondylosis. Normal thoracic aorta and visualized great vessels. There is no demonstrated aortic dissection. Normal heart and pericardium. Normal visualized trachea and bronchi. The remaining lungs are well expanded. Normal remaining pulmonary parenchyma. Normal pleura. Normal visualized upper abdomen. CT/Chest WITH Contrast IMPRESSION: Coronary artery calcification (CAC) is is present Calcified mediastinal and hilar lymph nodes are noted with the largest measuring1.3 cm. Minimal bilateral basilar atelectatic pulmonary changes. Small sliding hiatal hernia. Mild diffuse spondylosis. Reading Location: [place] [address] CC: Dr. Donny Jung MD ~ Bladder Changer: Signed [facility]05-02-2025 History of Present illness Narrative* Florinda Garcia RT(R) - 01/07/2025 7:30 AM EDT Radiology Service Progress Note DATE OF SERVICE: January 07, 2025 TIME: 7:49 AM PATIENT IDENTITY VERIFICATION COMPLETED USING TWO (2) STANDARD IDENTIFIERS: Name and Date of confirmed by patient verbally. FALL SCREENING: Has the patient had 2 falls in the last year or 1 fall with injury or currently using an Ambulatory Assistive Device (Walker, Cane, Wheelchair, Crutches, etc.)? No PATIENT GENDER DATA: Assigned male at PATIENT RELEVANT IMPLANT DATA REVIEWED: Yes PATIENT PRESENTS WITH AN IMPLANTABLE OR ATTACHED CABINET ABRASIVE SANDBLASTER: No ALLERGIES: Reviewed and unchanged CONTRAST ALLERGY: NO. EXAM: MRI - CONTRAST TYPE: GROUP II PERIPHERAL IV DATA: Ambulatory: A peripheral IV was started in the Right antecubital site with a Angio cath: 22 gauge. RADIOLOGY DEPARTMENT: MR; Exam(s) Completed: Head: Routine Brain Spine: Cervical spine. Lavender Administered: No SIGNATURE: KASSANDRA Painting) PATIENT NAME: [place] DATE: January 07, 2025 TIME: 7:49 AM [facility] NoteHNO ID: [id number] Author: FLORINDA GARCIA RT(R) Service: ? Author Type: Technologist Type: Progress Notes Filed: 01/07/2025 07:50 Note Text: Radiology Service Progress Note DATE OF SERVICE: January 07, 2025 TIME: 7:49 AM PATIENT IDENTITY VERIFICATION COMPLETED USING TWO (2) STANDARD IDENTIFIERS: Name and Date of confirmed by patient verbally. FALL SCREENING: Has the patient had 2 falls in the last year or 1 fall with injury or currently using an Ambulatory Assistive Device (Walker, Cane, Wheelchair, Crutches, etc.)? No PATIENT GENDER DATA: Assigned male at PATIENT RELEVANT IMPLANT DATA REVIEWED: Yes PATIENT PRESENTS WITH AN IMPLANTABLE OR ATTACHED CABINET ABRASIVE SANDBLASTER: No ALLERGIES: Reviewed and unchanged CONTRAST ALLERGY: NO. EXAM: MRI - CONTRAST TYPE: GROUP II PERIPHERAL IV DATA: Ambulatory: A peripheral IV was started in the Right antecubital site with a Angio cath: 22 gauge. RADIOLOGY DEPARTMENT: MR; Exam(s) Completed: Head: Routine Brain Spine: Cervical spine. Lavender Administered: No SIGNATURE: RT Mert(R) PATIENT NAME: [place] DATE: January 07, 2025 TIME: 7:49 [facility]04-02-2025 Evaluation note* Diagnosis Onset Date Resolution Status Admit Date CAD (coronary artery disease) chroni c December 08, 2024 9:33am Essential (primary) hypertension chr onic December 08, 2024 9:33am Grade II diastolic dysfunction chron ic December 08, 2024 9:33am Hyperlipidemia chronic December 08, 2024 9:33am [facility] Work Phone: 1(414) 623-978104-02-2025 Evaluation note* Diagnosis Onset Date Resolution Status Admit Date CAD (coronary artery disease) chroni c December 08, 2024 9:33am Essential (primary) hypertension chr onic December 08, 2024 9:33am Grade II diastolic dysfunction chron ic December 08, 2024 9:33am Hyperlipidemia chronic December 08, 2024 9:33am Cervical myelopathy acute January 072024 9:22am Spondylolisthesis of cervica l region acute February 03, 2025 9 :22am [facility] Work Phone: 1(930) 324-884403-31-2025 Radiology Diagnostic study note [facility] [address] [place], [place] [address] Chest Sniff Test Fluoro Only MR#: [id number] Acct: [id number] Name: LA[place] JACK[place] Rep #: [id number] : 1955 M 69 From: Mike Zaragoza MD PCP: Dr. Donny Jung MD Status: RE G CLI Study:Chest Sniff Test Fluoro Only Date of Ex am: 12/06/24 Exam# [id number] Ordering Dr: Donny Jung MD EXAM: Fluoroscopic visualization of the breathing movements of the diaphragm. CLINICAL HISTORY: Shortness of breath. COMPARISON: Comparison is made with prior chest radiograph dated November 11, 2024. TECHNIQUE: Inspiratory and expiratory fluoroscopic imaging of the chest was obtained. FINDINGS: Mild elevation of the right hemidiaphragm. There is normal movement of the right and left hemidiaphragms. No evidence of diaphragmatic paralysis. Degenerative changes of the visualized thoracic vertebrae. RAD/Chest Sniff Test Fluoro Only IMPRESSION: Normal movement of the right and left hemidiaphragms during the inspiration expiration maneuvers. Reading Location: [place] [address] CC: Dr. Donny Jung MD ~ Bladder Changer: Signed [facility]03-20-2025 Nuclear medicine Diagnostic study note [facility] [address] [place] [id number] Gastric Emptying Study MR#: [id number] Acct: [id number] Name: LA[place] JACK[place] Rep #: [id number] : 1955 M 69 From: Nick Dubose MD PCP: Dr. Donny Jung MD Status: RE G CLI Study:Gastric Emptying Study Date of Exam: 11/25/24 Exam# [id number] Ordering Dr: Donny Jung MD EXAM: Nuclear Gastric Emptying CLINICAL HISTORY: Early satiety. Evaluate gastric emptying. COMPARISON: No prior similar studies are available for comparison. TECHNIQUE: Gastric emptying scan was performed with the oral administration of 1.1 mCi Sulfur Colloid 99mTc MDP mixed with cooked solid meal. Delayed uptake images were obtained over the left upper quadrant for one half hours. FINDINGS: The radiotracer is displaced from the stomach to the small bowel. The half life (linear curve fit) of this process is 39.2 min (Midrange of normal: 88 min). There was 41 % gastric emptying within 29.5 minutes. There was 60 % gastric emptying within 59.5 minutes. There was no gastroesophageal reflux visualized during the time of this examination. NM/Gastric Emptying Study IMPRESSION: Unremarkable gastric emptying scan. Physiologic gastric emptying is demonstrated. NORMAL VALUES: The upper limits of normal for gastric retention is as follows (a greater value suggests abnormallydelayed gastric emptying): 1hour, 90% 2 hours, 60% 3 hours, 30% 4 hours, 10% The lower limits for gastric retention (a lower value suggests abnormally rapid gastric emptying): 0.5 hours, 70% 1 hour, 30% Delayed gastric retention is defined as: 90% retained at 1 hour, 60% at 2 hours. 30% at 3 hours. 10% at 4 hours. Early dumping begins concurrently within 15 to 30 minutes from ingestion of a meal. Late dumping happens one to three hours after eating. STANDARD REFERENCE DATA: At 60 minutes, the lower limit of normal is 18%, with mean emptying of 54%, upper limit of 70% (too rapid). At 90 minutes, the lower limit of normal is 46%, with mean emptying of 75%. At 120 minutes, The upper limit of normal is 90% (too rapid -> dumping syndrome). At 240 minutes, the lower limit of normal is 90-92%; less than 90% is delayed. Reading Location: [address] CC: Dr. Donny Jung MD ~ Bladder Changer: Signed [facility]03-06-2025 Radiology Diagnostic study note [facility] [address] [place] [id number] Chest PA and Lateral MR#: [id number] Acct: [id number] Name: LA[place] JACK[place] Rep #: [id number] : 1955 M 69 From: Nick Dubose MD PCP: Dr. Donny Jung MD Status: RE G CLI Study:Chest PA and Lateral Date of Exam: 11/11/24 Exam# [id number] Ordering Dr: Sangeeta Blake TAXI DRIVER TAXI DRIVER-C PROCEDURE: CHEST PA AND LATERAL REASON FOR EXAM: Congestion. TECHNIQUE: Frontal and lateral views of the chest. COMPARISON: Chest x-ray of 05/20/2023.. RAD/Chest PA and Lateral IMPRESSION: Mild thoracic spine degenerative changes are seen, along with DISH. The cardiomediastinal silhouette is stable, without evidence of cardiomegaly. Stable mild right hemidiaphragm elevation. Lungs appear clear of acute disease. No pleural effusion or pneumothorax is noted. Reading Location: [id number] CC: Sangeeta Blake; Dr. Donny Jung MD ~ Bladder Changer: Signed [facility]11-16-2022 Evaluation note* Diagnosis Onset Date Resolution Status History of coronary artery stent placement July 242021 acute Essential (primary) hypertension chronic Hyperlipidemia chronic CAD (coronary artery disease) chronic Essential (primary) hypertension chronic Hyperlipidemia chronic GERD (gastroesophageal reflux disease) chronic [facility] Work Phone: [phone]) 291-144911-16-2022 Evaluation note* Diagnosis Onset Date Resolution Status Admit Date History of coronary artery stent placement July 24, 2022 acute May 252024 10:30am Essential (primary) hypertension chronic May 25, 2025 10:30am Grade II diastolic dysfunction chronic May 25, 2025 10:30am Hyperlipidemia chronic May 25, 2025 10:30am [facility] Work Phone: Evaluation + Plan note No data available for this section [facility] Evaluation noteNo assessment information available [facility] Work Phone: evaluation note* Diagnosis Onset Date Resolution Status Abnormal stress test acute Bradycardia acute Fatigue acute Essential (primary) hypertension chronic GERD (gastroesophageal reflux disease) chronic Hyperlipidemia [facility] Work Phone: Evaluation note* Diagnosis Onset Date Resolution Status Abnormal stress test acute Bradycardia acute Fatigue acute Essential (primary) hypertension chronic GERD (gastroesophageal reflux disease) chronic Hyperlipidemia chronic History of coronary artery stent placement July, acute Essential (primary) hypertension chronic Hyperlipidemia [facility] Work Phone: Evaluation note* Diagnosis Onset Date Resolution Status Abnormal stress test acute Bradycardia acute Fatigue acute Essential (primary) hypertension chronic GERD (gastroesophageal reflux disease) chronic Hyperlipidemia chronic History of coronary artery stent placement July 242021 acute Essential (primary) hypertension chronic Hyperlipidemia chronic CAD (coronary artery disease) chronic Essential (primary) hypertension chronic Hyperlipidemia chronic [facility] Work Phone: Evaluation note* Diagnosis Onset Date Resolution Status CAD (coronary artery disease) chronic Essential (primary) hypertension chronic Hyperlipidemia chronic GERD (gastroesophageal reflux disease) chronic GERD (gastroesophageal reflux disease) chronic [facility] Work Phone: Evaluation note* Diagnosis Onset Date Resolution Status CAD (coronary artery disease) chronic Essential (primary) hypertension chronic Hyperlipidemia chronic Preoperative cardiovascular examination noneactive GERD (gastroesophageal reflux disease) [facility] Work Phone: Evaluation note* Diagnosis Onset Date Resolution Status GERD (gastroesophageal reflux disease) chronic Padmini esophagitis acute Hiatal hernia with gastroeso phageal reflux disease and esophagitis chronic [facility] Work Phone: Evaluation note* Diagnosis Onset Date Resolution Status CAD (coronary artery disease) chronic Essential (primary) hypertension chronic Hyperlipidemia [facility] Work Phone: Evaluation note* Diagnosis Onset Date Resolution Status Padmini esophagitis acute [facility] Work Phone: Hospital Discharge instructions No data available for this section [facility] Hospital Discharge instructions Additional Instructions Oxycodone for your neck pain. Prednisone daily for the next 7 days that may help with the pain and inflammation. 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 Call and follow-up with Dr. 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) Donny Jung MD Procedures MRI BRAIN BRAIN STEM W/O W/CONTRAST MATERIAL MRI WO LENIN B 300 ALL BasaliMeliton MD [address] [place] [id number] Phone: tel: fax: Radiology [address] [facility] [place] [address] Phone: tel: fax: Referral ID Status Reason Start Date Expiration Date Visits Re quested Visits Authorized [id number] Closed 01/05/2025 09/07/2025 1 1 [facility] for visit Narrative* Diagnostic Procedure Only (Routine) - Closed Specialty Diagnoses / Procedures Referred By Sara t Referred To Contact RADIO MRI [facility] Diagnoses Radiculopathy, cervical region M54.12 Procedures MRI CERVICAL SP W/O CONTRAST Meliton Ramírez MD [address] [place] [address] Phone: tel: fax: Radiology [address] [address] Phone: tel: fax: Referral ID Status Reason Start Date Expiration Date V isits Requested Visits Authorized [id number] Closed Patient Cleared - Admin/Chairm an/Director advise to proceed or did not respond 01/06/2025 09/07/2025 1 1 [facility] Advance Directives No Advanced Directives Records Found Advance Directive Response Recorded Date/ Time Living Will No May 01 1:40pm [employer] Manager No May 01 1:40pm Advance Directive Response Recorded Date/ Time Living Will No May 01 12:40pm [employer] Manager No May 01 12:40pm Advance Directive Response Recorded Date/ Time Advance Directives on File No 2021 8:03am Advance Directives No July 7:52am Living Will No July 24 7:52am [employer] Manager No July 24, 2022 7:52am Advance Directive Response Recorded Date/ Time Advance Directives on File No 2021 8:03am Advance Directives on File No [place] 2022 10:19am Advance Directives No July 7:52am Living Will No September 18 10:19am [employer] of [employer] Manager No September 18, 2022 10:19am Advance Directive Response Recorded Date/ Time Advance Directives on File No Novem shayna 2021 9:03am Advance Directives on File No 2022 11:19am Advance Directives No July 8:52am Living Will No September 18 11:19am [employer] Manager No September 18, 2022 11:19am Advance Directive Response Recorded Date/ Time Advance Directives on File No 2022 11:19am Advance Directives No July 8:52am Living Will No September 18 11:19am [employer] of [employer] Manager No September 18, 2022 11:19am Advance Directive Response Recorded Date/ Time Advance Directives No July 8:52am Living Will No September 18 11:19am [employer] of [employer] Manager No September 18, 2022 11:19am Advance Directive Response Recorded Date/ Time Advance Directives No July 7:52am Living Will No June 09 8:26am [employer] of [employer] Manager No June 09 8:26am Advance Directive Response Recorded Date/ Time Advance Directives No July 8:52am Living Will No June 09 9:26am [employer] of [employer] Division Manager No June 09 9:26am Advance Directive Response Recorded Date/ Time Advance Directives No July 7:52am Advance Directive Response Recorded Date/ Time Advance Directives No July 8:52am Advance Directive Response Recorded Date/ Time Living Will Yes December 27, 2024 10:42am Do you have a Healthcare Power of Renewable [employer] Division Manager? Yes December 27, 2024 10:42am Name of Medical Power of Renew[employer] Division Manager Lise Jackson December 27, 2024 10:42am Advance Directives No July 8:52am Chief Complaint and Reason for Visit Chief Complaint CHEST PAIN CHEST PAIN Amb Documentation Chief Complaint CHEST PAIN CHEST PAIN Amb Documentation ABN STRESS TEST (ERICH) e orders Reason for Visit Abnormal stress test Bradycardia Fatigue Essential (primary) hypertension GERD (gastroesophageal reflux disease) Hyperlipidemia Chief Complaint CHEST PAIN CHEST PAIN Amb Documentation ABN STRESS TEST (SCHINNER) e orders ABN STRESS TEST, CP ABN STRESS TEST, CP CP CP Reason for Visit Abnormal stress test Bradycardia Fatigue Essential (primary) hypertension GERD (gastroesophageal reflux disease) Hyperlipidemia Chief Complaint CHEST PAIN CHEST PAIN Amb Documentation ABN STRESS TEST (SCHINNER) e orders ABN STRESS TEST, CP ABN STRESS TEST, CP CP CP abn stress abn ct angio CAD Coronary artery disease Reason for Visit Abnormal stress test Bradycardia Fatigue Essential (primary) hypertension GERD (gastroesophageal reflux disease) Hyperlipidemia History of coronary artery stent placement Essential (primary) hypertension Hyperlipidemia Chief Complaint CHEST PAIN CHEST PAIN Amb Documentation ABN STRESS TEST (SCHINNER) e orders ABN STRESS TEST, CP ABN STRESS TEST, CP CP CP abn stress abn ct angio CAD Coronary artery disease 2 M FU E ORDERS Reason for Visit Abnormal stress test Bradycardia Fatigue Essential (primary) hypertension GERD (gastroesophageal reflux disease) Hyperlipidemia History of coronary artery stent placement Essential (primary) hypertension Hyperlipidemia CAD (coronary artery disease) Essential (primary) hypertension Hyperlipidemia Chief Complaint CHEST PAIN CHEST PAIN Amb Documentation ABN STRESS TEST (SCHINNER) e orders ABN STRESS TEST, CP ABN STRESS TEST, CP CP CP abn stress abn ct angio CAD Coronary artery disease 2 M FU E ORDERS Presence of coronary angioplasty implant & graft PCI with stent Reason for Visit Abnormal stress test Bradycardia Fatigue Essential (primary) hypertension GERD (gastroesophageal reflux disease) Hyperlipidemia History of coronary artery stent placement Essential (primary) hypertension Hyperlipidemia CAD (coronary artery disease) Essential (primary) hypertension Hyperlipidemia Chief Complaint Amb Documentation ABN STRESS TEST (SCHINNER) e orders ABN STRESS TEST, CP ABN STRESS TEST, CP CP CP abn stress abn ct angio CAD Coronary artery disease 2 M FU E ORDERS Presence of coronary angioplasty implant & graft PCI with stent Reason for Visit Abnormal stress test Bradycardia Fatigue Essential (primary) hypertension GERD (gastroesophageal reflux disease) Hyperlipidemia History of coronary artery stent placement Essential (primary) hypertension Hyperlipidemia CAD (coronary artery disease) Essential (primary) hypertension Hyperlipidemia Chief Complaint CP CP abn stress abn ct angio CAD Coronary artery disease 2 M FU E ORDERS Presence of coronary angioplasty implant & graft PCI with stent Blood Flow Screening - Johnnie PCI with stent DYSPEPSIA Reason for Visit History of coronary artery stent placement Essential (primary) hypertension Hyperlipidemia CAD (coronary artery disease) Essential (primary) hypertension Hyperlipidemia GERD (gastroesophageal reflux disease) Chief Complaint CP CP abn stress abn ct angio CAD Coronary artery disease 2 M FU E ORDERS Presence of coronary angioplasty implant & graft PCI with stent Blood Flow Screening - Johnnie PCI with stent DYSPEPSIA PCI with stent Reason for Visit History of coronary artery stent placement Essential (primary) hypertension Hyperlipidemia CAD (coronary artery disease) Essential (primary) hypertension Hyperlipidemia GERD (gastroesophageal reflux disease) Chief Complaint CAD Coronary artery disease 2 M FU E ORDERS Presence of coronary angioplasty implant & graft PCI with stent Blood Flow Screening - Johnnie PCI with stent DYSPEPSIA INT LABS PCI with stent Reason for Visit History of coronary artery stent placement Essential (primary) hypertension Hyperlipidemia CAD (coronary artery disease) Essential (primary) hypertension Hyperlipidemia GERD (gastroesophageal reflux disease) Chief Complaint 2 M FU E ORDERS Presence of coronary angioplasty implant & graft PCI with stent Blood Flow Screening - Johnnie PCI with stent DYSPEPSIA INT LABS PCI with stent DYSPEPSIA 11/04 Reason for Visit CAD (coronary artery disease) Essential (primary) hypertension Hyperlipidemia GERD (gastroesophageal reflux disease) GERD (gastroesophageal reflux disease) Chief Complaint 6 M FU BRONCHITIS CHRONIC BLOATING/EXTREME NAUSEA Reason for Visit CAD (coronary artery disease) Essential (primary) hypertension Hyperlipidemia Preoperative cardiovascular examination GERD (gastroesophageal reflux disease) Chief Complaint BRONCHITIS CHRONIC BLOATING/EXTREME NAUSEA UPPER SCOPE/FLUCONAZOLE F/U Reason for Visit GERD (gastroesophage al reflux disease) Padmini esophagitis Hiatal hernia with gastroesophageal reflux disease and esophagitis Chief Complaint 6 M FU Reason for Visit CAD (coronary artery disease) Essential (primary) hypertension Hyperlipidemia Chief Complaint UPPER SCOPE/FLUCONAZ OLE F/U Reason for Visit Padmini esophagitis Chief Complaint Admit Date Occlusion and stenosis of unspecified ca rotid rachael November 08, 2024 2:43pm Chief Complaint Admit Date Occlusion and stenosis of unspecified ca rotid rachael November 08, 2024 2:43pm RAD November 25, 2024 9:4 0am Chief Complaint Admit Date Occlusion and stenosis of unspecified ca rotid rachael November 08, 2024 2:43pm RAD November 25, 2024 9:4 0am CHEST SNIFF December 06, 2024 8:4 9am 6 M FU December 08, 2024 9:33 am Reason for Visit Admit Date CAD (coronary artery disease) December 08, 2024 9:33am Essential (primary) hypertension December 082024 9:33am Grade II diastolic dysfunction December 9:33am Hyperlipidemia December 08, 2024 9:33 am Chief Complaint Admit Date Occlusion and stenosis of unspecified ca rotid rachael November 08, 2024 2:43pm RAD November 25, 2024 9:4 0am CHEST SNIFF December 06, 2024 8:4 9am 6 M FU December 08, 2024 9:33 am neck pain December 27, 2024 10: 25am Chief Complaint Admit Date Occlusion and stenosis of unspecified ca rotid rachael November 08, 2024 2:43pm RAD November 25, 2024 9:4 0am CHEST SNIFF December 06, 2024 8:4 9am 6 M FU December 08, 2024 9:33 am neck pain December 27, 2024 10: 25am CAD/ASHD December 31, 2024 6:4 8am CAD/ASHD December 31, 2024 10: 24am Chief Complaint Admit Date Occlusion and stenosis of unspecified ca rotid rachael November 08, 2024 2:43pm RAD November 25, 2024 9:4 0am CHEST SNIFF December 06, 2024 8:4 9am 6 M FU December 08, 2024 9:33 am neck pain December 27, 2024 10: 25am CAD/ASHD December 31, 2024 6:4 8am CAD/ASHD December 31, 2024 10: 24am SOB January 28, 2025 3:05p m CERVICAL SPINE February 03, 2025 9:22a m Room 4 February 03, 2025 9:39a m Reason for Visit Admit Date CAD (coronary artery disease) December 08, 2024 9:33am Essential (primary) hypertension December 082024 9:33am Grade II diastolic dysfunction December 9:33am Hyperlipidemia December 08, 2024 9:33 am Cervical myelopathy February 03, 2025 9:22a m Spondylolisthesis of cervical region February 03, 2025 9:22am Chief Complaint Admit Date Occlusion and stenosis of unspecified ca rotid archael November 08, 2024 2:43pm RAD November 25, 2024 9:4 0am RAD November 25, 2024 9:4 9am CHEST SNIFF December 06, 2024 8:4 9am 6 M FU December 08, 2024 9:33 am neck pain December 27, 2024 10: 25am CAD/ASHD December 31, 2024 6:4 8am CAD/ASHD December 31, 2024 10: 24am SOB January 28, 2025 3:05p m CERVICAL SPINE February 03, 2025 9:22a m Room 4 February 03, 2025 9:39a m CKD February 24, 2025 8:44 am Chief Complaint Admit Date SOB January 28, 2025 3:05p m CERVICAL SPINE February 03, 2025 9:22a m Room 4 February 03, 2025 9:39a m CKD February 24, 2025 8:44 am 6 M FU May 25, 2025 10:30am Reason for Visit Admit Date Cervical myelopathy February 03, 2025 9:22a m Spondylolisthesis of cervical region February 03, 2025 9:22am History of coronary artery stent placeme nt May 25, 2025 10:30am Essential (primary) hypertension Sept[facility] er 2024 10:30am Grade II diastolic dysfunction May 25, 2025 10:30am Hyperlipidemia May 25, 2025 10:30am Chief Complaint Admit Date CKD February 24, 2025 8:44 am 6 M FU May 25, 2025 10:30am EORDERS June 02, 2025 10:11am Reason for Visit Admit Date History of coronary artery stent placeme nt May 25, 2025 10:30am [facility] 10:30am Grade II diastolic dysfunction May 25, 2025 10:30am Hyperlipidemia May 25, 2025 10:30am Summary Purpose Family History No Family History Records Found Additional Source Comments Goals (unrecognized section and content) Goals may be documented in a n alternate sectionGoals may be documented in an alternate sectionGoals may be documented in an alternate sectionGoals may be documented in an alternate sectionGoals may be documented in an alternate sectionGoals may be documented in an alternate sectionGoals may be documented in an alternate sectionGoals may be documented in an alternate section No data available for this sectionGoals may be documented in an alternate sectionGoals may be documented in an alternate sectionGoals may be documented in an alternate sectionGoals may be documented in an alternate sectionGoals may be documented in an alternate sectionGoals may be documented in an alternate sectionGoals may be documented in an alternate sectionGoals may be documented in an alternate sectionGoals may be documented in an alternate sectionGoals may be documented in an alternate sectionGoals may be documented in an alternate sectionGoals may be documented in an alternate sectionGoals may be documented in an alternate sectionGoals may be documented in an alternate sectionGoals may be documented in an alternate sectionGoals may be documented in an alternate sectionGoals may be documented in an alternate sectionGoals may be documented in an alternate section Care Teams (unrecognized sec tion and content) Team Status: Active Member Role Status Dates Dr. Donny Preston MD Family Provider Active Dr. Donny Jung MD Primary Care Provider Active Team Status: Active Member Role Status Dates Dr. Donny Jung MD Primary Care Pr ovider, Referring Provider, Other Provider Active Dr. Deepthi Jacobs MD Attending Provider Active Team Status: Inactive Member Role Status Dates Dr. Donny Jung MD Primary Care Provider, Referr ing Provider Active Dr. Deepthi Jacobs MD Attending Provider Active Team Status: Active Member Role Status Dates Dr. Donny Jung MD Primary Care Provider Active Dulce Allen Attending Provider Active Team Status: Active Member Role Status Dates Dr. Donny Jung MD Primary Care Provider Active Dr. Deepthi Jacobs MD Referring Provider, Other Provid er Active Dr. Surjit Cristobal MD Attending Provider Active Team Status: Active Member Role Status Dates Dr. Donny Jung MD Primary Care Provider Active Dr. Deepthi Jacobs MD Referring Provider, Other Provid er Active Dr. Maxi Cintron MD Attending Provider Active Team Status: Active Member Role Status Dates Dr. Donny Jung MD Primary Care Provider Active Dr. Deepthi Jacobs MD Attending Provider Active Team Status: Active Member Role Status Dates Dr. Donny Jung MD Primary Care Provider Active Dr. Deepthi Jacobs MD Referring Provider, Other Provid er Active Donny Ramirez TAXI DRIVER, TAXI DRIVER-C Attending Provider Active Team Status: Active Member Role Status Dates Dr. Donny Jung MD Primary Care Provider Active Dr. Deepthi Jacobs MD Admit Provider, At tending Provider, Referring Provider, Other Provider Active Team Status: Inactive Member Role Status Dates Dr. Donny Jung MD Primary Care Pr ovider, Attending Provider, Referring Provider Active Team Status: Inactive Member Role Status Dates Dr. Donny Jung MD Primary Care Provider Active Dr. Deepthi Jacobs MD Attending Provider, Referring Pr ovider Active Team Status: Inactive Member Role Status Dates Dr. Donny Jung MD Primary Care Provider Active Dr. Deepthi Jacobs MD Admit Provider, At tending Provider, Referring Provider Active Team Status: Active Member Role Status Dates Dr. Donny Jung MD Primary Care Provider Active Dr. Deepthi Jacobs MD Attending Provider, Referring Pr ovider Active Team Status: Inactive Member Role Status Dates Dr. Donny Jung MD Primary Care Provider Active Dr. Meliton Ramírez MD Attending Provider Active Team Status: Inactive Member Role Status Dates Dr. Donny Jung MD Primary Care Provider Active Dr. Deepthi Jacobs MD Attending Provider Active Team Status: Inactive Member Role Status Dates Dr. Donny Jung MD Primary Care Provider, Referr ing Provider Active Dr. Jose M Gross MD Attending Provider Active Team Status: Active Member Role Status Dates Dr. Donny Jung MD Primary Care Provider Active Dr. Ousmane Fink MD Attending Provider Active Team Status: Active Member Role Status Dates Dr. Donny Jung MD Primary Care Provider Active Self Referred Attending Provider, Referring Provider A ctive Team Status: Active Member Role Status Dates Dr. Donny Jung MD Primary Care Pr ovider, Attending Provider, Referring Provider Active Team Status: Inactive Member Role Status Dates Dr. Donny Jung MD Primary Care Provider, Attend ing Provider Active Team Status: Active Member Role Status Dates Dr. Donny Jung MD Primary Care Provider Active Dr. Jose M Gross MD Attending Pr ovider, Referring Provider, Other Provider Active Team Status: Inactive Member Role Status Dates Dr. Donny Jung MD Primary Care Provider Active Dr. Jose M Gross MD Attending Provider, Referr ing Provider Active Team Status: Inactive Member Role Status Dates Dr. Donny Jung MD Primary Care Provider Active Dr. Meliton Ramírez MD Attending Provider, Referring Pr ovider Active Team Status: Active Member Role Status Dates Dr. Donny Jung MD Primary Care Provider Active Team Status: Inactive Member Role Status Dates Dr. Donny Jung MD Primary Care Provider Active Start: October 29, 2024 End: October 29, 2024 Dr. Donny Jung MD Attending Provider Active Start: October 29, 2024 End: October 29, 2024 Dr. Donny Jung MD Referring Provider Active Start: October 29, 2024 End: October 29, 2024 Team Status: Active Member Role Status Dates Dr. Donny Jung MD Primary Care Provider Active Start: November 08, 2024 Dr. Donny Jung MD Attending Provider Active Start: November 08, 2024 Dr. Donny Jung MD Referring Provider Active Start: November 08, 2024 Team Status: Active Member Role Status Dates Dr. Donny Jung MD Primary Care Provider Active Start: November 08, 2024 Dr. Ousmane Fink MD Attending Provider Active S tart: November 08, 2024 Team Status: Inactive Member Role Status Dates Dr. Donny Jung MD Primary Care Provider Active Start: November 08, 2024 End: November 08, 2024 Dr. Donny Jung MD Attending Provider Active Start: November 08, 2024 End: November 08, 2024 Dr. Donny Jung MD Referring Provider Active Start: November 08, 2024 End: November 08, 2024 Team Status: Active Member Role Status Dates Dr. Donny Jung MD Primary Care Provider Active Start: November 08, 2024 Dr. Donny Jung MD Referring Provider Active Start: November 08, 2024 Dr. Ousmane Fink MD Attending Provider Active S tart: November 08, 2024 Team Status: Active Member Role Status Dates Dr. Donny Jung MD Primary Care Provider Active Start: November 11, 2024 Sangeeta Blake TAXI DRIVER, TAXI DRIVER-C Attending Provider Active Start: November 11, 2024 Sangeeta Blake TAXI DRIVER, TAXI DRIVER-C Referring Provider Active Start: November 11, 2024 Team Status: Inactive Member Role Status Dates Dr. Donny Jung MD Primary Care Provider Active Start: November 11, 2024 End: November 11, 2024 Sangeeta Blake TAXI DRIVER, TAXI DRIVER-C Attending Provider Active Start: November 11, 2024 End: November 11, 2024 Sangeeta Blake TAXI DRIVER, TAXI DRIVER-C Referring Provider Active Start: November 11, 2024 End: November 11, 2024 Team Status: Active Member Role Status Dates Dr. Donny Jung MD Primary Care Provider Active Start: November 25, 2024 Dr. Donny Jung MD Attending Provider Active Start: November 25, 2024 Dr. Donny Jung MD Referring Provider Active Start: November 25, 2024 Team Status: Inactive Member Role Status Dates Dr. Donny Jung MD Primary Care Provider Active Start: November 25, 2024 End: November 25, 2024 Dr. Donny Jung MD Attending Provider Active Start: November 25, 2024 End: November 25, 2024 Dr. Donny Jung MD Referring Provider Active Start: November 25, 2024 End: November 25, 2024 Team Status: Inactive Member Role Status Dates Dr. Donny Jung MD Primary Care Provider Active Start: December 06, 2024 End: December 06, 2024 Dr. Donny Jung MD Attending Provider Active Start: December 06, 2024 End: December 06, 2024 Dr. Donny Jung MD Referring Provider Active Start: December 06, 2024 End: December 06, 2024 Team Status: Inactive Member Role Status Dates Dr. Donny Jung MD Primary Care Provider Active Start: December 08, 2024 End: December 08, 2024 Dr. Donny Jung MD Referring Provider Active Start: December 08, 2024 End: December 08, 2024 Dr. Deepthi Jacobs MD Attending Provider Active Start: December 08, 2024 End: December 08, 2024 Team Status: Inactive Member Role Status Dates Dr. Donny Jung MD Primary Care Provider Active Start: December 27, 2024 End: December 27, 2024 Dr. Sly Carr MD Emergency Provider Active S tart: December 27, 2024 End: December 27, 2024 Team Status: Inactive Member Role Status Dates Dr. Donny Jung MD Primary Care Provider Active Start: December 27, 2024 End: December 27, 2024 Dr. Sly Carr MD Attending Provider Active S tart: December 27, 2024 End: December 27, 2024 Dr. Sly Carr MD Emergency Provider Active S tart: December 27, 2024 End: December 27, 2024 Team Status: Inactive Member Role Status Dates Dr. Donny Jung MD Primary Care Provider Active Start: December 31, 2024 End: December 31, 2024 Dr. Deepthi Jacobs MD Attending Provider Active Start: December 31, 2024 End: December 31, 2024 Dr. Deepthi Jacobs MD Referring Provider Active Start: December 31, 2024 End: December 31, 2024 Team Status: Active Member Role Status Dates Dr. Donny Jung MD Primary Care Provider Active Start: December 31, 2024 Dr. Deepthi Jacobs MD Attending Provider Active Start: December 31, 2024 Dr. Deepthi Jacobs MD Referring Provider Active Start: December 31, 2024 Dr. Deepthi Jacobs MD Other Provider Active Star t: December 31, 2024 Team Status: Active Member Role Status Dates Dr. Donny Jung MD Primary Care Provider Active Start: January 28, 2025 Dr. Donny Jung MD Attending Provider Active Start: January 28, 2025 Dr. Donny Jung MD Referring Provider Active Start: January 28, 2025 Team Status: Active Member Role Status Dates Dr. Donny Jung MD Primary Care Provider Active Start: February 02, 2025 Dr. Lake Storm MD Attending Provider Active Start: February 02, 2025 Dr. Lake Storm MD Referring Provider Active Start: February 02, 2025 Team Status: Active Member Role Status Dates Dr. Donny Jung MD Primary Care Provider Active Start: February 03, 2025 Dr. Donny Jung MD Referring Provider Active Start: February 03, 2025 Dr. Bryn Almeida MD Attending Provider Active Start: February 03, 2025 Team Status: Inactive Member Role Status Dates Dr. Donny Jung MD Primary Care Provider Active Start: February 03, 2025 End: February 03, 2025 Dr. Maxi Cintron MD Attending Provider Active S tart: February 03, 2025 End: February 03, 2025 Team Status: Inactive Member Role Status Dates Dr. Donny Jung MD Primary Care Provider Active Start: February 03, 2025 End: February 03, 2025 Dr. Donny Jung MD Referring Provider Active Start: February 03, 2025 End: February 03, 2025 Dr. Bryn Almeida MD Attending Provider Active Start: February 03, 2025 End: February 03, 2025 Team Status: Inactive Member Role Status Dates Dr. Donny Jung MD Primary Care Provider Active Start: January 28, 2025 End: January 28, 2025 Dr. Donny Jung MD Attending Provider Active Start: January 28, 2025 End: January 28, 2025 Dr. Donny Jung MD Referring Provider Active Start: January 28, 2025 End: January 28, 2025 Team Status: Inactive Member Role Status Dates Dr. Donny Jung MD Primary Care Provider Active Start: February 02, 2025 End: February 02, 2025 Dr. Lake Storm MD Attending Provider Active Start: February 02, 2025 End: February 02, 2025 Dr. Lake Storm MD Referring Provider Active Start: February 02, 2025 End: February 02, 2025 Team Status: Inactive Member Role Status Dates Dr. Donny Jung MD Primary Care Provider Active Start: February 09, 2025 End: February 09, 2025 Dr. Donny Jung MD Attending Provider Active Start: February 09, 2025 End: February 09, 2025 Dr. Donny Jung MD Referring Provider Active Start: February 09, 2025 End: February 09, 2025 Team Status: Active Member Role Status Dates Dr. Donny Jung MD Primary Care Provider Active Start: February 14, 2025 Dr. Donny Jung MD Attending Provider Active Start: February 14, 2025 Dr. Donny Jung MD Referring Provider Active Start: February 14, 2025 Team Status: Inactive Member Role Status Dates Dr. Donny Jung MD Primary Care Provider Active Start: February 14, 2025 End: February 14, 2025 Dr. Donny Jung MD Attending Provider Active Start: February 14, 2025 End: February 14, 2025 Dr. Donny Jung MD Referring Provider Active Start: February 14, 2025 End: February 14, 2025 Team Status: Active Member Role Status Dates Dr. Donny Jung MD Primary Care Provider Active Start: November 25, 2024 Dr. Donny Jung MD Referring Provider Active Start: November 25, 2024 Dr. Stephan Brito DO Attending Provider Active S tart: November 25, 2024 Team Status: Inactive Member Role Status Dates Dr. Donny Jung MD Primary Care Provider Active Start: February 24, 2025 End: February 24, 2025 Dr. Donny Jung MD Attending Provider Active Start: February 24, 2025 End: February 24, 2025 Dr. Donny Jung MD Referring Provider Active Start: February 24, 2025 End: February 24, 2025 Team Status: Active Member Role Status Dates Dr. Donny Jung MD Primary Care Provider Active Start: February 24, 2025 Dr. Ousmane Fink MD Attending Provider Active S tart: February 24, 2025 Team Status: Active Member Role/Relationship Status Dates Dr. Donny Jung MD Primary care physician Active Team Status: Inactive Member Role/Relationship Status Dates Dr. Donny Jung MD Primary care physician Active Start: January 28, 2025 End: January 28, 2025 Dr. Donny Jung MD Attending physician Active Start: January 28, 2025 End: January 28, 2025 Dr. Donny Jung MD Referring Provider Active Start: January 28, 2025 End: January 28, 2025 Team Status: Inactive Member Role/Relationship Status Dates Dr. Donny Jung MD Primary care physician Active Start: February 02, 2025 End: February 02, 2025 Dr. Lake Storm MD Attending physician Active Start: February 02, 2025 End: February 02, 2025 Dr. Lake Storm MD Referring Provider Active Start: February 02, 2025 End: February 02, 2025 Team Status: Inactive Member Role/Relationship Status Dates Dr. oDnny Jung MD Primary care physician Active Start: February 03, 2025 End: February 03, 2025 Dr. Donny Jung MD Referring Provider Active Start: February 03, 2025 End: February 03, 2025 Dr. Bryn Almeida MD Attending physician Active Start: February 03, 2025 End: February 03, 2025 Team Status: Inactive Member Role/Relationship Status Dates Dr. Donny Jung MD Primary care physician Active Start: February 03, 2025 End: February 03, 2025 Dr. Maxi Cintron MD Attending physician Active Start: February 03, 2025 End: February 03, 2025 Team Status: Inactive Member Role/Relationship Status Dates Dr. Donny Jung MD Primary care physician Active Start: February 09, 2025 End: February 09, 2025 Dr. Donny Jung MD Attending physician Active Start: February 09, 2025 End: February 09, 2025 Dr. Donny Jung MD Referring Provider Active Start: February 09, 2025 End: February 09, 2025 Team Status: Inactive Member Role/Relationship Status Dates Dr. Donny Jung MD Primary care physician Active Start: February 14, 2025 End: February 14, 2025 Dr. Donny Jung MD Attending physician Active Start: February 14, 2025 End: February 14, 2025 Dr. Donny Jung MD Referring Provider Active Start: February 14, 2025 End: February 14, 2025 Team Status: Inactive Member Role/Relationship Status Dates Dr. Donny Jung MD Primary care physician Active Start: February 24, 2025 End: February 24, 2025 Dr. Donny Jung MD Attending physician Active Start: February 24, 2025 End: February 24, 2025 Dr. Donny Jung MD Referring Provider Active Start: February 24, 2025 End: February 24, 2025 Team Status: Active Member Role/Relationship Status Dates Dr. Donny Jung MD Primary care physician Active Start: February 24, 2025 Dr. Donny Jung MD Referring Provider Active Start: February 24, 2025 Dr. Ousmane Fink MD Attending physician Active Start: February 24, 2025 Team Status: Inactive Member Role/Relationship Status Dates Dr. Donny Jung MD Primary care physician Active Start: May 25, 2025 End: May 25, 2025 Dr. Donny Jung MD Referring Provider Active Start: May 25, 2025 End: May 25, 2025 Donny Ramirez NP TAXI DRIVER-C Attending physician Active Start: May 25, 2025 End: May 25, 2025 Team Status: Inactive Member Role/Relationship Status Dates Dr. Donny Jung MD Primary care physician Active Start: February 14, 2025 End: February 14, 2025 Dr. Donny Jung MD Attending physician Active Start: February 14, 2025 End: February 14, 2025 Dr. Donny Jung MD Referring Provider Active Start: February 14, 2025 End: February 14, 2025 Team Status: Inactive Member Role/Relationship Status Dates Dr. Donny Jung MD Primary care physician Active Start: February 24, 2025 End: February 24, 2025 Dr. Donny Jung MD Attending physician Active Start: February 24, 2025 End: February 24, 2025 Dr. Donny Jung MD Referring Provider Active Start: February 24, 2025 End: February 24, 2025 Team Status: Active Member Role/Relationship Status Dates Dr. Donny Jung MD Primary care physician Active Start: February 24, 2025 Dr. Donny Jung MD Referring Provider Active Start: February 24, 2025 Dr. Ousmane Fink MD Attending physician Active Start: February 24, 2025 Team Status: Inactive Member Role/Relationship Status Dates Dr. Donny Jung MD Primary care physician Active Start: May 25, 2025 End: May 25, 2025 Dr. Donny Jung MD Referring Provider Active Start: May 25, 2025 End: May 25, 2025 Donny Ramirez NP TAXI DRIVER-C Attending physician Active Start: May 25, 2025 End: May 25, 2025 Team Status: Inactive Member Role/Relationship Status Dates Dr. Donny Jung MD Primary care physician Active Start: June 02, 2025 End: June 02, 2025 Donny Ramirez NP TAXI DRIVER-C Attending physician Active Start: June 02, 2025 End: June 02, 2025 Donny Ramirez NP TAXI DRIVER-C Referring Provider Active S tart: June 02, 2025 End: June 02, 2025 (unrecognized sect ion and content) No Status Records FoundNo Status Records FoundNo Status Records Found INFORMATION SOURCE (unrecogn ized section and content) DATE CREATED AUTHOR 04/04/2023 [facility] ([place]) DATE CREATED AUTHOR AUTHOR'S ORGANIZ ATION 01/12/2025 [facility] DATE CREATED AUTHOR AUTHOR'S ORGANIZ ATION 06/16/2025 [facility] Source Comments (unrecognize d section and content) In the event this informatio n is protected by the Federal Confidentiality of Alcohol and Drug Abuse Patient Records regulations: The Federal rules restrict any use of the information to criminally investigate or prosecute any alcohol or drug abuse patient.[facility] FOR RECORDS PERTAINING TO PATIENTS WHO ARE [...] BE BASED ON THE PRIMARY CLINICAL RECORDS. [employer] [facility]. provides no warranty or guarantee of the accuracy or completeness of information in this document.
== END | disposition home or self-care (01) ==
LOC: MTLAB 10:36
PROVIDERS: PCP Family Medicine; Referring Provider Nurse Practitioner Family; Visit Provider Nurse Practitioner Family
DX: E78.5 Hyperlipidemia, unspecified (principal); I25.118 Atherosclerotic heart disease of native coronary artery with other forms of angina pectoris
CPT/HCPCS: 36415; 80061; 80076

== ENCOUNTER → 2025-08-29 | Outpatient (CLI) | payer MEDICARE, SELFPAY ==
[2022-11-15 10:28] VITALS: BMI 23.1
[2025-08-29 13:09] LABS: PSA,Total - Annual Screen 0.70 ng/mL (0.02-4.00)
== END | disposition home or self-care (01) ==
LOC: LAB 11:14
PROVIDERS: PCP Family Medicine; Referring Provider Nurse Practitioner; Visit Provider Nurse Practitioner
DX: Z12.5 Encounter for screening for malignant neoplasm of prostate (principal)
CPT/HCPCS: 36415; 84153; G0103